=== PATIENT | male | born 1955 | race Two or more races ===

== ENCOUNTER 2020-08-23 17:00 | Inpatient (IN) | payer MEDICAID ==
[~2020-08-23] VITALS: Ht 172.7 cm; Wt 210.9 kg
[~2020-08-23 17:00] MED LIST: ASPI325T4 PO; BISA-13 PO; FURO20TA3 PO; LEV50T PO
[2020-08-23] MEDS ORDERED: ALBUTEROL SULF 2.5 MG/0.5ML(0.5%) NEB SOLN NEB ONE (18:15)
[2020-08-23] MEDS ORDERED: IPRATROPIUM BROM 0.5 MG/2.5ML INH SOL NEB ONE (18:15)
[2020-08-23] MEDS ORDERED: FUROSEMIDE 20 MG/2 ML VIAL IV ONE (18:45)
[2020-08-23 19:06] LABS: Albumin 2.9 g/dL (3.4-5.0); Anion Gap 1 (5-15); Blood Urea Nitrogen 27 mg/dL (7-18); Calcium 7.9 mg/dL (8.5-10.1); Chloride 98 mmol/L (98-107); Glucose 102 mg/dL (74-106); Magnesium 2.1 mg/dL (1.6-2.6); Potassium 4.4 mmol/L (3.5-5.1); Sodium 142 mmol/L (136-145)
[2020-08-23 19:07] LABS: Basophils # (auto) 0 10 ^3/uL (0-0.2); Basophils % (auto) 0.3 % (0.0-2.0); Eosinophils # (auto) 0.2 10 ^3/uL (0-0.8); Eosinophils % (auto) 3.3 % (0.0-7.0); Hematocrit 36.4 % (41.0-53.0); Hemoglobin 11.3 g/dL (13.5-17.5); Lymphocytes # (auto) 0.6 10 ^3/uL (0.4-5.4); Lymphocytes % (auto) 9.7 % (10.0-50.0); Mean Corpuscular Hemoglobin 28.3 pg (28.0-32.0); Mean Corpuscular Hgb Conc. 31.1 g/dL (32.0-36.0); Monocytes # (auto) 0.4 10 ^3/uL (0-1.3); Monocytes % (auto) 6.5 % (0.0-12.0); Neutrophils # (auto) 5.2 10 ^3/uL (1.6-8.6); Neutrophils % (auto) 80.2 % (37.0-80.0); Red Cell Distribution Width 15.4 % (11.8-14.3); White Blood Cell 6.5 10^3/uL (4.4-10.8)
[2020-08-23 19:08] LABS: Alanine Aminotransferase 17 U/L (16-61); Aspartate Aminotransferase 15 U/L (15-37); BUN/Creatinine Ratio 20.1; GFR African American 69 mL/min; GFR Non-African American 57 mL/min
[2020-08-23 19:13] LABS: Alkaline Phosphatase 87 U/L (45-117); Bilirubin, Total 0.5 mg/dL (0.2-1.0)
[2020-08-23 19:25] LABS: Carbon Dioxide 43 mmol/L (21-32)
[2020-08-23 20:20] VITALS: BP 144/85
[2020-08-23] MEDS ORDERED: MORPHINE SULF INJ 2 MG/ML SYRINGE 1ML IV PRN (22:00)
[2020-08-23] MEDS ORDERED: DOCUSATE SOD 100 MG CAP PO PRN (22:00)
[2020-08-23] MEDS ORDERED: NITROGLYCERIN 0.4 MG SL TAB SL PRN (22:00)
[2020-08-23] MEDS: FAMOTIDINE (10MG/ML) 2ML VL IV SCH (22:36)
[2020-08-23] MEDS: methylPREDNISolone SOD SUCC 40 MG/ML VL IV SCH (22:36)
[2020-08-23] MEDS: ASCORBIC ACID 500 MG TAB PO SCH (22:36)
[2020-08-23] MEDS: HEPARIN SODIUM (PORCINE) 5000 UNITS/ML 1ML VIAL SC SCH (22:40)
[2020-08-23 23:20] VITALS: BP 150/85
[2020-08-24] MEDS ORDERED: IPRIH IN (00:51)
[2020-08-24] MEDS ORDERED: POTA10TA32 PO (01:21)
[2020-08-24] MEDS ORDERED: FEXO-38 PO (01:21)
[2020-08-24] MEDS ORDERED: ATO40T PO (01:21)
[2020-08-24] MEDS ORDERED: DOCU1CAP31 PO (01:21)
[2020-08-24] MEDS ORDERED: POTA10TA51 PO (01:21)
[2020-08-24] MEDS ORDERED: IBUP800T27 PO (01:21)
[2020-08-24] MEDS ORDERED: FLU220IH INH (01:21)
[2020-08-24] MEDS ORDERED: HYDR10TA26 PO (01:21)
[2020-08-24] MEDS ORDERED: ALBU2TAB4 PO (01:21)
[2020-08-24] MEDS: IPRATROPIUM BROM 0.5 MG/2.5ML INH SOL NEB SCH ×6 (01:26→21:11)
[2020-08-24] MEDS: ALBUTEROL SULF 2.5 MG/0.5ML(0.5%) NEB SOLN NEB SCH ×6 (01:27→21:10)
[2020-08-24 02:56] VITALS: BP 150/85
[2020-08-24 05:00] VITALS: BP 137/71
[2020-08-24 06:00] LABS: Hematocrit 38.7 % (41.0-53.0); Hemoglobin 12.2 g/dL (13.5-17.5); Mean Corpuscular Hemoglobin 28.5 pg (28.0-32.0); Mean Corpuscular Hgb Conc. 31.5 g/dL (32.0-36.0); Mean Corpuscular Volume 90.5 fL (80.0-100.0); Red Blood Cells 4.27 10^6/uL (4.5-5.90); Red Cell Distribution Width 15.6 % (11.8-14.3); White Blood Cell 7.8 10^3/uL (4.4-10.8)
[2020-08-24 06:07] LABS: Basophils % (manual) 0 (0.0-2.0); Blast Cells 0; Eosinophils % (manual) 0 (0-7); Metamyelocytes % 0; Myelocytes % 0; Promyelocytes % 0; Reactive Lymphocytes 0
[2020-08-24 06:09] LABS: Potassium 4.6 mmol/L (3.5-5.1)
[2020-08-24 06:17] LABS: Albumin 2.8 g/dL (3.4-5.0); BUN/Creatinine Ratio 22.3; Bilirubin, Total 0.4 mg/dL (0.2-1.0); Calcium 8.1 mg/dL (8.5-10.1)
[2020-08-24] MEDS: HEPARIN SODIUM (PORCINE) 5000 UNITS/ML 1ML VIAL SC SCH ×3 (06:25→22:04)
[2020-08-24] MEDS: methylPREDNISolone SOD SUCC 40 MG/ML VL IV SCH ×3 (06:25→21:55)
[2020-08-24 06:53] LABS: Band Neutrophils % (manual) 6; Lymphocytes % (manual) 14 (10.0-50.0); Monocytes % (manual) 3 (0-12)
[2020-08-24] MEDS: LEVOTHYROXINE SODIUM 50 MCG TAB PO SCH (07:12)
[2020-08-24 09:00] VITALS: BP 123/74
[2020-08-24] MEDS: ASCORBIC ACID 500 MG TAB PO SCH ×2 (10:05→21:55)
[2020-08-24] MEDS: FAMOTIDINE (10MG/ML) 2ML VL IV SCH ×2 (10:05→21:54)
[2020-08-24] MEDS: FUROSEMIDE 40 MG/4 ML VIAL IV SCH (10:05)
[2020-08-24] MEDS: ZINC SULFATE 220mg CAP or TAB PO SCH (10:05)
[2020-08-24] MEDS: MULTIPLE VITAMIN TAB PO SCH (10:05)
[2020-08-24] MEDS: AZITHROMYCIN 250 MG TAB PO SCH (12:01)
[2020-08-24 13:00] VITALS: BP 135/71
[2020-08-24 17:00] VITALS: BP 151/71
[2020-08-25 05:00] VITALS: BP 150/76
[2020-08-25] MEDS: methylPREDNISolone SOD SUCC 40 MG/ML VL IV SCH ×3 (06:40→22:10)
[2020-08-25] MEDS: LEVOTHYROXINE SODIUM 50 MCG TAB PO SCH (06:41)
[2020-08-25] MEDS: HEPARIN SODIUM (PORCINE) 5000 UNITS/ML 1ML VIAL SC SCH ×3 (06:41→22:11)
[2020-08-25] MEDS: IPRATROPIUM BROM 0.5 MG/2.5ML INH SOL NEB SCH ×5 (06:42→22:18)
[2020-08-25] MEDS: ALBUTEROL SULF 2.5 MG/0.5ML(0.5%) NEB SOLN NEB SCH ×5 (06:42→22:18)
[2020-08-25 09:00] VITALS: BP 146/80
[2020-08-25] MEDS: FAMOTIDINE (10MG/ML) 2ML VL IV SCH ×2 (10:34→22:09)
[2020-08-25] MEDS: FUROSEMIDE 40 MG/4 ML VIAL IV SCH (10:34)
[2020-08-25] MEDS: MULTIPLE VITAMIN TAB PO SCH (10:35)
[2020-08-25] MEDS: ASCORBIC ACID 500 MG TAB PO SCH ×2 (10:35→22:10)
[2020-08-25] MEDS: ZINC SULFATE 220mg CAP or TAB PO SCH (10:35)
[2020-08-25] MEDS: AZITHROMYCIN 250 MG TAB PO SCH (10:35)
[2020-08-25 13:00] VITALS: BP 138/70
[2020-08-25] MEDS: ONDANSETRON HCL 4 MG/2 ML VIAL IV PRN ×2 (13:35→22:10)
[2020-08-25 16:52] VITALS: BP 129/65
[2020-08-25 22:00] VITALS: BP 132/80
[2020-08-25] MEDS: ACETAMINOPHEN 325 MG TAB PO PRN (22:20)
[2020-08-26 05:00] VITALS: BP 118/69
[2020-08-26] MEDS: IPRATROPIUM BROM 0.5 MG/2.5ML INH SOL NEB SCH ×5 (05:58→21:49)
[2020-08-26] MEDS: ALBUTEROL SULF 2.5 MG/0.5ML(0.5%) NEB SOLN NEB SCH ×5 (05:58→21:49)
[2020-08-26] MEDS: methylPREDNISolone SOD SUCC 40 MG/ML VL IV SCH ×3 (06:29→22:02)
[2020-08-26] MEDS: LEVOTHYROXINE SODIUM 50 MCG TAB PO SCH (06:30)
[2020-08-26] MEDS: HEPARIN SODIUM (PORCINE) 5000 UNITS/ML 1ML VIAL SC SCH ×3 (06:30→22:07)
[2020-08-26 08:56] VITALS: BP 129/68
[2020-08-26] MEDS: ZINC SULFATE 220mg CAP or TAB PO SCH (10:26)
[2020-08-26] MEDS: AZITHROMYCIN 250 MG TAB PO SCH (10:26)
[2020-08-26] MEDS: ASCORBIC ACID 500 MG TAB PO SCH ×2 (10:26→22:02)
[2020-08-26] MEDS: MULTIPLE VITAMIN TAB PO SCH (10:26)
[2020-08-26] MEDS: FAMOTIDINE (10MG/ML) 2ML VL IV SCH ×2 (10:27→22:02)
[2020-08-26] MEDS: FUROSEMIDE 40 MG/4 ML VIAL IV SCH (10:32)
[2020-08-26] MEDS: ACETAMINOPHEN 325 MG TAB PO PRN (10:34)
[2020-08-26] MEDS: HYDROcodone-ACET 5/325MG TAB PO PRN ×2 (11:18→20:25)
[2020-08-26 13:00] VITALS: BP 133/62
[2020-08-26 17:00] VITALS: BP 130/84
[2020-08-26] MEDS: ONDANSETRON HCL 4 MG/2 ML VIAL IV PRN (20:24)
[2020-08-26 21:02] VITALS: BP 130/84
[2020-08-26 22:00] VITALS: BP 149/68
[2020-08-27] MEDS: ONDANSETRON HCL 4 MG/2 ML VIAL IV PRN (00:24)
[2020-08-27 05:30] VITALS: BP 141/75
[2020-08-27] MEDS: LEVOTHYROXINE SODIUM 50 MCG TAB PO SCH (05:50)
[2020-08-27] MEDS: methylPREDNISolone SOD SUCC 40 MG/ML VL IV SCH ×3 (05:50→21:40)
[2020-08-27] MEDS: HEPARIN SODIUM (PORCINE) 5000 UNITS/ML 1ML VIAL SC SCH ×3 (05:51→21:41)
[2020-08-27] MEDS: ALBUTEROL SULF 2.5 MG/0.5ML(0.5%) NEB SOLN NEB SCH ×5 (06:37→22:14)
[2020-08-27] MEDS: IPRATROPIUM BROM 0.5 MG/2.5ML INH SOL NEB SCH ×5 (06:37→22:14)
[2020-08-27 09:00] VITALS: BP 139/67
[2020-08-27] MEDS: AZITHROMYCIN 250 MG TAB PO SCH (09:07)
[2020-08-27] MEDS: ZINC SULFATE 220mg CAP or TAB PO SCH (09:07)
[2020-08-27] MEDS: FUROSEMIDE 40 MG/4 ML VIAL IV SCH (09:07)
[2020-08-27] MEDS: ASCORBIC ACID 500 MG TAB PO SCH ×2 (09:07→21:40)
[2020-08-27] MEDS: FAMOTIDINE (10MG/ML) 2ML VL IV SCH ×2 (09:07→21:40)
[2020-08-27] MEDS: MULTIPLE VITAMIN TAB PO SCH (09:07)
[2020-08-27 09:09] LABS: Basophils # (auto) 0 10 ^3/uL (0-0.2); Basophils % (auto) 0.4 % (0.0-2.0); Eosinophils # (auto) 0 10 ^3/uL (0-0.8); Eosinophils % (auto) 0.1 % (0.0-7.0); Hematocrit 39.7 % (41.0-53.0); Hemoglobin 12.3 g/dL (13.5-17.5); Lymphocytes # (auto) 0.4 10 ^3/uL (0.4-5.4); Lymphocytes % (auto) 5.8 % (10.0-50.0); Mean Corpuscular Hemoglobin 28.3 pg (28.0-32.0); Mean Corpuscular Hgb Conc. 31.1 g/dL (32.0-36.0); Monocytes # (auto) 0.4 10 ^3/uL (0-1.3); Monocytes % (auto) 5.7 % (0.0-12.0); Neutrophils # (auto) 5.9 10 ^3/uL (1.6-8.6); Nucleated Red Blood Cells % 0.1 %; Red Blood Cells 4.36 10^6/uL (4.5-5.90); Red Cell Distribution Width 14.6 % (11.8-14.3); White Blood Cell 6.7 10^3/uL (4.4-10.8)
[2020-08-27 09:28] LABS: Albumin 2.9 g/dL (3.4-5.0); Calcium 8.5 mg/dL (8.5-10.1); Magnesium 2.7 mg/dL (1.6-2.6); Potassium 5.3 mmol/L (3.5-5.1)
[2020-08-27 09:31] LABS: BUN/Creatinine Ratio 28.5; Bilirubin, Total 0.6 mg/dL (0.2-1.0); Phosphorus 3.9 mg/dL (2.5-4.90); Total Protein 8.4 g/dL (6.4-8.2)
[2020-08-27 13:00] VITALS: BP 139/71
[2020-08-27 16:52] VITALS: BP 150/66
[2020-08-27 22:00] VITALS: BP 141/68
[2020-08-28 05:09] VITALS: BP 121/71
[2020-08-28] MEDS: HEPARIN SODIUM (PORCINE) 5000 UNITS/ML 1ML VIAL SC SCH ×3 (06:49→21:38)
[2020-08-28] MEDS: LEVOTHYROXINE SODIUM 50 MCG TAB PO SCH (06:49)
[2020-08-28] MEDS: ALBUTEROL SULF 2.5 MG/0.5ML(0.5%) NEB SOLN NEB SCH ×5 (07:12→22:45)
[2020-08-28] MEDS: IPRATROPIUM BROM 0.5 MG/2.5ML INH SOL NEB SCH ×5 (07:12→22:45)
[2020-08-28] MEDS: ASCORBIC ACID 500 MG TAB PO SCH ×2 (09:06→21:37)
[2020-08-28] MEDS: ZINC SULFATE 220mg CAP or TAB PO SCH (09:06)
[2020-08-28] MEDS: MULTIPLE VITAMIN TAB PO SCH (09:06)
[2020-08-28] MEDS: methylPREDNISolone SOD SUCC 40 MG/ML VL IV SCH ×2 (09:09→21:37)
[2020-08-28] MEDS: FAMOTIDINE (10MG/ML) 2ML VL IV SCH ×2 (09:09→21:37)
[2020-08-28] MEDS: FUROSEMIDE 40 MG/4 ML VIAL IV SCH (09:11)
[2020-08-28 11:49] LABS: Albumin 2.8 g/dL (3.4-5.0); Calcium 8.6 mg/dL (8.5-10.1); Potassium 4.6 mmol/L (3.5-5.1)
[2020-08-28 11:52] LABS: BUN/Creatinine Ratio 34.2; Bilirubin, Total 0.5 mg/dL (0.2-1.0); Total Protein 7.8 g/dL (6.4-8.2)
[2020-08-28 12:44] VITALS: BP 123/68
[2020-08-28 16:40] VITALS: BP 116/66
[2020-08-28 21:30] VITALS: BP 142/70
[2020-08-29 05:30] VITALS: BP 131/95
[2020-08-29] MEDS: ALBUTEROL SULF 2.5 MG/0.5ML(0.5%) NEB SOLN NEB SCH ×3 (06:06→18:41)
[2020-08-29] MEDS: IPRATROPIUM BROM 0.5 MG/2.5ML INH SOL NEB SCH ×3 (06:06→18:41)
[2020-08-29 06:10] LABS: Potassium 4.8 mmol/L (3.5-5.1)
[2020-08-29 06:17] LABS: Albumin 2.7 g/dL (3.4-5.0); BUN/Creatinine Ratio 34.7; Bilirubin, Total 0.6 mg/dL (0.2-1.0); Calcium 8.3 mg/dL (8.5-10.1); Total Protein 7.4 g/dL (6.4-8.2)
[2020-08-29] MEDS: HEPARIN SODIUM (PORCINE) 5000 UNITS/ML 1ML VIAL SC SCH ×2 (06:34→18:10)
[2020-08-29] MEDS: LEVOTHYROXINE SODIUM 50 MCG TAB PO SCH (06:34)
[2020-08-29 08:00] VITALS: BP 137/77
[2020-08-29 09:00] VITALS: BP 137/77
[2020-08-29] MEDS: ZINC SULFATE 220mg CAP or TAB PO SCH (10:02)
[2020-08-29] MEDS: methylPREDNISolone SOD SUCC 40 MG/ML VL IV SCH (10:02)
[2020-08-29] MEDS: FAMOTIDINE (10MG/ML) 2ML VL IV SCH (10:03)
[2020-08-29] MEDS: MULTIPLE VITAMIN TAB PO SCH (10:03)
[2020-08-29] MEDS: ASCORBIC ACID 500 MG TAB PO SCH (10:03)
[2020-08-29] MEDS: FUROSEMIDE 40 MG/4 ML VIAL IV SCH (10:03)
[2020-08-29 13:00] VITALS: BP 148/85
[2020-08-29 17:00] VITALS: BP 125/75
[2020-08-29 18:20] VITALS: BP 157/77
== END 2020-08-29 19:07 | disposition home health service (06) | DRG 133 ==
LOC: ER 17:00 → EDBD 17:00 → TELE-WESTW 22:11
PROVIDERS: ADMIT Nurse Practitioner Family; ATTEND Internal Medicine
PROC: 5A09357 Assistance with Respiratory Ventilation, Less than 24 Consecutive Hours, Continuous Positive Airway Pressure (ICD-10-PCS; principal; 2020-08-23)
PROC: 5A09357 Assistance with Respiratory Ventilation, Less than 24 Consecutive Hours, Continuous Positive Airway Pressure (ICD-10-PCS; 2020-08-24)
PROC: 5A09357 Assistance with Respiratory Ventilation, Less than 24 Consecutive Hours, Continuous Positive Airway Pressure (ICD-10-PCS; 2020-08-25)
PROC: 5A09357 Assistance with Respiratory Ventilation, Less than 24 Consecutive Hours, Continuous Positive Airway Pressure (ICD-10-PCS; 2020-08-26)
PROC: 5A09357 Assistance with Respiratory Ventilation, Less than 24 Consecutive Hours, Continuous Positive Airway Pressure (ICD-10-PCS; 2020-08-27)
PROC: 5A09357 Assistance with Respiratory Ventilation, Less than 24 Consecutive Hours, Continuous Positive Airway Pressure (ICD-10-PCS; 2020-08-28)
PROC: 5A09357 Assistance with Respiratory Ventilation, Less than 24 Consecutive Hours, Continuous Positive Airway Pressure (ICD-10-PCS; 2020-08-29)
DX: J96.21 Acute and chronic respiratory failure with hypoxia (principal); I50.23 Acute on chronic systolic (congestive) heart failure; E66.01 Morbid (severe) obesity due to excess calories; J44.1 Chronic obstructive pulmonary disease with (acute) exacerbation; J96.22 Acute and chronic respiratory failure with hypercapnia; I13.0 Hypertensive heart and chronic kidney disease with heart failure and stage 1 through stage 4 chronic kidney disease, or unspecified chronic kidney disease; N18.9 Chronic kidney disease, unspecified; E03.9 Hypothyroidism, unspecified; Z20.822 Contact with and (suspected) exposure to COVID-19; Z77.22 Contact with and (suspected) exposure to environmental tobacco smoke (acute) (chronic); R42 Dizziness and giddiness; Z95.0 Presence of cardiac pacemaker; Z68.44 Body mass index [BMI] 60.0-69.9, adult
CPT/HCPCS: 36415; 36600; 71045; 80053; 82805; 83735; 83880; 84100; 84443; 84484; 85007; 85025; 85027; 87426; 93005; 94640; 94660; 96374; 96375; 96376; 99291; G0378; J2405; J3490

== ENCOUNTER 2021-03-11 15:18 | Inpatient (IN) | payer MEDICAID ==
[~2021-03-11] VITALS: Ht 177.8 cm; Wt 206.0 kg
[~2021-03-11 15:18] MED LIST changes: +ALBU2TAB4 PO; +ATO40T PO; +DOCU1CAP22 PO; +FEXO-90 PO; +FLU220IH INH; +HYDR10TA26 PO; +IBUP800T27 PO; +IPRIH IN; +POTA10TA32 PO; +POTA10TA51 PO
[2021-03-11] MEDS ORDERED: ETOMIDATE (2MG/ML) 20ML VIAL IV ONE ×2 (15:27→15:30)
[2021-03-11] MEDS ORDERED: SUCCINYLCHOLINE CHLORIDE 20 MG/ML 10ML VIAL IV ONE ×2 (15:27→15:30)
[2021-03-11] MEDS ORDERED: MIDAZOLAM DRIP 50 mg/50mL 50 ML IV ONE (15:27)
[2021-03-11] MEDS: MIDAZOLAM DRIP 50 mg/50mL 50 ML IV SCH (15:52)
[2021-03-11] MEDS ORDERED: MIDAZOLAM HCL 5 MG/ML-1ML VIAL IV ONE (16:00)
[2021-03-11 16:18] LABS: Basophils # (auto) 0 10 ^3/uL (0-0.2); Basophils % (auto) 0.3 % (0.0-2.0); Eosinophils # (auto) 0 10 ^3/uL (0-0.8); Eosinophils % (auto) 0.4 % (0.0-7.0); Hematocrit 37.7 % (41.0-53.0); Hemoglobin 11.8 g/dL (13.5-17.5); Lymphocytes # (auto) 0.3 10 ^3/uL (0.4-5.4); Lymphocytes % (auto) 6.4 % (10.0-50.0); Mean Corpuscular Hemoglobin 28.9 pg (28.0-32.0); Mean Corpuscular Hgb Conc. 31.4 g/dL (32.0-36.0); Mean Corpuscular Volume 92.1 fL (80.0-100.0); Monocytes # (auto) 0.4 10 ^3/uL (0-1.3); Monocytes % (auto) 8.2 % (0.0-12.0); Neutrophils # (auto) 4.4 10 ^3/uL (1.6-8.6); Neutrophils % (auto) 84.7 % (37.0-80.0); Nucleated Red Blood Cells % 0.3 %; Red Blood Cells 4.09 10^6/uL (4.5-5.90); Red Cell Distribution Width 15.6 % (11.8-14.3); White Blood Cell 5.3 10^3/uL (4.4-10.8)
[2021-03-11 16:19] LABS: Calcium 8.2 mg/dL (8.5-10.1); Potassium 5.3 mmol/L (3.5-5.1)
[2021-03-11 16:21] LABS: BUN/Creatinine Ratio 16.2; Bilirubin, Total 1.1 mg/dL (0.2-1.0); Total Protein 8.7 g/dL (6.4-8.2)
[2021-03-11] MEDS ORDERED: ALBUTEROL SULF 2.5 MG/0.5ML(0.5%) NEB SOLN NEB ONE (17:00)
[2021-03-11] MEDS ORDERED: CALCIUM GLUC 1,000mg/50ml-NS 50 ML IV ONE (17:00)
[2021-03-11] MEDS ORDERED: SODIUM ZIRCONIUM CYCL 10 GM PAK PO ONE (17:00)
[2021-03-11] MEDS ORDERED: SODIUM BICARBONATE 8.4% INJ 50ML SYRINGE IV ONE (17:00)
[2021-03-11] MEDS ORDERED: FUROSEMIDE 20 MG/2 ML VIAL IV ONE (17:00)
[2021-03-11] MEDS ORDERED: PROPOFOL 100 ML IV ONE (17:56)
[2021-03-11] MEDS ORDERED: PROPOFOL 100 ML IV SCH (18:00)
[2021-03-11 18:17] VITALS: BP 111/50
[2021-03-11 18:17] LABS: Urine Bacteria NONE SEEN /hpf (None Seen); Urine Blood Negative /uL (Negative); Urine Mucus FEW (None Seen); Urine WBC 4 /hpf (0 - 3)
[2021-03-11] MEDS: PROPOFOL 100 ML IV SCH (20:00)
[2021-03-11] MEDS ORDERED: MORPHINE SULFATE INJECTION 2 MG/ML SYRG IV PRN (20:00)
[2021-03-11] MEDS ORDERED: ACETAMINOPHEN 500 MG TAB PO PRN (20:00)
[2021-03-11] MEDS ORDERED: REMDESIVIR PER PHARMACY 0 ML IV SCH (20:00)
[2021-03-11] MEDS ORDERED: NITROGLYCERIN 0.4 MG SL TAB SL PRN (20:00)
[2021-03-11] MEDS: fentaNYL Drip 2500mCg/250mlNS 250 ML IV SCH (20:00)
[2021-03-11] MEDS: NOREPINEPHRINE 8 MG/250ML KIT 250 ML IV SCH (20:00)
[2021-03-11] MEDS: AZITHROMYCIN 500MG/ 250ML 250 ML IV SCH (20:14)
[2021-03-11] MEDS: PANTOPRAZOLE 40 MG/10 ML VIAL INJ IV SCH (20:15)
[2021-03-11] MEDS: ZINC SULFATE 220mg CAP or TAB PO SCH (20:15)
[2021-03-11] MEDS: DexAMETHasone SOD PHOS 10MG/1ML VIAL INJ IV SCH (20:16)
[2021-03-11] MEDS: CHOLECALCIFEROL (VITD3) 2,000 UNIT CAP/TAB PO SCH (20:16)
[2021-03-11] MEDS: ASCORBIC ACID 1,000 MG TAB PO SCH (20:16)
[2021-03-11] MEDS ORDERED: REMDESIVIR 200 MG in NS 210ml LOADING DOSE ADULT IV ONE (21:30)
[2021-03-11] MEDS: BUDESONIDE (INHALATION) 180 MCG IH IN SCH (22:00)
[2021-03-11] MEDS: ENOXAPARIN SOD 40 MG/0.4 ML SYRINGE SC SCH (22:26)
[2021-03-11 22:50] VITALS: BP 128/57
[2021-03-12 01:25] VITALS: BP 129/66
[2021-03-12] MEDS: PROPOFOL 100 ML IV SCH ×2 (06:27→23:00)
[2021-03-12 06:30] VITALS: BP 148/62
[2021-03-12 06:54] LABS: Basophils # (auto) 0 10 ^3/uL (0-0.2); Basophils % (auto) 0.3 % (0.0-2.0); Eosinophils # (auto) 0 10 ^3/uL (0-0.8); Hematocrit 33.1 % (41.0-53.0); Hemoglobin 10.1 g/dL (13.5-17.5); Lymphocytes # (auto) 0.2 10 ^3/uL (0.4-5.4); Lymphocytes % (auto) 6.7 % (10.0-50.0); Mean Corpuscular Hemoglobin 27.5 pg (28.0-32.0); Mean Corpuscular Hgb Conc. 30.5 g/dL (32.0-36.0); Monocytes # (auto) 0.2 10 ^3/uL (0-1.3); Monocytes % (auto) 7.5 % (0.0-12.0); Neutrophils # (auto) 2.8 10 ^3/uL (1.6-8.6); Neutrophils % (auto) 85.5 % (37.0-80.0); Nucleated Red Blood Cells % 0.1 %; Red Blood Cells 3.67 10^6/uL (4.5-5.90); Red Cell Distribution Width 14.9 % (11.8-14.3); White Blood Cell 3.2 10^3/uL (4.4-10.8)
[2021-03-12 07:10] LABS: Albumin 2.3 g/dL (3.4-5.0); Calcium 8.4 mg/dL (8.5-10.1)
[2021-03-12 07:26] LABS: Bilirubin, Total 1.1 mg/dL (0.2-1.0); Total Protein 6.9 g/dL (6.4-8.2)
[2021-03-12 07:31] LABS: BUN/Creatinine Ratio 19.3
[2021-03-12 09:22] VITALS: BP 127/67
[2021-03-12] MEDS: DexAMETHasone SOD PHOS 10MG/1ML VIAL INJ IV SCH (09:53)
[2021-03-12] MEDS: ZINC SULFATE 220mg CAP or TAB PO SCH (09:54)
[2021-03-12] MEDS: AZITHROMYCIN 500MG/ 250ML 250 ML IV SCH (09:54)
[2021-03-12] MEDS: ASCORBIC ACID 1,000 MG TAB PO SCH (09:54)
[2021-03-12] MEDS: PANTOPRAZOLE 40 MG/10 ML VIAL INJ IV SCH (09:54)
[2021-03-12] MEDS: CHOLECALCIFEROL (VITD3) 2,000 UNIT CAP/TAB PO SCH (09:54)
[2021-03-12] MEDS: ENOXAPARIN SOD 40 MG/0.4 ML SYRINGE SC SCH ×2 (09:55→22:00)
[2021-03-12] MEDS: BUDESONIDE (INHALATION) 180 MCG IH IN SCH (10:00)
[2021-03-12] MEDS: fentaNYL Drip 2500mCg/250mlNS 250 ML IV SCH (12:10)
[2021-03-12 14:45] VITALS: BP 113/53
[2021-03-12] MEDS ORDERED: REMDESIVIR 100mg 100 MG in SODIUM CHL 0.9% 230 ML IV SCH (15:00)
[2021-03-12] MEDS: MIDAZOLAM DRIP 50 mg/50mL 50 ML IV SCH (15:36)
[2021-03-12 18:00] VITALS: BP 138/65
[2021-03-12] MEDS: FUROSEMIDE 100 MG/10ML VIAL IV SCH (18:00)
[2021-03-12 22:06] VITALS: BP 122/64
[2021-03-13] VITALS (31 sets, daily range): BP systolic 97–139; BP diastolic 53–79
[2021-03-13] MEDS: FUROSEMIDE 100 MG/10ML VIAL IV SCH ×2 (05:03→19:06)
[2021-03-13] MEDS: NOREPINEPHRINE 8 MG/250ML KIT 250 ML IV SCH ×2 (07:55→20:00)
[2021-03-13] MEDS: PANTOPRAZOLE 40 MG/10 ML VIAL INJ IV SCH (09:52)
[2021-03-13] MEDS: DexAMETHasone SOD PHOS 10MG/1ML VIAL INJ IV SCH (09:52)
[2021-03-13] MEDS: AZITHROMYCIN 500MG/ 250ML 250 ML IV SCH (09:52)
[2021-03-13] MEDS: PROPOFOL 100 ML IV SCH ×2 (09:55→15:34)
[2021-03-13] MEDS: BUDESONIDE (INHALATION) 0.5 MG/2 ML NEB NEB SCH ×3 (10:00→22:55)
[2021-03-13] MEDS: ENOXAPARIN SOD 40 MG/0.4 ML SYRINGE SC SCH ×2 (10:11→22:18)
[2021-03-13] MEDS: ZINC SULFATE 220mg CAP or TAB PO SCH (10:11)
[2021-03-13] MEDS: ASCORBIC ACID 1,000 MG TAB PO SCH (10:11)
[2021-03-13] MEDS: CHOLECALCIFEROL (VITD3) 2,000 UNIT CAP/TAB PO SCH (10:11)
[2021-03-13] MEDS: MIDAZOLAM DRIP 50 mg/50mL 50 ML IV SCH (11:43)
[2021-03-13] MEDS: fentaNYL Drip 2500mCg/250mlNS 250 ML IV SCH (20:00)
[2021-03-13] MEDS: ALBUTEROL SULF 2.5 MG/0.5ML(0.5%) NEB SOLN NEB PRN (22:55)
[2021-03-14] VITALS (76 sets, daily range): BP systolic 103–132; BP diastolic 58–78
[2021-03-14 04:59] LABS: BUN/Creatinine Ratio 28.8; Calcium 8.3 mg/dL (8.5-10.1)
[2021-03-14] MEDS: BUDESONIDE (INHALATION) 0.5 MG/2 ML NEB NEB SCH ×2 (06:34→19:00)
[2021-03-14] MEDS: DexAMETHasone SOD PHOS 10MG/1ML VIAL INJ IV SCH (10:31)
[2021-03-14] MEDS: AZITHROMYCIN 500MG/ 250ML 250 ML IV SCH (10:31)
[2021-03-14] MEDS: PANTOPRAZOLE 40 MG/10 ML VIAL INJ IV SCH (10:31)
[2021-03-14] MEDS: ASCORBIC ACID 1,000 MG TAB PO SCH (10:32)
[2021-03-14] MEDS: ZINC SULFATE 220mg CAP or TAB PO SCH (10:32)
[2021-03-14] MEDS: CHOLECALCIFEROL (VITD3) 2,000 UNIT CAP/TAB PO SCH (10:32)
[2021-03-14] MEDS: ENOXAPARIN SOD 40 MG/0.4 ML SYRINGE SC SCH ×2 (10:33→21:06)
[2021-03-14] MEDS: MIDAZOLAM DRIP 50 mg/50mL 50 ML IV SCH ×2 (15:52→19:00)
[2021-03-14] MEDS: PROPOFOL 100 ML IV SCH (18:59)
[2021-03-14] MEDS: NOREPINEPHRINE 8 MG/250ML KIT 250 ML IV SCH (20:00)
[2021-03-14] MEDS: fentaNYL Drip 2500mCg/250mlNS 250 ML IV SCH (20:00)
[2021-03-15] VITALS (60 sets, daily range): BP systolic 102–135; BP diastolic 57–77
[2021-03-15] MEDS: PROPOFOL 100 ML IV SCH ×3 (04:15→16:09)
[2021-03-15] MEDS: BUDESONIDE (INHALATION) 0.5 MG/2 ML NEB NEB SCH ×2 (06:52→19:05)
[2021-03-15] MEDS: MIDAZOLAM DRIP 50 mg/50mL 50 ML IV SCH (09:57)
[2021-03-15] MEDS: ENOXAPARIN SOD 40 MG/0.4 ML SYRINGE SC SCH ×2 (10:00→21:37)
[2021-03-15] MEDS: PANTOPRAZOLE 40 MG/10 ML VIAL INJ IV SCH (10:02)
[2021-03-15] MEDS: DexAMETHasone SOD PHOS 10MG/1ML VIAL INJ IV SCH (10:02)
[2021-03-15] MEDS: AZITHROMYCIN 500MG/ 250ML 250 ML IV SCH (10:02)
[2021-03-15] MEDS: CHOLECALCIFEROL (VITD3) 2,000 UNIT CAP/TAB PO SCH (10:03)
[2021-03-15] MEDS: ZINC SULFATE 220mg CAP or TAB PO SCH (10:03)
[2021-03-15] MEDS: ASCORBIC ACID 1,000 MG TAB PO SCH (10:03)
[2021-03-15 12:02] LABS: Basophils # (auto) 0 10 ^3/uL (0-0.2); Basophils % (auto) 0.3 % (0.0-2.0); Eosinophils # (auto) 0 10 ^3/uL (0-0.8); Eosinophils % (auto) 0.2 % (0.0-7.0); Hematocrit 40.2 % (41.0-53.0); Hemoglobin 12.5 g/dL (13.5-17.5); Lymphocytes # (auto) 0.6 10 ^3/uL (0.4-5.4); Lymphocytes % (auto) 12.8 % (10.0-50.0); Mean Corpuscular Hemoglobin 28.5 pg (28.0-32.0); Mean Corpuscular Hgb Conc. 31.1 g/dL (32.0-36.0); Mean Corpuscular Volume 91.6 fL (80.0-100.0); Monocytes # (auto) 0.6 10 ^3/uL (0-1.3); Monocytes % (auto) 12.4 % (0.0-12.0); Neutrophils # (auto) 3.6 10 ^3/uL (1.6-8.6); Neutrophils % (auto) 74.3 % (37.0-80.0); Red Blood Cells 4.39 10^6/uL (4.5-5.90); Red Cell Distribution Width 14.8 % (11.8-14.3); White Blood Cell 4.9 10^3/uL (4.4-10.8)
[2021-03-15 12:10] LABS: Albumin 2.4 g/dL (3.4-5.0); Calcium 8.1 mg/dL (8.5-10.1); Potassium 5.2 mmol/L (3.5-5.1)
[2021-03-15 12:13] LABS: BUN/Creatinine Ratio 30.4; Total Protein 7.5 g/dL (6.4-8.2)
[2021-03-15] MEDS: ALBUTEROL SULF 2.5 MG/0.5ML(0.5%) NEB SOLN NEB PRN (19:05)
[2021-03-15] MEDS: fentaNYL Drip 2500mCg/250mlNS 250 ML IV SCH (20:00)
[2021-03-15] MEDS: NOREPINEPHRINE 8 MG/250ML KIT 250 ML IV SCH (20:00)
[2021-03-15] MEDS: D5W/SOD CHLO 0.9% 1,000 ML IV SCH (20:08)
[2021-03-16] VITALS (53 sets, daily range): BP systolic 91–121; BP diastolic 45–70
[2021-03-16] MEDS: BUDESONIDE (INHALATION) 0.5 MG/2 ML NEB NEB SCH ×2 (10:00→22:17)
[2021-03-16] MEDS: ZINC SULFATE 220mg CAP or TAB PO SCH (11:12)
[2021-03-16] MEDS: ASCORBIC ACID 1,000 MG TAB PO SCH (11:12)
[2021-03-16] MEDS: CHOLECALCIFEROL (VITD3) 2,000 UNIT CAP/TAB PO SCH (11:12)
[2021-03-16] MEDS: ENOXAPARIN SOD 40 MG/0.4 ML SYRINGE SC SCH ×2 (11:13→21:14)
[2021-03-16] MEDS: DexAMETHasone SOD PHOS 10MG/1ML VIAL INJ IV SCH (11:13)
[2021-03-16] MEDS: PANTOPRAZOLE 40 MG/10 ML VIAL INJ IV SCH (11:13)
[2021-03-16] MEDS: MIDAZOLAM DRIP 50 mg/50mL 50 ML IV SCH (15:30)
[2021-03-16] MEDS: NOREPINEPHRINE 8 MG/250ML KIT 250 ML IV SCH (20:00)
[2021-03-16] MEDS: fentaNYL Drip 2500mCg/250mlNS 250 ML IV SCH (20:00)
[2021-03-16] MEDS: D5W/SOD CHLO 0.9% 1,000 ML IV SCH (21:13)
[2021-03-16] MEDS: PROPOFOL 100 ML IV SCH (21:14)
[2021-03-16] MEDS: ALBUTEROL SULF 2.5 MG/0.5ML(0.5%) NEB SOLN NEB PRN (22:17)
[2021-03-17] VITALS (87 sets, daily range): BP systolic 91–141; BP diastolic 55–80
[2021-03-17 04:50] LABS: BUN/Creatinine Ratio 32.4; Calcium 8.2 mg/dL (8.5-10.1); Potassium 4.3 mmol/L (3.5-5.1)
[2021-03-17] MEDS: ALBUTEROL SULF 2.5 MG/0.5ML(0.5%) NEB SOLN NEB PRN ×2 (06:10→22:29)
[2021-03-17] MEDS: BUDESONIDE (INHALATION) 0.5 MG/2 ML NEB NEB SCH ×2 (06:10→22:29)
[2021-03-17 08:53] LABS: Basophils # (auto) 0 10 ^3/uL (0-0.2); Basophils % (auto) 0.9 % (0.0-2.0); Eosinophils # (auto) 0 10 ^3/uL (0-0.8); Eosinophils % (auto) 0.7 % (0.0-7.0); Hematocrit 34.4 % (41.0-53.0); Hemoglobin 10.7 g/dL (13.5-17.5); Lymphocytes # (auto) 0.5 10 ^3/uL (0.4-5.4); Lymphocytes % (auto) 8.7 % (10.0-50.0); Mean Corpuscular Hemoglobin 27.9 pg (28.0-32.0); Mean Corpuscular Hgb Conc. 31.2 g/dL (32.0-36.0); Mean Corpuscular Volume 89.5 fL (80.0-100.0); Monocytes # (auto) 0.5 10 ^3/uL (0-1.3); Monocytes % (auto) 8.7 % (0.0-12.0); Neutrophils # (auto) 4.2 10 ^3/uL (1.6-8.6); Nucleated Red Blood Cells % 0.2 %; Red Blood Cells 3.84 10^6/uL (4.5-5.90); Red Cell Distribution Width 14.9 % (11.8-14.3); White Blood Cell 5.2 10^3/uL (4.4-10.8)
[2021-03-17] MEDS: DexAMETHasone SOD PHOS 10MG/1ML VIAL INJ IV SCH (09:49)
[2021-03-17] MEDS: ENOXAPARIN SOD 40 MG/0.4 ML SYRINGE SC SCH ×2 (09:49→21:24)
[2021-03-17] MEDS: CHOLECALCIFEROL (VITD3) 2,000 UNIT CAP/TAB PO SCH (09:49)
[2021-03-17] MEDS: ASCORBIC ACID 1,000 MG TAB PO SCH (09:49)
[2021-03-17] MEDS: ZINC SULFATE 220mg CAP or TAB PO SCH (09:49)
[2021-03-17] MEDS: PANTOPRAZOLE 40 MG/10 ML VIAL INJ IV SCH (09:49)
[2021-03-17] MEDS: PROPOFOL 100 ML IV SCH ×2 (11:00→23:14)
[2021-03-17] MEDS: D5W/SOD CHLO 0.9% 1,000 ML IV SCH (14:38)
[2021-03-17] MEDS: MIDAZOLAM DRIP 50 mg/50mL 50 ML IV SCH (20:00)
[2021-03-17] MEDS: NOREPINEPHRINE 8 MG/250ML KIT 250 ML IV SCH (20:00)
[2021-03-17] MEDS: fentaNYL Drip 2500mCg/250mlNS 250 ML IV SCH (20:00)
[2021-03-18] VITALS (64 sets, daily range): BP systolic 93–138; BP diastolic 43–73
[2021-03-18 03:53] LABS: Basophils # (auto) 0 10 ^3/uL (0-0.2); Eosinophils # (auto) 0 10 ^3/uL (0-0.8)
[2021-03-18 03:59] LABS: Basophils % (auto) 0.1 % (0.0-2.0); Eosinophils % (auto) 0.9 % (0.0-7.0); Hemoglobin 11.3 g/dL (13.5-17.5); Lymphocytes # (auto) 0.5 10 ^3/uL (0.4-5.4); Lymphocytes % (auto) 9.6 % (10.0-50.0); Mean Corpuscular Hemoglobin 29.3 pg (28.0-32.0); Mean Corpuscular Hgb Conc. 33.1 g/dL (32.0-36.0); Mean Corpuscular Volume 88.5 fL (80.0-100.0); Monocytes # (auto) 0.6 10 ^3/uL (0-1.3); Monocytes % (auto) 11.4 % (0.0-12.0); Nucleated Red Blood Cells % 0.3 %; Red Blood Cells 3.85 10^6/uL (4.5-5.90); Red Cell Distribution Width 14.9 % (11.8-14.3); White Blood Cell 5.1 10^3/uL (4.4-10.8)
[2021-03-18 04:07] LABS: Calcium 8.3 mg/dL (8.5-10.1); Potassium 4.2 mmol/L (3.5-5.1)
[2021-03-18 04:22] LABS: BUN/Creatinine Ratio 32.3; CRP High Sensitivity 2.86 mg/dL (< 0.3)
[2021-03-18] MEDS: D5W/SOD CHLO 0.9% 1,000 ML IV SCH (05:40)
[2021-03-18] MEDS: ALBUTEROL SULF 2.5 MG/0.5ML(0.5%) NEB SOLN NEB PRN ×2 (06:10→22:28)
[2021-03-18] MEDS: BUDESONIDE (INHALATION) 0.5 MG/2 ML NEB NEB SCH ×2 (06:10→22:28)
[2021-03-18] MEDS: DexAMETHasone SOD PHOS 10MG/1ML VIAL INJ IV SCH (10:29)
[2021-03-18] MEDS: PANTOPRAZOLE 40 MG/10 ML VIAL INJ IV SCH (10:29)
[2021-03-18] MEDS: ASCORBIC ACID 1,000 MG TAB PO SCH (10:29)
[2021-03-18] MEDS: ZINC SULFATE 220mg CAP or TAB PO SCH (10:29)
[2021-03-18] MEDS: CHOLECALCIFEROL (VITD3) 2,000 UNIT CAP/TAB PO SCH (10:29)
[2021-03-18] MEDS: ENOXAPARIN SOD 40 MG/0.4 ML SYRINGE SC SCH ×2 (10:29→21:32)
[2021-03-18] MEDS: PROPOFOL 100 ML IV SCH ×2 (14:00→20:00)
[2021-03-18] MEDS: MIDAZOLAM DRIP 50 mg/50mL 50 ML IV SCH (15:30)
[2021-03-18] MEDS: NOREPINEPHRINE 8 MG/250ML KIT 250 ML IV SCH (19:59)
[2021-03-18] MEDS: fentaNYL Drip 2500mCg/250mlNS 250 ML IV SCH (19:59)
[2021-03-19] VITALS (13 sets, daily range): BP systolic 97–135; BP diastolic 44–76
[2021-03-19] MEDS: D5W/SOD CHLO 0.9% 1,000 ML IV SCH ×2 (02:50→23:48)
[2021-03-19 04:35] LABS: Basophils # (auto) 0 10 ^3/uL (0-0.2); Basophils % (auto) 0.1 % (0.0-2.0); Eosinophils # (auto) 0.1 10 ^3/uL (0-0.8); Eosinophils % (auto) 1.4 % (0.0-7.0); Hematocrit 34.5 % (41.0-53.0); Hemoglobin 11.1 g/dL (13.5-17.5); Lymphocytes # (auto) 0.7 10 ^3/uL (0.4-5.4); Lymphocytes % (auto) 11.3 % (10.0-50.0); Mean Corpuscular Hemoglobin 28.8 pg (28.0-32.0); Mean Corpuscular Hgb Conc. 32.3 g/dL (32.0-36.0); Mean Corpuscular Volume 89.3 fL (80.0-100.0); Monocytes # (auto) 0.7 10 ^3/uL (0-1.3); Monocytes % (auto) 11.8 % (0.0-12.0); Neutrophils # (auto) 4.4 10 ^3/uL (1.6-8.6); Neutrophils % (auto) 75.4 % (37.0-80.0); Red Blood Cells 3.87 10^6/uL (4.5-5.90); Red Cell Distribution Width 14.8 % (11.8-14.3); White Blood Cell 5.8 10^3/uL (4.4-10.8)
[2021-03-19 04:50] LABS: Calcium 8.1 mg/dL (8.5-10.1); Potassium 4.5 mmol/L (3.5-5.1)
[2021-03-19] MEDS: BUDESONIDE (INHALATION) 0.5 MG/2 ML NEB NEB SCH ×2 (06:14→21:53)
[2021-03-19] MEDS: ALBUTEROL SULF 2.5 MG/0.5ML(0.5%) NEB SOLN NEB PRN ×2 (06:14→21:53)
[2021-03-19] MEDS: PANTOPRAZOLE 40 MG/10 ML VIAL INJ IV SCH (09:21)
[2021-03-19] MEDS: ASCORBIC ACID 1,000 MG TAB PO SCH (09:21)
[2021-03-19] MEDS: ZINC SULFATE 220mg CAP or TAB PO SCH (09:22)
[2021-03-19] MEDS: CHOLECALCIFEROL (VITD3) 2,000 UNIT CAP/TAB PO SCH (09:22)
[2021-03-19] MEDS: DexAMETHasone SOD PHOS 10MG/1ML VIAL INJ IV SCH (09:22)
[2021-03-19] MEDS: ENOXAPARIN SOD 40 MG/0.4 ML SYRINGE SC SCH ×2 (09:23→22:20)
[2021-03-20 05:00] VITALS: BP 130/59
[2021-03-20] MEDS: BUDESONIDE (INHALATION) 0.5 MG/2 ML NEB NEB SCH ×2 (06:10→19:00)
[2021-03-20] MEDS: ALBUTEROL SULF 2.5 MG/0.5ML(0.5%) NEB SOLN NEB PRN ×3 (07:05→19:01)
[2021-03-20 09:00] VITALS: BP 138/68
[2021-03-20] MEDS: CHOLECALCIFEROL (VITD3) 2,000 UNIT CAP/TAB PO SCH (10:59)
[2021-03-20] MEDS: PANTOPRAZOLE 40 MG/10 ML VIAL INJ IV SCH (10:59)
[2021-03-20] MEDS: ASCORBIC ACID 1,000 MG TAB PO SCH (10:59)
[2021-03-20] MEDS: ENOXAPARIN SOD 40 MG/0.4 ML SYRINGE SC SCH ×2 (10:59→21:25)
[2021-03-20] MEDS: DexAMETHasone SOD PHOS 10MG/1ML VIAL INJ IV SCH (10:59)
[2021-03-20] MEDS: ZINC SULFATE 220mg CAP or TAB PO SCH (10:59)
[2021-03-20 13:00] VITALS: BP 124/66
[2021-03-20 17:00] VITALS: BP 128/67
[2021-03-20] MEDS: D5W/SOD CHLO 0.9% 1,000 ML IV SCH (21:25)
[2021-03-20] MEDS: DOCUSATE SOD 100 MG CAP PO SCH (21:25)
[2021-03-20 22:12] VITALS: BP 141/75
[2021-03-21 05:14] VITALS: BP 147/72
[2021-03-21] MEDS: ALBUTEROL SULF 2.5 MG/0.5ML(0.5%) NEB SOLN NEB PRN ×2 (06:23→13:32)
[2021-03-21] MEDS: BUDESONIDE (INHALATION) 0.5 MG/2 ML NEB NEB SCH ×2 (06:24→22:00)
[2021-03-21 09:00] VITALS: BP 155/87
[2021-03-21] MEDS: PANTOPRAZOLE 40 MG/10 ML VIAL INJ IV SCH (09:35)
[2021-03-21] MEDS: ASCORBIC ACID 1,000 MG TAB PO SCH (09:35)
[2021-03-21] MEDS: ZINC SULFATE 220mg CAP or TAB PO SCH (09:35)
[2021-03-21] MEDS: DexAMETHasone SOD PHOS 10MG/1ML VIAL INJ IV SCH (09:35)
[2021-03-21] MEDS: DOCUSATE SOD 100 MG CAP PO SCH ×2 (09:35→22:44)
[2021-03-21] MEDS: CHOLECALCIFEROL (VITD3) 2,000 UNIT CAP/TAB PO SCH (09:35)
[2021-03-21] MEDS: LACTULOSE 20Gm/30ML SOLN PO SCH (09:35)
[2021-03-21] MEDS: ENOXAPARIN SOD 40 MG/0.4 ML SYRINGE SC SCH ×2 (09:36→22:44)
[2021-03-21 13:00] VITALS: BP 154/86
[2021-03-21] MEDS ORDERED: MAGNESIUM CITRATE SOLUTION 300 ML BTL PO ONE (13:30)
[2021-03-21] MEDS: D5W/SOD CHLO 0.9% 1,000 ML IV SCH (16:08)
[2021-03-21 17:00] VITALS: BP 115/98
[2021-03-21 21:22] VITALS: BP 153/76
[2021-03-22 05:00] VITALS: BP 117/65
[2021-03-22] MEDS: ALBUTEROL SULF 2.5 MG/0.5ML(0.5%) NEB SOLN NEB PRN ×4 (05:44→23:24)
[2021-03-22] MEDS: BUDESONIDE (INHALATION) 0.5 MG/2 ML NEB NEB SCH ×2 (05:44→18:35)
[2021-03-22 09:00] VITALS: BP 140/66
[2021-03-22] MEDS: LACTULOSE 20Gm/30ML SOLN PO SCH (09:09)
[2021-03-22] MEDS: DexAMETHasone SOD PHOS 10MG/1ML VIAL INJ IV SCH (09:09)
[2021-03-22] MEDS: ENOXAPARIN SOD 40 MG/0.4 ML SYRINGE SC SCH ×2 (09:09→21:18)
[2021-03-22] MEDS: ASCORBIC ACID 1,000 MG TAB PO SCH (09:09)
[2021-03-22] MEDS: ZINC SULFATE 220mg CAP or TAB PO SCH (09:09)
[2021-03-22] MEDS: PANTOPRAZOLE 40 MG/10 ML VIAL INJ IV SCH (09:09)
[2021-03-22] MEDS: CHOLECALCIFEROL (VITD3) 2,000 UNIT CAP/TAB PO SCH (09:09)
[2021-03-22] MEDS: DOCUSATE SOD 100 MG CAP PO SCH ×2 (09:09→21:18)
[2021-03-22 13:00] VITALS: BP 125/75
[2021-03-22 16:39] VITALS: BP 118/70
[2021-03-22 22:00] VITALS: BP 149/72
[2021-03-23 05:00] VITALS: BP 121/58
[2021-03-23 05:36] LABS: Basophils # (auto) 0 10 ^3/uL (0-0.2); Basophils % (auto) 0.5 % (0.0-2.0); Eosinophils # (auto) 0.1 10 ^3/uL (0-0.8); Eosinophils % (auto) 1.9 % (0.0-7.0); Hematocrit 31.8 % (41.0-53.0); Hemoglobin 10.2 g/dL (13.5-17.5); Lymphocytes # (auto) 0.6 10 ^3/uL (0.4-5.4); Lymphocytes % (auto) 15.1 % (10.0-50.0); Mean Corpuscular Hemoglobin 28.5 pg (28.0-32.0); Mean Corpuscular Volume 89.1 fL (80.0-100.0); Monocytes # (auto) 0.5 10 ^3/uL (0-1.3); Monocytes % (auto) 11.6 % (0.0-12.0); Neutrophils % (auto) 70.9 % (37.0-80.0); Potassium 4.9 mmol/L (3.5-5.1); Red Blood Cells 3.57 10^6/uL (4.5-5.90); Red Cell Distribution Width 14.1 % (11.8-14.3); White Blood Cell 4.2 10^3/uL (4.4-10.8)
[2021-03-23 05:46] LABS: BUN/Creatinine Ratio 18.4; Bilirubin, Total 0.6 mg/dL (0.2-1.0); Calcium 7.9 mg/dL (8.5-10.1); Total Protein 6.4 g/dL (6.4-8.2)
[2021-03-23] MEDS: ALBUTEROL SULF 2.5 MG/0.5ML(0.5%) NEB SOLN NEB PRN ×4 (05:57→20:20)
[2021-03-23] MEDS: BUDESONIDE (INHALATION) 0.5 MG/2 ML NEB NEB SCH ×2 (05:57→20:20)
[2021-03-23 09:00] VITALS: BP 107/50
[2021-03-23] MEDS: DexAMETHasone SOD PHOS 10MG/1ML VIAL INJ IV SCH (10:35)
[2021-03-23] MEDS: LACTULOSE 20Gm/30ML SOLN PO SCH (10:35)
[2021-03-23] MEDS: ZINC SULFATE 220mg CAP or TAB PO SCH (10:35)
[2021-03-23] MEDS: PANTOPRAZOLE 40 MG/10 ML VIAL INJ IV SCH (10:35)
[2021-03-23] MEDS: DOCUSATE SOD 100 MG CAP PO SCH ×2 (10:36→22:15)
[2021-03-23] MEDS: ASCORBIC ACID 1,000 MG TAB PO SCH (10:37)
[2021-03-23] MEDS: CHOLECALCIFEROL (VITD3) 2,000 UNIT CAP/TAB PO SCH (10:37)
[2021-03-23 13:00] VITALS: BP 132/63
[2021-03-23 17:00] VITALS: BP 137/69
[2021-03-23 22:00] VITALS: BP 141/65
[2021-03-24 05:00] VITALS: BP 134/75
[2021-03-24] MEDS: ALBUTEROL SULF 2.5 MG/0.5ML(0.5%) NEB SOLN NEB PRN ×4 (06:57→19:08)
[2021-03-24] MEDS: BUDESONIDE (INHALATION) 0.5 MG/2 ML NEB NEB SCH ×2 (06:57→09:06)
[2021-03-24 08:00] VITALS: BP 156/75
[2021-03-24] MEDS: methylPREDNISolone SOD SUCC 40 MG/ML VL IV SCH (08:42)
[2021-03-24] MEDS: PANTOPRAZOLE 40 MG/10 ML VIAL INJ IV SCH (08:42)
[2021-03-24] MEDS: DOCUSATE SOD 100 MG CAP PO SCH ×2 (08:43→21:05)
[2021-03-24] MEDS: LACTULOSE 20Gm/30ML SOLN PO SCH (08:43)
[2021-03-24] MEDS: ZINC SULFATE 220mg CAP or TAB PO SCH (08:43)
[2021-03-24] MEDS: ASCORBIC ACID 1,000 MG TAB PO SCH (08:44)
[2021-03-24] MEDS: CHOLECALCIFEROL (VITD3) 2,000 UNIT CAP/TAB PO SCH (08:44)
[2021-03-24 12:00] VITALS: BP 145/72
[2021-03-24 16:00] VITALS: BP 128/72
[2021-03-24 22:00] VITALS: BP 135/60
[2021-03-25] MEDS: ALBUTEROL SULF 2.5 MG/0.5ML(0.5%) NEB SOLN NEB PRN ×4 (00:04→20:38)
[2021-03-25 05:00] VITALS: BP 112/70
[2021-03-25 08:09] VITALS: BP 127/65
[2021-03-25] MEDS: PANTOPRAZOLE 40 MG/10 ML VIAL INJ IV SCH (08:10)
[2021-03-25] MEDS: methylPREDNISolone SOD SUCC 40 MG/ML VL IV SCH (08:10)
[2021-03-25] MEDS: LACTULOSE 20Gm/30ML SOLN PO SCH (08:11)
[2021-03-25] MEDS: DOCUSATE SOD 100 MG CAP PO SCH ×2 (08:11→21:09)
[2021-03-25] MEDS: ZINC SULFATE 220mg CAP or TAB PO SCH (08:11)
[2021-03-25] MEDS: ASCORBIC ACID 1,000 MG TAB PO SCH (08:12)
[2021-03-25] MEDS: CHOLECALCIFEROL (VITD3) 2,000 UNIT CAP/TAB PO SCH (08:12)
[2021-03-25] MEDS: BUDESONIDE (INHALATION) 0.5 MG/2 ML NEB NEB SCH ×2 (09:02→20:38)
[2021-03-25 12:20] VITALS: BP_SYST 102; BP_SYST 125; BP_DIAS 48; BP_DIAS 68
[2021-03-25 12:26] VITALS: BP 125/48
[2021-03-25 17:00] VITALS: BP 120/70
[2021-03-25 22:00] VITALS: BP 109/60
[2021-03-26] MEDS: ALBUTEROL SULF 2.5 MG/0.5ML(0.5%) NEB SOLN NEB PRN ×5 (00:50→19:36)
[2021-03-26 05:00] VITALS: BP 108/56
[2021-03-26] MEDS: BUDESONIDE (INHALATION) 0.5 MG/2 ML NEB NEB SCH ×2 (06:39→19:36)
[2021-03-26] MEDS: PANTOPRAZOLE 40 MG/10 ML VIAL INJ IV SCH (08:51)
[2021-03-26] MEDS: LACTULOSE 20Gm/30ML SOLN PO SCH (08:51)
[2021-03-26] MEDS: methylPREDNISolone SOD SUCC 40 MG/ML VL IV SCH (08:51)
[2021-03-26] MEDS: CHOLECALCIFEROL (VITD3) 2,000 UNIT CAP/TAB PO SCH (08:52)
[2021-03-26] MEDS: DOCUSATE SOD 100 MG CAP PO SCH ×2 (08:52→21:53)
[2021-03-26] MEDS: ASCORBIC ACID 1,000 MG TAB PO SCH (08:52)
[2021-03-26] MEDS: ZINC SULFATE 220mg CAP or TAB PO SCH (08:52)
[2021-03-26 09:00] VITALS: BP 126/66
[2021-03-26 10:21] LABS: Basophils # (auto) 0 10 ^3/uL (0-0.2); Basophils % (auto) 0.5 % (0.0-2.0); Eosinophils # (auto) 0 10 ^3/uL (0-0.8); Eosinophils % (auto) 0.7 % (0.0-7.0); Hematocrit 33.2 % (41.0-53.0); Hemoglobin 10.4 g/dL (13.5-17.5); Lymphocytes # (auto) 0.7 10 ^3/uL (0.4-5.4); Mean Corpuscular Hemoglobin 27.6 pg (28.0-32.0); Mean Corpuscular Hgb Conc. 31.4 g/dL (32.0-36.0); Mean Corpuscular Volume 87.9 fL (80.0-100.0); Monocytes # (auto) 0.5 10 ^3/uL (0-1.3); Monocytes % (auto) 10.1 % (0.0-12.0); Neutrophils # (auto) 3.9 10 ^3/uL (1.6-8.6); Neutrophils % (auto) 75.7 % (37.0-80.0); Red Blood Cells 3.78 10^6/uL (4.5-5.90); Red Cell Distribution Width 14.7 % (11.8-14.3); White Blood Cell 5.1 10^3/uL (4.4-10.8)
[2021-03-26 10:31] LABS: Potassium 4.5 mmol/L (3.5-5.1)
[2021-03-26 10:40] LABS: Albumin 2.2 g/dL (3.4-5.0); BUN/Creatinine Ratio 20.7; Bilirubin, Total 0.5 mg/dL (0.2-1.0); Calcium 8.4 mg/dL (8.5-10.1); Total Protein 6.6 g/dL (6.4-8.2)
[2021-03-26 13:00] VITALS: BP_SYST 149; BP_SYST 152; BP_DIAS 65; BP_DIAS 77
[2021-03-26 17:00] VITALS: BP 129/72
[2021-03-26 22:00] VITALS: BP 132/66
[2021-03-27] VITALS: BP 132/66
[2021-03-27] MEDS: ALBUTEROL SULF 2.5 MG/0.5ML(0.5%) NEB SOLN NEB PRN ×6 (00:33→23:57)
[2021-03-27 05:00] VITALS: BP 107/47
[2021-03-27] MEDS: BUDESONIDE (INHALATION) 0.5 MG/2 ML NEB NEB SCH ×2 (05:59→20:06)
[2021-03-27] MEDS: LACTULOSE 20Gm/30ML SOLN PO SCH (08:56)
[2021-03-27] MEDS: methylPREDNISolone SOD SUCC 40 MG/ML VL IV SCH (08:56)
[2021-03-27] MEDS: PANTOPRAZOLE 40 MG/10 ML VIAL INJ IV SCH (08:56)
[2021-03-27] MEDS: ASCORBIC ACID 1,000 MG TAB PO SCH (08:57)
[2021-03-27] MEDS: DOCUSATE SOD 100 MG CAP PO SCH ×2 (08:57→21:08)
[2021-03-27] MEDS: ZINC SULFATE 220mg CAP or TAB PO SCH (08:57)
[2021-03-27] MEDS: CHOLECALCIFEROL (VITD3) 2,000 UNIT CAP/TAB PO SCH (08:57)
[2021-03-27 09:00] VITALS: BP 122/59
[2021-03-27 12:30] VITALS: BP 114/63
[2021-03-27 17:00] VITALS: BP 117/63
[2021-03-27 22:00] VITALS: BP 112/65
[2021-03-28 05:00] VITALS: BP 103/60
[2021-03-28] MEDS: BUDESONIDE (INHALATION) 0.5 MG/2 ML NEB NEB SCH ×2 (06:08→19:38)
[2021-03-28] MEDS: ALBUTEROL SULF 2.5 MG/0.5ML(0.5%) NEB SOLN NEB PRN ×3 (06:08→19:38)
[2021-03-28 08:00] VITALS: BP 119/48
[2021-03-28] MEDS: methylPREDNISolone SOD SUCC 40 MG/ML VL IV SCH (09:17)
[2021-03-28] MEDS: PANTOPRAZOLE 40 MG/10 ML VIAL INJ IV SCH (09:17)
[2021-03-28] MEDS: LACTULOSE 20Gm/30ML SOLN PO SCH (09:18)
[2021-03-28] MEDS: DOCUSATE SOD 100 MG CAP PO SCH ×2 (09:19→21:30)
[2021-03-28] MEDS: CHOLECALCIFEROL (VITD3) 2,000 UNIT CAP/TAB PO SCH (09:26)
[2021-03-28] MEDS: ASCORBIC ACID 1,000 MG TAB PO SCH (09:26)
[2021-03-28] MEDS: ZINC SULFATE 220mg CAP or TAB PO SCH (09:26)
[2021-03-28 12:00] VITALS: BP 123/55
[2021-03-28 16:00] VITALS: BP 108/64
[2021-03-28 22:00] VITALS: BP 143/75
[2021-03-29] MEDS: ALBUTEROL SULF 2.5 MG/0.5ML(0.5%) NEB SOLN NEB PRN ×4 (00:27→20:32)
[2021-03-29 05:00] VITALS: BP 120/62
[2021-03-29 05:56] LABS: Basophils # (auto) 0.1 10 ^3/uL (0-0.2); Basophils % (auto) 1.1 % (0.0-2.0); Eosinophils # (auto) 0.1 10 ^3/uL (0-0.8); Eosinophils % (auto) 1.8 % (0.0-7.0); Hematocrit 32.1 % (41.0-53.0); Hemoglobin 10.8 g/dL (13.5-17.5); Lymphocytes # (auto) 0.8 10 ^3/uL (0.4-5.4); Lymphocytes % (auto) 17.2 % (10.0-50.0); Mean Corpuscular Hemoglobin 29.5 pg (28.0-32.0); Mean Corpuscular Hgb Conc. 33.8 g/dL (32.0-36.0); Mean Corpuscular Volume 87.3 fL (80.0-100.0); Monocytes # (auto) 0.5 10 ^3/uL (0-1.3); Monocytes % (auto) 9.8 % (0.0-12.0); Neutrophils # (auto) 3.2 10 ^3/uL (1.6-8.6); Neutrophils % (auto) 70.1 % (37.0-80.0); Red Blood Cells 3.67 10^6/uL (4.5-5.90); Red Cell Distribution Width 14.3 % (11.8-14.3); White Blood Cell 4.6 10^3/uL (4.4-10.8)
[2021-03-29 06:13] LABS: Albumin 2.2 g/dL (3.4-5.0); Calcium 8.5 mg/dL (8.5-10.1); Potassium 4.6 mmol/L (3.5-5.1)
[2021-03-29 06:15] LABS: BUN/Creatinine Ratio 24.4
[2021-03-29 06:18] LABS: Bilirubin, Total 0.4 mg/dL (0.2-1.0); Total Protein 6.6 g/dL (6.4-8.2)
[2021-03-29] MEDS: PANTOPRAZOLE 40 MG/10 ML VIAL INJ IV SCH (08:35)
[2021-03-29] MEDS: LACTULOSE 20Gm/30ML SOLN PO SCH (08:35)
[2021-03-29] MEDS: methylPREDNISolone SOD SUCC 40 MG/ML VL IV SCH (08:35)
[2021-03-29] MEDS: DOCUSATE SOD 100 MG CAP PO SCH ×2 (08:36→20:52)
[2021-03-29 09:00] VITALS: BP 126/62
[2021-03-29 09:46] VITALS: BP 126/61
[2021-03-29 13:00] VITALS: BP 124/62
[2021-03-29 16:39] VITALS: BP 106/52
[2021-03-29] MEDS: BUDESONIDE (INHALATION) 0.5 MG/2 ML NEB NEB SCH ×2 (16:49→20:33)
[2021-03-29 22:00] VITALS: BP 126/53
[2021-03-30] MEDS: ALBUTEROL SULF 2.5 MG/0.5ML(0.5%) NEB SOLN NEB PRN ×5 (00:26→20:19)
[2021-03-30 05:00] VITALS: BP 102/59
[2021-03-30] MEDS: BUDESONIDE (INHALATION) 0.5 MG/2 ML NEB NEB SCH ×2 (06:35→20:19)
[2021-03-30] MEDS: PANTOPRAZOLE 40 MG/10 ML VIAL INJ IV SCH (08:11)
[2021-03-30] MEDS: LACTULOSE 20Gm/30ML SOLN PO SCH (08:11)
[2021-03-30] MEDS: DOCUSATE SOD 100 MG CAP PO SCH ×2 (08:11→21:36)
[2021-03-30] MEDS: methylPREDNISolone SOD SUCC 40 MG/ML VL IV SCH (08:11)
[2021-03-30 09:00] VITALS: BP 117/54
[2021-03-30 13:00] VITALS: BP 135/68
[2021-03-30 17:00] VITALS: BP 121/58
[2021-03-30 22:00] VITALS: BP 132/63
[2021-03-31] MEDS: ALBUTEROL SULF 2.5 MG/0.5ML(0.5%) NEB SOLN NEB PRN ×4 (00:18→21:15)
[2021-03-31 05:00] VITALS: BP 116/56
[2021-03-31] MEDS: BUDESONIDE (INHALATION) 0.5 MG/2 ML NEB NEB SCH ×2 (05:41→21:14)
[2021-03-31 09:00] VITALS: BP 116/48
[2021-03-31] MEDS: LACTULOSE 20Gm/30ML SOLN PO SCH (10:58)
[2021-03-31] MEDS: PANTOPRAZOLE 40 MG/10 ML VIAL INJ IV SCH (10:58)
[2021-03-31] MEDS: DOCUSATE SOD 100 MG CAP PO SCH ×2 (10:58→21:52)
[2021-03-31] MEDS: methylPREDNISolone SOD SUCC 40 MG/ML VL IV SCH (10:59)
[2021-03-31 13:00] VITALS: BP 132/67
[2021-03-31 17:00] VITALS: BP 117/59
[2021-03-31 22:00] VITALS: BP 139/61
[2021-04-01] MEDS: ALBUTEROL SULF 2.5 MG/0.5ML(0.5%) NEB SOLN NEB PRN ×5 (00:20→18:33)
[2021-04-01 05:00] VITALS: BP 128/70
[2021-04-01 09:00] VITALS: BP 110/52
[2021-04-01 10:05] VITALS: BP 124/63
[2021-04-01] MEDS: BUDESONIDE (INHALATION) 0.5 MG/2 ML NEB NEB SCH ×2 (10:09→18:33)
[2021-04-01] MEDS: LACTULOSE 20Gm/30ML SOLN PO SCH (11:17)
[2021-04-01] MEDS: methylPREDNISolone SOD SUCC 40 MG/ML VL IV SCH (11:18)
[2021-04-01] MEDS: DOCUSATE SOD 100 MG CAP PO SCH ×2 (11:19→21:08)
[2021-04-01] MEDS: PANTOPRAZOLE 40 MG/10 ML VIAL INJ IV SCH (11:28)
[2021-04-01 13:00] VITALS: BP 125/60
[2021-04-01 17:00] VITALS: BP 143/77
[2021-04-01] MEDS: HYDROcodone-ACET 5/325MG TAB PO PRN (18:05)
[2021-04-01 22:00] VITALS: BP 132/62
[2021-04-02] MEDS: ALBUTEROL SULF 2.5 MG/0.5ML(0.5%) NEB SOLN NEB PRN ×5 (01:11→21:19)
[2021-04-02 05:00] VITALS: BP 118/67
[2021-04-02] MEDS: BUDESONIDE (INHALATION) 0.5 MG/2 ML NEB NEB SCH ×2 (06:07→17:42)
[2021-04-02 09:00] VITALS: BP 125/62
[2021-04-02] MEDS: DOCUSATE SOD 100 MG CAP PO SCH ×2 (10:25→21:01)
[2021-04-02] MEDS: methylPREDNISolone SOD SUCC 40 MG/ML VL IV SCH (10:25)
[2021-04-02] MEDS: PANTOPRAZOLE 40 MG/10 ML VIAL INJ IV SCH (10:25)
[2021-04-02] MEDS: LACTULOSE 20Gm/30ML SOLN PO SCH (10:25)
[2021-04-02 13:00] VITALS: BP 140/65
[2021-04-02 17:00] VITALS: BP 140/68
[2021-04-02 22:00] VITALS: BP 135/54
[2021-04-02 23:00] VITALS: BP 140/68
[2021-04-03] MEDS: ALBUTEROL SULF 2.5 MG/0.5ML(0.5%) NEB SOLN NEB PRN ×4 (01:08→18:10)
[2021-04-03 05:00] VITALS: BP 120/61
[2021-04-03] MEDS: BUDESONIDE (INHALATION) 0.5 MG/2 ML NEB NEB SCH ×2 (06:39→18:10)
[2021-04-03 06:41] LABS: Basophils # (auto) 0 10 ^3/uL (0-0.2); Basophils % (auto) 0.6 % (0.0-2.0); Eosinophils # (auto) 0.1 10 ^3/uL (0-0.8); Eosinophils % (auto) 1.8 % (0.0-7.0); Hematocrit 32.1 % (41.0-53.0); Hemoglobin 10.4 g/dL (13.5-17.5); Lymphocytes # (auto) 0.8 10 ^3/uL (0.4-5.4); Lymphocytes % (auto) 17.5 % (10.0-50.0); Mean Corpuscular Hemoglobin 28.4 pg (28.0-32.0); Mean Corpuscular Hgb Conc. 32.5 g/dL (32.0-36.0); Mean Corpuscular Volume 87.4 fL (80.0-100.0); Monocytes # (auto) 0.3 10 ^3/uL (0-1.3); Neutrophils # (auto) 3.5 10 ^3/uL (1.6-8.6); Neutrophils % (auto) 73.1 % (37.0-80.0); Red Blood Cells 3.67 10^6/uL (4.5-5.90); Red Cell Distribution Width 14.5 % (11.8-14.3); White Blood Cell 4.8 10^3/uL (4.4-10.8)
[2021-04-03 06:56] LABS: Albumin 2.2 g/dL (3.4-5.0); BUN/Creatinine Ratio 24.4; Calcium 8.4 mg/dL (8.5-10.1)
[2021-04-03 07:13] LABS: Bilirubin, Total 0.5 mg/dL (0.2-1.0); Total Protein 6.2 g/dL (6.4-8.2)
[2021-04-03 07:48] LABS: Potassium 4.5 mmol/L (3.5-5.1)
[2021-04-03 09:00] VITALS: BP 122/79
[2021-04-03] MEDS: PANTOPRAZOLE 40 MG/10 ML VIAL INJ IV SCH (09:11)
[2021-04-03] MEDS: methylPREDNISolone SOD SUCC 40 MG/ML VL IV SCH (09:12)
[2021-04-03] MEDS: LACTULOSE 20Gm/30ML SOLN PO SCH (09:13)
[2021-04-03] MEDS: DOCUSATE SOD 100 MG CAP PO SCH ×2 (09:14→21:23)
[2021-04-03 13:00] VITALS: BP 127/74
[2021-04-03 16:36] VITALS: BP 138/69
[2021-04-03 22:00] VITALS: BP 138/59
[2021-04-04] MEDS: ALBUTEROL SULF 2.5 MG/0.5ML(0.5%) NEB SOLN NEB PRN ×5 (00:41→23:49)
[2021-04-04 05:00] VITALS: BP 134/80
[2021-04-04] MEDS: BUDESONIDE (INHALATION) 0.5 MG/2 ML NEB NEB SCH ×2 (05:59→18:21)
[2021-04-04 07:17] LABS: BUN/Creatinine Ratio 21.3; Calcium 8.5 mg/dL (8.5-10.1); Magnesium 2.4 mg/dL (1.6-2.6); Phosphorus 3.2 mg/dL (2.5-4.90); Potassium 4.4 mmol/L (3.5-5.1)
[2021-04-04 09:00] VITALS: BP 128/77
[2021-04-04] MEDS: HYDROcodone-ACET 5/325MG TAB PO PRN (09:43)
[2021-04-04] MEDS: DOCUSATE SOD 100 MG CAP PO SCH ×2 (09:43→21:01)
[2021-04-04] MEDS: PANTOPRAZOLE 40 MG/10 ML VIAL INJ IV SCH (09:43)
[2021-04-04] MEDS: LACTULOSE 20Gm/30ML SOLN PO SCH (09:43)
[2021-04-04] MEDS: methylPREDNISolone SOD SUCC 40 MG/ML VL IV SCH (09:43)
[2021-04-04 10:08] VITALS: BP 134/80
[2021-04-04 13:00] VITALS: BP 120/75
[2021-04-04 16:44] VITALS: BP 134/58
[2021-04-04 22:00] VITALS: BP 137/72
[2021-04-05 04:49] VITALS: BP 132/73
[2021-04-05] MEDS: BUDESONIDE (INHALATION) 0.5 MG/2 ML NEB NEB SCH ×2 (06:11→21:03)
[2021-04-05 09:00] VITALS: BP 124/80
[2021-04-05] MEDS: LACTULOSE 20Gm/30ML SOLN PO SCH (09:20)
[2021-04-05] MEDS: methylPREDNISolone SOD SUCC 40 MG/ML VL IV SCH (09:20)
[2021-04-05] MEDS: DOCUSATE SOD 100 MG CAP PO SCH ×2 (09:20→21:09)
[2021-04-05] MEDS: PANTOPRAZOLE 40 MG/10 ML VIAL INJ IV SCH (09:20)
[2021-04-05] MEDS: HYDROcodone-ACET 5/325MG TAB PO PRN (09:21)
[2021-04-05] MEDS: ALBUTEROL SULF 2.5 MG/0.5ML(0.5%) NEB SOLN NEB PRN ×3 (09:46→21:03)
[2021-04-05 13:00] VITALS: BP 111/67
[2021-04-05 17:00] VITALS: BP 129/66
[2021-04-05 22:00] VITALS: BP 126/65
[2021-04-06] MEDS: ALBUTEROL SULF 2.5 MG/0.5ML(0.5%) NEB SOLN NEB PRN ×4 (00:13→16:38)
[2021-04-06 04:40] VITALS: BP 133/75
[2021-04-06] MEDS: BUDESONIDE (INHALATION) 0.5 MG/2 ML NEB NEB SCH (05:55)
[2021-04-06 09:00] VITALS: BP_SYST 128; BP_SYST 145; BP_DIAS 58; BP_DIAS 88
[2021-04-06] MEDS: methylPREDNISolone SOD SUCC 40 MG/ML VL IV SCH (09:29)
[2021-04-06] MEDS: DOCUSATE SOD 100 MG CAP PO SCH ×2 (09:29→21:07)
[2021-04-06] MEDS: LACTULOSE 20Gm/30ML SOLN PO SCH (09:29)
[2021-04-06] MEDS: PANTOPRAZOLE 40 MG/10 ML VIAL INJ IV SCH (09:29)
[2021-04-06 13:00] VITALS: BP 122/61
[2021-04-06 17:00] VITALS: BP 121/61
[2021-04-06 22:00] VITALS: BP 123/71
[2021-04-07] MEDS: ALBUTEROL SULF 2.5 MG/0.5ML(0.5%) NEB SOLN NEB PRN ×5 (00:12→18:29)
[2021-04-07] MEDS: BUDESONIDE (INHALATION) 0.5 MG/2 ML NEB NEB SCH ×3 (00:12→18:29)
[2021-04-07] MEDS: HYDROcodone-ACET 5/325MG TAB PO PRN (04:50)
[2021-04-07 05:00] VITALS: BP 125/70
[2021-04-07 09:00] VITALS: BP 123/64
[2021-04-07] MEDS: methylPREDNISolone SOD SUCC 40 MG/ML VL IV SCH (09:21)
[2021-04-07] MEDS: PANTOPRAZOLE 40 MG/10 ML VIAL INJ IV SCH (09:21)
[2021-04-07] MEDS: LACTULOSE 20Gm/30ML SOLN PO SCH (09:22)
[2021-04-07] MEDS: DOCUSATE SOD 100 MG CAP PO SCH ×2 (09:22→21:42)
[2021-04-07 11:30] VITALS: BP 130/75
[2021-04-07 22:00] VITALS: BP 130/69
[2021-04-08 00:20] VITALS: BP 130/69
[2021-04-08] MEDS: ALBUTEROL SULF 2.5 MG/0.5ML(0.5%) NEB SOLN NEB PRN ×4 (00:36→18:06)
[2021-04-08 05:00] VITALS: BP 133/74
[2021-04-08 06:07] LABS: Basophils # (auto) 0 10 ^3/uL (0-0.2); Basophils % (auto) 0.2 % (0.0-2.0); Eosinophils # (auto) 0.1 10 ^3/uL (0-0.8); Eosinophils % (auto) 1.8 % (0.0-7.0); Hematocrit 36.7 % (41.0-53.0); Hemoglobin 11.6 g/dL (13.5-17.5); Lymphocytes # (auto) 0.8 10 ^3/uL (0.4-5.4); Lymphocytes % (auto) 17.1 % (10.0-50.0); Mean Corpuscular Hemoglobin 28.2 pg (28.0-32.0); Mean Corpuscular Hgb Conc. 31.6 g/dL (32.0-36.0); Mean Corpuscular Volume 89.2 fL (80.0-100.0); Monocytes # (auto) 0.3 10 ^3/uL (0-1.3); Monocytes % (auto) 6.6 % (0.0-12.0); Neutrophils # (auto) 3.3 10 ^3/uL (1.6-8.6); Neutrophils % (auto) 74.3 % (37.0-80.0); Nucleated Red Blood Cells % 0.1 %; Red Blood Cells 4.12 10^6/uL (4.5-5.90); Red Cell Distribution Width 14.4 % (11.8-14.3); White Blood Cell 4.5 10^3/uL (4.4-10.8)
[2021-04-08] MEDS: BUDESONIDE (INHALATION) 0.5 MG/2 ML NEB NEB SCH ×2 (06:09→18:06)
[2021-04-08 06:37] LABS: Potassium 4.6 mmol/L (3.5-5.1)
[2021-04-08 06:45] LABS: Albumin 2.3 g/dL (3.4-5.0); BUN/Creatinine Ratio 19.4; Calcium 8.5 mg/dL (8.5-10.1)
[2021-04-08 07:01] LABS: Bilirubin, Total 0.4 mg/dL (0.2-1.0); Total Protein 6.3 g/dL (6.4-8.2)
[2021-04-08 09:00] VITALS: BP 157/67
[2021-04-08] MEDS: PANTOPRAZOLE 40 MG/10 ML VIAL INJ IV SCH (12:56)
[2021-04-08] MEDS: methylPREDNISolone SOD SUCC 40 MG/ML VL IV SCH (12:57)
[2021-04-08] MEDS: LACTULOSE 20Gm/30ML SOLN PO SCH (12:57)
[2021-04-08] MEDS: DOCUSATE SOD 100 MG CAP PO SCH ×2 (12:57→22:19)
[2021-04-08 13:00] VITALS: BP 140/66
[2021-04-08 17:51] VITALS: BP 153/64
[2021-04-09] MEDS: ALBUTEROL SULF 2.5 MG/0.5ML(0.5%) NEB SOLN NEB PRN ×2 (00:28→13:09)
[2021-04-09] MEDS ORDERED: FUROSEMIDE 40 MG/4 ML VIAL IV SCH ×2 (04:00→12:30)
[2021-04-09 05:05] VITALS: BP 131/71
[2021-04-09] MEDS: HYDROcodone-ACET 5/325MG TAB PO PRN (05:56)
[2021-04-09] MEDS: BUDESONIDE (INHALATION) 0.5 MG/2 ML NEB NEB SCH ×2 (07:05→18:29)
[2021-04-09 09:00] VITALS: BP 144/62
[2021-04-09] MEDS: PANTOPRAZOLE 40 MG/10 ML VIAL INJ IV SCH (09:58)
[2021-04-09] MEDS: predniSONE 20 MG TAB PO SCH (09:58)
[2021-04-09] MEDS: DOCUSATE SOD 100 MG CAP PO SCH ×2 (09:58→21:41)
[2021-04-09] MEDS: LACTULOSE 20Gm/30ML SOLN PO SCH (09:58)
[2021-04-09 13:00] VITALS: BP 134/73
[2021-04-09 17:00] VITALS: BP 134/68
[2021-04-09 22:00] VITALS: BP 133/67
[2021-04-10] MEDS: ALBUTEROL SULF 2.5 MG/0.5ML(0.5%) NEB SOLN NEB PRN ×5 (00:07→22:29)
[2021-04-10 05:00] VITALS: BP 129/59
[2021-04-10] MEDS: FUROSEMIDE 40 MG/4 ML VIAL IV SCH ×2 (05:07→17:00)
[2021-04-10] MEDS: BUDESONIDE (INHALATION) 0.5 MG/2 ML NEB NEB SCH ×2 (07:39→19:22)
[2021-04-10 09:00] VITALS: BP 143/73
[2021-04-10] MEDS: PANTOPRAZOLE 40 MG/10 ML VIAL INJ IV SCH (10:37)
[2021-04-10] MEDS: LACTULOSE 20Gm/30ML SOLN PO SCH (10:37)
[2021-04-10] MEDS: DOCUSATE SOD 100 MG CAP PO SCH ×2 (10:37→20:56)
[2021-04-10] MEDS: predniSONE 20 MG TAB PO SCH (10:38)
[2021-04-10 12:53] VITALS: BP 143/73
[2021-04-10 13:00] VITALS: BP 124/58
[2021-04-10 15:58] LABS: BUN/Creatinine Ratio 16.5; Calcium 8.6 mg/dL (8.5-10.1); Magnesium 2.1 mg/dL (1.6-2.6); Potassium 4.3 mmol/L (3.5-5.1)
[2021-04-10 17:00] VITALS: BP 126/68
[2021-04-10 22:00] VITALS: BP 118/65
[2021-04-11] MEDS: FUROSEMIDE 40 MG/4 ML VIAL IV SCH ×2 (04:35→16:42)
[2021-04-11 05:00] VITALS: BP 110/70
[2021-04-11 05:38] LABS: Basophils # (auto) 0 10 ^3/uL (0-0.2); Basophils % (auto) 0.6 % (0.0-2.0); Eosinophils # (auto) 0.1 10 ^3/uL (0-0.8); Eosinophils % (auto) 1.7 % (0.0-7.0); Hematocrit 38.5 % (41.0-53.0); Hemoglobin 12.5 g/dL (13.5-17.5); Lymphocytes % (auto) 15.3 % (10.0-50.0); Mean Corpuscular Hemoglobin 28.2 pg (28.0-32.0); Mean Corpuscular Hgb Conc. 32.5 g/dL (32.0-36.0); Mean Corpuscular Volume 86.9 fL (80.0-100.0); Monocytes # (auto) 0.5 10 ^3/uL (0-1.3); Monocytes % (auto) 7.3 % (0.0-12.0); Neutrophils # (auto) 4.7 10 ^3/uL (1.6-8.6); Neutrophils % (auto) 75.1 % (37.0-80.0); Nucleated Red Blood Cells % 0.3 %; Red Blood Cells 4.44 10^6/uL (4.5-5.90); Red Cell Distribution Width 14.7 % (11.8-14.3); White Blood Cell 6.3 10^3/uL (4.4-10.8)
[2021-04-11 05:48] LABS: Calcium 8.8 mg/dL (8.5-10.1); Magnesium 2.3 mg/dL (1.6-2.6)
[2021-04-11 08:58] VITALS: BP 129/68
[2021-04-11] MEDS: BUDESONIDE (INHALATION) 0.5 MG/2 ML NEB NEB SCH ×2 (09:15→18:31)
[2021-04-11] MEDS: LACTULOSE 20Gm/30ML SOLN PO SCH (09:51)
[2021-04-11] MEDS: predniSONE 20 MG TAB PO SCH (09:51)
[2021-04-11] MEDS: DOCUSATE SOD 100 MG CAP PO SCH ×2 (09:51→21:44)
[2021-04-11 13:00] VITALS: BP 122/73
[2021-04-11 17:00] VITALS: BP 133/76
[2021-04-11 22:00] VITALS: BP 134/82
[2021-04-12] MEDS: HYDROcodone-ACET 5/325MG TAB PO PRN ×2 (00:17→12:10)
[2021-04-12 05:00] VITALS: BP 133/80
[2021-04-12] MEDS: FUROSEMIDE 40 MG/4 ML VIAL IV SCH ×3 (05:14→17:59)
[2021-04-12] MEDS: BUDESONIDE (INHALATION) 0.5 MG/2 ML NEB NEB SCH ×2 (06:31→21:30)
[2021-04-12 08:15] VITALS: BP 104/74
[2021-04-12] MEDS: DOCUSATE SOD 100 MG CAP PO SCH ×2 (09:53→21:43)
[2021-04-12] MEDS: LACTULOSE 20Gm/30ML SOLN PO SCH (09:53)
[2021-04-12] MEDS: predniSONE 20 MG TAB PO SCH (09:53)
[2021-04-12 12:30] VITALS: BP 140/77
[2021-04-12 14:25] VITALS: BP 140/84
[2021-04-12 22:00] VITALS: BP 120/72
[2021-04-13] MEDS: FUROSEMIDE 40 MG/4 ML VIAL IV SCH ×2 (04:09→15:56)
[2021-04-13 04:46] VITALS: BP 124/76
[2021-04-13] MEDS: BUDESONIDE (INHALATION) 0.5 MG/2 ML NEB NEB SCH ×2 (05:59→21:29)
[2021-04-13 07:23] VITALS: BP 124/76
[2021-04-13 08:30] VITALS: BP 104/75
[2021-04-13] MEDS: DOCUSATE SOD 100 MG CAP PO SCH ×2 (09:11→20:56)
[2021-04-13] MEDS: predniSONE 20 MG TAB PO SCH (09:11)
[2021-04-13] MEDS: LACTULOSE 20Gm/30ML SOLN PO SCH (09:11)
[2021-04-13 13:00] VITALS: BP 119/88
[2021-04-13 16:39] VITALS: BP 124/87
[2021-04-13 22:00] VITALS: BP 125/69
[2021-04-14] MEDS: FUROSEMIDE 40 MG/4 ML VIAL IV SCH ×2 (04:28→17:00)
[2021-04-14 05:00] VITALS: BP 129/81
[2021-04-14] MEDS: BUDESONIDE (INHALATION) 0.5 MG/2 ML NEB NEB SCH ×2 (06:12→19:35)
[2021-04-14 08:56] VITALS: BP 133/77
[2021-04-14] MEDS: LACTULOSE 20Gm/30ML SOLN PO SCH (09:26)
[2021-04-14] MEDS: predniSONE 20 MG TAB PO SCH (09:26)
[2021-04-14] MEDS: DOCUSATE SOD 100 MG CAP PO SCH ×2 (09:26→20:20)
[2021-04-14 10:40] LABS: Potassium 3.7 mmol/L (3.5-5.1)
[2021-04-14 10:44] LABS: BUN/Creatinine Ratio 17.8
[2021-04-14 13:51] VITALS: BP 137/75
[2021-04-14 16:36] VITALS: BP 126/71
[2021-04-14 22:00] VITALS: BP 129/83
[2021-04-15 05:00] VITALS: BP 116/70
[2021-04-15] MEDS: FUROSEMIDE 40 MG/4 ML VIAL IV SCH ×2 (05:07→17:48)
[2021-04-15] MEDS: BUDESONIDE (INHALATION) 0.5 MG/2 ML NEB NEB SCH ×2 (06:11→21:11)
[2021-04-15 06:37] LABS: BUN/Creatinine Ratio 21.4; Calcium 8.4 mg/dL (8.5-10.1); Potassium 3.9 mmol/L (3.5-5.1)
[2021-04-15 09:00] VITALS: BP_SYST 126; BP_DIAS 70; BP_DIAS 75
[2021-04-15] MEDS: DOCUSATE SOD 100 MG CAP PO SCH ×2 (09:30→22:05)
[2021-04-15] MEDS: predniSONE 5 MG TAB PO SCH (09:30)
[2021-04-15] MEDS: LACTULOSE 20Gm/30ML SOLN PO SCH (09:30)
[2021-04-15 15:09] VITALS: BP 125/78
[2021-04-15 17:24] VITALS: BP 125/84
[2021-04-15 22:00] VITALS: BP 121/67
[2021-04-15] MEDS: HYDROcodone-ACET 10/325MG TAB PO PRN (22:05)
[2021-04-16] VITALS (7 sets, daily range): BP systolic 116–139; BP diastolic 51–87
[2021-04-16] MEDS: FUROSEMIDE 40 MG/4 ML VIAL IV SCH ×2 (05:22→16:34)
[2021-04-16] MEDS: BUDESONIDE (INHALATION) 0.5 MG/2 ML NEB NEB SCH ×2 (08:55→21:29)
[2021-04-16] MEDS: LACTULOSE 20Gm/30ML SOLN PO SCH (10:31)
[2021-04-16] MEDS: predniSONE 5 MG TAB PO SCH (10:32)
[2021-04-16] MEDS: DOCUSATE SOD 100 MG CAP PO SCH ×2 (10:32→23:00)
[2021-04-16] MEDS: HYDROcodone-ACET 10/325MG TAB PO PRN ×3 (12:30→13:49)
[2021-04-17] MEDS: FUROSEMIDE 40 MG/4 ML VIAL IV SCH ×2 (04:00→16:24)
[2021-04-17 05:00] VITALS: BP 95/64
[2021-04-17] MEDS: BUDESONIDE (INHALATION) 0.5 MG/2 ML NEB NEB SCH ×2 (07:56→18:21)
[2021-04-17 08:00] VITALS: BP 116/65
[2021-04-17] MEDS: DOCUSATE SOD 100 MG CAP PO SCH ×2 (09:45→21:48)
[2021-04-17] MEDS: LACTULOSE 20Gm/30ML SOLN PO SCH (09:45)
[2021-04-17 16:00] VITALS: BP 123/70
[2021-04-17] MEDS: HYDROcodone-ACET 10/325MG TAB PO PRN (16:25)
[2021-04-17 22:00] VITALS: BP 115/72
[2021-04-18] MEDS: FUROSEMIDE 40 MG/4 ML VIAL IV SCH ×2 (04:00→16:00)
[2021-04-18 05:00] VITALS: BP 112/61
[2021-04-18 06:18] LABS: Basophils # (auto) 0 10 ^3/uL (0-0.2); Basophils % (auto) 0.6 % (0.0-2.0); Eosinophils # (auto) 0.1 10 ^3/uL (0-0.8); Eosinophils % (auto) 2.6 % (0.0-7.0); Hematocrit 34.3 % (41.0-53.0); Hemoglobin 11.4 g/dL (13.5-17.5); Lymphocytes # (auto) 0.9 10 ^3/uL (0.4-5.4); Lymphocytes % (auto) 15.2 % (10.0-50.0); Mean Corpuscular Hemoglobin 28.7 pg (28.0-32.0); Mean Corpuscular Hgb Conc. 33.2 g/dL (32.0-36.0); Mean Corpuscular Volume 86.3 fL (80.0-100.0); Monocytes # (auto) 0.4 10 ^3/uL (0-1.3); Monocytes % (auto) 7.6 % (0.0-12.0); Neutrophils # (auto) 4.3 10 ^3/uL (1.6-8.6); Nucleated Red Blood Cells % 0.1 %; Red Blood Cells 3.98 10^6/uL (4.5-5.90); Red Cell Distribution Width 13.8 % (11.8-14.3); White Blood Cell 5.8 10^3/uL (4.4-10.8)
[2021-04-18 06:40] LABS: Albumin 2.3 g/dL (3.4-5.0); BUN/Creatinine Ratio 16.8; Calcium 8.3 mg/dL (8.5-10.1); Potassium 3.9 mmol/L (3.5-5.1)
[2021-04-18 06:42] LABS: Bilirubin, Total 0.6 mg/dL (0.2-1.0); Total Protein 6.3 g/dL (6.4-8.2)
[2021-04-18] MEDS: BUDESONIDE (INHALATION) 0.5 MG/2 ML NEB NEB SCH ×2 (07:20→18:07)
[2021-04-18 07:32] VITALS: BP 112/61
[2021-04-18 08:00] VITALS: BP 130/61
[2021-04-18] MEDS: LACTULOSE 20Gm/30ML SOLN PO SCH (09:44)
[2021-04-18] MEDS: DOCUSATE SOD 100 MG CAP PO SCH ×2 (09:45→21:59)
[2021-04-18] MEDS: HYDROcodone-ACET 10/325MG TAB PO PRN (11:46)
[2021-04-18 22:00] VITALS: BP 141/76
[2021-04-19 05:09] VITALS: BP 107/61
[2021-04-19] MEDS: FUROSEMIDE 40 MG/4 ML VIAL IV SCH ×2 (06:01→15:25)
[2021-04-19] MEDS: BUDESONIDE (INHALATION) 0.5 MG/2 ML NEB NEB SCH ×2 (06:34→22:00)
[2021-04-19 08:00] VITALS: BP 109/60
[2021-04-19] MEDS: LACTULOSE 20Gm/30ML SOLN PO SCH (09:04)
[2021-04-19] MEDS: DOCUSATE SOD 100 MG CAP PO SCH ×2 (09:04→21:48)
[2021-04-19 09:22] LABS: Basophils # (auto) 0.1 10 ^3/uL (0-0.2); Basophils % (auto) 1.2 % (0.0-2.0); Eosinophils # (auto) 0.1 10 ^3/uL (0-0.8); Eosinophils % (auto) 2.4 % (0.0-7.0); Hematocrit 37.4 % (41.0-53.0); Hemoglobin 12.2 g/dL (13.5-17.5); Lymphocytes # (auto) 0.8 10 ^3/uL (0.4-5.4); Lymphocytes % (auto) 13.9 % (10.0-50.0); Mean Corpuscular Hemoglobin 28.5 pg (28.0-32.0); Mean Corpuscular Hgb Conc. 32.8 g/dL (32.0-36.0); Mean Corpuscular Volume 86.9 fL (80.0-100.0); Monocytes # (auto) 0.3 10 ^3/uL (0-1.3); Monocytes % (auto) 5.1 % (0.0-12.0); Neutrophils # (auto) 4.6 10 ^3/uL (1.6-8.6); Neutrophils % (auto) 77.4 % (37.0-80.0); Nucleated Red Blood Cells % 0.1 %
[2021-04-19 09:35] LABS: Albumin 2.4 g/dL (3.4-5.0); Calcium 8.5 mg/dL (8.5-10.1); Potassium 4.4 mmol/L (3.5-5.1)
[2021-04-19 09:40] LABS: BUN/Creatinine Ratio 16.3; Bilirubin, Total 0.7 mg/dL (0.2-1.0)
[2021-04-19 10:04] VITALS: BP 112/59
[2021-04-19 12:02] VITALS: BP 148/83
[2021-04-19] MEDS: HYDROcodone-ACET 10/325MG TAB PO PRN (15:25)
[2021-04-19 16:00] VITALS: BP 114/72
[2021-04-19 21:34] VITALS: BP 123/66
[2021-04-20 04:33] VITALS: BP 118/60
[2021-04-20] MEDS: FUROSEMIDE 40 MG/4 ML VIAL IV SCH ×2 (05:00→15:52)
[2021-04-20] MEDS: BUDESONIDE (INHALATION) 0.5 MG/2 ML NEB NEB SCH ×2 (06:06→18:13)
[2021-04-20 06:11] LABS: Chloride 86 mmol/L (98-107); Potassium 5.1 mmol/L (3.5-5.1); Sodium 124 mmol/L (136-145)
[2021-04-20 06:31] LABS: Alanine Aminotransferase 15 U/L (16-61); Anion Gap 4 (5-15); Aspartate Aminotransferase 22 U/L (15-37); BUN/Creatinine Ratio 17.4; Blood Urea Nitrogen 16 mg/dL (7-18); Calcium 8.2 mg/dL (8.5-10.1); Carbon Dioxide 34 mmol/L (21-32); GFR African American 107 mL/min; GFR Non-African American 88 mL/min; Glucose 97 mg/dL (74-106)
[2021-04-20 06:34] LABS: Alkaline Phosphatase 90 U/L (45-117); Bilirubin, Total 0.6 mg/dL (0.2-1.0); Total Protein 6.3 g/dL (6.4-8.2)
[2021-04-20 07:54] LABS: Basophils # (auto) 0 10 ^3/uL (0-0.2); Basophils % (auto) 0.8 % (0.0-2.0); Eosinophils # (auto) 0.1 10 ^3/uL (0-0.8); Hematocrit 34.6 % (41.0-53.0); Hemoglobin 11.5 g/dL (13.5-17.5); Lymphocytes # (auto) 0.8 10 ^3/uL (0.4-5.4); Lymphocytes % (auto) 14.7 % (10.0-50.0); Mean Corpuscular Hemoglobin 28.9 pg (28.0-32.0); Mean Corpuscular Hgb Conc. 33.2 g/dL (32.0-36.0); Monocytes # (auto) 0.4 10 ^3/uL (0-1.3); Monocytes % (auto) 7.1 % (0.0-12.0); Neutrophils # (auto) 4.3 10 ^3/uL (1.6-8.6); Neutrophils % (auto) 75.4 % (37.0-80.0); Red Blood Cells 3.98 10^6/uL (4.5-5.90); White Blood Cell 5.7 10^3/uL (4.4-10.8)
[2021-04-20 08:00] VITALS: BP 116/77
[2021-04-20] MEDS: LACTULOSE 20Gm/30ML SOLN PO SCH (10:09)
[2021-04-20 12:48] VITALS: BP 118/68
[2021-04-20 12:53] VITALS: BP 118/68
[2021-04-20] MEDS: HYDROcodone-ACET 10/325MG TAB PO PRN (13:17)
[2021-04-20 17:00] VITALS: BP 127/78
[2021-04-20 22:00] VITALS: BP 134/76
[2021-04-21] MEDS: FUROSEMIDE 40 MG/4 ML VIAL IV SCH ×2 (04:54→16:01)
[2021-04-21 05:00] VITALS: BP 101/52
[2021-04-21 05:42] LABS: Basophils # (auto) 0 10 ^3/uL (0-0.2); Basophils % (auto) 0.8 % (0.0-2.0); Eosinophils # (auto) 0.2 10 ^3/uL (0-0.8); Eosinophils % (auto) 2.9 % (0.0-7.0); Hematocrit 35.7 % (41.0-53.0); Hemoglobin 11.5 g/dL (13.5-17.5); Lymphocytes % (auto) 17.4 % (10.0-50.0); Mean Corpuscular Hemoglobin 28.1 pg (28.0-32.0); Mean Corpuscular Hgb Conc. 32.3 g/dL (32.0-36.0); Monocytes # (auto) 0.6 10 ^3/uL (0-1.3); Monocytes % (auto) 9.9 % (0.0-12.0); Nucleated Red Blood Cells % 0.1 %; Red Blood Cells 4.11 10^6/uL (4.5-5.90); Red Cell Distribution Width 13.7 % (11.8-14.3); White Blood Cell 5.8 10^3/uL (4.4-10.8)
[2021-04-21] MEDS: BUDESONIDE (INHALATION) 0.5 MG/2 ML NEB NEB SCH ×2 (06:09→22:24)
[2021-04-21 06:17] LABS: Chloride 84 mmol/L (98-107); Potassium 4.1 mmol/L (3.5-5.1); Sodium 131 mmol/L (136-145)
[2021-04-21 06:29] LABS: Alanine Aminotransferase 14 U/L (16-61); Albumin 2.4 g/dL (3.4-5.0); Alkaline Phosphatase 94 U/L (45-117); Aspartate Aminotransferase 12 U/L (15-37); BUN/Creatinine Ratio 16.9; Bilirubin, Total 0.5 mg/dL (0.2-1.0); Blood Urea Nitrogen 15 mg/dL (7-18); Calcium 8.5 mg/dL (8.5-10.1); GFR African American 111 mL/min; GFR Non-African American 91 mL/min; Glucose 104 mg/dL (74-106); Total Protein 6.5 g/dL (6.4-8.2)
[2021-04-21 06:35] LABS: Anion Gap 1.99999 (5-15)
[2021-04-21 06:37] LABS: Carbon Dioxide > 45 mmol/L (21-32)
[2021-04-21 08:00] VITALS: BP 135/78
[2021-04-21 08:10] VITALS: BP 135/78
[2021-04-21] MEDS: HYDROcodone-ACET 10/325MG TAB PO PRN (11:22)
[2021-04-21 16:00] VITALS: BP 120/75
[2021-04-21] MEDS: ACETAMINOPHEN 325 MG TAB PO PRN (20:45)
[2021-04-21 22:00] VITALS: BP 116/75
[2021-04-22] MEDS: FUROSEMIDE 40 MG/4 ML VIAL IV SCH (04:00)
[2021-04-22 05:00] VITALS: BP 105/57
[2021-04-22 06:24] LABS: Basophils # (auto) 0.1 10 ^3/uL (0-0.2); Basophils % (auto) 1.2 % (0.0-2.0); Eosinophils # (auto) 0.1 10 ^3/uL (0-0.8); Eosinophils % (auto) 2.3 % (0.0-7.0); Hematocrit 34.7 % (41.0-53.0); Hemoglobin 11.3 g/dL (13.5-17.5); Lymphocytes # (auto) 0.9 10 ^3/uL (0.4-5.4); Lymphocytes % (auto) 16.9 % (10.0-50.0); Mean Corpuscular Hemoglobin 28.2 pg (28.0-32.0); Mean Corpuscular Hgb Conc. 32.4 g/dL (32.0-36.0); Mean Corpuscular Volume 87.1 fL (80.0-100.0); Monocytes # (auto) 0.5 10 ^3/uL (0-1.3); Monocytes % (auto) 8.7 % (0.0-12.0); Neutrophils # (auto) 3.7 10 ^3/uL (1.6-8.6); Neutrophils % (auto) 70.9 % (37.0-80.0); Nucleated Red Blood Cells % 0.2 %; Red Blood Cells 3.99 10^6/uL (4.5-5.90); Red Cell Distribution Width 13.7 % (11.8-14.3); White Blood Cell 5.3 10^3/uL (4.4-10.8)
[2021-04-22 06:48] LABS: Chloride 86 mmol/L (98-107); Potassium 4.4 mmol/L (3.5-5.1); Sodium 133 mmol/L (136-145)
[2021-04-22 06:52] LABS: Alanine Aminotransferase 14 U/L (16-61); Albumin 2.2 g/dL (3.4-5.0); Anion Gap 5 (5-15); BUN/Creatinine Ratio 14.9; Bilirubin, Total 0.4 mg/dL (0.2-1.0); Blood Urea Nitrogen 15 mg/dL (7-18); Calcium 8.5 mg/dL (8.5-10.1); GFR African American 96 mL/min; GFR Non-African American 79 mL/min; Glucose 115 mg/dL (74-106); Total Protein 6.3 g/dL (6.4-8.2)
[2021-04-22 07:03] LABS: Alkaline Phosphatase 91 U/L (45-117); Aspartate Aminotransferase 16 U/L (15-37)
[2021-04-22 07:15] LABS: Carbon Dioxide 42 mmol/L (21-32)
[2021-04-22] MEDS: BUDESONIDE (INHALATION) 0.5 MG/2 ML NEB NEB SCH ×2 (07:15→21:19)
[2021-04-22 09:51] VITALS: BP 131/71
[2021-04-22 12:00] VITALS: BP 129/69
[2021-04-22 12:59] VITALS: BP 133/73
[2021-04-22 16:32] VITALS: BP 125/69
[2021-04-22] MEDS: BUMETANIDE 2.5mg/10ml (0.25 mg/ml) INJ IV SCH (17:18)
[2021-04-22 22:00] VITALS: BP 120/58
[2021-04-23 05:00] VITALS: BP 104/57
[2021-04-23] MEDS: BUMETANIDE 2.5mg/10ml (0.25 mg/ml) INJ IV SCH ×2 (06:32→17:10)
[2021-04-23 06:36] LABS: Basophils # (auto) 0.1 10 ^3/uL (0-0.2); Basophils % (auto) 1.1 % (0.0-2.0); Eosinophils # (auto) 0.1 10 ^3/uL (0-0.8); Eosinophils % (auto) 2.5 % (0.0-7.0); Hemoglobin 11.7 g/dL (13.5-17.5); Lymphocytes % (auto) 18.2 % (10.0-50.0); Mean Corpuscular Hemoglobin 28.4 pg (28.0-32.0); Mean Corpuscular Hgb Conc. 32.5 g/dL (32.0-36.0); Mean Corpuscular Volume 87.3 fL (80.0-100.0); Monocytes # (auto) 0.5 10 ^3/uL (0-1.3); Monocytes % (auto) 8.8 % (0.0-12.0); Neutrophils # (auto) 3.7 10 ^3/uL (1.6-8.6); Neutrophils % (auto) 69.4 % (37.0-80.0); Nucleated Red Blood Cells % 0.1 %; Red Blood Cells 4.12 10^6/uL (4.5-5.90); Red Cell Distribution Width 14.1 % (11.8-14.3); White Blood Cell 5.3 10^3/uL (4.4-10.8)
[2021-04-23 06:56] LABS: Alanine Aminotransferase 14 U/L (16-61); Chloride 84 mmol/L (98-107); Potassium 4.6 mmol/L (3.5-5.1); Sodium 131 mmol/L (136-145)
[2021-04-23] MEDS: BUDESONIDE (INHALATION) 0.5 MG/2 ML NEB NEB SCH ×2 (07:00→20:09)
[2021-04-23 07:05] LABS: Albumin 2.5 g/dL (3.4-5.0); Alkaline Phosphatase 89 U/L (45-117); Aspartate Aminotransferase 14 U/L (15-37); BUN/Creatinine Ratio 15.8; Bilirubin, Total 0.4 mg/dL (0.2-1.0); Blood Urea Nitrogen 16 mg/dL (7-18); Calcium 8.9 mg/dL (8.5-10.1); GFR African American 96 mL/min; GFR Non-African American 79 mL/min; Glucose 104 mg/dL (74-106); Total Protein 6.8 g/dL (6.4-8.2)
[2021-04-23 07:13] LABS: Anion Gap 1.99999 (5-15)
[2021-04-23 07:16] LABS: Carbon Dioxide > 45 mmol/L (21-32)
[2021-04-23 08:50] VITALS: BP 116/67
[2021-04-23 13:00] VITALS: BP 110/86
[2021-04-23] MEDS: HYDROcodone-ACET 10/325MG TAB PO PRN (15:37)
[2021-04-23 16:02] VITALS: BP 137/65
[2021-04-23 20:00] VITALS: BP 122/64
[2021-04-23 22:00] VITALS: BP 122/64
[2021-04-24] VITALS (7 sets, daily range): BP systolic 111–126; BP diastolic 59–79
[2021-04-24] MEDS: BUDESONIDE (INHALATION) 0.5 MG/2 ML NEB NEB SCH ×2 (05:52→18:56)
[2021-04-24] MEDS: BUMETANIDE 2.5mg/10ml (0.25 mg/ml) INJ IV SCH ×2 (06:14→17:36)
[2021-04-24 07:04] LABS: Basophils # (auto) 0 10 ^3/uL (0-0.2); Eosinophils # (auto) 0.1 10 ^3/uL (0-0.8); Eosinophils % (auto) 2.5 % (0.0-7.0); Hemoglobin 11.7 g/dL (13.5-17.5); Lymphocytes # (auto) 0.8 10 ^3/uL (0.4-5.4); Lymphocytes % (auto) 17.8 % (10.0-50.0); Mean Corpuscular Hemoglobin 28.4 pg (28.0-32.0); Mean Corpuscular Hgb Conc. 32.5 g/dL (32.0-36.0); Mean Corpuscular Volume 87.4 fL (80.0-100.0); Monocytes # (auto) 0.4 10 ^3/uL (0-1.3); Monocytes % (auto) 9.8 % (0.0-12.0); Neutrophils # (auto) 2.9 10 ^3/uL (1.6-8.6); Neutrophils % (auto) 68.9 % (37.0-80.0); Nucleated Red Blood Cells % 0.1 %; Red Blood Cells 4.12 10^6/uL (4.5-5.90); Red Cell Distribution Width 14.1 % (11.8-14.3); White Blood Cell 4.3 10^3/uL (4.4-10.8)
[2021-04-24 07:37] LABS: Albumin 2.5 g/dL (3.4-5.0); BUN/Creatinine Ratio 16.2; Calcium 8.9 mg/dL (8.5-10.1); Potassium 4.5 mmol/L (3.5-5.1)
[2021-04-24 07:39] LABS: Bilirubin, Total 0.4 mg/dL (0.2-1.0); Total Protein 6.9 g/dL (6.4-8.2)
[2021-04-24] MEDS: HYDROcodone-ACET 10/325MG TAB PO PRN (09:47)
[2021-04-25] VITALS (7 sets, daily range): BP systolic 91–131; BP diastolic 68–80
[2021-04-25] MEDS: BUMETANIDE 2.5mg/10ml (0.25 mg/ml) INJ IV SCH ×2 (05:44→19:22)
[2021-04-25 05:46] LABS: Basophils # (auto) 0 10 ^3/uL (0-0.2); Basophils % (auto) 0.6 % (0.0-2.0); Eosinophils # (auto) 0.1 10 ^3/uL (0-0.8); Eosinophils % (auto) 2.2 % (0.0-7.0); Hematocrit 35.6 % (41.0-53.0); Hemoglobin 11.6 g/dL (13.5-17.5); Lymphocytes # (auto) 0.7 10 ^3/uL (0.4-5.4); Lymphocytes % (auto) 13.9 % (10.0-50.0); Mean Corpuscular Hemoglobin 28.4 pg (28.0-32.0); Mean Corpuscular Hgb Conc. 32.6 g/dL (32.0-36.0); Mean Corpuscular Volume 87.1 fL (80.0-100.0); Monocytes # (auto) 0.4 10 ^3/uL (0-1.3); Monocytes % (auto) 8.4 % (0.0-12.0); Neutrophils # (auto) 3.7 10 ^3/uL (1.6-8.6); Neutrophils % (auto) 74.9 % (37.0-80.0); Red Blood Cells 4.09 10^6/uL (4.5-5.90); Red Cell Distribution Width 13.8 % (11.8-14.3)
[2021-04-25 06:08] LABS: Potassium 4.3 mmol/L (3.5-5.1)
[2021-04-25 06:11] LABS: Albumin 2.5 g/dL (3.4-5.0); BUN/Creatinine Ratio 17.4; Calcium 8.9 mg/dL (8.5-10.1)
[2021-04-25 06:14] LABS: Bilirubin, Total 0.5 mg/dL (0.2-1.0); Total Protein 6.8 g/dL (6.4-8.2)
[2021-04-25] MEDS: BUDESONIDE (INHALATION) 0.5 MG/2 ML NEB NEB SCH ×2 (06:37→18:45)
[2021-04-25] MEDS: HYDROcodone-ACET 10/325MG TAB PO PRN (11:54)
[2021-04-26 05:30] VITALS: BP 121/65
[2021-04-26] MEDS: BUMETANIDE 2.5mg/10ml (0.25 mg/ml) INJ IV SCH ×2 (05:48→17:49)
[2021-04-26 06:38] LABS: Basophils # (auto) 0 10 ^3/uL (0-0.2); Basophils % (auto) 0.7 % (0.0-2.0); Eosinophils # (auto) 0.1 10 ^3/uL (0-0.8); Eosinophils % (auto) 2.5 % (0.0-7.0); Hematocrit 34.6 % (41.0-53.0); Hemoglobin 11.3 g/dL (13.5-17.5); Lymphocytes # (auto) 0.9 10 ^3/uL (0.4-5.4); Lymphocytes % (auto) 16.2 % (10.0-50.0); Mean Corpuscular Hemoglobin 28.5 pg (28.0-32.0); Mean Corpuscular Hgb Conc. 32.7 g/dL (32.0-36.0); Mean Corpuscular Volume 87.3 fL (80.0-100.0); Monocytes # (auto) 0.5 10 ^3/uL (0-1.3); Monocytes % (auto) 9.7 % (0.0-12.0); Neutrophils # (auto) 3.9 10 ^3/uL (1.6-8.6); Neutrophils % (auto) 70.9 % (37.0-80.0); Nucleated Red Blood Cells % 0.1 %; Red Blood Cells 3.96 10^6/uL (4.5-5.90); Red Cell Distribution Width 13.8 % (11.8-14.3); White Blood Cell 5.5 10^3/uL (4.4-10.8)
[2021-04-26 06:57] LABS: Potassium 4.4 mmol/L (3.5-5.1)
[2021-04-26 07:05] LABS: Albumin 2.4 g/dL (3.4-5.0); BUN/Creatinine Ratio 17.3; Calcium 8.7 mg/dL (8.5-10.1)
[2021-04-26 07:07] LABS: Bilirubin, Total 0.6 mg/dL (0.2-1.0); Total Protein 6.7 g/dL (6.4-8.2)
[2021-04-26] MEDS: BUDESONIDE (INHALATION) 0.5 MG/2 ML NEB NEB SCH ×2 (08:15→21:35)
[2021-04-26 09:00] VITALS: BP 132/61
[2021-04-26] MEDS: HYDROcodone-ACET 10/325MG TAB PO PRN (10:25)
[2021-04-26 13:00] VITALS: BP 133/59
[2021-04-26 16:51] VITALS: BP 106/61
[2021-04-26 20:00] VITALS: BP 125/62
[2021-04-26 22:00] VITALS: BP 125/62
[2021-04-27 04:41] VITALS: BP 115/64
[2021-04-27 05:21] LABS: Basophils # (auto) 0 10 ^3/uL (0-0.2); Basophils % (auto) 0.6 % (0.0-2.0); Eosinophils # (auto) 0.1 10 ^3/uL (0-0.8); Eosinophils % (auto) 2.5 % (0.0-7.0); Hematocrit 32.5 % (41.0-53.0); Hemoglobin 10.8 g/dL (13.5-17.5); Lymphocytes # (auto) 0.8 10 ^3/uL (0.4-5.4); Lymphocytes % (auto) 16.3 % (10.0-50.0); Mean Corpuscular Hgb Conc. 33.1 g/dL (32.0-36.0); Mean Corpuscular Volume 87.5 fL (80.0-100.0); Monocytes # (auto) 0.5 10 ^3/uL (0-1.3); Monocytes % (auto) 10.2 % (0.0-12.0); Neutrophils # (auto) 3.3 10 ^3/uL (1.6-8.6); Neutrophils % (auto) 70.4 % (37.0-80.0); Red Blood Cells 3.72 10^6/uL (4.5-5.90); Red Cell Distribution Width 14.1 % (11.8-14.3); White Blood Cell 4.7 10^3/uL (4.4-10.8)
[2021-04-27 05:39] LABS: Alanine Aminotransferase 14 U/L (16-61); Albumin 2.2 g/dL (3.4-5.0); Aspartate Aminotransferase 17 U/L (15-37); Blood Urea Nitrogen 15 mg/dL (7-18); Calcium 8.1 mg/dL (8.5-10.1); Chloride 83 mmol/L (98-107); GFR African American 104 mL/min; GFR Non-African American 86 mL/min; Glucose 104 mg/dL (74-106); Potassium 4.2 mmol/L (3.5-5.1); Sodium 128 mmol/L (136-145)
[2021-04-27 05:41] LABS: Alkaline Phosphatase 83 U/L (45-117); Bilirubin, Total 0.6 mg/dL (0.2-1.0); Total Protein 6.3 g/dL (6.4-8.2)
[2021-04-27] MEDS: BUMETANIDE 2.5mg/10ml (0.25 mg/ml) INJ IV SCH ×2 (05:41→18:07)
[2021-04-27 06:02] LABS: Anion Gap 1 (5-15); Carbon Dioxide 44 mmol/L (21-32)
[2021-04-27] MEDS: BUDESONIDE (INHALATION) 0.5 MG/2 ML NEB NEB SCH ×2 (06:06→17:59)
[2021-04-27 09:00] VITALS: BP 115/62
[2021-04-27 12:54] VITALS: BP 122/76
[2021-04-27] MEDS: ACETAMINOPHEN 325 MG TAB PO PRN (16:27)
[2021-04-27 17:00] VITALS: BP 115/66
[2021-04-27 20:00] VITALS: BP 121/68
[2021-04-27 22:00] VITALS: BP 121/68
[2021-04-28] VITALS (7 sets, daily range): BP systolic 115–145; BP diastolic 56–110
[2021-04-28] MEDS: BUDESONIDE (INHALATION) 0.5 MG/2 ML NEB NEB SCH ×2 (06:07→22:33)
[2021-04-28] MEDS ORDERED: BUME1TAB3 PO (15:23)
[2021-04-28] MEDS: BUMETANIDE 2.5mg/10ml (0.25 mg/ml) INJ IV SCH ×2 (17:26→18:00)
[2021-04-29] VITALS: BP 135/110
[2021-04-29 05:00] VITALS: BP 108/62
[2021-04-29] MEDS: BUDESONIDE (INHALATION) 0.5 MG/2 ML NEB NEB SCH (06:22)
[2021-04-29] MEDS: BUMETANIDE 2.5mg/10ml (0.25 mg/ml) INJ IV SCH (06:29)
[2021-04-29 09:22] VITALS: BP 114/70
[2021-04-29 13:21] VITALS: BP 121/62
[2021-04-29 17:00] VITALS: BP 126/70
== END 2021-04-29 18:39 | disposition hospice, home (50) | DRG 720 ==
LOC: EDBD 15:18 → ER 15:18 → TELE 19:52 → ICU WEST 03-13 17:00 → TELE-EAST 03-19 15:45 → TELE-CENTR 03-28 21:32 → CENTRAL 04-23 16:34
PROVIDERS: ADMIT Nurse Practitioner; ATTEND Internal Medicine
PROC: 5A1955Z Respiratory Ventilation, Greater than 96 Consecutive Hours (ICD-10-PCS; principal; 2021-03-11)
PROC: 0BH17EZ Insertion of Endotracheal Airway into Trachea, Via Natural or Artificial Opening (ICD-10-PCS; 2021-03-11)
PROC: 06HM33Z Insertion of Infusion Device into Right Femoral Vein, Percutaneous Approach (ICD-10-PCS; 2021-03-11)
PROC: XW033E5 Introduction of Remdesivir Anti-infective into Peripheral Vein, Percutaneous Approach, New Technology Group 5 (ICD-10-PCS; 2021-03-11)
PROC: 4B02XSZ Measurement of Cardiac Pacemaker, External Approach (ICD-10-PCS; 2021-03-15)
PROC: 5A09357 Assistance with Respiratory Ventilation, Less than 24 Consecutive Hours, Continuous Positive Airway Pressure (ICD-10-PCS; 2021-03-18)
PROC: 5A09357 Assistance with Respiratory Ventilation, Less than 24 Consecutive Hours, Continuous Positive Airway Pressure (ICD-10-PCS; 2021-03-20)
PROC: 5A09357 Assistance with Respiratory Ventilation, Less than 24 Consecutive Hours, Continuous Positive Airway Pressure (ICD-10-PCS; 2021-03-21)
PROC: 5A09357 Assistance with Respiratory Ventilation, Less than 24 Consecutive Hours, Continuous Positive Airway Pressure (ICD-10-PCS; 2021-03-22)
PROC: 5A09357 Assistance with Respiratory Ventilation, Less than 24 Consecutive Hours, Continuous Positive Airway Pressure (ICD-10-PCS; 2021-03-23)
PROC: 5A09357 Assistance with Respiratory Ventilation, Less than 24 Consecutive Hours, Continuous Positive Airway Pressure (ICD-10-PCS; 2021-03-24)
PROC: 5A09357 Assistance with Respiratory Ventilation, Less than 24 Consecutive Hours, Continuous Positive Airway Pressure (ICD-10-PCS; 2021-03-25)
PROC: 5A09357 Assistance with Respiratory Ventilation, Less than 24 Consecutive Hours, Continuous Positive Airway Pressure (ICD-10-PCS; 2021-03-26)
PROC: 5A09357 Assistance with Respiratory Ventilation, Less than 24 Consecutive Hours, Continuous Positive Airway Pressure (ICD-10-PCS; 2021-03-27)
PROC: 5A09357 Assistance with Respiratory Ventilation, Less than 24 Consecutive Hours, Continuous Positive Airway Pressure (ICD-10-PCS; 2021-03-28)
PROC: 5A09357 Assistance with Respiratory Ventilation, Less than 24 Consecutive Hours, Continuous Positive Airway Pressure (ICD-10-PCS; 2021-03-29)
PROC: 5A09357 Assistance with Respiratory Ventilation, Less than 24 Consecutive Hours, Continuous Positive Airway Pressure (ICD-10-PCS; 2021-03-30)
PROC: 5A09357 Assistance with Respiratory Ventilation, Less than 24 Consecutive Hours, Continuous Positive Airway Pressure (ICD-10-PCS; 2021-03-31)
PROC: 5A09357 Assistance with Respiratory Ventilation, Less than 24 Consecutive Hours, Continuous Positive Airway Pressure (ICD-10-PCS; 2021-04-01)
PROC: 5A09357 Assistance with Respiratory Ventilation, Less than 24 Consecutive Hours, Continuous Positive Airway Pressure (ICD-10-PCS; 2021-04-02)
PROC: 5A09357 Assistance with Respiratory Ventilation, Less than 24 Consecutive Hours, Continuous Positive Airway Pressure (ICD-10-PCS; 2021-04-03)
PROC: 5A09357 Assistance with Respiratory Ventilation, Less than 24 Consecutive Hours, Continuous Positive Airway Pressure (ICD-10-PCS; 2021-04-04)
PROC: 5A09357 Assistance with Respiratory Ventilation, Less than 24 Consecutive Hours, Continuous Positive Airway Pressure (ICD-10-PCS; 2021-04-05)
PROC: 5A09357 Assistance with Respiratory Ventilation, Less than 24 Consecutive Hours, Continuous Positive Airway Pressure (ICD-10-PCS; 2021-04-06)
PROC: 5A09357 Assistance with Respiratory Ventilation, Less than 24 Consecutive Hours, Continuous Positive Airway Pressure (ICD-10-PCS; 2021-04-07)
PROC: 5A09357 Assistance with Respiratory Ventilation, Less than 24 Consecutive Hours, Continuous Positive Airway Pressure (ICD-10-PCS; 2021-04-08)
PROC: 5A09357 Assistance with Respiratory Ventilation, Less than 24 Consecutive Hours, Continuous Positive Airway Pressure (ICD-10-PCS; 2021-04-09)
PROC: 5A09357 Assistance with Respiratory Ventilation, Less than 24 Consecutive Hours, Continuous Positive Airway Pressure (ICD-10-PCS; 2021-04-10)
PROC: 5A09357 Assistance with Respiratory Ventilation, Less than 24 Consecutive Hours, Continuous Positive Airway Pressure (ICD-10-PCS; 2021-04-11)
PROC: 5A09357 Assistance with Respiratory Ventilation, Less than 24 Consecutive Hours, Continuous Positive Airway Pressure (ICD-10-PCS; 2021-04-12)
PROC: 5A09357 Assistance with Respiratory Ventilation, Less than 24 Consecutive Hours, Continuous Positive Airway Pressure (ICD-10-PCS; 2021-04-13)
PROC: 5A09357 Assistance with Respiratory Ventilation, Less than 24 Consecutive Hours, Continuous Positive Airway Pressure (ICD-10-PCS; 2021-04-14)
PROC: 5A09357 Assistance with Respiratory Ventilation, Less than 24 Consecutive Hours, Continuous Positive Airway Pressure (ICD-10-PCS; 2021-04-15)
PROC: 5A09357 Assistance with Respiratory Ventilation, Less than 24 Consecutive Hours, Continuous Positive Airway Pressure (ICD-10-PCS; 2021-04-16)
PROC: 5A09357 Assistance with Respiratory Ventilation, Less than 24 Consecutive Hours, Continuous Positive Airway Pressure (ICD-10-PCS; 2021-04-17)
PROC: 5A09357 Assistance with Respiratory Ventilation, Less than 24 Consecutive Hours, Continuous Positive Airway Pressure (ICD-10-PCS; 2021-04-18)
PROC: 5A09357 Assistance with Respiratory Ventilation, Less than 24 Consecutive Hours, Continuous Positive Airway Pressure (ICD-10-PCS; 2021-04-19)
PROC: 5A09357 Assistance with Respiratory Ventilation, Less than 24 Consecutive Hours, Continuous Positive Airway Pressure (ICD-10-PCS; 2021-04-20)
PROC: 5A09357 Assistance with Respiratory Ventilation, Less than 24 Consecutive Hours, Continuous Positive Airway Pressure (ICD-10-PCS; 2021-04-21)
PROC: 5A09357 Assistance with Respiratory Ventilation, Less than 24 Consecutive Hours, Continuous Positive Airway Pressure (ICD-10-PCS; 2021-04-22)
PROC: 5A09357 Assistance with Respiratory Ventilation, Less than 24 Consecutive Hours, Continuous Positive Airway Pressure (ICD-10-PCS; 2021-04-23)
PROC: 5A09357 Assistance with Respiratory Ventilation, Less than 24 Consecutive Hours, Continuous Positive Airway Pressure (ICD-10-PCS; 2021-04-24)
PROC: 5A09357 Assistance with Respiratory Ventilation, Less than 24 Consecutive Hours, Continuous Positive Airway Pressure (ICD-10-PCS; 2021-04-25)
PROC: 5A09357 Assistance with Respiratory Ventilation, Less than 24 Consecutive Hours, Continuous Positive Airway Pressure (ICD-10-PCS; 2021-04-26)
PROC: 5A09357 Assistance with Respiratory Ventilation, Less than 24 Consecutive Hours, Continuous Positive Airway Pressure (ICD-10-PCS; 2021-04-27)
PROC: 5A09357 Assistance with Respiratory Ventilation, Less than 24 Consecutive Hours, Continuous Positive Airway Pressure (ICD-10-PCS; 2021-04-28)
PROC: 5A09357 Assistance with Respiratory Ventilation, Less than 24 Consecutive Hours, Continuous Positive Airway Pressure (ICD-10-PCS; 2021-04-29)
DX: A41.9 Sepsis, unspecified organism (principal); J96.01 Acute respiratory failure with hypoxia; J12.82 Pneumonia due to coronavirus disease 2019; J44.0 Chronic obstructive pulmonary disease with (acute) lower respiratory infection; R65.21 Severe sepsis with septic shock; J96.12 Chronic respiratory failure with hypercapnia; G93.41 Metabolic encephalopathy; I50.43 Acute on chronic combined systolic (congestive) and diastolic (congestive) heart failure; U07.1 COVID-19; E66.01 Morbid (severe) obesity due to excess calories; E87.3 Alkalosis; E87.5 Hyperkalemia; E88.09 Other disorders of plasma-protein metabolism, not elsewhere classified; J98.11 Atelectasis; N17.9 Acute kidney failure, unspecified; Z99.11 Dependence on respirator [ventilator] status; E87.1 Hypo-osmolality and hyponatremia; F41.9 Anxiety disorder, unspecified; G47.33 Obstructive sleep apnea (adult) (pediatric); E03.9 Hypothyroidism, unspecified; I13.2 Hypertensive heart and chronic kidney disease with heart failure and with stage 5 chronic kidney disease, or end stage renal disease; N18.6 End stage renal disease; Z99.2 Dependence on renal dialysis; Z75.1 Person awaiting admission to adequate facility elsewhere; Z68.44 Body mass index [BMI] 60.0-69.9, adult; Z91.018 Allergy to other foods; Z95.0 Presence of cardiac pacemaker
CPT/HCPCS: 31500; 36415; 36556; 36600; 71045; 80048; 80053; 80061; 81001; 82306; 82728; 82805; 83036; 83605; 83615; 83735; 83880; 84100; 84132; 84443; 84484; 85025; 85379; 86141; 87040; 87070; 87077; 87081; 87186; 87205; 92610; 93005; 93306; 93970; 94002; 94003; 94640; 94660; 96365; 96375; 97110; 97116; 97163; 97530; 99291; C9113; G0378; J0330; J1100; J2250; J2704; J7042; J7060

== ENCOUNTER 2021-06-23 02:45 | Inpatient (IN) | payer MEDICAID ==
[~2021-06-23] VITALS: Ht 177.8 cm; Wt 209.0 kg
[2021-06-23] VITALS (48 sets, daily range): BP systolic 85–139; BP diastolic 41–75
[~2021-06-23 02:45] MED LIST changes: +BUME1TAB3 PO; -HYDR10TA26 PO; -IBUP800T27 PO; -POTA10TA32 PO; -POTA10TA51 PO
[2021-06-23 04:08] LABS: Basophils # (auto) 0 10 ^3/uL (0-0.2); Basophils % (auto) 0.4 % (0.0-2.0); Eosinophils # (auto) 0.1 10 ^3/uL (0-0.8); Eosinophils % (auto) 0.9 % (0.0-7.0); Lymphocytes # (auto) 0.4 10 ^3/uL (0.4-5.4); Lymphocytes % (auto) 5.6 % (10.0-50.0); Mean Corpuscular Hemoglobin 29.1 pg (28.0-32.0); Mean Corpuscular Hgb Conc. 31.4 g/dL (32.0-36.0); Mean Corpuscular Volume 92.8 fL (80.0-100.0); Monocytes # (auto) 0.5 10 ^3/uL (0-1.3); Monocytes % (auto) 7.9 % (0.0-12.0); Neutrophils # (auto) 5.7 10 ^3/uL (1.6-8.6); Neutrophils % (auto) 85.2 % (37.0-80.0); Nucleated Red Blood Cells % 0.3 %; Red Blood Cells 3.78 10^6/uL (4.5-5.90); Red Cell Distribution Width 15.4 % (11.8-14.3); White Blood Cell 6.7 10^3/uL (4.4-10.8)
[2021-06-23 04:19] LABS: Albumin 2.7 g/dL (3.4-5.0); Potassium 4.9 mmol/L (3.5-5.1)
[2021-06-23 04:25] LABS: BUN/Creatinine Ratio 15.1; Bilirubin, Total 0.7 mg/dL (0.2-1.0); Calcium 8.3 mg/dL (8.5-10.1); Magnesium 2.4 mg/dL (1.6-2.6); Total Protein 7.7 g/dL (6.4-8.2)
[2021-06-23] MEDS ORDERED: ALBUTEROL SULF 2.5 MG/0.5ML(0.5%) NEB SOLN NEB ONE (04:30)
[2021-06-23] MEDS ORDERED: IPRATROPIUM BROM 0.5 MG/2.5ML INH SOL NEB ONE (04:30)
[2021-06-23] MEDS ORDERED: methylPREDNISolone SOD SUCC 125 MG/2 ML VL IV ONE (04:30)
[2021-06-23] MEDS: MAGNESIUM SULFATE 1GM/100ML 100 ML IV SCH ×2 (05:02→06:45)
[2021-06-23] MEDS ORDERED: ACETAMINOPHEN 325 MG TAB PO PRN (05:30)
[2021-06-23] MEDS ORDERED: MORPHINE SULFATE INJ 2 MG/ml SYRG IV PRN ×2 (05:30)
[2021-06-23] MEDS ORDERED: ONDANSETRON HCL 4 MG/2 ML VIAL IV PRN (05:30)
[2021-06-23] MEDS ORDERED: NITROGLYCERIN 0.4 MG SL TAB SL PRN (05:30)
[2021-06-23] MEDS ORDERED: DOCUSATE SOD 100 MG CAP PO PRN (05:30)
[2021-06-23] MEDS: AZITHROMYCIN 500MG/ 250ML 250 ML IV SCH (07:38)
[2021-06-23] MEDS ORDERED: ENOXAPARIN SOD 40 MG/0.4 ML SYRINGE SC SCH (10:00)
[2021-06-23] MEDS: ASCORBIC ACID 500 MG TAB PO SCH ×2 (10:00→22:16)
[2021-06-23] MEDS: MULTIPLE VITAMIN TAB PO SCH (10:00)
[2021-06-23] MEDS: ZINC SULFATE 220mg CAP or TAB PO SCH (10:45)
[2021-06-23] MEDS ORDERED: ETOMIDATE (2MG/ML) 20ML VIAL IV ONE (11:00)
[2021-06-23] MEDS ORDERED: ROCURONIUM 10MG/ML 10ML VIAL IV ONE ×3 (11:00→13:15)
[2021-06-23] MEDS ORDERED: MIDAZOLAM DRIP 50 mg/50mL 50 ML IV ONE (11:07)
[2021-06-23] MEDS: MIDAZOLAM DRIP 50 mg/50mL 50 ML IV SCH ×4 (11:08→22:17)
[2021-06-23] MEDS: ENOXAPARIN SOD 150 MG/1 ML SYRINGE SC SCH ×2 (11:36→22:00)
[2021-06-23] MEDS ORDERED: PROPOFOL 100 ML IV ONE (12:14)
[2021-06-23] MEDS: PROPOFOL 100 ML IV SCH ×4 (12:15→23:57)
[2021-06-23] MEDS ORDERED: fentaNYL Drip 2500mCg/250mlNS 250 ML IV SCH (12:34)
[2021-06-23] MEDS: fentaNYL Drip 2500mCg/250mlNS 250 ML IV SCH (12:34)
[2021-06-23] MEDS ORDERED: fentaNYL Drip 2500mCg/250mlNS 250 ML IV ONE (12:34)
[2021-06-23] MEDS: FUROSEMIDE 100 MG/10ML VIAL IV SCH (17:27)
[2021-06-23 19:25] LABS: INR 1.12 (0.9-1.15)
[2021-06-24] VITALS (92 sets, daily range): BP systolic 80–142; BP diastolic 21–69
[2021-06-24] MEDS: PROPOFOL 100 ML IV SCH ×5 (00:53→11:11)
[2021-06-24] MEDS: MIDAZOLAM DRIP 50 mg/50mL 50 ML IV SCH ×8 (02:40→23:40)
[2021-06-24 04:08] LABS: Basophils # (auto) 0 10 ^3/uL (0-0.2); Basophils % (auto) 0.4 % (0.0-2.0); Eosinophils # (auto) 0 10 ^3/uL (0-0.8); Hematocrit 27.8 % (41.0-53.0); Hemoglobin 8.9 g/dL (13.5-17.5); Lymphocytes # (auto) 0.5 10 ^3/uL (0.4-5.4); Mean Corpuscular Hgb Conc. 31.9 g/dL (32.0-36.0); Monocytes # (auto) 0.3 10 ^3/uL (0-1.3); Monocytes % (auto) 6.6 % (0.0-12.0); Nucleated Red Blood Cells % 0.2 %; Red Blood Cells 3.06 10^6/uL (4.5-5.90); Red Cell Distribution Width 14.7 % (11.8-14.3)
[2021-06-24 04:25] LABS: Albumin 2.1 g/dL (3.4-5.0); Potassium 3.7 mmol/L (3.5-5.1)
[2021-06-24 04:29] LABS: BUN/Creatinine Ratio 20.1; Bilirubin, Total 0.7 mg/dL (0.2-1.0); Phosphorus 1.4 mg/dL (2.5-4.90); Total Protein 6.3 g/dL (6.4-8.2)
[2021-06-24] MEDS: NOREPINEPHRINE 8 MG/250ML KIT 250 ML IV SCH (05:46)
[2021-06-24] MEDS: AZITHROMYCIN 500MG/ 250ML 250 ML IV SCH (06:15)
[2021-06-24] MEDS: FUROSEMIDE 100 MG/10ML VIAL IV SCH ×2 (06:16→17:34)
[2021-06-24] MEDS: MULTIPLE VITAMIN TAB PO SCH (09:51)
[2021-06-24] MEDS: ASCORBIC ACID 500 MG TAB PO SCH ×2 (09:51→22:20)
[2021-06-24] MEDS: ENOXAPARIN SOD 150 MG/1 ML SYRINGE SC SCH ×2 (09:51→22:21)
[2021-06-24] MEDS: ZINC SULFATE 220mg CAP or TAB PO SCH (09:51)
[2021-06-24] MEDS: fentaNYL Drip 2500mCg/250mlNS 250 ML IV SCH ×2 (14:45)
[2021-06-24] MEDS: acetaZOLAMIDE SODIUM 500 MG VL IV SCH (22:25)
[2021-06-25] VITALS (106 sets, daily range): BP systolic 59–129; BP diastolic 26–99
[2021-06-25] MEDS: MIDAZOLAM DRIP 50 mg/50mL 50 ML IV SCH ×4 (03:00→23:00)
[2021-06-25] MEDS: fentaNYL Drip 2500mCg/250mlNS 250 ML IV SCH ×2 (03:15→15:45)
[2021-06-25 04:36] LABS: Basophils # (auto) 0 10 ^3/uL (0-0.2); Basophils % (auto) 0.6 % (0.0-2.0); Eosinophils # (auto) 0.3 10 ^3/uL (0-0.8); Eosinophils % (auto) 3.6 % (0.0-7.0); Hematocrit 31.3 % (41.0-53.0); Hemoglobin 10.3 g/dL (13.5-17.5); Lymphocytes # (auto) 0.7 10 ^3/uL (0.4-5.4); Lymphocytes % (auto) 8.2 % (10.0-50.0); Mean Corpuscular Hemoglobin 29.1 pg (28.0-32.0); Mean Corpuscular Hgb Conc. 32.8 g/dL (32.0-36.0); Mean Corpuscular Volume 88.6 fL (80.0-100.0); Monocytes # (auto) 0.5 10 ^3/uL (0-1.3); Neutrophils # (auto) 6.8 10 ^3/uL (1.6-8.6); Neutrophils % (auto) 81.6 % (37.0-80.0); Red Blood Cells 3.53 10^6/uL (4.5-5.90); Red Cell Distribution Width 15.2 % (11.8-14.3); White Blood Cell 8.4 10^3/uL (4.4-10.8)
[2021-06-25 04:49] LABS: Albumin 2.2 g/dL (3.4-5.0); Calcium 8.3 mg/dL (8.5-10.1); Magnesium 2.4 mg/dL (1.6-2.6); Potassium 3.7 mmol/L (3.5-5.1)
[2021-06-25 04:53] LABS: BUN/Creatinine Ratio 21.4; Bilirubin, Total 1.2 mg/dL (0.2-1.0)
[2021-06-25] MEDS: AZITHROMYCIN 500MG/ 250ML 250 ML IV SCH (05:55)
[2021-06-25] MEDS: FUROSEMIDE 100 MG/10ML VIAL IV SCH ×2 (05:57→17:45)
[2021-06-25] MEDS: ASCORBIC ACID 500 MG TAB PO SCH ×2 (09:59→21:46)
[2021-06-25] MEDS: ZINC SULFATE 220mg CAP or TAB PO SCH (09:59)
[2021-06-25] MEDS: MULTIPLE VITAMIN TAB PO SCH (09:59)
[2021-06-25] MEDS: ENOXAPARIN SOD 100 MG/1 ML SYRINGE SC SCH ×2 (09:59→21:46)
[2021-06-25] MEDS: NOREPINEPHRINE 8 MG/250ML KIT 250 ML IV SCH (10:01)
[2021-06-25] MEDS: acetaZOLAMIDE SODIUM 500 MG VL IV SCH ×2 (10:13→21:43)
[2021-06-25] MEDS: PROPOFOL 100 ML IV SCH (13:15)
[2021-06-25] MEDS ORDERED: cefTRIAXone 1GM/50ML D5W 50 ML IV ONE (17:30)
[2021-06-26] VITALS (99 sets, daily range): BP systolic 85–141; BP diastolic 30–78
[2021-06-26] MEDS: NOREPINEPHRINE 8 MG/250ML KIT 250 ML IV SCH ×2 (00:45→22:23)
[2021-06-26] MEDS: MIDAZOLAM DRIP 50 mg/50mL 50 ML IV SCH ×7 (02:20→22:20)
[2021-06-26] MEDS: fentaNYL Drip 2500mCg/250mlNS 250 ML IV SCH ×2 (04:15→16:45)
[2021-06-26 04:54] LABS: Basophils # (auto) 0 10 ^3/uL (0-0.2); Basophils % (auto) 0.5 % (0.0-2.0); Eosinophils # (auto) 0.3 10 ^3/uL (0-0.8); Eosinophils % (auto) 4.2 % (0.0-7.0); Hematocrit 30.7 % (41.0-53.0); Hemoglobin 10.3 g/dL (13.5-17.5); Lymphocytes # (auto) 1.2 10 ^3/uL (0.4-5.4); Lymphocytes % (auto) 14.5 % (10.0-50.0); Mean Corpuscular Hemoglobin 29.7 pg (28.0-32.0); Mean Corpuscular Hgb Conc. 33.6 g/dL (32.0-36.0); Mean Corpuscular Volume 88.5 fL (80.0-100.0); Monocytes # (auto) 0.6 10 ^3/uL (0-1.3); Monocytes % (auto) 6.9 % (0.0-12.0); Neutrophils # (auto) 5.9 10 ^3/uL (1.6-8.6); Neutrophils % (auto) 73.9 % (37.0-80.0); Nucleated Red Blood Cells % 0.1 %; Red Blood Cells 3.47 10^6/uL (4.5-5.90); Red Cell Distribution Width 15.3 % (11.8-14.3)
[2021-06-26 05:15] LABS: Albumin 2.3 g/dL (3.4-5.0); Calcium 8.5 mg/dL (8.5-10.1); Magnesium 2.3 mg/dL (1.6-2.6); Potassium 3.4 mmol/L (3.5-5.1)
[2021-06-26 05:17] LABS: Bilirubin, Total 1.1 mg/dL (0.2-1.0); Total Protein 7.2 g/dL (6.4-8.2)
[2021-06-26] MEDS: PROPOFOL 100 ML IV SCH ×2 (05:35→21:55)
[2021-06-26] MEDS: FUROSEMIDE 100 MG/10ML VIAL IV SCH ×2 (06:39→17:47)
[2021-06-26] MEDS: AZITHROMYCIN 500MG/ 250ML 250 ML IV SCH (06:42)
[2021-06-26] MEDS: POTASSIUM CHL 20MEQ/100ML 100 ML IV SCH ×2 (08:34→10:51)
[2021-06-26] MEDS: MULTIPLE VITAMIN TAB PO SCH (09:38)
[2021-06-26] MEDS: ZINC SULFATE 220mg CAP or TAB PO SCH (09:38)
[2021-06-26] MEDS: ASCORBIC ACID 500 MG TAB PO SCH ×2 (09:38→22:00)
[2021-06-26] MEDS: cefTRIAXone 1GM/50ML D5W 50 ML IV SCH (09:49)
[2021-06-26] MEDS: acetaZOLAMIDE SODIUM 500 MG VL IV SCH ×2 (09:49→22:20)
[2021-06-26] MEDS: ENOXAPARIN SOD 100 MG/1 ML SYRINGE SC SCH ×2 (09:49→22:21)
[2021-06-27] VITALS (45 sets, daily range): BP systolic 90–138; BP diastolic 36–69
[2021-06-27] MEDS: MIDAZOLAM DRIP 50 mg/50mL 50 ML IV SCH ×6 (01:40→18:20)
[2021-06-27 03:57] LABS: Basophils # (auto) 0 10 ^3/uL (0-0.2); Basophils % (auto) 0.6 % (0.0-2.0); Eosinophils # (auto) 0.4 10 ^3/uL (0-0.8); Eosinophils % (auto) 6.9 % (0.0-7.0); Hematocrit 29.2 % (41.0-53.0); Hemoglobin 9.5 g/dL (13.5-17.5); Lymphocytes # (auto) 0.5 10 ^3/uL (0.4-5.4); Lymphocytes % (auto) 9.4 % (10.0-50.0); Mean Corpuscular Hemoglobin 29.3 pg (28.0-32.0); Mean Corpuscular Hgb Conc. 32.6 g/dL (32.0-36.0); Monocytes # (auto) 0.5 10 ^3/uL (0-1.3); Monocytes % (auto) 8.8 % (0.0-12.0); Neutrophils # (auto) 4.2 10 ^3/uL (1.6-8.6); Neutrophils % (auto) 74.3 % (37.0-80.0); Nucleated Red Blood Cells % 0.1 %; Red Blood Cells 3.25 10^6/uL (4.5-5.90); Red Cell Distribution Width 14.7 % (11.8-14.3); White Blood Cell 5.6 10^3/uL (4.4-10.8)
[2021-06-27 04:15] LABS: Albumin 2.3 g/dL (3.4-5.0); Calcium 8.2 mg/dL (8.5-10.1); Magnesium 2.4 mg/dL (1.6-2.6); Potassium 3.9 mmol/L (3.5-5.1)
[2021-06-27 04:18] LABS: BUN/Creatinine Ratio 17.6; Bilirubin, Total 0.7 mg/dL (0.2-1.0); Total Protein 7.1 g/dL (6.4-8.2)
[2021-06-27] MEDS: fentaNYL Drip 2500mCg/250mlNS 250 ML IV SCH ×2 (05:15→17:40)
[2021-06-27] MEDS: FUROSEMIDE 100 MG/10ML VIAL IV SCH ×2 (05:42→17:44)
[2021-06-27] MEDS: AZITHROMYCIN 500MG/ 250ML 250 ML IV SCH (05:43)
[2021-06-27] MEDS: cefTRIAXone 1GM/50ML D5W 50 ML IV SCH (09:07)
[2021-06-27] MEDS: MULTIPLE VITAMIN TAB PO SCH (10:32)
[2021-06-27] MEDS: ASCORBIC ACID 500 MG TAB PO SCH (10:33)
[2021-06-27] MEDS: ENOXAPARIN SOD 100 MG/1 ML SYRINGE SC SCH (10:33)
[2021-06-27] MEDS: ZINC SULFATE 220mg CAP or TAB PO SCH (10:33)
[2021-06-27] MEDS: acetaZOLAMIDE SODIUM 500 MG VL IV SCH ×2 (10:35→22:00)
[2021-06-27] MEDS: PROPOFOL 100 ML IV SCH (14:15)
[2021-06-27] MEDS: ALBUTEROL SULF 2.5 MG/0.5ML(0.5%) NEB SOLN NEB SCH ×3 (15:42→22:17)
[2021-06-27] MEDS: IPRATROPIUM BROM 0.5 MG/2.5ML INH SOL NEB SCH ×3 (15:42→22:17)
[2021-06-28] MEDS: IPRATROPIUM BROM 0.5 MG/2.5ML INH SOL NEB SCH ×5 (02:25→22:12)
[2021-06-28] MEDS: ALBUTEROL SULF 2.5 MG/0.5ML(0.5%) NEB SOLN NEB SCH ×5 (02:25→22:12)
[2021-06-28 06:53] LABS: Potassium 3.9 mmol/L (3.5-5.1)
[2021-06-28 07:01] LABS: Albumin 2.3 g/dL (3.4-5.0); BUN/Creatinine Ratio 16.7; Bilirubin, Total 0.5 mg/dL (0.2-1.0); Calcium 7.9 mg/dL (8.5-10.1); Magnesium 2.5 mg/dL (1.6-2.6); Total Protein 7.2 g/dL (6.4-8.2)
[2021-06-28] MEDS: ASCORBIC ACID 500 MG TAB PO SCH ×3 (07:04→22:22)
[2021-06-28] MEDS: ENOXAPARIN SOD 100 MG/1 ML SYRINGE SC SCH ×3 (07:04→22:23)
[2021-06-28] MEDS: FUROSEMIDE 100 MG/10ML VIAL IV SCH ×2 (07:04→17:48)
[2021-06-28] MEDS: AZITHROMYCIN 500MG/ 250ML 250 ML IV SCH (07:05)
[2021-06-28 07:38] LABS: Basophils # (auto) 0 10 ^3/uL (0-0.2); Basophils % (auto) 0.7 % (0.0-2.0); Eosinophils # (auto) 0.3 10 ^3/uL (0-0.8); Eosinophils % (auto) 5.4 % (0.0-7.0); Hematocrit 27.9 % (41.0-53.0); Hemoglobin 8.9 g/dL (13.5-17.5); Lymphocytes # (auto) 0.7 10 ^3/uL (0.4-5.4); Lymphocytes % (auto) 12.9 % (10.0-50.0); Mean Corpuscular Hemoglobin 28.4 pg (28.0-32.0); Mean Corpuscular Hgb Conc. 31.8 g/dL (32.0-36.0); Mean Corpuscular Volume 89.3 fL (80.0-100.0); Monocytes # (auto) 0.5 10 ^3/uL (0-1.3); Monocytes % (auto) 10.3 % (0.0-12.0); Neutrophils # (auto) 3.6 10 ^3/uL (1.6-8.6); Neutrophils % (auto) 70.7 % (37.0-80.0); Nucleated Red Blood Cells % 0.1 %; Red Blood Cells 3.12 10^6/uL (4.5-5.90); Red Cell Distribution Width 14.6 % (11.8-14.3); White Blood Cell 5.1 10^3/uL (4.4-10.8)
[2021-06-28] MEDS: cefTRIAXone 1GM/50ML D5W 50 ML IV SCH (08:59)
[2021-06-28 09:00] VITALS: BP 104/65
[2021-06-28] MEDS: MULTIPLE VITAMIN TAB PO SCH (09:06)
[2021-06-28] MEDS: ZINC SULFATE 220mg CAP or TAB PO SCH (09:06)
[2021-06-28] MEDS: acetaZOLAMIDE SODIUM 500 MG VL IV SCH ×2 (10:13→22:23)
[2021-06-28 13:00] VITALS: BP 116/59
[2021-06-28 17:00] VITALS: BP 105/63
[2021-06-28 22:00] VITALS: BP 115/52
[2021-06-29] MEDS: IPRATROPIUM BROM 0.5 MG/2.5ML INH SOL NEB SCH ×6 (02:12→22:19)
[2021-06-29] MEDS: ALBUTEROL SULF 2.5 MG/0.5ML(0.5%) NEB SOLN NEB SCH ×6 (02:12→22:19)
[2021-06-29 05:00] VITALS: BP 122/53
[2021-06-29] MEDS: FUROSEMIDE 100 MG/10ML VIAL IV SCH ×2 (06:10→17:37)
[2021-06-29] MEDS: AZITHROMYCIN 500MG/ 250ML 250 ML IV SCH (06:10)
[2021-06-29] MEDS: HYDROcodone-ACET 5/325MG TAB PO PRN (06:16)
[2021-06-29 08:24] VITALS: BP 100/55
[2021-06-29] MEDS: cefTRIAXone 1GM/50ML D5W 50 ML IV SCH (08:38)
[2021-06-29] MEDS: MULTIPLE VITAMIN TAB PO SCH (08:39)
[2021-06-29] MEDS: ENOXAPARIN SOD 100 MG/1 ML SYRINGE SC SCH (08:39)
[2021-06-29] MEDS: ZINC SULFATE 220mg CAP or TAB PO SCH (08:39)
[2021-06-29] MEDS: ASCORBIC ACID 500 MG TAB PO SCH ×2 (08:39→22:03)
[2021-06-29] MEDS: acetaZOLAMIDE SODIUM 500 MG VL IV SCH ×2 (08:40→22:04)
[2021-06-29 08:55] LABS: Basophils # (auto) 0 10 ^3/uL (0-0.2); Basophils % (auto) 0.8 % (0.0-2.0); Eosinophils # (auto) 0.2 10 ^3/uL (0-0.8); Eosinophils % (auto) 3.8 % (0.0-7.0); Hematocrit 27.2 % (41.0-53.0); Hemoglobin 8.7 g/dL (13.5-17.5); Lymphocytes # (auto) 0.7 10 ^3/uL (0.4-5.4); Mean Corpuscular Hemoglobin 28.7 pg (28.0-32.0); Mean Corpuscular Hgb Conc. 32.1 g/dL (32.0-36.0); Mean Corpuscular Volume 89.5 fL (80.0-100.0); Monocytes # (auto) 0.5 10 ^3/uL (0-1.3); Neutrophils # (auto) 3.4 10 ^3/uL (1.6-8.6); Neutrophils % (auto) 70.4 % (37.0-80.0); Nucleated Red Blood Cells % 0.1 %; Red Blood Cells 3.03 10^6/uL (4.5-5.90); Red Cell Distribution Width 14.8 % (11.8-14.3); White Blood Cell 4.9 10^3/uL (4.4-10.8)
[2021-06-29 09:12] LABS: Albumin 2.3 g/dL (3.4-5.0); Calcium 7.8 mg/dL (8.5-10.1); Magnesium 2.5 mg/dL (1.6-2.6); Potassium 3.4 mmol/L (3.5-5.1)
[2021-06-29 09:15] LABS: BUN/Creatinine Ratio 16.3; Bilirubin, Total 0.4 mg/dL (0.2-1.0); Total Protein 7.3 g/dL (6.4-8.2)
[2021-06-29 12:30] VITALS: BP 106/54
[2021-06-29] MEDS: PANTOPRAZOLE 40 MG TAB PO SCH (14:29)
[2021-06-29 16:36] VITALS: BP 109/63
[2021-06-29 21:21] VITALS: BP 109/59
[2021-06-29] MEDS: DOCUSATE SOD 100 MG CAP PO SCH (22:03)
[2021-06-29] MEDS: APIXABAN 5 MG TAB PO SCH (22:03)
[2021-06-30] MEDS: IPRATROPIUM BROM 0.5 MG/2.5ML INH SOL NEB SCH ×6 (02:01→22:46)
[2021-06-30] MEDS: ALBUTEROL SULF 2.5 MG/0.5ML(0.5%) NEB SOLN NEB SCH ×6 (02:01→22:46)
[2021-06-30 05:00] VITALS: BP 114/59
[2021-06-30] MEDS: AZITHROMYCIN 500MG/ 250ML 250 ML IV SCH (06:43)
[2021-06-30] MEDS: FUROSEMIDE 100 MG/10ML VIAL IV SCH ×2 (06:43→17:41)
[2021-06-30 08:09] LABS: Basophils # (auto) 0.1 10 ^3/uL (0-0.2); Basophils % (auto) 1.1 % (0.0-2.0); Eosinophils # (auto) 0.2 10 ^3/uL (0-0.8); Eosinophils % (auto) 3.9 % (0.0-7.0); Hematocrit 30.2 % (41.0-53.0); Hemoglobin 9.6 g/dL (13.5-17.5); Lymphocytes # (auto) 0.8 10 ^3/uL (0.4-5.4); Lymphocytes % (auto) 13.6 % (10.0-50.0); Mean Corpuscular Hemoglobin 28.8 pg (28.0-32.0); Mean Corpuscular Volume 90.2 fL (80.0-100.0); Monocytes # (auto) 0.6 10 ^3/uL (0-1.3); Neutrophils # (auto) 3.9 10 ^3/uL (1.6-8.6); Neutrophils % (auto) 70.4 % (37.0-80.0); Red Blood Cells 3.35 10^6/uL (4.5-5.90); White Blood Cell 5.5 10^3/uL (4.4-10.8)
[2021-06-30 08:21] LABS: Albumin 2.5 g/dL (3.4-5.0); Calcium 8.5 mg/dL (8.5-10.1); Magnesium 2.5 mg/dL (1.6-2.6); Potassium 3.9 mmol/L (3.5-5.1)
[2021-06-30 08:23] LABS: BUN/Creatinine Ratio 17.3
[2021-06-30 08:26] LABS: Bilirubin, Total 0.4 mg/dL (0.2-1.0); Total Protein 7.6 g/dL (6.4-8.2)
[2021-06-30 08:30] VITALS: BP 120/57
[2021-06-30] MEDS: cefTRIAXone 1GM/50ML D5W 50 ML IV SCH (08:43)
[2021-06-30] MEDS: APIXABAN 5 MG TAB PO SCH ×2 (08:44→22:43)
[2021-06-30] MEDS: ZINC SULFATE 220mg CAP or TAB PO SCH (08:44)
[2021-06-30] MEDS: acetaZOLAMIDE SODIUM 500 MG VL IV SCH ×2 (08:44→22:00)
[2021-06-30] MEDS: DOCUSATE SOD 100 MG CAP PO SCH ×2 (08:44→22:43)
[2021-06-30] MEDS: PANTOPRAZOLE 40 MG TAB PO SCH (08:45)
[2021-06-30] MEDS: MULTIPLE VITAMIN TAB PO SCH (08:45)
[2021-06-30] MEDS: LEVOTHYROXINE SODIUM 50 MCG TAB PO SCH (08:45)
[2021-06-30] MEDS: ASCORBIC ACID 500 MG TAB PO SCH ×2 (08:45→22:44)
[2021-06-30] MEDS ORDERED: PATIENTS OWN MEDICATION (Atorvastatin Calcium (Lipitor) 1 TAB) PO SCH (10:00)
[2021-06-30 12:30] VITALS: BP 153/66
[2021-06-30 16:30] VITALS: BP 122/69
[2021-06-30 22:00] VITALS: BP 118/66
[2021-06-30] MEDS ORDERED: IPRATROPIUM BROM 0.5 MG/2.5ML INH SOL ONE (22:44)
[2021-06-30] MEDS ORDERED: ALBUTEROL SULF 2.5 MG/0.5ML(0.5%) NEB SOLN ONE (22:44)
[2021-07-01] MEDS: ALBUTEROL SULF 2.5 MG/0.5ML(0.5%) NEB SOLN NEB SCH ×6 (03:14→22:46)
[2021-07-01] MEDS: IPRATROPIUM BROM 0.5 MG/2.5ML INH SOL NEB SCH ×6 (03:14→22:46)
[2021-07-01 05:00] VITALS: BP 118/70
[2021-07-01] MEDS: FUROSEMIDE 100 MG/10ML VIAL IV SCH ×2 (06:08→17:55)
[2021-07-01 06:32] LABS: Basophils # (auto) 0.1 10 ^3/uL (0-0.2); Basophils % (auto) 0.8 % (0.0-2.0); Eosinophils # (auto) 0.2 10 ^3/uL (0-0.8); Eosinophils % (auto) 3.5 % (0.0-7.0); Hematocrit 29.4 % (41.0-53.0); Hemoglobin 9.7 g/dL (13.5-17.5); Lymphocytes # (auto) 0.8 10 ^3/uL (0.4-5.4); Lymphocytes % (auto) 11.1 % (10.0-50.0); Mean Corpuscular Hemoglobin 29.1 pg (28.0-32.0); Mean Corpuscular Hgb Conc. 32.8 g/dL (32.0-36.0); Mean Corpuscular Volume 88.6 fL (80.0-100.0); Monocytes # (auto) 0.8 10 ^3/uL (0-1.3); Monocytes % (auto) 12.3 % (0.0-12.0); Neutrophils # (auto) 4.9 10 ^3/uL (1.6-8.6); Neutrophils % (auto) 72.3 % (37.0-80.0); Nucleated Red Blood Cells % 0.2 %; Red Blood Cells 3.32 10^6/uL (4.5-5.90); Red Cell Distribution Width 14.8 % (11.8-14.3); White Blood Cell 6.8 10^3/uL (4.4-10.8)
[2021-07-01 06:53] LABS: Albumin 2.5 g/dL (3.4-5.0); Calcium 8.3 mg/dL (8.5-10.1); Magnesium 2.6 mg/dL (1.6-2.6); Potassium 4.2 mmol/L (3.5-5.1)
[2021-07-01 06:55] LABS: BUN/Creatinine Ratio 18.2
[2021-07-01 06:58] LABS: Bilirubin, Total 0.4 mg/dL (0.2-1.0); Total Protein 7.5 g/dL (6.4-8.2)
[2021-07-01 09:17] VITALS: BP 122/55
[2021-07-01] MEDS: ZINC SULFATE 220mg CAP or TAB PO SCH (09:46)
[2021-07-01] MEDS: acetaZOLAMIDE SODIUM 500 MG VL IV SCH ×2 (09:46→22:00)
[2021-07-01] MEDS: DOCUSATE SOD 100 MG CAP PO SCH ×2 (09:46→22:32)
[2021-07-01] MEDS: PANTOPRAZOLE 40 MG TAB PO SCH (09:47)
[2021-07-01] MEDS: APIXABAN 5 MG TAB PO SCH ×2 (09:47→22:32)
[2021-07-01] MEDS: MULTIPLE VITAMIN TAB PO SCH (09:47)
[2021-07-01] MEDS: LEVOTHYROXINE SODIUM 50 MCG TAB PO SCH (09:48)
[2021-07-01] MEDS: ASCORBIC ACID 500 MG TAB PO SCH ×2 (09:48→22:33)
[2021-07-01] MEDS: HYDROcodone-ACET 5/325MG TAB PO PRN ×2 (11:14→18:45)
[2021-07-01 12:43] VITALS: BP 114/60
[2021-07-01 16:33] VITALS: BP 100/56
[2021-07-01 22:00] VITALS: BP 111/60
[2021-07-02] MEDS: IPRATROPIUM BROM 0.5 MG/2.5ML INH SOL NEB SCH ×6 (02:00→21:59)
[2021-07-02] MEDS: ALBUTEROL SULF 2.5 MG/0.5ML(0.5%) NEB SOLN NEB SCH ×6 (02:00→21:59)
[2021-07-02 04:40] VITALS: BP 111/60
[2021-07-02 05:00] VITALS: BP 107/57
[2021-07-02] MEDS: FUROSEMIDE 100 MG/10ML VIAL IV SCH ×2 (05:30→17:53)
[2021-07-02 09:00] VITALS: BP 98/50
[2021-07-02] MEDS: acetaZOLAMIDE SODIUM 500 MG VL IV SCH ×2 (09:45→21:40)
[2021-07-02] MEDS: APIXABAN 5 MG TAB PO SCH ×2 (09:46→21:39)
[2021-07-02] MEDS: MULTIPLE VITAMIN TAB PO SCH (09:46)
[2021-07-02] MEDS: ZINC SULFATE 220mg CAP or TAB PO SCH (09:46)
[2021-07-02] MEDS: DOCUSATE SOD 100 MG CAP PO SCH ×2 (09:46→21:39)
[2021-07-02] MEDS: LEVOTHYROXINE SODIUM 50 MCG TAB PO SCH (09:47)
[2021-07-02] MEDS: ASCORBIC ACID 500 MG TAB PO SCH ×2 (09:47→21:40)
[2021-07-02] MEDS: PANTOPRAZOLE 40 MG TAB PO SCH (09:47)
[2021-07-02] MEDS: HYDROcodone-ACET 5/325MG TAB PO PRN (10:05)
[2021-07-02 10:23] LABS: Basophils # (auto) 0 10 ^3/uL (0-0.2); Basophils % (auto) 0.6 % (0.0-2.0); Eosinophils # (auto) 0.2 10 ^3/uL (0-0.8); Eosinophils % (auto) 2.5 % (0.0-7.0); Hematocrit 28.2 % (41.0-53.0); Lymphocytes # (auto) 0.7 10 ^3/uL (0.4-5.4); Mean Corpuscular Hemoglobin 28.2 pg (28.0-32.0); Mean Corpuscular Hgb Conc. 31.7 g/dL (32.0-36.0); Mean Corpuscular Volume 88.9 fL (80.0-100.0); Monocytes # (auto) 0.7 10 ^3/uL (0-1.3); Monocytes % (auto) 10.1 % (0.0-12.0); Neutrophils # (auto) 5.7 10 ^3/uL (1.6-8.6); Neutrophils % (auto) 77.8 % (37.0-80.0); Nucleated Red Blood Cells % 0.1 %; Red Blood Cells 3.17 10^6/uL (4.5-5.90); Red Cell Distribution Width 14.9 % (11.8-14.3); White Blood Cell 7.4 10^3/uL (4.4-10.8)
[2021-07-02 10:26] LABS: Hemoglobin 8.9 g/dL (13.5-17.5)
[2021-07-02 11:01] LABS: Albumin 2.2 g/dL (3.4-5.0); Calcium 8.3 mg/dL (8.5-10.1); Magnesium 2.9 mg/dL (1.6-2.6)
[2021-07-02 11:06] LABS: BUN/Creatinine Ratio 22.2; Bilirubin, Total 0.4 mg/dL (0.2-1.0); Total Protein 7.5 g/dL (6.4-8.2)
[2021-07-02 13:00] VITALS: BP 99/54
[2021-07-02 16:57] VITALS: BP 123/65
[2021-07-02] MEDS: LACTULOSE 20Gm/30ML SOLN PO SCH (21:38)
[2021-07-02 22:00] VITALS: BP 129/67
[2021-07-03] MEDS: ALBUTEROL SULF 2.5 MG/0.5ML(0.5%) NEB SOLN NEB SCH ×4 (02:50→22:27)
[2021-07-03] MEDS: IPRATROPIUM BROM 0.5 MG/2.5ML INH SOL NEB SCH ×4 (02:50→22:27)
[2021-07-03 05:00] VITALS: BP 106/65
[2021-07-03] MEDS: FUROSEMIDE 100 MG/10ML VIAL IV SCH ×2 (05:50→19:26)
[2021-07-03 06:06] LABS: Basophils # (auto) 0.1 10 ^3/uL (0-0.2); Basophils % (auto) 0.8 % (0.0-2.0); Eosinophils # (auto) 0.2 10 ^3/uL (0-0.8); Eosinophils % (auto) 2.3 % (0.0-7.0); Hematocrit 28.8 % (41.0-53.0); Hemoglobin 9.5 g/dL (13.5-17.5); Lymphocytes # (auto) 0.7 10 ^3/uL (0.4-5.4); Lymphocytes % (auto) 9.8 % (10.0-50.0); Mean Corpuscular Hemoglobin 29.3 pg (28.0-32.0); Mean Corpuscular Volume 88.9 fL (80.0-100.0); Monocytes # (auto) 0.7 10 ^3/uL (0-1.3); Monocytes % (auto) 9.9 % (0.0-12.0); Neutrophils # (auto) 5.7 10 ^3/uL (1.6-8.6); Neutrophils % (auto) 77.2 % (37.0-80.0); Red Blood Cells 3.24 10^6/uL (4.5-5.90); Red Cell Distribution Width 14.7 % (11.8-14.3); White Blood Cell 7.4 10^3/uL (4.4-10.8)
[2021-07-03 06:45] LABS: Potassium 3.8 mmol/L (3.5-5.1)
[2021-07-03 06:50] LABS: Albumin 2.3 g/dL (3.4-5.0); Calcium 8.7 mg/dL (8.5-10.1); Magnesium 2.7 mg/dL (1.6-2.6)
[2021-07-03 06:57] LABS: Bilirubin, Total 0.4 mg/dL (0.2-1.0); Total Protein 7.6 g/dL (6.4-8.2)
[2021-07-03 09:00] VITALS: BP 113/66
[2021-07-03] MEDS: APIXABAN 5 MG TAB PO SCH ×2 (10:05→23:07)
[2021-07-03] MEDS: acetaZOLAMIDE SODIUM 500 MG VL IV SCH ×2 (10:05→23:08)
[2021-07-03] MEDS: LEVOTHYROXINE SODIUM 50 MCG TAB PO SCH (10:06)
[2021-07-03] MEDS: MULTIPLE VITAMIN TAB PO SCH (10:06)
[2021-07-03] MEDS: PANTOPRAZOLE 40 MG TAB PO SCH (10:07)
[2021-07-03] MEDS: ASCORBIC ACID 500 MG TAB PO SCH ×2 (10:07→23:02)
[2021-07-03] MEDS: ZINC SULFATE 220mg CAP or TAB PO SCH (10:08)
[2021-07-03] MEDS: LACTULOSE 20Gm/30ML SOLN PO SCH ×2 (10:08→23:08)
[2021-07-03] MEDS: HYDROcodone-ACET 5/325MG TAB PO PRN (10:08)
[2021-07-03] MEDS: DOCUSATE SOD 100 MG CAP PO SCH ×2 (10:08→23:03)
[2021-07-03 13:00] VITALS: BP 83/47
[2021-07-03 16:30] VITALS: BP 96/66
[2021-07-03 22:08] VITALS: BP 104/61
[2021-07-04] MEDS: ALBUTEROL SULF 2.5 MG/0.5ML(0.5%) NEB SOLN NEB SCH ×6 (02:23→21:47)
[2021-07-04] MEDS: IPRATROPIUM BROM 0.5 MG/2.5ML INH SOL NEB SCH ×6 (02:23→21:47)
[2021-07-04 04:27] VITALS: BP 132/63
[2021-07-04] MEDS: FUROSEMIDE 100 MG/10ML VIAL IV SCH ×2 (05:45→17:25)
[2021-07-04 05:57] LABS: Basophils # (auto) 0.1 10 ^3/uL (0-0.2); Basophils % (auto) 0.8 % (0.0-2.0); Eosinophils # (auto) 0.2 10 ^3/uL (0-0.8); Eosinophils % (auto) 2.4 % (0.0-7.0); Hemoglobin 9.2 g/dL (13.5-17.5); Lymphocytes # (auto) 0.7 10 ^3/uL (0.4-5.4); Lymphocytes % (auto) 10.7 % (10.0-50.0); Mean Corpuscular Hemoglobin 29.7 pg (28.0-32.0); Mean Corpuscular Volume 90.1 fL (80.0-100.0); Monocytes # (auto) 0.6 10 ^3/uL (0-1.3); Monocytes % (auto) 9.2 % (0.0-12.0); Neutrophils # (auto) 5.2 10 ^3/uL (1.6-8.6); Neutrophils % (auto) 76.9 % (37.0-80.0); Red Cell Distribution Width 14.8 % (11.8-14.3); White Blood Cell 6.8 10^3/uL (4.4-10.8)
[2021-07-04 06:17] LABS: Albumin 2.2 g/dL (3.4-5.0); BUN/Creatinine Ratio 24.8; Bilirubin, Total 0.5 mg/dL (0.2-1.0); Calcium 8.3 mg/dL (8.5-10.1); Magnesium 2.5 mg/dL (1.6-2.6); Total Protein 7.6 g/dL (6.4-8.2)
[2021-07-04 09:00] VITALS: BP 113/59
[2021-07-04] MEDS: LACTULOSE 20Gm/30ML SOLN PO SCH ×2 (10:03→22:35)
[2021-07-04] MEDS: DOCUSATE SOD 100 MG CAP PO SCH ×2 (10:04→22:35)
[2021-07-04] MEDS: PANTOPRAZOLE 40 MG TAB PO SCH (10:04)
[2021-07-04] MEDS: ASCORBIC ACID 500 MG TAB PO SCH ×2 (10:04→22:35)
[2021-07-04] MEDS: APIXABAN 5 MG TAB PO SCH ×2 (10:04→22:35)
[2021-07-04] MEDS: MULTIPLE VITAMIN TAB PO SCH (10:04)
[2021-07-04] MEDS: LEVOTHYROXINE SODIUM 50 MCG TAB PO SCH (10:05)
[2021-07-04] MEDS: acetaZOLAMIDE SODIUM 500 MG VL IV SCH ×2 (10:06→22:35)
[2021-07-04] MEDS: ZINC SULFATE 220mg CAP or TAB PO SCH (10:06)
[2021-07-04 13:00] VITALS: BP 119/62
[2021-07-04] MEDS ORDERED: DOXY-346 PO (15:13)
[2021-07-04] MEDS ORDERED: FURO40TA4 PO (15:13)
[2021-07-04 17:00] VITALS: BP 114/58
[2021-07-04 20:43] VITALS: BP 114/58
[2021-07-04 22:00] VITALS: BP 123/60
[2021-07-05] MEDS: ALBUTEROL SULF 2.5 MG/0.5ML(0.5%) NEB SOLN NEB SCH ×6 (02:01→22:30)
[2021-07-05] MEDS: IPRATROPIUM BROM 0.5 MG/2.5ML INH SOL NEB SCH ×6 (02:01→22:30)
[2021-07-05 05:00] VITALS: BP 107/62
[2021-07-05] MEDS: FUROSEMIDE 100 MG/10ML VIAL IV SCH ×2 (07:16→17:42)
[2021-07-05 08:06] LABS: Basophils # (auto) 0 10 ^3/uL (0-0.2); Basophils % (auto) 0.6 % (0.0-2.0); Eosinophils # (auto) 0.2 10 ^3/uL (0-0.8); Eosinophils % (auto) 2.4 % (0.0-7.0); Hematocrit 27.9 % (41.0-53.0); Hemoglobin 9.1 g/dL (13.5-17.5); Lymphocytes % (auto) 12.2 % (10.0-50.0); Mean Corpuscular Hemoglobin 28.9 pg (28.0-32.0); Mean Corpuscular Hgb Conc. 32.5 g/dL (32.0-36.0); Mean Corpuscular Volume 88.8 fL (80.0-100.0); Monocytes # (auto) 0.7 10 ^3/uL (0-1.3); Monocytes % (auto) 8.5 % (0.0-12.0); Neutrophils # (auto) 6.3 10 ^3/uL (1.6-8.6); Neutrophils % (auto) 76.3 % (37.0-80.0); Red Blood Cells 3.14 10^6/uL (4.5-5.90); Red Cell Distribution Width 14.6 % (11.8-14.3); White Blood Cell 8.3 10^3/uL (4.4-10.8)
[2021-07-05 08:19] LABS: BUN/Creatinine Ratio 22.7; Magnesium 2.7 mg/dL (1.6-2.6); Potassium 3.7 mmol/L (3.5-5.1)
[2021-07-05 09:00] VITALS: BP 113/59
[2021-07-05] MEDS: PANTOPRAZOLE 40 MG TAB PO SCH (09:57)
[2021-07-05] MEDS: ASCORBIC ACID 500 MG TAB PO SCH ×2 (09:57→22:20)
[2021-07-05] MEDS: DOCUSATE SOD 100 MG CAP PO SCH ×2 (09:57→22:19)
[2021-07-05] MEDS: ZINC SULFATE 220mg CAP or TAB PO SCH (09:57)
[2021-07-05] MEDS: APIXABAN 5 MG TAB PO SCH ×2 (09:58→22:20)
[2021-07-05] MEDS: MULTIPLE VITAMIN TAB PO SCH (09:58)
[2021-07-05] MEDS: LACTULOSE 20Gm/30ML SOLN PO SCH ×2 (09:59→22:19)
[2021-07-05] MEDS: LEVOTHYROXINE SODIUM 50 MCG TAB PO SCH (09:59)
[2021-07-05] MEDS: acetaZOLAMIDE SODIUM 500 MG VL IV SCH ×2 (10:22→22:19)
[2021-07-05 13:24] VITALS: BP 110/56
[2021-07-05 17:00] VITALS: BP 102/54
[2021-07-05 22:00] VITALS: BP 108/53
[2021-07-06] MEDS: ALBUTEROL SULF 2.5 MG/0.5ML(0.5%) NEB SOLN NEB SCH ×6 (02:42→23:02)
[2021-07-06] MEDS: IPRATROPIUM BROM 0.5 MG/2.5ML INH SOL NEB SCH ×6 (02:42→23:02)
[2021-07-06 05:00] VITALS: BP 105/69
[2021-07-06] MEDS: FUROSEMIDE 100 MG/10ML VIAL IV SCH ×2 (06:02→17:50)
[2021-07-06 08:54] VITALS: BP 90/50
[2021-07-06] MEDS: APIXABAN 5 MG TAB PO SCH ×2 (10:17→21:58)
[2021-07-06] MEDS: LACTULOSE 20Gm/30ML SOLN PO SCH ×2 (10:17→21:57)
[2021-07-06] MEDS: MULTIPLE VITAMIN TAB PO SCH (10:17)
[2021-07-06] MEDS: acetaZOLAMIDE SODIUM 500 MG VL IV SCH ×2 (10:17→21:57)
[2021-07-06] MEDS: DOCUSATE SOD 100 MG CAP PO SCH ×2 (10:17→21:58)
[2021-07-06] MEDS: ZINC SULFATE 220mg CAP or TAB PO SCH (10:17)
[2021-07-06] MEDS: ASCORBIC ACID 500 MG TAB PO SCH ×2 (10:18→21:58)
[2021-07-06] MEDS: PANTOPRAZOLE 40 MG TAB PO SCH (10:18)
[2021-07-06] MEDS: LEVOTHYROXINE SODIUM 50 MCG TAB PO SCH (10:18)
[2021-07-06 13:09] VITALS: BP 115/46
[2021-07-06] MEDS: HYDROcodone-ACET 5/325MG TAB PO PRN ×2 (15:30→21:59)
[2021-07-06 16:39] VITALS: BP 112/55
[2021-07-06 22:00] VITALS: BP 100/51
[2021-07-07] MEDS: ALBUTEROL SULF 2.5 MG/0.5ML(0.5%) NEB SOLN NEB SCH ×6 (02:59→22:11)
[2021-07-07] MEDS: IPRATROPIUM BROM 0.5 MG/2.5ML INH SOL NEB SCH ×6 (02:59→22:12)
[2021-07-07 03:45] VITALS: BP 100/51
[2021-07-07 05:00] VITALS: BP 107/66
[2021-07-07] MEDS: FUROSEMIDE 100 MG/10ML VIAL IV SCH ×2 (06:17→17:26)
[2021-07-07] MEDS: acetaZOLAMIDE SODIUM 500 MG VL IV SCH ×2 (08:24→22:23)
[2021-07-07] MEDS: APIXABAN 5 MG TAB PO SCH ×2 (08:24→22:23)
[2021-07-07] MEDS: LACTULOSE 20Gm/30ML SOLN PO SCH ×2 (08:24→22:23)
[2021-07-07] MEDS: DOCUSATE SOD 100 MG CAP PO SCH ×2 (08:24→22:23)
[2021-07-07] MEDS: ZINC SULFATE 220mg CAP or TAB PO SCH (08:24)
[2021-07-07] MEDS: HYDROcodone-ACET 5/325MG TAB PO PRN ×3 (08:25→22:39)
[2021-07-07] MEDS: PANTOPRAZOLE 40 MG TAB PO SCH (08:25)
[2021-07-07] MEDS: LEVOTHYROXINE SODIUM 50 MCG TAB PO SCH (08:25)
[2021-07-07] MEDS: ASCORBIC ACID 500 MG TAB PO SCH ×2 (08:25→22:23)
[2021-07-07 09:00] VITALS: BP 132/70
[2021-07-07] MEDS: MULTIPLE VITAMIN TAB PO SCH (10:00)
[2021-07-07 13:00] VITALS: BP 114/61
[2021-07-07 17:00] VITALS: BP 94/67
[2021-07-08] MEDS: IPRATROPIUM BROM 0.5 MG/2.5ML INH SOL NEB SCH ×6 (02:12→22:49)
[2021-07-08] MEDS: ALBUTEROL SULF 2.5 MG/0.5ML(0.5%) NEB SOLN NEB SCH ×6 (02:12→22:48)
[2021-07-08] MEDS: FUROSEMIDE 100 MG/10ML VIAL IV SCH (05:30)
[2021-07-08] MEDS: acetaZOLAMIDE SODIUM 500 MG VL IV SCH ×2 (09:05→22:44)
[2021-07-08] MEDS: LACTULOSE 20Gm/30ML SOLN PO SCH ×2 (09:05→22:43)
[2021-07-08] MEDS: PANTOPRAZOLE 40 MG TAB PO SCH (09:06)
[2021-07-08] MEDS: DOCUSATE SOD 100 MG CAP PO SCH ×2 (09:06→22:43)
[2021-07-08] MEDS: MULTIPLE VITAMIN TAB PO SCH (09:06)
[2021-07-08] MEDS: ZINC SULFATE 220mg CAP or TAB PO SCH (09:06)
[2021-07-08] MEDS: APIXABAN 5 MG TAB PO SCH ×2 (09:06→22:42)
[2021-07-08] MEDS: ASCORBIC ACID 500 MG TAB PO SCH ×2 (09:07→22:42)
[2021-07-08] MEDS: LEVOTHYROXINE SODIUM 50 MCG TAB PO SCH (09:07)
[2021-07-08 09:30] VITALS: BP 137/68
[2021-07-08 12:50] VITALS: BP 110/63
[2021-07-08 17:27] VITALS: BP 111/71
[2021-07-08] MEDS: HYDROcodone-ACET 5/325MG TAB PO PRN (17:29)
[2021-07-08 17:52] VITALS: BP 111/71
[2021-07-08 21:41] VITALS: BP 135/59
[2021-07-09] MEDS: ALBUTEROL SULF 2.5 MG/0.5ML(0.5%) NEB SOLN NEB SCH ×6 (02:24→22:57)
[2021-07-09] MEDS: IPRATROPIUM BROM 0.5 MG/2.5ML INH SOL NEB SCH ×6 (02:24→22:57)
[2021-07-09] MEDS: FUROSEMIDE 40 MG TAB PO SCH ×2 (06:39→18:00)
[2021-07-09 09:00] VITALS: BP 116/59
[2021-07-09] MEDS: ASCORBIC ACID 500 MG TAB PO SCH ×2 (09:53→21:39)
[2021-07-09] MEDS: APIXABAN 5 MG TAB PO SCH ×2 (09:54→21:40)
[2021-07-09] MEDS: PANTOPRAZOLE 40 MG TAB PO SCH (09:54)
[2021-07-09] MEDS: ZINC SULFATE 220mg CAP or TAB PO SCH (09:54)
[2021-07-09] MEDS: LACTULOSE 20Gm/30ML SOLN PO SCH ×2 (09:54→21:39)
[2021-07-09] MEDS: DOCUSATE SOD 100 MG CAP PO SCH ×2 (09:54→21:39)
[2021-07-09] MEDS: LEVOTHYROXINE SODIUM 50 MCG TAB PO SCH (09:54)
[2021-07-09] MEDS: MULTIPLE VITAMIN TAB PO SCH (09:55)
[2021-07-09] MEDS: acetaZOLAMIDE SODIUM 500 MG VL IV SCH ×2 (10:00→21:45)
[2021-07-09 13:00] VITALS: BP 128/53
[2021-07-09 17:00] VITALS: BP 124/55
[2021-07-09 21:36] VITALS: BP 124/55
[2021-07-09] MEDS: HYDROcodone-ACET 5/325MG TAB PO PRN (21:44)
[2021-07-09 22:00] VITALS: BP 128/61
[2021-07-10] MEDS: ALBUTEROL SULF 2.5 MG/0.5ML(0.5%) NEB SOLN NEB SCH ×3 (02:48→11:04)
[2021-07-10] MEDS: IPRATROPIUM BROM 0.5 MG/2.5ML INH SOL NEB SCH ×3 (02:48→11:04)
[2021-07-10 05:00] VITALS: BP 113/68
[2021-07-10] MEDS: FUROSEMIDE 40 MG TAB PO SCH (05:12)
[2021-07-10 09:00] VITALS: BP 120/59
[2021-07-10] MEDS: ASCORBIC ACID 500 MG TAB PO SCH (09:05)
[2021-07-10] MEDS: DOCUSATE SOD 100 MG CAP PO SCH (09:05)
[2021-07-10] MEDS: LACTULOSE 20Gm/30ML SOLN PO SCH (09:05)
[2021-07-10] MEDS: ZINC SULFATE 220mg CAP or TAB PO SCH (09:05)
[2021-07-10] MEDS: MULTIPLE VITAMIN TAB PO SCH (09:05)
[2021-07-10] MEDS: APIXABAN 5 MG TAB PO SCH (09:06)
[2021-07-10] MEDS: PANTOPRAZOLE 40 MG TAB PO SCH (09:06)
[2021-07-10] MEDS: acetaZOLAMIDE SODIUM 500 MG VL IV SCH (09:06)
[2021-07-10] MEDS: LEVOTHYROXINE SODIUM 50 MCG TAB PO SCH (09:09)
== END 2021-07-10 13:58 | disposition hospice, home (50) | DRG 133 ==
LOC: EDBD 02:45 → ER 02:45 → OVERFLOW 05:16 → ICU WEST 13:23 → TELE-WESTW 06-27 21:18
PROVIDERS: ADMIT Internal Medicine; ATTEND Internal Medicine
PROC: 5A1945Z Respiratory Ventilation, 24-96 Consecutive Hours (ICD-10-PCS; principal; 2021-06-23)
PROC: 0BH17EZ Insertion of Endotracheal Airway into Trachea, Via Natural or Artificial Opening (ICD-10-PCS; 2021-06-23)
PROC: 06HY33Z Insertion of Infusion Device into Lower Vein, Percutaneous Approach (ICD-10-PCS; 2021-06-23)
PROC: 5A09357 Assistance with Respiratory Ventilation, Less than 24 Consecutive Hours, Continuous Positive Airway Pressure (ICD-10-PCS; 2021-06-23)
PROC: 5A09357 Assistance with Respiratory Ventilation, Less than 24 Consecutive Hours, Continuous Positive Airway Pressure (ICD-10-PCS; 2021-06-28)
PROC: 5A09357 Assistance with Respiratory Ventilation, Less than 24 Consecutive Hours, Continuous Positive Airway Pressure (ICD-10-PCS; 2021-06-29)
PROC: 5A09357 Assistance with Respiratory Ventilation, Less than 24 Consecutive Hours, Continuous Positive Airway Pressure (ICD-10-PCS; 2021-06-30)
PROC: 5A09357 Assistance with Respiratory Ventilation, Less than 24 Consecutive Hours, Continuous Positive Airway Pressure (ICD-10-PCS; 2021-07-01)
PROC: 5A09357 Assistance with Respiratory Ventilation, Less than 24 Consecutive Hours, Continuous Positive Airway Pressure (ICD-10-PCS; 2021-07-02)
PROC: 5A09357 Assistance with Respiratory Ventilation, Less than 24 Consecutive Hours, Continuous Positive Airway Pressure (ICD-10-PCS; 2021-07-03)
PROC: 5A09357 Assistance with Respiratory Ventilation, Less than 24 Consecutive Hours, Continuous Positive Airway Pressure (ICD-10-PCS; 2021-07-04)
PROC: 5A09357 Assistance with Respiratory Ventilation, Less than 24 Consecutive Hours, Continuous Positive Airway Pressure (ICD-10-PCS; 2021-07-05)
PROC: 5A09357 Assistance with Respiratory Ventilation, Less than 24 Consecutive Hours, Continuous Positive Airway Pressure (ICD-10-PCS; 2021-07-06)
PROC: 5A09357 Assistance with Respiratory Ventilation, Less than 24 Consecutive Hours, Continuous Positive Airway Pressure (ICD-10-PCS; 2021-07-07)
PROC: 5A09357 Assistance with Respiratory Ventilation, Less than 24 Consecutive Hours, Continuous Positive Airway Pressure (ICD-10-PCS; 2021-07-08)
PROC: 5A09357 Assistance with Respiratory Ventilation, Less than 24 Consecutive Hours, Continuous Positive Airway Pressure (ICD-10-PCS; 2021-07-09)
PROC: 5A09357 Assistance with Respiratory Ventilation, Less than 24 Consecutive Hours, Continuous Positive Airway Pressure (ICD-10-PCS; 2021-07-10)
DX: J96.21 Acute and chronic respiratory failure with hypoxia (principal); G93.41 Metabolic encephalopathy; I50.43 Acute on chronic combined systolic (congestive) and diastolic (congestive) heart failure; J44.1 Chronic obstructive pulmonary disease with (acute) exacerbation; I27.20 Pulmonary hypertension, unspecified; E66.2 Morbid (severe) obesity with alveolar hypoventilation; Z68.44 Body mass index [BMI] 60.0-69.9, adult; E87.2 Acidosis; N17.9 Acute kidney failure, unspecified; I13.0 Hypertensive heart and chronic kidney disease with heart failure and stage 1 through stage 4 chronic kidney disease, or unspecified chronic kidney disease; Z20.822 Contact with and (suspected) exposure to COVID-19; I48.92 Unspecified atrial flutter; F17.200 Nicotine dependence, unspecified, uncomplicated; J98.11 Atelectasis; I48.91 Unspecified atrial fibrillation; J96.22 Acute and chronic respiratory failure with hypercapnia; N18.9 Chronic kidney disease, unspecified; E03.9 Hypothyroidism, unspecified; Z83.3 Family history of diabetes mellitus
CPT/HCPCS: 36415; 36600; 71045; 73620; 80048; 80053; 82805; 83735; 83880; 84100; 84484; 85025; 85379; 85610; 87070; 87077; 87081; 87086; 87088; 87186; 87205; 93005; 93306; 93970; 94002; 94003; 94640; 94660; 96365; 96366; 96368; 96375; 97110; 97116; 97163; 97530; 99291; G0378; J0696; J2250; J2704; J3480; J7060

== ENCOUNTER 2022-02-11 12:41 | Inpatient (IN) | payer MEDICARE, MEDICAID ==
[~2022-02-11] VITALS: Ht 173.7 cm; Wt 203.0 kg
[~2022-02-11 12:41] MED LIST changes: +DOXY-346 PO; -FURO20TA3 PO; +FURO40TA4 PO
[2022-02-11] MEDS ORDERED: methylPREDNISolone SOD SUCC 125 MG/2 ML VL IV ONE (13:30)
[2022-02-11] MEDS ORDERED: IPRATROPIUM BROM 0.5 MG/2.5ML INH SOL NEB ONE (13:30)
[2022-02-11] MEDS ORDERED: ALBUTEROL SULF 2.5 MG/0.5ML(0.5%) NEB SOLN NEB ONE ×2 (13:30→22:30)
[2022-02-11] MEDS ORDERED: HYDROcodone-ACET 5/325MG TAB PO ONE (13:30)
[2022-02-11] MEDS ORDERED: ALBUTEROL MEDNEB 2.5 mg/3ml NEB ONE (13:31)
[2022-02-11 14:25] LABS: Alanine Aminotransferase 24 U/L (16-61); Anion Gap 5 (5-15); Aspartate Aminotransferase 31 U/L (15-37); BUN/Creatinine Ratio 23.1; Blood Urea Nitrogen 52 mg/dL (7-18); Calcium 8.1 mg/dL (8.5-10.1); Chloride 89 mmol/L (98-107); GFR African American 38 mL/min; GFR Non-African American 31 mL/min; Glucose 106 mg/dL (74-106); Potassium 5.4 mmol/L (3.5-5.1); Sodium 137 mmol/L (136-145)
[2022-02-11 14:28] LABS: Alkaline Phosphatase 89 U/L (45-117); Bilirubin, Total 1.1 mg/dL (0.2-1.0)
[2022-02-11 15:32] LABS: Carbon Dioxide 43 mmol/L (21-32)
[2022-02-11 15:40] LABS: Basophils # (auto) 0.1 10 ^3/uL (0-0.2); Eosinophils # (auto) 0 10 ^3/uL (0-0.8); Eosinophils % (auto) 0.2 % (0.0-7.0); Hemoglobin 11.2 g/dL (13.5-17.5); Lymphocytes # (auto) 0.6 10 ^3/uL (0.4-5.4); Lymphocytes % (auto) 8.3 % (10.0-50.0); Mean Corpuscular Hemoglobin 28.7 pg (28.0-32.0); Mean Corpuscular Hgb Conc. 31.1 g/dL (32.0-36.0); Monocytes # (auto) 0.7 10 ^3/uL (0-1.3); Monocytes % (auto) 9.7 % (0.0-12.0); Neutrophils # (auto) 6.1 10 ^3/uL (1.6-8.6); Neutrophils % (auto) 80.8 % (37.0-80.0); Nucleated Red Blood Cells % 0.2 %; Red Blood Cells 3.91 10^6/uL (4.5-5.90); Red Cell Distribution Width 15.7 % (11.8-14.3); White Blood Cell 7.6 10^3/uL (4.4-10.8)
[2022-02-11] MEDS ORDERED: FUROSEMIDE 40 MG/4 ML VIAL IV ONE (15:45)
[2022-02-11 17:23] VITALS: BP 130/67
[2022-02-11] MEDS ORDERED: HYDR10TA26 PO (18:14)
[2022-02-11] MEDS ORDERED: LEV25T PO (18:14)
[2022-02-11] MEDS ORDERED: ATOR40TA52 (18:14)
[2022-02-11] MEDS ORDERED: ASPI-665 (18:14)
[2022-02-11] MEDS ORDERED: DOCU100C10 (18:14)
[2022-02-11] MEDS ORDERED: ONDANSETRON HCL 4 MG/2 ML VIAL IV PRN (18:15)
[2022-02-11] MEDS ORDERED: DOCUSATE SOD 100 MG CAP PO PRN (18:15)
[2022-02-11] MEDS ORDERED: TEMAZEPAM 15 MG CAP PO PRN (18:15)
[2022-02-11] MEDS ORDERED: MORPHINE SULFATE INJ 2 MG/ml SYRG IV PRN ×2 (18:15)
[2022-02-11] MEDS ORDERED: ACETAMINOPHEN 325 MG TAB PO PRN (18:15)
[2022-02-11] MEDS ORDERED: NITROGLYCERIN 0.4 MG SL TAB SL PRN (18:15)
[2022-02-11] MEDS ORDERED: ALBUTEROL SULF 2.5 MG/0.5ML(0.5%) NEB SOLN NEB PRN (18:15)
[2022-02-11 19:12] VITALS: BP 123/67
[2022-02-11 20:53] VITALS: BP 97/63
[2022-02-11] MEDS: DOCUSATE SOD 100 MG CAP PO SCH (22:00)
[2022-02-11] MEDS: ATORVASTATIN 20 MG TAB PO SCH (22:00)
[2022-02-11 22:08] VITALS: BP 119/58
[2022-02-11] MEDS ORDERED: HEPARIN SODIUM (PORCINE) 5000 UNITS/ML 1ML VIAL ONE (22:09)
[2022-02-11] MEDS: BUDESONIDE (INHALATION) 0.5 MG/2 ML NEB NEB SCH (22:32)
[2022-02-11] MEDS: ALBUTEROL MEDNEB 2.5 mg/3ml NEB ONE (22:32)
[2022-02-11 22:33] LABS: Urine Bacteria NONE SEEN /hpf (None Seen); Urine Blood 3+ /uL (Negative); Urine Hyaline Cast MANY /lpf (0 - 2); Urine Mucus FEW (None Seen); Urine Specific Gravity 1.016 (1.001-1.035); Urine WBC 6 /hpf (0 - 3)
[2022-02-11] MEDS: HEPARIN SODIUM (PORCINE) 5000 UNITS/ML 1ML VIAL SC SCH (22:50)
[2022-02-12 00:04] VITALS: BP 137/74
[2022-02-12] MEDS: AZITHROMYCIN 500MG/ 250ML 250 ML IV SCH ×2 (01:20→22:56)
[2022-02-12] MEDS: ALBUTEROL SULF 2.5 MG/0.5ML(0.5%) NEB SOLN NEB SCH ×6 (02:08→22:21)
[2022-02-12 02:20] VITALS: BP 129/65
[2022-02-12] MEDS: ALBUTEROL MEDNEB 2.5 mg/3ml NEB ONE (02:29)
[2022-02-12 03:50] VITALS: BP 127/63
[2022-02-12] MEDS ORDERED: ALBUTEROL MEDNEB 2.5 mg/3ml NEB ONE ×4 (05:31→18:20)
[2022-02-12] MEDS: BUDESONIDE (INHALATION) 0.5 MG/2 ML NEB NEB SCH ×2 (07:15→19:04)
[2022-02-12 08:06] LABS: Basophils # (auto) 0 10 ^3/uL (0-0.2); Basophils % (auto) 0.1 % (0.0-2.0); Eosinophils # (auto) 0 10 ^3/uL (0-0.8); Hematocrit 29.2 % (41.0-53.0); Hemoglobin 9.2 g/dL (13.5-17.5); Lymphocytes # (auto) 0.3 10 ^3/uL (0.4-5.4); Mean Corpuscular Hemoglobin 28.3 pg (28.0-32.0); Mean Corpuscular Hgb Conc. 31.6 g/dL (32.0-36.0); Mean Corpuscular Volume 89.6 fL (80.0-100.0); Monocytes # (auto) 0.3 10 ^3/uL (0-1.3); Monocytes % (auto) 7.3 % (0.0-12.0); Neutrophils % (auto) 85.6 % (37.0-80.0); Nucleated Red Blood Cells % 0.1 %; Red Blood Cells 3.26 10^6/uL (4.5-5.90); Red Cell Distribution Width 14.9 % (11.8-14.3); White Blood Cell 4.7 10^3/uL (4.4-10.8)
[2022-02-12 08:21] LABS: Potassium 4.1 mmol/L (3.5-5.1)
[2022-02-12 08:30] LABS: Albumin 2.4 g/dL (3.4-5.0); BUN/Creatinine Ratio 29.7; Bilirubin, Total 0.8 mg/dL (0.2-1.0); Calcium 7.5 mg/dL (8.5-10.1); Total Protein 6.4 g/dL (6.4-8.2)
[2022-02-12] MEDS: DOCUSATE SOD 100 MG CAP PO SCH ×2 (10:00→22:56)
[2022-02-12] MEDS ORDERED: FUROSEMIDE 20 MG TAB PO SCH (10:00)
[2022-02-12] MEDS: FEXOFENADINE HCL 60 MG TAB PO SCH (10:00)
[2022-02-12] MEDS: HEPARIN SODIUM (PORCINE) 5000 UNITS/ML 1ML VIAL SC SCH ×2 (11:03→22:55)
[2022-02-12] MEDS: PANTOPRAZOLE 40 MG TAB PO SCH (11:04)
[2022-02-12] MEDS: LEVOTHYROXINE SODIUM 25 MCG TAB PO SCH (11:04)
[2022-02-12] MEDS: FUROSEMIDE 100 MG/10ML VIAL IV SCH (21:04)
[2022-02-12] MEDS: cefTRIAXone 1GM/50ML D5W 50 ML IV SCH ×2 (21:15)
[2022-02-12 22:21] VITALS: BP 93/44
[2022-02-12] MEDS: ATORVASTATIN 20 MG TAB PO SCH (22:56)
[2022-02-13] VITALS (7 sets, daily range): BP systolic 89–114; BP diastolic 41–68
[2022-02-13] MEDS: ALBUTEROL SULF 2.5 MG/0.5ML(0.5%) NEB SOLN NEB SCH ×6 (02:20→22:50)
[2022-02-13] MEDS: HYDROcodone-ACET 5/325MG TAB PO PRN (04:23)
[2022-02-13] MEDS: FUROSEMIDE 100 MG/10ML VIAL IV SCH ×2 (06:28→17:23)
[2022-02-13 08:42] LABS: Basophils # (auto) 0 10 ^3/uL (0-0.2); Basophils % (auto) 0.8 % (0.0-2.0); Eosinophils # (auto) 0.1 10 ^3/uL (0-0.8); Eosinophils % (auto) 1.1 % (0.0-7.0); Monocytes # (auto) 0.5 10 ^3/uL (0-1.3); Nucleated Red Blood Cells % 0.1 %; White Blood Cell 4.8 10^3/uL (4.4-10.8)
[2022-02-13 08:44] LABS: Hematocrit 31.1 % (41.0-53.0); Hemoglobin 9.4 g/dL (13.5-17.5); Lymphocytes # (auto) 0.6 10 ^3/uL (0.4-5.4); Lymphocytes % (auto) 11.7 % (10.0-50.0); Mean Corpuscular Hemoglobin 27.2 pg (28.0-32.0); Mean Corpuscular Hgb Conc. 30.2 g/dL (32.0-36.0); Mean Corpuscular Volume 89.9 fL (80.0-100.0); Monocytes % (auto) 10.2 % (0.0-12.0); Neutrophils # (auto) 3.6 10 ^3/uL (1.6-8.6); Neutrophils % (auto) 76.2 % (37.0-80.0); Red Blood Cells 3.46 10^6/uL (4.5-5.90); Red Cell Distribution Width 15.7 % (11.8-14.3)
[2022-02-13 08:53] LABS: Albumin 2.7 g/dL (3.4-5.0); Blood Urea Nitrogen 51 mg/dL (7-18); Calcium 8.1 mg/dL (8.5-10.1); Chloride 90 mmol/L (98-107); Glucose 88 mg/dL (74-106); Potassium 3.9 mmol/L (3.5-5.1); Sodium 138 mmol/L (136-145)
[2022-02-13 08:57] LABS: Alanine Aminotransferase 17 U/L (16-61); Alkaline Phosphatase 68 U/L (45-117); Aspartate Aminotransferase 19 U/L (15-37); BUN/Creatinine Ratio 32.5; Bilirubin, Total 0.8 mg/dL (0.2-1.0); GFR African American 57 mL/min; GFR Non-African American 47 mL/min; Total Protein 6.6 g/dL (6.4-8.2)
[2022-02-13 09:57] LABS: Anion Gap 2.99999 (5-15)
[2022-02-13 10:00] LABS: Carbon Dioxide > 45 mmol/L (21-32)
[2022-02-13] MEDS: HEPARIN SODIUM (PORCINE) 5000 UNITS/ML 1ML VIAL SC SCH ×2 (10:22→22:25)
[2022-02-13] MEDS: LEVOTHYROXINE SODIUM 25 MCG TAB PO SCH (10:23)
[2022-02-13] MEDS: DOCUSATE SOD 100 MG CAP PO SCH ×2 (10:23→22:11)
[2022-02-13] MEDS: PANTOPRAZOLE 40 MG TAB PO SCH (10:23)
[2022-02-13] MEDS: FEXOFENADINE HCL 60 MG TAB PO SCH (10:30)
[2022-02-13] MEDS: BUDESONIDE (INHALATION) 0.5 MG/2 ML NEB NEB SCH ×2 (11:21→22:50)
[2022-02-13] MEDS ORDERED: ALBUTEROL MEDNEB 2.5 mg/3ml NEB ONE ×2 (18:08→21:50)
[2022-02-13] MEDS: ATORVASTATIN 20 MG TAB PO SCH (22:11)
[2022-02-13] MEDS: AZITHROMYCIN 500MG/ 250ML 250 ML IV SCH (22:12)
[2022-02-13] MEDS: cefTRIAXone 1GM/50ML D5W 50 ML IV SCH (22:12)
[2022-02-14] VITALS (7 sets, daily range): BP systolic 94–120; BP diastolic 51–59
[2022-02-14] MEDS ORDERED: ALBUTEROL MEDNEB 2.5 mg/3ml NEB ONE ×6 (01:54→21:37)
[2022-02-14] MEDS: ALBUTEROL SULF 2.5 MG/0.5ML(0.5%) NEB SOLN NEB SCH ×6 (02:27→22:13)
[2022-02-14] MEDS: FUROSEMIDE 100 MG/10ML VIAL IV SCH ×2 (05:44→16:53)
[2022-02-14] MEDS: LEVOTHYROXINE SODIUM 25 MCG TAB PO SCH (09:37)
[2022-02-14] MEDS: PANTOPRAZOLE 40 MG TAB PO SCH (09:37)
[2022-02-14] MEDS: DOCUSATE SOD 100 MG CAP PO SCH ×2 (09:37→22:00)
[2022-02-14] MEDS: FEXOFENADINE HCL 60 MG TAB PO SCH (09:37)
[2022-02-14] MEDS: HEPARIN SODIUM (PORCINE) 5000 UNITS/ML 1ML VIAL SC SCH ×2 (09:42→22:17)
[2022-02-14] MEDS: HYDROcodone-ACET 5/325MG TAB PO PRN ×2 (09:46→22:00)
[2022-02-14] MEDS: BUDESONIDE (INHALATION) 0.5 MG/2 ML NEB NEB SCH ×2 (12:55→22:13)
[2022-02-14] MEDS: cefTRIAXone 1GM/50ML D5W 50 ML IV SCH (22:01)
[2022-02-14] MEDS: ATORVASTATIN 20 MG TAB PO SCH (22:01)
[2022-02-14] MEDS: AZITHROMYCIN 500MG/ 250ML 250 ML IV SCH (22:02)
[2022-02-15] VITALS (8 sets, daily range): BP systolic 94–127; BP diastolic 46–61
[2022-02-15] MEDS ORDERED: ALBUTEROL MEDNEB 2.5 mg/3ml NEB ONE ×6 (01:59→21:49)
[2022-02-15] MEDS: ALBUTEROL SULF 2.5 MG/0.5ML(0.5%) NEB SOLN NEB SCH ×6 (02:17→22:57)
[2022-02-15] MEDS: FUROSEMIDE 100 MG/10ML VIAL IV SCH ×2 (05:59→17:35)
[2022-02-15] MEDS: BUDESONIDE (INHALATION) 0.5 MG/2 ML NEB NEB SCH ×2 (06:50→22:57)
[2022-02-15] MEDS: HEPARIN SODIUM (PORCINE) 5000 UNITS/ML 1ML VIAL SC SCH ×2 (09:07→21:48)
[2022-02-15] MEDS: PANTOPRAZOLE 40 MG TAB PO SCH (09:08)
[2022-02-15] MEDS: LEVOTHYROXINE SODIUM 25 MCG TAB PO SCH (09:08)
[2022-02-15] MEDS: DOCUSATE SOD 100 MG CAP PO SCH ×2 (09:08→21:45)
[2022-02-15] MEDS: FEXOFENADINE HCL 60 MG TAB PO SCH (09:08)
[2022-02-15] MEDS: HYDROcodone-ACET 5/325MG TAB PO PRN ×2 (09:13→21:45)
[2022-02-15] MEDS: AZITHROMYCIN 500MG/ 250ML 250 ML IV SCH (21:44)
[2022-02-15] MEDS: cefTRIAXone 1GM/50ML D5W 50 ML IV SCH (21:44)
[2022-02-15] MEDS: ATORVASTATIN 20 MG TAB PO SCH (21:46)
[2022-02-16] VITALS (7 sets, daily range): BP systolic 103–132; BP diastolic 54–79
[2022-02-16] MEDS ORDERED: ALBUTEROL MEDNEB 2.5 mg/3ml NEB ONE (01:53)
[2022-02-16] MEDS: ALBUTEROL SULF 2.5 MG/0.5ML(0.5%) NEB SOLN NEB SCH ×6 (01:56→22:30)
[2022-02-16] MEDS: FUROSEMIDE 100 MG/10ML VIAL IV SCH ×2 (05:33→16:45)
[2022-02-16] MEDS: BUDESONIDE (INHALATION) 0.5 MG/2 ML NEB NEB SCH ×2 (06:23→18:48)
[2022-02-16] MEDS: HEPARIN SODIUM (PORCINE) 5000 UNITS/ML 1ML VIAL SC SCH ×2 (08:48→21:32)
[2022-02-16] MEDS: DOCUSATE SOD 100 MG CAP PO SCH ×2 (08:49→21:14)
[2022-02-16] MEDS: HYDROcodone-ACET 5/325MG TAB PO PRN ×2 (08:49→21:21)
[2022-02-16] MEDS: LEVOTHYROXINE SODIUM 25 MCG TAB PO SCH (08:49)
[2022-02-16] MEDS: PANTOPRAZOLE 40 MG TAB PO SCH (08:49)
[2022-02-16] MEDS: FEXOFENADINE HCL 60 MG TAB PO SCH (08:50)
[2022-02-16] MEDS: cefTRIAXone 1GM/50ML D5W 50 ML IV SCH (21:13)
[2022-02-16] MEDS: AZITHROMYCIN 500MG/ 250ML 250 ML IV SCH (21:14)
[2022-02-16] MEDS: ATORVASTATIN 20 MG TAB PO SCH (21:15)
[2022-02-17] MEDS: ALBUTEROL SULF 2.5 MG/0.5ML(0.5%) NEB SOLN NEB SCH ×6 (02:39→23:18)
[2022-02-17 05:00] VITALS: BP 145/86
[2022-02-17] MEDS ORDERED: ALBUTEROL MEDNEB 2.5 mg/3ml NEB ONE ×5 (05:37→21:58)
[2022-02-17] MEDS ORDERED: BUDESONIDE (INHALATION) 0.5 MG/2 ML NEB ONE (05:37)
[2022-02-17] MEDS: FUROSEMIDE 100 MG/10ML VIAL IV SCH ×2 (05:39→16:58)
[2022-02-17] MEDS: BUDESONIDE (INHALATION) 0.5 MG/2 ML NEB NEB SCH ×2 (06:21→23:18)
[2022-02-17 06:30] LABS: Basophils # (auto) 0 10 ^3/uL (0-0.2); Eosinophils # (auto) 0.1 10 ^3/uL (0-0.8); Hematocrit 31.6 % (41.0-53.0); Hemoglobin 10.1 g/dL (13.5-17.5); Lymphocytes # (auto) 0.7 10 ^3/uL (0.4-5.4); Lymphocytes % (auto) 14.1 % (10.0-50.0); Mean Corpuscular Hemoglobin 28.7 pg (28.0-32.0); Mean Corpuscular Hgb Conc. 32.1 g/dL (32.0-36.0); Mean Corpuscular Volume 89.3 fL (80.0-100.0); Monocytes # (auto) 0.5 10 ^3/uL (0-1.3); Monocytes % (auto) 9.5 % (0.0-12.0); Neutrophils # (auto) 3.5 10 ^3/uL (1.6-8.6); Neutrophils % (auto) 72.4 % (37.0-80.0); Red Blood Cells 3.53 10^6/uL (4.5-5.90); Red Cell Distribution Width 14.9 % (11.8-14.3); White Blood Cell 4.8 10^3/uL (4.4-10.8)
[2022-02-17 06:44] LABS: BUN/Creatinine Ratio 20.3; Calcium 8.1 mg/dL (8.5-10.1); Potassium 4.3 mmol/L (3.5-5.1)
[2022-02-17 09:00] VITALS: BP 122/72
[2022-02-17] MEDS: PANTOPRAZOLE 40 MG TAB PO SCH (09:03)
[2022-02-17] MEDS: DOCUSATE SOD 100 MG CAP PO SCH ×2 (09:03→21:49)
[2022-02-17] MEDS: LEVOTHYROXINE SODIUM 25 MCG TAB PO SCH (09:03)
[2022-02-17] MEDS: HEPARIN SODIUM (PORCINE) 5000 UNITS/ML 1ML VIAL SC SCH ×2 (09:09→21:51)
[2022-02-17] MEDS: FEXOFENADINE HCL 60 MG TAB PO SCH (10:26)
[2022-02-17 13:00] VITALS: BP 103/64
[2022-02-17 17:00] VITALS: BP 108/56
[2022-02-17 19:15] VITALS: BP 108/56
[2022-02-17] MEDS: cefTRIAXone 1GM/50ML D5W 50 ML IV SCH (21:04)
[2022-02-17] MEDS: ATORVASTATIN 20 MG TAB PO SCH (21:49)
[2022-02-17] MEDS: HYDROcodone-ACET 5/325MG TAB PO PRN (21:50)
[2022-02-17 22:00] VITALS: BP 104/58
[2022-02-17] MEDS: AZITHROMYCIN 500MG/ 250ML 250 ML IV SCH (22:15)
[2022-02-18] MEDS ORDERED: ALBUTEROL MEDNEB 2.5 mg/3ml NEB ONE ×6 (02:08→21:53)
[2022-02-18] MEDS: ALBUTEROL SULF 2.5 MG/0.5ML(0.5%) NEB SOLN NEB SCH ×6 (02:29→22:24)
[2022-02-18 04:55] VITALS: BP 100/63
[2022-02-18] MEDS: FUROSEMIDE 100 MG/10ML VIAL IV SCH ×2 (05:49→17:54)
[2022-02-18] MEDS: BUDESONIDE (INHALATION) 0.5 MG/2 ML NEB NEB SCH ×2 (05:56→22:24)
[2022-02-18 08:18] VITALS: BP 118/67
[2022-02-18] MEDS: PANTOPRAZOLE 40 MG TAB PO SCH (08:49)
[2022-02-18] MEDS: DOCUSATE SOD 100 MG CAP PO SCH ×2 (08:49→21:16)
[2022-02-18] MEDS: LEVOTHYROXINE SODIUM 25 MCG TAB PO SCH (08:49)
[2022-02-18] MEDS: HEPARIN SODIUM (PORCINE) 5000 UNITS/ML 1ML VIAL SC SCH ×2 (08:53→21:22)
[2022-02-18] MEDS: FEXOFENADINE HCL 60 MG TAB PO SCH (09:11)
[2022-02-18 12:31] VITALS: BP 123/59
[2022-02-18 16:21] VITALS: BP 116/55
[2022-02-18] MEDS: cefTRIAXone 1GM/50ML D5W 50 ML IV SCH (20:47)
[2022-02-18] MEDS: ATORVASTATIN 20 MG TAB PO SCH (21:16)
[2022-02-18 22:00] VITALS: BP 97/47
[2022-02-18] MEDS: AZITHROMYCIN 500MG/ 250ML 250 ML IV SCH (22:15)
[2022-02-19] MEDS ORDERED: ALBUTEROL MEDNEB 2.5 mg/3ml NEB ONE ×6 (00:21→21:26)
[2022-02-19] MEDS: ALBUTEROL SULF 2.5 MG/0.5ML(0.5%) NEB SOLN NEB SCH ×5 (02:23→21:26)
[2022-02-19 05:00] VITALS: BP 97/61
[2022-02-19] MEDS: FUROSEMIDE 100 MG/10ML VIAL IV SCH ×2 (05:38→17:00)
[2022-02-19] MEDS: BUDESONIDE (INHALATION) 0.5 MG/2 ML NEB NEB SCH ×2 (06:56→18:56)
[2022-02-19 08:46] VITALS: BP 110/57
[2022-02-19] MEDS: DOCUSATE SOD 100 MG CAP PO SCH (09:08)
[2022-02-19] MEDS: LEVOTHYROXINE SODIUM 25 MCG TAB PO SCH (09:08)
[2022-02-19] MEDS: FEXOFENADINE HCL 60 MG TAB PO SCH (09:08)
[2022-02-19] MEDS: PANTOPRAZOLE 40 MG TAB PO SCH (09:08)
[2022-02-19] MEDS: HEPARIN SODIUM (PORCINE) 5000 UNITS/ML 1ML VIAL SC SCH ×2 (09:16→23:52)
[2022-02-19 12:37] VITALS: BP 117/59
[2022-02-19 17:00] VITALS: BP 114/51
[2022-02-19] MEDS ORDERED: AZITHROMYCIN 250 MG TAB PO SCH (21:00)
[2022-02-19 22:00] VITALS: BP 103/59
[2022-02-20] MEDS: cefTRIAXone 1GM/50ML D5W 50 ML IV SCH (00:01)
[2022-02-20] MEDS: ATORVASTATIN 20 MG TAB PO SCH (00:01)
[2022-02-20] MEDS: DOCUSATE SOD 100 MG CAP PO SCH ×2 (00:02→10:19)
[2022-02-20] MEDS ORDERED: ALBUTEROL MEDNEB 2.5 mg/3ml NEB ONE ×3 (01:21→09:49)
[2022-02-20 01:30] VITALS: BP 103/59
[2022-02-20] MEDS: ALBUTEROL SULF 2.5 MG/0.5ML(0.5%) NEB SOLN NEB SCH ×3 (01:46→09:54)
[2022-02-20 05:00] VITALS: BP 121/63
[2022-02-20] MEDS: FUROSEMIDE 100 MG/10ML VIAL IV SCH (06:50)
[2022-02-20] MEDS ORDERED: FURO40TA4 PO (08:13)
[2022-02-20 08:39] VITALS: BP 121/63
[2022-02-20 09:14] VITALS: BP 130/46
[2022-02-20] MEDS: BUDESONIDE (INHALATION) 0.5 MG/2 ML NEB NEB SCH (09:54)
[2022-02-20] MEDS ORDERED: AZITHROMYCIN 500MG/ 250ML 250 ML IV SCH (10:00)
[2022-02-20] MEDS: FEXOFENADINE HCL 60 MG TAB PO SCH (10:00)
[2022-02-20] MEDS: LEVOTHYROXINE SODIUM 25 MCG TAB PO SCH (10:19)
[2022-02-20] MEDS: PANTOPRAZOLE 40 MG TAB PO SCH (10:19)
[2022-02-20] MEDS: HEPARIN SODIUM (PORCINE) 5000 UNITS/ML 1ML VIAL SC SCH (10:21)
== END 2022-02-20 13:39 | disposition hospice, home (50) | DRG 133 ==
LOC: ER 12:41 → EDBD 12:41 → TELE 18:10 → TELE-WESTW 02-13 13:00
PROVIDERS: ADMIT Nurse Practitioner; ATTEND Nurse Practitioner
PROC: 05HF33Z Insertion of Infusion Device into Left Cephalic Vein, Percutaneous Approach (ICD-10-PCS; principal; 2022-02-11)
PROC: B54NZZA Ultrasonography of Left Upper Extremity Veins, Guidance (ICD-10-PCS; 2022-02-11)
PROC: 5A09357 Assistance with Respiratory Ventilation, Less than 24 Consecutive Hours, Continuous Positive Airway Pressure (ICD-10-PCS; 2022-02-11)
PROC: 5A09357 Assistance with Respiratory Ventilation, Less than 24 Consecutive Hours, Continuous Positive Airway Pressure (ICD-10-PCS; 2022-02-12)
PROC: 5A09357 Assistance with Respiratory Ventilation, Less than 24 Consecutive Hours, Continuous Positive Airway Pressure (ICD-10-PCS; 2022-02-14)
PROC: 5A09357 Assistance with Respiratory Ventilation, Less than 24 Consecutive Hours, Continuous Positive Airway Pressure (ICD-10-PCS; 2022-02-15)
PROC: 5A09357 Assistance with Respiratory Ventilation, Less than 24 Consecutive Hours, Continuous Positive Airway Pressure (ICD-10-PCS; 2022-02-16)
PROC: 5A09357 Assistance with Respiratory Ventilation, Less than 24 Consecutive Hours, Continuous Positive Airway Pressure (ICD-10-PCS; 2022-02-17)
PROC: 5A09357 Assistance with Respiratory Ventilation, Less than 24 Consecutive Hours, Continuous Positive Airway Pressure (ICD-10-PCS; 2022-02-18)
PROC: 5A09357 Assistance with Respiratory Ventilation, Less than 24 Consecutive Hours, Continuous Positive Airway Pressure (ICD-10-PCS; 2022-02-19)
PROC: 5A09357 Assistance with Respiratory Ventilation, Less than 24 Consecutive Hours, Continuous Positive Airway Pressure (ICD-10-PCS; 2022-02-20)
DX: J96.21 Acute and chronic respiratory failure with hypoxia (principal); N17.0 Acute kidney failure with tubular necrosis; I50.43 Acute on chronic combined systolic (congestive) and diastolic (congestive) heart failure; I27.20 Pulmonary hypertension, unspecified; D63.8 Anemia in other chronic diseases classified elsewhere; J44.1 Chronic obstructive pulmonary disease with (acute) exacerbation; Z68.44 Body mass index [BMI] 60.0-69.9, adult; I13.0 Hypertensive heart and chronic kidney disease with heart failure and stage 1 through stage 4 chronic kidney disease, or unspecified chronic kidney disease; Z20.822 Contact with and (suspected) exposure to COVID-19; N18.9 Chronic kidney disease, unspecified; E87.6 Hypokalemia; J96.22 Acute and chronic respiratory failure with hypercapnia; I48.0 Paroxysmal atrial fibrillation; E03.9 Hypothyroidism, unspecified; E66.01 Morbid (severe) obesity due to excess calories; F17.200 Nicotine dependence, unspecified, uncomplicated; I25.2 Old myocardial infarction; Z51.5 Encounter for palliative care; Z99.81 Dependence on supplemental oxygen; Z85.038 Personal history of other malignant neoplasm of large intestine; Z86.16 Personal history of COVID-19; Z95.0 Presence of cardiac pacemaker; Z80.0 Family history of malignant neoplasm of digestive organs; Z79.899 Other long term (current) drug therapy; Z79.82 Long term (current) use of aspirin; Z88.8 Allergy status to other drugs, medicaments and biological substances
CPT/HCPCS: 36415; 36600; 71045; 73562; 80048; 80053; 81001; 82805; 82962; 83880; 84132; 84484; 85025; 85379; 87426; 87804; 93005; 93306; 94640; 94660; 96374; 97110; 97116; 97163; G0378; J0696

== ENCOUNTER 2023-04-12 21:31 | Inpatient (IN) | payer MEDICARE, MEDICAID ==
[~2023-04-12] VITALS: Ht 190.5 cm; Wt 188.0 kg
[~2023-04-12 21:31] MED LIST changes: +ALBU2TAB11 PO; -ALBU2TAB4 PO; +ALPR0.5T8 PO; -ASPI325T4 PO; -ATO40T PO; +ATOR40TA52 PO; +BUME0.5T4 PO; -BUME1TAB3 PO; +DOCU-265 PO; -DOCU1CAP22 PO; -DOXY-346 PO; +DOXY-447 PO; +FEXO-131 PO; -FEXO-90 PO; -IPRIH IN; +IPRIH INH; +LEV25T PO; -LEV50T PO; +METH4PAK PO; +PANT40TA2 PO; +RIVA10TA2 PO; +SUCR1TAB31 OR; +[UNRECOGNIZED DRUG - CODE] PO
[2023-04-12] MEDS: ALBUTEROL SULF 2.5 MG/0.5ML(0.5%) NEB SOLN NEB ONE (22:35)
[2023-04-12] MEDS: IPRATROPIUM BROM 0.5 MG/2.5ML INH SOL NEB ONE (22:36)
[2023-04-12] MEDS ORDERED: VANCOMYCIN PER PHARMACY 0 MG IV SCH (22:45)
[2023-04-12 22:46] LABS: Basophils # (auto) 0.1 10 ^3/uL (0-0.2); Basophils % (auto) 0.6 % (0.0-2.0); Eosinophils # (auto) 0.1 10 ^3/uL (0-0.8); Hemoglobin 11.9 g/dL (13.5-17.5); Lymphocytes # (auto) 0.6 10 ^3/uL (0.4-5.4); Monocytes # (auto) 0.7 10 ^3/uL (0-1.3)
[2023-04-12 22:48] LABS: Eosinophils % (auto) 1.6 % (0.0-7.0); Hematocrit 39.5 % (41.0-53.0); Lymphocytes % (auto) 6.9 % (10.0-50.0); Mean Corpuscular Hemoglobin 27.2 pg (28.0-32.0); Mean Corpuscular Hgb Conc. 30.2 g/dL (32.0-36.0); Mean Corpuscular Volume 90.3 fL (80.0-100.0); Monocytes % (auto) 7.8 % (0.0-12.0); Neutrophils # (auto) 7.2 10 ^3/uL (1.6-8.6); Neutrophils % (auto) 83.1 % (37.0-80.0); Nucleated Red Blood Cells % 0.1 %; Red Blood Cells 4.38 10^6/uL (4.5-5.90); Red Cell Distribution Width 15.7 % (11.8-14.3); White Blood Cell 8.7 10^3/uL (4.4-10.8)
[2023-04-12 22:55] LABS: Chloride 89 mmol/L (98-107); Sodium 138 mmol/L (136-145)
[2023-04-12 22:57] LABS: Calcium 9.1 mg/dL (8.7-10.4)
[2023-04-12] MEDS ORDERED: VANCOMYCIN 1GM/200ML 200 ML IV SCH (23:00)
[2023-04-12 23:01] LABS: BUN/Creatinine Ratio 18.9 (10.0-20.0); Blood Urea Nitrogen 35 mg/dL (9-23); Glucose 104 mg/dL (74-106)
[2023-04-12 23:04] LABS: Anion Gap 8.99999 (5-15); Carbon Dioxide > 40 mmol/L (20-30)
[2023-04-12 23:20] VITALS: PULSE 107; RESP 22; O2SAT 97
[2023-04-12] MEDS: CEFEPIME 1GM/ 50ML 50 ML IV ONE (23:46)
[2023-04-12] MEDS: ETOMIDATE (2MG/ML) 20ML VIAL IV ONE (23:58)
[2023-04-12] MEDS: ROCURONIUM 10MG/ML 10ML VIAL IV ONE (23:59)
[2023-04-13] VITALS (98 sets, daily range): BP systolic 68–156; BP diastolic 30–82; PULSE 61–99; RESP 10–20; TEMP 97.1–98.6; O2SAT 71–100
[2023-04-13] MEDS: NOREPINEPHRINE 8 MG/250ML KIT 250 ML IV SCH
[2023-04-13 00:04] LABS: Base Excess 19.3 mmol/L (-2.0-2.0)
[2023-04-13] MEDS: ETOMIDATE (2MG/ML) 20ML VIAL IV ONE (00:12)
[2023-04-13] MEDS: ROCURONIUM 10MG/ML 10ML VIAL IV ONE (00:13)
[2023-04-13] MEDS: PROPOFOL 100 ML IV SCH (00:30)
[2023-04-13] MEDS: fentaNYL Drip 2500mCg/250mlNS 250 ML IV SCH (00:35)
[2023-04-13] MEDS: PROPOFOL 100 ML IV ONE ×4 (00:44→11:08)
[2023-04-13] MEDS: fentaNYL Drip 2500mCg/250mlNS 250 ML IV ONE (00:47)
[2023-04-13 01:27] LABS: Base Excess 21.7 mmol/L (-2.0-2.0)
[2023-04-13] MEDS ORDERED: VANCOMYCIN 1GM/200ML 200 ML IV SCH ×2 (01:30)
[2023-04-13 01:47] LABS: COVID19 ANTIGEN SOFIA FIA NEGATIVE (NEGATIVE); Rapid Influenza A Negative (Negative); Rapid Influenza B Negative (Negative)
[2023-04-13] MEDS ORDERED: NITROGLYCERIN 0.4 MG SL TAB SL PRN ×2 (02:15→02:30)
[2023-04-13] MEDS ORDERED: ACETAMINOPHEN 325 MG TAB PO PRN (02:15)
[2023-04-13] MEDS ORDERED: VANCOMYCIN PER PHARMACY 0 MG IV SCH ×3 (02:15→02:30)
[2023-04-13] MEDS ORDERED: HYDROcodone-ACET 5/325MG TAB PO PRN (02:15)
[2023-04-13] MEDS ORDERED: ONDANSETRON HCL 4 MG/2 ML VIAL IV PRN ×2 (02:15→02:30)
[2023-04-13] MEDS ORDERED: MORPHINE SULFATE INJ 2 MG/ml SYRG IV PRN ×3 (02:15→02:30)
[2023-04-13 03:47] LABS: Base Excess 22.1 mmol/L (-2.0-2.0)
[2023-04-13 07:21] LABS: Urine Bacteria FEW /hpf (None Seen); Urine Blood 1+ /uL (Negative); Urine Clarity Clear (Clear); Urine Color Colorless (Yellow); Urine Protein, UAD Negative (Negative); Urine Specific Gravity 1.008 (1.001-1.035); Urine Urobilinogen Normal (Negative); Urine WBC 1 /hpf (0 - 3); Urine pH 6.5 (5.0-8.0)
[2023-04-13] MEDS ORDERED: PANTOPRAZOLE 40 MG/10 ML VIAL INJ IV SCH (10:00)
[2023-04-13] MEDS: ENOXAPARIN SOD 40 MG/0.4 ML SYRINGE SC SCH (10:00)
[2023-04-13] MEDS ORDERED: ENOXAPARIN SOD 40 MG/0.4 ML SYRINGE SC SCH (10:00)
[2023-04-13 10:04] LABS: Basophils # (auto) 0.1 10 ^3/uL (0-0.2); Basophils % (auto) 0.7 % (0.0-2.0); Eosinophils # (auto) 0.2 10 ^3/uL (0-0.8); Eosinophils % (auto) 2.1 % (0.0-7.0); Hematocrit 34.1 % (41.0-53.0); Hemoglobin 10.6 g/dL (13.5-17.5); Lymphocytes # (auto) 0.6 10 ^3/uL (0.4-5.4); Lymphocytes % (auto) 6.6 % (10.0-50.0); Mean Corpuscular Hemoglobin 27.4 pg (28.0-32.0); Mean Corpuscular Hgb Conc. 31.2 g/dL (32.0-36.0); Mean Corpuscular Volume 87.9 fL (80.0-100.0); Monocytes # (auto) 0.5 10 ^3/uL (0-1.3); Monocytes % (auto) 5.9 % (0.0-12.0); Neutrophils # (auto) 7.8 10 ^3/uL (1.6-8.6); Neutrophils % (auto) 84.7 % (37.0-80.0); Nucleated Red Blood Cells % 0.1 %; Red Blood Cells 3.88 10^6/uL (4.5-5.90); Red Cell Distribution Width 15.3 % (11.8-14.3); White Blood Cell 9.2 10^3/uL (4.4-10.8)
[2023-04-13 10:19] LABS: Albumin 2.8 g/dL (3.2-4.8); Alkaline Phosphatase 73 U/L (46-116); Aspartate Aminotransferase 20 U/L (13-40); BUN/Creatinine Ratio 28.8 (10.0-20.0); Calcium 8.6 mg/dL (8.7-10.4); Chloride 88 mmol/L (98-107); Glucose 78 mg/dL (74-106); Magnesium 1.4 mg/dL (1.6-2.6); Potassium 2.8 mmol/L (3.5-5.1); Sodium 141 mmol/L (136-145)
[2023-04-13 10:20] LABS: Bilirubin, Total 1.8 mg/dL (0.2-1.0); Phosphorus 1.1 mg/dL (2.4-5.1); Total Protein 6.1 g/dL (5.7-8.2)
[2023-04-13 10:27] LABS: Alanine Aminotransferase < 9 U/L (7-40); Anion Gap 12.99999 (5-15); Blood Urea Nitrogen 47 mg/dL (9-23)
[2023-04-13 10:29] LABS: Carbon Dioxide > 40 mmol/L (20-30)
[2023-04-13] MEDS: PANTOPRAZOLE 40 MG/10 ML VIAL INJ IV SCH (11:58)
[2023-04-13] MEDS: ENOXAPARIN SOD 100 MG/1 ML SYRINGE SC SCH (12:46)
[2023-04-13] MEDS: MAGNESIUM SULFATE 1GM/100ML 100 ML IV SCH ×2 (12:55→22:13)
[2023-04-13] MEDS: POTASSIUM EFFERVESENT TAB 25 MEQ GT ONE (12:55)
[2023-04-13] MEDS: POTASSIUM CHL 20MEQ/100ML 100 ML IV SCH ×2 (12:55→21:58)
[2023-04-13] MEDS: SODIUM PHOSPHATES 40 MEQ in D5W 5% 250 ML IV ONE (13:17)
[2023-04-13] MEDS: NOREPINEPHRINE 8 MG/250ML KIT 250 ML IV ONE (15:14)
[2023-04-13] MEDS: VANCOMYCIN 1GM/200ML 200 ML IV ONE (17:12)
[2023-04-13] MEDS: FUROSEMIDE 100 MG/10ML VIAL IV SCH (19:13)
[2023-04-13 20:52] LABS: Alkaline Phosphatase 77 U/L (46-116); Aspartate Aminotransferase 22 U/L (13-40); BUN/Creatinine Ratio 21.8 (10.0-20.0); Calcium 8.8 mg/dL (8.7-10.4); Chloride 88 mmol/L (98-107); Glucose 103 mg/dL (74-106); Magnesium 1.8 mg/dL (1.6-2.6); Sodium 139 mmol/L (136-145); Total Protein 6.7 g/dL (5.7-8.2)
[2023-04-13 21:08] LABS: Alanine Aminotransferase < 9 U/L (7-40); Anion Gap 10.99999 (5-15); Blood Urea Nitrogen 32 mg/dL (9-23)
[2023-04-13 21:16] LABS: Carbon Dioxide > 40 mmol/L (20-30)
[2023-04-13] MEDS: POTASSIUM CHLORIDE 40 MEQ, LIDOCAINE 1% (LOCAL ANESTH.) 4 ML in SODIUM CHL 0.9% 250 ML IV ONE (21:43)
[2023-04-13] MEDS: ENOXAPARIN SOD 150 MG/1 ML SYRINGE SC SCH (21:55)
[2023-04-13] MEDS: VANCOMYCIN 1GM/200ML 200 ML IV SCH (21:56)
[2023-04-13] MEDS: acetaZOLAMIDE SODIUM 500 MG VL IV SCH (23:30)
[2023-04-14] VITALS (113 sets, daily range): BP systolic 79–148; BP diastolic 26–81; PULSE 61–87; RESP 12–41; TEMP 97.9–98.5; O2SAT 95–100
[2023-04-14 04:22] LABS: Basophils # (auto) 0.1 10 ^3/uL (0-0.2); Basophils % (auto) 0.7 % (0.0-2.0); Eosinophils # (auto) 0.7 10 ^3/uL (0-0.8); Hemoglobin 11.2 g/dL (13.5-17.5); Monocytes # (auto) 0.9 10 ^3/uL (0-1.3); Neutrophils # (auto) 8.4 10 ^3/uL (1.6-8.6)
[2023-04-14 04:24] LABS: Eosinophils % (auto) 6.1 % (0.0-7.0); Hematocrit 36.7 % (41.0-53.0); Lymphocytes % (auto) 9.3 % (10.0-50.0); Mean Corpuscular Hemoglobin 26.8 pg (28.0-32.0); Mean Corpuscular Hgb Conc. 30.5 g/dL (32.0-36.0); Mean Corpuscular Volume 87.8 fL (80.0-100.0); Monocytes % (auto) 8.5 % (0.0-12.0); Neutrophils % (auto) 75.4 % (37.0-80.0); Nucleated Red Blood Cells % 0.1 %; Red Blood Cells 4.18 10^6/uL (4.5-5.90); Red Cell Distribution Width 15.6 % (11.8-14.3); White Blood Cell 11.2 10^3/uL (4.4-10.8)
[2023-04-14 04:42] LABS: Alkaline Phosphatase 82 U/L (46-116); Calcium 8.8 mg/dL (8.5-10.1)
[2023-04-14 04:43] LABS: Albumin 3.2 g/dL (3.2-4.8); Aspartate Aminotransferase 23 U/L (13-40); BUN/Creatinine Ratio 22.9 (10.0-20.0); Bilirubin, Total 1.9 mg/dL (0.2-1.0); Blood Urea Nitrogen 33 mg/dL (9-23); Chloride 88 mmol/L (98-107); Glucose 94 mg/dL (74-106); Potassium 3.3 mmol/L (3.5-5.1); Sodium 140 mmol/L (136-145); Total Protein 6.6 g/dL (5.7-8.2)
[2023-04-14 05:05] LABS: Alanine Aminotransferase < 9 U/L (7-40); Anion Gap 11.99999 (5-15); Carbon Dioxide > 40 mmol/L (20-30)
[2023-04-14 08:00] LABS: Magnesium 2.2 mg/dL (1.6-2.6)
[2023-04-14 08:01] LABS: Phosphorus 1.5 mg/dL (2.4-5.1)
[2023-04-14] MEDS: POTASSIUM CHL 20MEQ/100ML 100 ML IV SCH (08:05)
[2023-04-14 09:16] LABS: Base Excess 19.3 mmol/L (-2.0-2.0)
[2023-04-14] MEDS: FUROSEMIDE 100 MG/10ML VIAL IV ONE (11:17)
[2023-04-14] MEDS: CEFEPIME 2GM/50ML NS 50 ML IV SCH (11:23)
[2023-04-14] MEDS: NOREPINEPHRINE BITARTRATE 32 MG in SODIUM CHL 0.9% 218 ML IV SCH (12:09)
[2023-04-14] MEDS: POTASSIUM CHL 20MEQ/100ML 100 ML IV ONE (12:25)
[2023-04-14] MEDS: SODIUM PHOSPHATES 40 MEQ in D5W 5% 250 ML IV ONE (14:22)
[2023-04-14 19:26] LABS: Potassium 3.5 mmol/L (3.5-5.1)
[2023-04-14] MEDS: Jevity 1.2 Cal/Fiber 1 Liter GT SCH (20:10)
[2023-04-15] VITALS (109 sets, daily range): BP systolic 82–130; BP diastolic 43–72; PULSE 62–86; RESP 16–19; TEMP 98–98.9; O2SAT 91–98
[2023-04-15 04:11] LABS: Albumin 3.1 g/dL (3.2-4.8); Alkaline Phosphatase 82 U/L (46-116); Aspartate Aminotransferase 20 U/L (13-40); BUN/Creatinine Ratio 18.5 (10.0-20.0); Blood Urea Nitrogen 28 mg/dL (9-23); Calcium 8.8 mg/dL (8.7-10.4); Chloride 93 mmol/L (98-107); Glucose 116 mg/dL (74-106); Potassium 3.1 mmol/L (3.5-5.1); Sodium 140 mmol/L (136-145)
[2023-04-15 04:12] LABS: Bilirubin, Total 1.6 mg/dL (0.2-1.0); Total Protein 6.9 g/dL (5.7-8.2)
[2023-04-15 04:25] LABS: Alanine Aminotransferase < 9 U/L (7-40); Anion Gap 6.99999 (5-15); Carbon Dioxide > 40 mmol/L (20-30)
[2023-04-15] MEDS: POTASSIUM CHL 20MEQ/100ML 100 ML IV SCH (05:55)
[2023-04-15] MEDS ORDERED: FLUT110A8 INH (09:21)
[2023-04-15] MEDS ORDERED: ALBU108A5 INH (09:21)
[2023-04-15] MEDS ORDERED: SUCR1TAB PO (09:21)
[2023-04-15] MEDS ORDERED: FEXO-42 PO (09:21)
[2023-04-15] MEDS: FUROSEMIDE 100 MG/10ML VIAL IV SCH (09:51)
[2023-04-15] MEDS ORDERED: FUROSEMIDE 100 MG/10ML VIAL IV ONE (10:00)
[2023-04-15] MEDS: CEFEPIME 2GM/50ML NS 50 ML IV SCH (12:30)
[2023-04-16] VITALS (107 sets, daily range): BP systolic 82–150; BP diastolic 15–105; PULSE 63–85; RESP 10–26; TEMP 97.7–98.4; O2SAT 86–100
[2023-04-16] MEDS: MIDAZOLAM DRIP 50 mg/50mL 50 ML IV SCH (04:00)
[2023-04-16 04:27] LABS: Basophils # (auto) 0.1 10 ^3/uL (0-0.2); Monocytes # (auto) 0.9 10 ^3/uL (0-1.3); Nucleated Red Blood Cells % 0.1 %
[2023-04-16 04:31] LABS: Basophils % (auto) 1.3 % (0.0-2.0); Eosinophils # (auto) 0.7 10 ^3/uL (0-0.8); Hematocrit 37.7 % (41.0-53.0); Hemoglobin 11.5 g/dL (13.5-17.5); Lymphocytes # (auto) 1.1 10 ^3/uL (0.4-5.4); Lymphocytes % (auto) 12.7 % (10.0-50.0); Mean Corpuscular Hemoglobin 27.4 pg (28.0-32.0); Mean Corpuscular Hgb Conc. 30.5 g/dL (32.0-36.0); Mean Corpuscular Volume 89.8 fL (80.0-100.0); Monocytes % (auto) 10.5 % (0.0-12.0); Neutrophils # (auto) 5.6 10 ^3/uL (1.6-8.6); Neutrophils % (auto) 67.5 % (37.0-80.0); Red Cell Distribution Width 16.1 % (11.8-14.3); White Blood Cell 8.3 10^3/uL (4.4-10.8)
[2023-04-16 04:41] LABS: Albumin 2.9 g/dL (3.2-4.8); Alkaline Phosphatase 78 U/L (46-116); Anion Gap 6 (5-15); Aspartate Aminotransferase 28 U/L (13-40); BUN/Creatinine Ratio 15.5 (10.0-20.0); Bilirubin, Total 1.3 mg/dL (0.2-1.0); Blood Urea Nitrogen 22 mg/dL (9-23); Calcium 8.8 mg/dL (8.7-10.4); Carbon Dioxide 36 mmol/L (20-30); Chloride 97 mmol/L (98-107); Glucose 110 mg/dL (74-106); Potassium 3.2 mmol/L (3.5-5.1); Sodium 139 mmol/L (136-145)
[2023-04-16 04:42] LABS: Alanine Aminotransferase < 9 U/L (7-40); Total Protein 6.8 g/dL (5.7-8.2)
[2023-04-16 07:14] LABS: Base Excess 12.5 mmol/L (-2.0-2.0)
[2023-04-16] MEDS: POTASSIUM CHL 20MEQ/100ML 100 ML IV SCH (08:49)
[2023-04-16 13:36] LABS: Base Excess 10.3 mmol/L (-2.0-2.0)
[2023-04-16] MEDS: ALBUTEROL SULF 2.5 MG/0.5ML(0.5%) NEB SOLN NEB ONE (15:59)
[2023-04-16] MEDS: IPRATROPIUM BROM 0.5 MG/2.5ML INH SOL NEB ONE (15:59)
[2023-04-16] MEDS: MORPHINE SULFATE INJ 2 MG/ml SYRG IV PRN (17:45)
[2023-04-16] MEDS: ALBUTEROL SULF 2.5 MG/0.5ML(0.5%) NEB SOLN NEB SCH (18:13)
[2023-04-16] MEDS: IPRATROPIUM BROM 0.5 MG/2.5ML INH SOL NEB SCH (18:13)
[2023-04-17] VITALS (113 sets, daily range): BP systolic 67–145; BP diastolic 22–89; PULSE 62–95; RESP 10–35; TEMP 96.4–98.3; O2SAT 77–100
[2023-04-17 07:47] LABS: Basophils # (auto) 0 10 ^3/uL (0-0.2); Basophils % (auto) 0.6 % (0.0-2.0); Eosinophils # (auto) 0.6 10 ^3/uL (0-0.8); Eosinophils % (auto) 7.6 % (0.0-7.0); Hematocrit 39.7 % (41.0-53.0); Hemoglobin 11.5 g/dL (13.5-17.5); Lymphocytes # (auto) 0.6 10 ^3/uL (0.4-5.4); Lymphocytes % (auto) 8.3 % (10.0-50.0); Mean Corpuscular Hemoglobin 26.6 pg (28.0-32.0); Mean Corpuscular Volume 91.8 fL (80.0-100.0); Monocytes # (auto) 0.9 10 ^3/uL (0-1.3); Monocytes % (auto) 12.2 % (0.0-12.0); Neutrophils # (auto) 5.3 10 ^3/uL (1.6-8.6); Neutrophils % (auto) 71.3 % (37.0-80.0); Nucleated Red Blood Cells % 0.1 %; Red Blood Cells 4.33 10^6/uL (4.5-5.90); Red Cell Distribution Width 16.5 % (11.8-14.3); White Blood Cell 7.5 10^3/uL (4.4-10.8)
[2023-04-17] MEDS: cefTRIAXone 2GM/50ML D5W 50 ML IV SCH (08:06)
[2023-04-17 08:09] LABS: Albumin 3.2 g/dL (3.2-4.8); Alkaline Phosphatase 81 U/L (46-116); Anion Gap 6 (5-15); Aspartate Aminotransferase 33 U/L (13-40); BUN/Creatinine Ratio 14.9 (10.0-20.0); Blood Urea Nitrogen 22 mg/dL (9-23); Calcium 8.6 mg/dL (8.5-10.1); Carbon Dioxide 37 mmol/L (20-30); Chloride 97 mmol/L (98-107); Glucose 95 mg/dL (74-106); Potassium 3.9 mmol/L (3.5-5.1); Sodium 140 mmol/L (136-145)
[2023-04-17 08:10] LABS: Alanine Aminotransferase < 9 U/L (7-40); Bilirubin, Total 1.1 mg/dL (0.2-1.0); Total Protein 7.1 g/dL (5.7-8.2)
[2023-04-18] VITALS (108 sets, daily range): BP systolic 55–139; BP diastolic 32–94; PULSE 60–79; RESP 11–36; TEMP 97.3–98.5; O2SAT 88–100
[2023-04-18 03:29] LABS: Eosinophils # (auto) 0.4 10 ^3/uL (0-0.8); Hemoglobin 9.9 g/dL (13.5-17.5); Lymphocytes # (auto) 0.5 10 ^3/uL (0.4-5.4); Monocytes # (auto) 0.8 10 ^3/uL (0-1.3); Neutrophils # (auto) 5.3 10 ^3/uL (1.6-8.6)
[2023-04-18 03:31] LABS: Basophils # (auto) 0.1 10 ^3/uL (0-0.2); Basophils % (auto) 1.2 % (0.0-2.0); Eosinophils % (auto) 5.2 % (0.0-7.0); Hematocrit 32.3 % (41.0-53.0); Lymphocytes % (auto) 7.7 % (10.0-50.0); Mean Corpuscular Hemoglobin 27.3 pg (28.0-32.0); Mean Corpuscular Hgb Conc. 30.7 g/dL (32.0-36.0); Mean Corpuscular Volume 88.9 fL (80.0-100.0); Monocytes % (auto) 10.9 % (0.0-12.0); Red Blood Cells 3.63 10^6/uL (4.5-5.90)
[2023-04-18 03:43] LABS: Alkaline Phosphatase 72 U/L (46-116); Aspartate Aminotransferase 26 U/L (13-40); BUN/Creatinine Ratio 18.6 (10.0-20.0); Blood Urea Nitrogen 26 mg/dL (9-23); Calcium 8.4 mg/dL (8.7-10.4); Chloride 96 mmol/L (98-107); Glucose 104 mg/dL (74-106); Magnesium 2.2 mg/dL (1.6-2.6); Potassium 3.7 mmol/L (3.5-5.1); Sodium 139 mmol/L (136-145)
[2023-04-18 03:44] LABS: Bilirubin, Total 0.6 mg/dL (0.2-1.0); Total Protein 6.9 g/dL (5.7-8.2)
[2023-04-18 04:04] LABS: Alanine Aminotransferase < 9 U/L (7-40); Anion Gap 2.99999 (5-15)
[2023-04-18 04:06] LABS: Carbon Dioxide > 40 mmol/L (20-30)
[2023-04-18] MEDS: METOPROLOL TARTRATE 25 MG TAB PO SCH (10:50)
[2023-04-18] MEDS: POTASSIUM CHL 20MEQ/100ML 100 ML IV ONE (10:50)
[2023-04-18] MEDS ORDERED: AZITHROMYCIN 500MG/ 250ML 250 ML IV SCH (12:15)
[2023-04-18] MEDS: DOXYCYCLINE 100MG/250ML 250 ML IV SCH (13:48)
[2023-04-18] MEDS: LACTULOSE 20Gm/30ML SOLN PO ONE (17:34)
[2023-04-18] MEDS: LACTULOSE 20Gm/30ML SOLN PO SCH (22:42)
[2023-04-19] VITALS (101 sets, daily range): BP systolic 75–138; BP diastolic 31–91; PULSE 60–100; RESP 11–33; TEMP 98.1–100.1; O2SAT 65–100
[2023-04-19 11:41] LABS: Basophils # (auto) 0.1 10 ^3/uL (0-0.2); Eosinophils # (auto) 0.4 10 ^3/uL (0-0.8); Hemoglobin 9.5 g/dL (13.5-17.5); Monocytes # (auto) 0.9 10 ^3/uL (0-1.3); Neutrophils # (auto) 5.2 10 ^3/uL (1.6-8.6); White Blood Cell 7.2 10^3/uL (4.4-10.8)
[2023-04-19 11:43] LABS: Basophils % (auto) 0.7 % (0.0-2.0); Eosinophils % (auto) 5.4 % (0.0-7.0); Hematocrit 31.3 % (41.0-53.0); Lymphocytes # (auto) 0.7 10 ^3/uL (0.4-5.4); Lymphocytes % (auto) 9.5 % (10.0-50.0); Mean Corpuscular Hemoglobin 26.5 pg (28.0-32.0); Mean Corpuscular Hgb Conc. 30.2 g/dL (32.0-36.0); Mean Corpuscular Volume 87.9 fL (80.0-100.0); Monocytes % (auto) 12.2 % (0.0-12.0); Neutrophils % (auto) 72.2 % (37.0-80.0); Red Blood Cells 3.56 10^6/uL (4.5-5.90)
[2023-04-19 11:58] LABS: Alanine Aminotransferase 10 U/L (7-40); Alkaline Phosphatase 73 U/L (46-116); Aspartate Aminotransferase 23 U/L (13-40); BUN/Creatinine Ratio 12.6 (10.0-20.0); Blood Urea Nitrogen 14 mg/dL (9-23); Calcium 8.3 mg/dL (8.5-10.1); Chloride 95 mmol/L (98-107); Glucose 122 mg/dL (74-106); Potassium 3.6 mmol/L (3.5-5.1); Sodium 136 mmol/L (136-145)
[2023-04-19 11:59] LABS: Bilirubin, Total 0.4 mg/dL (0.2-1.0); Total Protein 6.6 g/dL (5.7-8.2)
[2023-04-19 12:13] LABS: Anion Gap 0.99999 (5-15)
[2023-04-19 12:16] LABS: Carbon Dioxide > 40 mmol/L (20-30)
[2023-04-19 12:26] LABS: Magnesium 1.9 mg/dL (1.6-2.6)
[2023-04-19] MEDS: ENOXAPARIN SOD 150 MG/1 ML SYRINGE SC SCH (14:04)
[2023-04-19] MEDS: CARVEDILOL 3.125 MG TAB PO SCH (21:12)
[2023-04-19] MEDS: HYDROcodone-ACET 5/325MG TAB PO PRN (21:13)
[2023-04-20] VITALS (108 sets, daily range): BP systolic 45–129; BP diastolic 20–80; PULSE 60–80; RESP 12–31; TEMP 98–98.9; O2SAT 84–100
[2023-04-20 05:29] LABS: Basophils # (auto) 0.1 10 ^3/uL (0-0.2); Basophils % (auto) 1.1 % (0.0-2.0); Eosinophils # (auto) 0.2 10 ^3/uL (0-0.8); Eosinophils % (auto) 3.6 % (0.0-7.0); Hematocrit 33.1 % (41.0-53.0); Hemoglobin 10.2 g/dL (13.5-17.5); Lymphocytes # (auto) 0.7 10 ^3/uL (0.4-5.4); Lymphocytes % (auto) 13.3 % (10.0-50.0); Mean Corpuscular Hemoglobin 27.2 pg (28.0-32.0); Mean Corpuscular Hgb Conc. 30.9 g/dL (32.0-36.0); Monocytes # (auto) 0.8 10 ^3/uL (0-1.3); Monocytes % (auto) 14.2 % (0.0-12.0); Neutrophils # (auto) 3.6 10 ^3/uL (1.6-8.6); Neutrophils % (auto) 67.8 % (37.0-80.0); Nucleated Red Blood Cells % 0.1 %; Red Blood Cells 3.77 10^6/uL (4.5-5.90); Red Cell Distribution Width 14.8 % (11.8-14.3); White Blood Cell 5.3 10^3/uL (4.4-10.8)
[2023-04-20 05:31] LABS: Alkaline Phosphatase 71 U/L (46-116); Anion Gap 2 (5-15); Aspartate Aminotransferase 19 U/L (13-40); Blood Urea Nitrogen 13 mg/dL (9-23); Calcium 8.9 mg/dL (8.7-10.4); Carbon Dioxide 37 mmol/L (20-30); Chloride 95 mmol/L (98-107); Glucose 98 mg/dL (74-106); Magnesium 1.9 mg/dL (1.6-2.6); Sodium 134 mmol/L (136-145)
[2023-04-20 05:32] LABS: Bilirubin, Total 0.5 mg/dL (0.2-1.0); Total Protein 6.7 g/dL (5.7-8.2)
[2023-04-20 06:09] LABS: Alanine Aminotransferase < 9 U/L (7-40)
[2023-04-21] VITALS (114 sets, daily range): BP systolic 72–145; BP diastolic 22–80; PULSE 60–91; RESP 12–39; TEMP 98.2–99; O2SAT 87–100
[2023-04-21 03:55] LABS: Hemoglobin 10.2 g/dL (13.5-17.5); Lymphocytes # (auto) 0.9 10 ^3/uL (0.4-5.4)
[2023-04-21 03:57] LABS: Basophils # (auto) 0 10 ^3/uL (0-0.2); Basophils % (auto) 0.6 % (0.0-2.0); Eosinophils # (auto) 0.3 10 ^3/uL (0-0.8); Eosinophils % (auto) 4.2 % (0.0-7.0); Lymphocytes % (auto) 10.8 % (10.0-50.0); Mean Corpuscular Hemoglobin 27.8 pg (28.0-32.0); Mean Corpuscular Hgb Conc. 31.8 g/dL (32.0-36.0); Mean Corpuscular Volume 87.3 fL (80.0-100.0); Monocytes % (auto) 12.3 % (0.0-12.0); Neutrophils % (auto) 72.1 % (37.0-80.0); Red Blood Cells 3.66 10^6/uL (4.5-5.90); Red Cell Distribution Width 14.9 % (11.8-14.3); White Blood Cell 8.3 10^3/uL (4.4-10.8)
[2023-04-21 04:12] LABS: Alanine Aminotransferase < 9 U/L (7-40); Albumin 3.1 g/dL (3.2-4.8); Alkaline Phosphatase 76 U/L (46-116); Anion Gap 2 (5-15); Aspartate Aminotransferase 18 U/L (13-40); BUN/Creatinine Ratio 12.4 (10.0-20.0); Blood Urea Nitrogen 11 mg/dL (9-23); Calcium 8.9 mg/dL (8.7-10.4); Carbon Dioxide 36 mmol/L (20-30); Chloride 94 mmol/L (98-107); Glucose 108 mg/dL (74-106); Magnesium 2.1 mg/dL (1.6-2.6); Potassium 4.2 mmol/L (3.5-5.1); Sodium 132 mmol/L (136-145)
[2023-04-21 04:13] LABS: Bilirubin, Total 0.5 mg/dL (0.2-1.0); Total Protein 7.1 g/dL (5.7-8.2)
[2023-04-21] MEDS: MIDODRINE HCL 10 MG TAB PO SCH ×2 (09:45→14:00)
[2023-04-21] MEDS: HYDROCORTISONE SOD SUCC 100 MG/2ML INJ VIAL IV SCH (14:03)
[2023-04-21] MEDS: levoFLOXacin 750MG 150 ML IV SCH (16:38)
[2023-04-22] VITALS (108 sets, daily range): BP systolic 81–148; BP diastolic 30–109; PULSE 60–78; RESP 12–32; TEMP 98–98.6; O2SAT 90–100
[2023-04-22] MEDS ORDERED: MORPHINE SULFATE INJ 2 MG/ml SYRG IV PRN (21:15)
[2023-04-23] VITALS (92 sets, daily range): BP systolic 85–151; BP diastolic 32–94; PULSE 59–85; RESP 15–41; TEMP 97.3–98.9; O2SAT 89–100
[2023-04-23] MEDS: MORPHINE SULFATE INJ 2 MG/ml SYRG IV PRN (10:33)
[2023-04-23] MEDS ORDERED: METOPROLOL TARTRATE 25 MG TAB PO SCH (22:00)
[2023-04-24] VITALS (52 sets, daily range): BP systolic 95–133; BP diastolic 39–59; PULSE 60–73; RESP 8–31; TEMP 98–98.6; O2SAT 92–100
[2023-04-24 04:54] LABS: Basophils # (auto) 0 10 ^3/uL (0-0.2); Basophils % (auto) 0.2 % (0.0-2.0); Eosinophils # (auto) 0 10 ^3/uL (0-0.8); Hematocrit 29.4 % (41.0-53.0); Hemoglobin 9.4 g/dL (13.5-17.5); Lymphocytes # (auto) 0.5 10 ^3/uL (0.4-5.4); Lymphocytes % (auto) 11.1 % (10.0-50.0); Mean Corpuscular Hemoglobin 27.5 pg (28.0-32.0); Mean Corpuscular Volume 85.9 fL (80.0-100.0); Monocytes # (auto) 0.3 10 ^3/uL (0-1.3); Monocytes % (auto) 7.7 % (0.0-12.0); Neutrophils # (auto) 3.6 10 ^3/uL (1.6-8.6); Red Blood Cells 3.42 10^6/uL (4.5-5.90); White Blood Cell 4.4 10^3/uL (4.4-10.8)
[2023-04-24 05:17] LABS: Alanine Aminotransferase 13 U/L (7-40); Alkaline Phosphatase 60 U/L (46-116); Anion Gap 1 (5-15); BUN/Creatinine Ratio 17.4 (10.0-20.0); Blood Urea Nitrogen 16 mg/dL (9-23); Calcium 8.8 mg/dL (8.7-10.4); Carbon Dioxide 37 mmol/L (20-30); Chloride 94 mmol/L (98-107); Glucose 121 mg/dL (74-106); Potassium 4.8 mmol/L (3.5-5.1); Sodium 132 mmol/L (136-145)
[2023-04-24 05:18] LABS: Aspartate Aminotransferase 24 U/L (13-40)
[2023-04-24 05:19] LABS: Bilirubin, Total 0.3 mg/dL (0.2-1.0); Total Protein 6.9 g/dL (5.7-8.2)
[2023-04-25] VITALS (36 sets, daily range): BP systolic 105–143; BP diastolic 39–77; PULSE 59–106; RESP 17–29; TEMP 97.7–98.3; O2SAT 91–100
[2023-04-25 06:22] LABS: Basophils # (auto) 0 10 ^3/uL (0-0.2); Basophils % (auto) 0.2 % (0.0-2.0); Eosinophils # (auto) 0 10 ^3/uL (0-0.8); Eosinophils % (auto) 0.1 % (0.0-7.0); Hemoglobin 9.6 g/dL (13.5-17.5); Lymphocytes # (auto) 0.4 10 ^3/uL (0.4-5.4); Neutrophils # (auto) 2.7 10 ^3/uL (1.6-8.6)
[2023-04-25 06:23] LABS: Hematocrit 30.3 % (41.0-53.0); Lymphocytes % (auto) 13.1 % (10.0-50.0); Mean Corpuscular Hemoglobin 27.4 pg (28.0-32.0); Mean Corpuscular Hgb Conc. 31.7 g/dL (32.0-36.0); Mean Corpuscular Volume 86.5 fL (80.0-100.0); Monocytes # (auto) 0.2 10 ^3/uL (0-1.3); Neutrophils % (auto) 79.6 % (37.0-80.0); Nucleated Red Blood Cells % 0.2 %; Red Cell Distribution Width 14.7 % (11.8-14.3); White Blood Cell 3.4 10^3/uL (4.4-10.8)
[2023-04-25 07:15] LABS: Alanine Aminotransferase 23 U/L (7-40); Albumin 3.2 g/dL (3.2-4.8); Alkaline Phosphatase 59 U/L (46-116); Anion Gap 1 (5-15); Aspartate Aminotransferase 42 U/L (13-40); BUN/Creatinine Ratio 18.3 (10.0-20.0); Bilirubin, Total 0.3 mg/dL (0.2-1.0); Blood Urea Nitrogen 17 mg/dL (9-23); Calcium 8.8 mg/dL (8.5-10.1); Carbon Dioxide 37 mmol/L (20-30); Chloride 96 mmol/L (98-107); Glucose 107 mg/dL (74-106); Potassium 4.7 mmol/L (3.5-5.1); Sodium 134 mmol/L (136-145); Total Protein 6.6 g/dL (5.7-8.2)
[2023-04-26] VITALS (22 sets, daily range): BP systolic 102–146; BP diastolic 56–74; PULSE 60–76; RESP 16–23; TEMP 98.1–99; O2SAT 90–100
[2023-04-27] VITALS (24 sets, daily range): BP systolic 114–141; BP diastolic 47–93; PULSE 60–84; RESP 14–24; TEMP 97.9–99; O2SAT 88–99
[2023-04-28] VITALS (22 sets, daily range): BP systolic 118–157; BP diastolic 63–91; PULSE 60–79; RESP 18–24; TEMP 96.9–98.5; O2SAT 93–100
[2023-04-28] MEDS: LACTULOSE 20Gm/30ML SOLN PO PRN (06:09)
[2023-04-28] MEDS: FUROSEMIDE 40 MG TAB PO SCH (19:45)
[2023-04-29] VITALS (16 sets, daily range): BP systolic 114–153; BP diastolic 58–91; PULSE 56–87; RESP 18–22; TEMP 97.6–98.4; O2SAT 90–98
[2023-04-29] MEDS: METOPROLOL TARTRATE 25 MG TAB PO SCH (01:14)
[2023-04-29] MEDS: APIXABAN 5 MG TAB PO SCH (17:51)
[2023-04-30] VITALS (22 sets, daily range): BP systolic 101–120; BP diastolic 60–66; PULSE 56–75; RESP 18–24; TEMP 97.7–98.4; O2SAT 20–100
[2023-04-30] MEDS: HYDROcodone-ACET 5/325MG TAB PO PRN (01:37)
[2023-04-30 06:47] LABS: Basophils # (auto) 0 10 ^3/uL (0-0.2); Basophils % (auto) 0.3 % (0.0-2.0); Eosinophils # (auto) 0 10 ^3/uL (0-0.8); Eosinophils % (auto) 0.2 % (0.0-7.0); Hematocrit 30.8 % (41.0-53.0); Hemoglobin 9.7 g/dL (13.5-17.5); Lymphocytes # (auto) 0.9 10 ^3/uL (0.4-5.4); Lymphocytes % (auto) 15.5 % (10.0-50.0); Mean Corpuscular Hemoglobin 27.1 pg (28.0-32.0); Mean Corpuscular Hgb Conc. 31.6 g/dL (32.0-36.0); Mean Corpuscular Volume 85.5 fL (80.0-100.0); Monocytes # (auto) 0.6 10 ^3/uL (0-1.3); Neutrophils # (auto) 4.1 10 ^3/uL (1.6-8.6); Nucleated Red Blood Cells % 0.1 %; Red Cell Distribution Width 15.3 % (11.8-14.3); White Blood Cell 5.7 10^3/uL (4.4-10.8)
[2023-04-30 06:52] LABS: Chloride 97 mmol/L (98-107); Potassium 4.6 mmol/L (3.5-5.1); Sodium 137 mmol/L (136-145)
[2023-04-30 06:53] LABS: Calcium 8.3 mg/dL (8.7-10.4)
[2023-04-30 06:57] LABS: Glucose 93 mg/dL (74-106)
[2023-04-30 06:58] LABS: BUN/Creatinine Ratio 24.2 (10.0-20.0); Blood Urea Nitrogen 24 mg/dL (9-23); Magnesium 2.1 mg/dL (1.6-2.6)
[2023-04-30 07:00] LABS: Phosphorus 3.3 mg/dL (2.4-5.1)
[2023-04-30 07:07] LABS: Carbon Dioxide > 40 mmol/L (20-30)
[2023-04-30] MEDS: HYDROCORTISONE SOD SUCC 100 MG/2ML INJ VIAL IV SCH (09:07)
[2023-05-01] VITALS (18 sets, daily range): BP systolic 112–139; BP diastolic 50–72; PULSE 57–77; RESP 18–20; TEMP 98.1–98.9; O2SAT 92–100
[2023-05-02] VITALS (20 sets, daily range): BP systolic 100–143; BP diastolic 51–79; PULSE 60–80; RESP 16–20; TEMP 97.5–98.3; O2SAT 94–100
[2023-05-02] MEDS: ACETAMINOPHEN 325 MG TAB PO PRN (04:58)
[2023-05-02] MEDS: HYDROCORTISONE SOD SUCC 100 MG/2ML INJ VIAL IV SCH (10:20)
[2023-05-02] MEDS ORDERED: LACTULOSE 20Gm/30ML SOLN PO PRN (15:15)
[2023-05-03] VITALS (24 sets, daily range): BP systolic 108–131; BP diastolic 47–71; PULSE 54–74; RESP 16–22; TEMP 97.6–98.3; O2SAT 93–100
[2023-05-03 06:56] LABS: Chloride 97 mmol/L (98-107); Potassium 4.5 mmol/L (3.5-5.1); Sodium 137 mmol/L (136-145)
[2023-05-03 06:57] LABS: Calcium 7.9 mg/dL (8.7-10.4)
[2023-05-03 06:58] LABS: Eosinophils # (auto) 0.3 10 ^3/uL (0-0.8); Monocytes # (auto) 0.6 10 ^3/uL (0-1.3); Red Blood Cells 3.69 10^6/uL (4.5-5.90); Red Cell Distribution Width 15.4 % (11.8-14.3); White Blood Cell 6.9 10^3/uL (4.4-10.8)
[2023-05-03 06:59] LABS: Basophils # (auto) 0.1 10 ^3/uL (0-0.2); Basophils % (auto) 0.7 % (0.0-2.0); Eosinophils % (auto) 3.8 % (0.0-7.0); Hematocrit 31.8 % (41.0-53.0); Hemoglobin 9.9 g/dL (13.5-17.5); Lymphocytes # (auto) 1.2 10 ^3/uL (0.4-5.4); Lymphocytes % (auto) 16.8 % (10.0-50.0); Mean Corpuscular Hemoglobin 26.8 pg (28.0-32.0); Mean Corpuscular Hgb Conc. 31.2 g/dL (32.0-36.0); Monocytes % (auto) 8.4 % (0.0-12.0); Neutrophils # (auto) 4.8 10 ^3/uL (1.6-8.6); Neutrophils % (auto) 70.3 % (37.0-80.0); Nucleated Red Blood Cells % 0.2 %
[2023-05-03 07:02] LABS: BUN/Creatinine Ratio 21.6 (10.0-20.0); Blood Urea Nitrogen 21 mg/dL (9-23); Glucose 98 mg/dL (74-106)
[2023-05-03 07:09] LABS: Anion Gap -0.00001 (5-15)
[2023-05-03 07:12] LABS: Carbon Dioxide > 40 mmol/L (20-30)
[2023-05-04] VITALS (13 sets, daily range): BP systolic 103–128; BP diastolic 43–65; PULSE 58–77; RESP 17–20; TEMP 97.9–98.2; O2SAT 91–100
== END 2023-05-04 20:15 | disposition short-term general hospital (02) | DRG 720 ==
LOC: EDBD 21:31 → ER 21:31 → TELE 04-13 02:10 → ICU WEST 04-13 02:10 → ER 04-13 02:10 → ICU WEST 04-13 04:12 → ICU CENTRL 04-23 15:29 → TELE-WESTW 04-25 15:02
PROVIDERS: ADMIT Nurse Practitioner; ATTEND Nurse Practitioner
PROC: 5A1945Z Respiratory Ventilation, 24-96 Consecutive Hours (ICD-10-PCS; principal; 2023-04-13)
PROC: 0BH17EZ Insertion of Endotracheal Airway into Trachea, Via Natural or Artificial Opening (ICD-10-PCS; 2023-04-13)
PROC: 5A09357 Assistance with Respiratory Ventilation, Less than 24 Consecutive Hours, Continuous Positive Airway Pressure (ICD-10-PCS; 2023-04-17)
PROC: 5A09357 Assistance with Respiratory Ventilation, Less than 24 Consecutive Hours, Continuous Positive Airway Pressure (ICD-10-PCS; 2023-04-18)
PROC: 5A09357 Assistance with Respiratory Ventilation, Less than 24 Consecutive Hours, Continuous Positive Airway Pressure (ICD-10-PCS; 2023-04-19)
PROC: 5A09357 Assistance with Respiratory Ventilation, Less than 24 Consecutive Hours, Continuous Positive Airway Pressure (ICD-10-PCS; 2023-04-20)
PROC: 5A09357 Assistance with Respiratory Ventilation, Less than 24 Consecutive Hours, Continuous Positive Airway Pressure (ICD-10-PCS; 2023-04-21)
PROC: 5A09357 Assistance with Respiratory Ventilation, Less than 24 Consecutive Hours, Continuous Positive Airway Pressure (ICD-10-PCS; 2023-04-22)
PROC: 5A09357 Assistance with Respiratory Ventilation, Less than 24 Consecutive Hours, Continuous Positive Airway Pressure (ICD-10-PCS; 2023-04-23)
PROC: 5A09357 Assistance with Respiratory Ventilation, Less than 24 Consecutive Hours, Continuous Positive Airway Pressure (ICD-10-PCS; 2023-04-24)
PROC: 5A09357 Assistance with Respiratory Ventilation, Less than 24 Consecutive Hours, Continuous Positive Airway Pressure (ICD-10-PCS; 2023-04-25)
PROC: 5A09357 Assistance with Respiratory Ventilation, Less than 24 Consecutive Hours, Continuous Positive Airway Pressure (ICD-10-PCS; 2023-04-26)
PROC: 5A09357 Assistance with Respiratory Ventilation, Less than 24 Consecutive Hours, Continuous Positive Airway Pressure (ICD-10-PCS; 2023-04-27)
PROC: 5A09357 Assistance with Respiratory Ventilation, Less than 24 Consecutive Hours, Continuous Positive Airway Pressure (ICD-10-PCS; 2023-04-27)
PROC: 5A09357 Assistance with Respiratory Ventilation, Less than 24 Consecutive Hours, Continuous Positive Airway Pressure (ICD-10-PCS; 2023-04-27)
PROC: 5A09357 Assistance with Respiratory Ventilation, Less than 24 Consecutive Hours, Continuous Positive Airway Pressure (ICD-10-PCS; 2023-04-28)
PROC: 5A09357 Assistance with Respiratory Ventilation, Less than 24 Consecutive Hours, Continuous Positive Airway Pressure (ICD-10-PCS; 2023-04-29)
PROC: 5A09357 Assistance with Respiratory Ventilation, Less than 24 Consecutive Hours, Continuous Positive Airway Pressure (ICD-10-PCS; 2023-04-30)
PROC: 5A09357 Assistance with Respiratory Ventilation, Less than 24 Consecutive Hours, Continuous Positive Airway Pressure (ICD-10-PCS; 2023-05-01)
PROC: 5A09357 Assistance with Respiratory Ventilation, Less than 24 Consecutive Hours, Continuous Positive Airway Pressure (ICD-10-PCS; 2023-05-02)
PROC: 5A09357 Assistance with Respiratory Ventilation, Less than 24 Consecutive Hours, Continuous Positive Airway Pressure (ICD-10-PCS; 2023-05-03)
DX: A41.59 Other Gram-negative sepsis (principal); J96.21 Acute and chronic respiratory failure with hypoxia; R65.21 Severe sepsis with septic shock; I50.33 Acute on chronic diastolic (congestive) heart failure; J15.69 Pneumonia due to other Gram-negative bacteria; E87.3 Alkalosis; I82.C11 Acute embolism and thrombosis of right internal jugular vein; J15.9 Unspecified bacterial pneumonia; I13.0 Hypertensive heart and chronic kidney disease with heart failure and stage 1 through stage 4 chronic kidney disease, or unspecified chronic kidney disease; I27.20 Pulmonary hypertension, unspecified; E66.2 Morbid (severe) obesity with alveolar hypoventilation; J96.22 Acute and chronic respiratory failure with hypercapnia; I47.20 Ventricular tachycardia, unspecified; Z20.822 Contact with and (suspected) exposure to COVID-19; J44.1 Chronic obstructive pulmonary disease with (acute) exacerbation; J98.11 Atelectasis; J44.0 Chronic obstructive pulmonary disease with (acute) lower respiratory infection; N18.31 Chronic kidney disease, stage 3a; I08.1 Rheumatic disorders of both mitral and tricuspid valves; I48.0 Paroxysmal atrial fibrillation; F41.9 Anxiety disorder, unspecified; E03.9 Hypothyroidism, unspecified; I25.2 Old myocardial infarction; Z95.0 Presence of cardiac pacemaker; Z91.013 Allergy to seafood; Z68.42 Body mass index [BMI] 45.0-49.9, adult; Z80.0 Family history of malignant neoplasm of digestive organs; Z79.899 Other long term (current) drug therapy
CPT/HCPCS: 36415; 36600; 70450; 71045; 76604; 80048; 80053; 80202; 81001; 82805; 83605; 83735; 83880; 84100; 84132; 84443; 84484; 85025; 85379; 87040; 87070; 87081; 87086; 87205; 87426; 87804; 92610; 93005; 93306; 93970; 93971; 94002; 94003; 94640; 94660; 96365; 97110; 97116; 97163; 97530; 99291; C9113; G0378; J0692; J1956; J2001; J2250; J2704; J3480; J3490; J7060

== ENCOUNTER 2024-04-18 11:10 | Inpatient (IN) | payer MEDICARE, MEDICAID ==
[~2024-04-18] VITALS: Ht 172.7 cm; Wt 211.0 kg
[2024-04-18] VITALS (7 sets, daily range): PULSE 80–99; RESP 16–28; O2SAT 88–98
[~2024-04-18 11:10] MED LIST changes: +ALBU0.084 NEB; +ALBU108A5 INH; -ALBU2TAB11 PO; -ALPR0.5T8 PO; -BISA-13 PO; -DOCU-265 PO; +DOCU-94 PO; -DOXY-447 PO; -FEXO-131 PO; +FEXO-42 PO; -FLU220IH INH; +FLUT110A8 INH; +HYDR-4798 PO; -METH4PAK PO; +SUCR1TAB PO; -SUCR1TAB31 OR; -[UNRECOGNIZED DRUG - CODE] PO
--- NOTE | 2024-04-18 11:18 | ECG ---
[facility] Test Date: 2024-04-18 Test Time: 11:14:14 Pat Name: EMRE LARIOS Department: ER Room: 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
[2024-04-18 11:40] LABS: Basophils # (auto) 0 10 ^3/uL (0-0.2); Eosinophils # (auto) 0.3 10 ^3/uL (0-0.8); Hemoglobin 11.1 g/dL (13.5-17.5); Monocytes # (auto) 0.4 10 ^3/uL (0-1.3); Monocytes % (auto) 5.2 % (0.0-12.0)
[2024-04-18 11:42] LABS: Basophils % (auto) 0.6 % (0.0-2.0); Eosinophils % (auto) 4.2 % (0.0-7.0); Hematocrit 36.1 % (41.0-53.0); Lymphocytes # (auto) 0.6 10 ^3/uL (0.4-5.4); Lymphocytes % (auto) 8.1 % (10.0-50.0); Mean Corpuscular Hemoglobin 28.3 pg (28.0-32.0); Mean Corpuscular Hgb Conc. 30.8 g/dL (32.0-36.0); Mean Corpuscular Volume 91.9 fL (80.0-100.0); Neutrophils % (auto) 81.9 % (37.0-80.0); Platelet Count (auto) 138 10^3/uL (140-450); Red Blood Cells 3.93 10^6/uL (4.5-5.90); Red Cell Distribution Width 15.7 % (11.8-14.3); White Blood Cell 7.3 10^3/uL (4.4-10.8)
[2024-04-18 11:51] LABS: Sodium 141 mmol/L (136-145)
[2024-04-18 11:53] LABS: Calcium 9.1 mg/dL (8.7-10.4)
[2024-04-18 11:57] LABS: BUN/Creatinine Ratio 19.1 (10.0-20.0); Blood Urea Nitrogen 21 mg/dL (9-23)
[2024-04-18 12:05] LABS: Chloride 97 mmol/L (98-107)
[2024-04-18 12:06] LABS: Anion Gap 3.99999 (5-15); Glucose 107 mg/dL (74-106)
[2024-04-18 12:09] LABS: Carbon Dioxide > 40 mmol/L (20-31)
--- NOTE | 2024-04-18 13:11 | DVH ---
CHEST RADIOGRAPH Indication: sob Technique: Single frontal view of the chest was obtained COMPARISON: XY CHEST XRAY 1 VIEW on DOS: 05/03/23, XY CHEST XRAY 1 VIEW on DOS: 04/29/23, XY CHEST PORT ABLE on DOS: 04/18/23, XY CHEST PORTABLE on DOS: 04/15/23, XY CHEST XRAY 1 VIEW on DOS: 04/13/23 FINDINGS: Lines and Tubes: Left chest wall pacemaker Lungs: Multifocal airspace disease. Pleura: Small right pleural effusion. No pneumothorax. Cardiomediastinal contours: Unremarkable Bones: Unremarkable IMPRESSION: Findings are suggestive of pulmonary edema.
--- NOTE | 2024-04-18 14:31 | ED.PDOC ---
History of Present Illness HPI Comments This is a 68-year-old male who comes in with chief complaint of shortness for breath for two days. The patient was discharged on Wednesday with pneumonia from another facility. The patient states that he was at home and developed increased shortness for breath so he called 911. He denies any chest pain, naus ea or vomiting. The patient also denies any diarrhea. The patient thinks he was admitted for approximately eight days. At some point the patient uses a CPAP machine at home. When the paramedics arrived on scene, the patient had an oxygen saturation of 94% on 3 L nasal cannula. He states that he was not on oxygen prior to his admission at the other facility. EN route, the patient received a breathing treatment x1 and the patient was saturation went up to 96%. He denies any other complaints at this time. Chief Complaint: Shortness of Breath Time Seen by MD: 11:11 Primary Care Provider: pt does not know Reviewed Notes: Nurses Notes, Oil Expert Notes, Medications, Allergies (Allergies listed above) Allergies: Coded Allergies: Shrimp Flavor (Verified Allergy, Severe, 02/11/22) Shellfish Allergy (Verified Allergy, Unknown, 04/13/23) Home Meds Active Scripts Pantoprazole Sodium Sesquihydr (Protonix) 40 Mg Tab, 40 MG PO BID for 30 Days, #60 TAB Prov:ROBERTH DAY NP 02/03/23 Rivaroxaban (Xarelto Tablet) 10 Mg Tb, 10 MG PO DAILY for 30 Days, #30 TAB Prov:ROBERTH DAY END USER CONSULTANT 02/03/23 Reported Medications Fexofenadine Hydrochloride (PATTI ALLERGY) 180 Mg Tab, 1 TAB PO DAILY 04/15/23 Sucralfate (Sucralfate) 1 Gm Tab, 1 TAB PO QID 04/15/23 Albuterol Sulfate (Albuterol Sulfate Hfa) 108 Mcg/Act Aer, INH 04/15/23 Fluticasone Propionate (Fluticasone Propionate Hf) 110 Mcg/Act Aer, INH 04/15/23 Furosemide (Furosemide) 40 Mg Tab, 40 MG PO DAILY for 15 Days 02/01/23 Bumetanide (Bumetanide) 0.5 Mg Tab, 2 TAB PO DAILY 01/30/23 Levothyroxine Sodium (Levothyroxine Sodium) 25 Mcg Tab, 25 MCG PO DAILY@BREAKFAST 02/11/22 Atorvastatin Calcium (ATORVASTATIN CALCIUM) 40 Mg Tab, 1 TAB PO HS 02/11/22 Ipratropium [place] Hfa (Atrovent Hfa) 17 Mcg Aer, 1 PUFF INH BID 08/24/20 Information Source: Patient, Emergency Med Personnel Mode of Arrival: EMS Severity: Moderate Timing: Days (Symptoms started approximately two days ago) Duration: Since onset Prehospital treatment: Balance Wheel Screw Hole Tapper, IVF, Oxygen Associated signs and symptoms No associated nausea or vomiting. The patient denies any cough or fever Past Medical History PAST MEDICAL HISTORY: AFIB, CHF, CKF, COPD, High Lipids, HTN, Thyroid Surgical History: Pacemaker Surgical History (Other): Knee surgery Family History Family History: Reviewed,noncontributory to illness Social History Smoker: Secondhand Alcohol: Occasionally Drugs: Denies Drug Use Lives In: Home Constitutional: denies: chills, diaphoresis, fatigue, fever, malaise, sweats, weakness, others EENTM: denies: blurred vision, double vision, ear bleeding, ear discharge, ear drainage, ear pain, ear ringing, eye pain, eye redness, hearing loss, mouth p ain, mouth swelling, nasal discharge, nose bleeding, nose congestion, nose pain, photophobia, tearing, throat pain, throat swelling, voice changes, others Respiratory: reports: shortness of breath; denies: cough, hemoptysis, orthopnea, SOB at rest, SOB with excertion, stridor, wheezing, others Cardiovascular: denies: chest pain, dizzy spells, diaphoresis, Dyspnea on exertion, edema, irregular heart beat, left arm pain, lightheadedness, palpita tions, PND, syncope, others Gastrointestinal: denies: abdomen distended, abdominal pain, blood streaked octaviano wels, constipated, diarrhea, dysphagia, difficulty swallowing, hematemesis, melena, nausea, poor appetite, poor fluid intake, rectal bleeding, rectal pain, vomiting, others Genitourinary: denies: burning, dysuria, flank pain, frequency, hematuria, incontinence, penile discharge, penile sore, pain, testicle pain, testicle swelling, urgency, others Neurological: denies: dizziness, fainting, headache, left sided numbness, left sided weakness, numbness, paresthesia, pre-existing deficit, right sided numbness, right sided weakness, seizure, speech problems, tingling, tremors, weakness, others Musculoskeletal: denies: back pain, gout, joint pain, joint swelling, muscle pain, muscle stiffness, neck pain, others Integumetry: denies: bruises, change in color, change in hair/nails, dryness, laceration, lesions, lumps, rash, wounds, others Allergic/Immunocompromised: denies: Difficulty Healing, Frequent Infections, Hives, Itching, others Hematologic/Lymphatic: denies: anemia, blood clots, easy bleeding, easy bruisin g, swollen glands, others Endocrine: denies: excessive hunger, excessive sweating, excessive thirst, excessive urination, flushing, intolerance to cold, intolerance to heat, unexplained weight gain, unexplained weight loss, others Psychiatric: denies: anxiety, bipolar disorder, depression, hopeless, panic disorder, schizophrenia, sleepless, suicidal, others Physical Exam General Appearance: Moderate Distress, Obese HEENT: Normal ENT Inspection, Pharynx Normal, TMs Normal Neck: Full Range of Motion, Non-Tender, Normal, Normal Inspection Respiratory: Chest Non-Tender, Decreased Breath Sounds, Lungs Clear, No Accessory Muscle Use, Respiratory Distress Cardiovascular: No Edema, No JVD, No Murmur, No Gallop, Normal Peripheral Pulses, Regular Rate/Rhythm Breast Exam: Deferred Gastrointestinal: No Organomegaly, Non Tender, No Pulsatile Mass, Normal Bowel Sounds, Soft Genitalia: Deferred Pelvic: Deferred Rectal: Deferred Extremities: No calf tenderness, Normal capillary refill, Pedal edema Musculoskeletal : Apperance: Normal Neurologic: Alert, waste examiner II-XII nml as Tested, Motor Weakness, Normal Affect, Normal Mood, No Sensory Deficits Cerebellar Function: Normal Reflexes: Normal Skin: Dry, Pallor, Warm Lymphatic: No Adenopathy Was a procedure done? Was a procedure done?: No EKG EKG : Pulse Rate (adult): 86 [place]: Normal Block: None Hypertrophy: LAE ST: Nonsp Differential Dx Considerations may include: CHF, PE, generalized weakness X-Ray, Labs, Meds, VS Vital Signs Date Time Temp Pulse Resp B/P (MAP) Pulse Ox O2 Delivery O2 Flow Rate FiO2 04/18/24 11:24 22 96 Nasal Cannula* 3 32 04/18/24 11:19 98.3 89 22 102/34 (56) 96 04/18/24 11:14 86 Lab Test 04/18/24 14:02 04/18/24 11:25 Range/Units Troponin I High Sensitivity Pending 11 </=54 ng/L White Blood Count 7.3 4.4-10.8 10^3/uL Red Blood Count 3.93 L 4.5-5.90 10^6/uL Hemoglobin 11.1 L 13.5-17.5 g/dL Hematocrit 36.1 L 41.0-53.0 % Mean Corpuscular Volume 91.9 80.0-100.0 fL Mean Corpuscular Hemoglobin 28.3 28.0-32.0 pg Mean Corpuscular Hemoglobin Concent 30.8 L 32.0-36.0 g/dL Red Cell Distribution Width 15.7 H 11.8-14.3 % Platelet Count 138 L 140-450 10^3/uL Mean Platelet Volume 8.3 6.9-10.8 fL Neutrophils (%) (Auto) 81.9 H 37.0-80.0 % Lymphocytes (%) (Auto) 8.1 L 10.0-50.0 % Monocytes (%) (Auto) 5.2 0.0-12.0 % Eosinophils (%) (Auto) 4.2 0.0-7.0 % Basophils (%) (Auto) 0.6 0.0-2.0 % Neutrophils # (Auto) 6.0 1.6-8.6 10 ^3/uL Lymphocytes # (Auto) 0.6 0.4-5.4 10 ^3/uL Monocytes # (Auto) 0.4 0-1.3 10 ^3/uL Eosinophils # (Auto) 0.3 0-0.8 10 ^3/uL Basophils # (Auto) 0 0-0.2 10 ^3/uL Nucleated Red Blood Cells 0.0 % Sodium Level 141 136-145 mmol/L Potassium Level 4.0 3.5-5.1 mmol/L Chloride Level 97 L 98-107 mmol/L Carbon Dioxide Level > 40 *H 20-31 mmol/L Anion Gap 3.80700 L 5-15 Blood Urea Nitrogen 21 9-23 mg/dL Creatinine 1.10 0.700-1.30 mg/dL Glomerular Filtration Rate Calc 74 >90 mL/min BUN/Creatinine Ratio 19.1 10.0-20.0 Serum Glucose 107 H 74-106 mg/dL Calcium Level 9.1 8.7-10.4 mg/dL B-Type Natriuretic Peptide 97.47 0-100 pg/mL IV Hep-Lock was established The CBC shows anemia with a hemoglobin of 11.1 and hematocrit is 36.1 The CO2 level is greater than 40 The anion gap is 3.9 At this time, the patient was being admitted to the hospitalist The BNP is within normal limits The chest x-ray shows: IMPRESSION: Findings are suggestive of pulmonary edema. The patient was given Lasix 40 mg IV push The patient was being admitted at this time Images Reviewed?: Images reviewed and evaluated by me Time of 1ST Reevaluation: 14:29 Reevaluation 1ST: Unchanged Patient Education/Counseling: Diagnosis, Treatment, Prognosis Family Education/Counseling: No Family Present Departure 1 Departure Time of Disposition: 14:30 Impression: Primary Impression: Acute on chronic diastolic heart failure Disposition: ADMITTED INPATIENT Admit to: Tele Condition: Fair Critical Care Note Critical Care Time?: Yes (45 min-critical care time only) Stability Stability form required: Yes Unstable for transfer: Telemetry monitoring (Telemetry monitoring required), ED Physician Assesment (Clinical assesment) Heart Score Heart Score: Heart Score Response (Comments) Value History Moderate Suspicious 1 EKG Repolarization Disturb 1 Age >65 2 Risk Factors >3 or Hx ASHD 2 Troponin Normal limit 0 Total 6 LURDES GUNN MD Apr 18, 2024 14:31
[2024-04-18] MEDS: methylPREDNISolone SOD SUCC 125 MG/2 ML VL IV ONE (15:32)
[2024-04-18] MEDS: FUROSEMIDE 40 MG/4 ML VIAL IV ONE (15:32)
[2024-04-18 16:00] LABS: Urine Bacteria None Seen /hpf (None Seen)
[2024-04-18 16:13] LABS: Urine Blood Negative /uL (Negative); Urine Clarity Clear (Clear); Urine Color Light-Yellow (Yellow); Urine Hyaline Cast FEW /lpf (0 - 2); Urine Mucus FEW (None Seen); Urine Protein, UAD Negative (Negative); Urine Squamous Epithelial Cell FEW /hpf (<5); Urine Urobilinogen Normal (Negative); Urine WBC 1 /HPF (0-3)
[2024-04-18] MEDS ORDERED: MORPHINE SULFATE INJ 2 MG/ml SYRG IV PRN ×2 (16:15)
[2024-04-18] MEDS ORDERED: ACETAMINOPHEN 500 MG TAB or CAP PO PRN (16:15)
[2024-04-18] MEDS ORDERED: DOCUSATE SOD 100 MG CAP PO PRN (16:15)
[2024-04-18] MEDS ORDERED: NITROGLYCERIN 0.4 MG SL TAB SL PRN (16:15)
[2024-04-18] MEDS ORDERED: ONDANSETRON HCL 4 MG/2 ML VIAL IV PRN (16:15)
--- NOTE | 2024-04-18 16:21 | DVHHP2 ---
History of Present Illness Reason for Visit: Shortness of breath History of Present Illness The patient was a 68-year-old male transported to the emergency room by EMS with reports of worsening shortness of breath. Patient was states that he was discharged from [facility] approximately 2-3 weeks ago with diagnosis of pneumonia. Patient was states that over the past one week he has had worsening dyspnea with exertion, but denies having any fevers, chills, cough, chest pain, or wheezing. Chest x-ray reveals pulmonary vascular congestion. Patient states that he does have a history of congestive heart failure, as well as atrial fibrillation. Surgical history includes pacemaker. Cardiovascular: AFIB, HTN Past Surgical History: None, Other (Pacemaker implant) Family History: None Smoke: # pack years ALCOHOL: none Drugs: None Lives: with Family Review of Systems Constitutional: No: Fever, Chills, Sweats, Weakness, Malaise, Other Eyes: No: Pain, Vision change, Conjunctivae inflammation, Eyelid inflammation, Other, Redness ENT: No: Ear pain, Ear discharge, Nose pain, Nose discharge, Nose congestion, Mouth pain, Mouth swelling, Throat pain, Throat swelling, Other Respiratory: Shortness of breath; No: Cough, Dry, SOB with excertion, Wheezing, Hemoptysis, Pleuritic Pain, Sputum, Wheezing, Other Cardiovascular: No: Chest Pain, Palpitations, Orthopnea, Paroxysmal Noc. Dyspnea, Edema, Lt Headedness, Other Gastrointestinal: No: Nausea, Vomiting, Abdominal Pain, Diarrhea, Constipation, Melena, Hematochezia, Other Genitourinary: No Dysuria, No Frequency, No Incontinence, No Hematuria, No Retention, No Other Musculoskeletal: No: other, neck pain, shoulder pain, arm pain, back pain, hand pain, leg pain, foot pain Skin: No: Rash, Lesions, Jaundice, Bruising, Other Neurological: No: Weakness, Numbness, Incoordination, Change in speech, Confusion, Seizures, Other Allergies: Coded Allergies: Shrimp Flavor (Verified Allergy, Severe, 02/11/22) Shellfish Allergy (Verified Allergy, Unknown, 04/13/23) Medications Current Medications Medications Dose Ordered Sig/Jeanine Route Start Time Stop Time Status Last Admin Dose Admin Levothyroxine Sodium 25 mcg DAILY@BREAKFAST PO 04/19/24 08:00 UNV Pantoprazole Sodium 40 mg BID PO 04/18/24 22:00 UNV Rivaroxaban 10 mg DAILY PO 04/19/24 10:00 UNV Patient Own Medication 1 tab HS PO 04/18/24 22:00 UNV Exam Vital Signs Vital Signs Date Time Temp Pulse Resp B/P (MAP) Pulse Ox O2 Delivery O2 Flow Rate FiO2 04/18/24 15:33 98.9 88 22 120/52 (74) 92 98.9 04/18/24 11:24 Nasal Cannula* 3 32 General Appearance: Alert, Oriented X3, Cooperative, mild distress HEENT: Atraumatic, PERRLA Respiratory: Clear to auscultation, Other (Diminished in bases) Cardiovascular: Normal S1, Normal S2 Abdominal: Normal bowel sounds, Soft Extremities: No clubbing, No cyanosis Neuro: Normal gait, Normal speech Psych/Mental Status: Mental status NL, Mood NL Labs/Xrays Labs Test 04/18/24 15:26 04/18/24 14:02 04/18/24 11:25 Range/Units Urine Color Light-yellow Yellow Urine Clarity Clear Clear Urine pH 5.0 5.0-9.0 Urine Specific [place] 1.010 1.001-1.035 Urine Protein Negative Negative Urine Ketones Negative Negative Urine Blood Negative Negative /uL Urine Nitrite Negative Negative Urine Bilirubin Negative Negative Urine Urobilinogen Normal Negative mg/dL Urine Leukocyte Esterase Negative Negative /uL Urine RBC <1 0 - 3 /hpf Urine Microscopic WBC 1 0-3 /HPF Urine Squamous Epithelial Cells Few <5 /hpf Urine Bacteria None seen None Seen /hpf Urine Hyaline Casts Few 0 - 2 /lpf Urine Mucus Few None Seen Urine Glucose Normal Normal mg/dL Troponin I High Sensitivity 10 </=54 ng/L White Blood Count 7.3 4.4-10.8 10^3/uL Red Blood Count 3.93 L 4.5-5.90 10^6/uL Hemoglobin 11.1 L 13.5-17.5 g/dL Hematocrit 36.1 L 41.0-53.0 % Mean Corpuscular Volume 91.9 80.0-100.0 fL Mean Corpuscular Hemoglobin 28.3 28.0-32.0 pg Mean Corpuscular Hemoglobin Concent 30.8 L 32.0-36.0 g/dL Red Cell Distribution Width 15.7 H 11.8-14.3 % Platelet Count 138 L 140-450 10^3/uL Mean Platelet Volume 8.3 6.9-10.8 fL Neutrophils (%) (Auto) 81.9 H 37.0-80.0 % Lymphocytes (%) (Auto) 8.1 L 10.0-50.0 % Monocytes (%) (Auto) 5.2 0.0-12.0 % Eosinophils (%) (Auto) 4.2 0.0-7.0 % Basophils (%) (Auto) 0.6 0.0-2.0 % Neutrophils # (Auto) 6.0 1.6-8.6 10 ^3/uL Lymphocytes # (Auto) 0.6 0.4-5.4 10 ^3/uL Monocytes # (Auto) 0.4 0-1.3 10 ^3/uL Eosinophils # (Auto) 0.3 0-0.8 10 ^3/uL Basophils # (Auto) 0 0-0.2 10 ^3/uL Nucleated Red Blood Cells 0.0 % Sodium Level 141 136-145 mmol/L Potassium Level 4.0 3.5-5.1 mmol/L Chloride Level 97 L 98-107 mmol/L Carbon Dioxide Level > 40 *H 20-31 mmol/L Anion Gap 3.54704 L 5-15 Blood Urea Nitrogen 21 9-23 mg/dL Creatinine 1.10 0.700-1.30 mg/dL Glomerular Filtration Rate Calc 74 >90 mL/min BUN/Creatinine Ratio 19.1 10.0-20.0 Serum Glucose 107 H 74-106 mg/dL Calcium Level 9.1 8.7-10.4 mg/dL B-Type Natriuretic Peptide 97.47 0-100 pg/mL Assessment/Plan Assessment/Plan Impression: -acute hypoxic respiratory failure -pulmonary vascular congestion, probable acute decompensated systolic heart failure -obesity -history of permanent pacemaker implant -hypertension -hypothyroidism -chronic kidney disease , 3A Plan: -admit to telemetry unit -IV diuresis -echocardiogram -start guideline directed medical therapy -continue anticoagulation -check TSH -repeat labs and chest x-ray in a.m. Total time spent with patient discussing and formulating plan of care: 35 minutes. This medical document was created using an electronic medical record system with [employer] system. Although this document has been carefully reviewed, there may still be some phonetic and typographical errors. These areas are purely typographical due to imperfections of the software programs, and do not reflect any compromise in the patient's medical care. Plan discussed with: Patient, Other (RN) My Orders Orders - NORMAN HUTCHISON NP Procedure Category Date Status Time Levothyroxine Tablet [facility] 04/19/24 Logged (Synthroid Tablet) 08:00 Pantoprazole Tablet PH[facility] 04/18/24 Logged (Protonix Tablet) 22:00 Rivaroxaban Tablet PHA 04/19/24 Logged (Xarelto Tablet) 10:00 (Nf) Atorvastatin [facility] 04/18/24 Logged Calcium 22:00 Admit ADMIT 04/18/24 Verified 16:08 Nitroglycerin [facility] 04/18/24 Verified Sublingual (Ntrostat 16:15 Morphine Sulfate [facility] 04/18/24 Verified Injection 16:15 Stat Ekg For Chest [facility] 04/18/24 Verified Pain 16:08 Notify Md Of Changes [facility] 04/18/24 Verified From Base 16:08 Athletic Agent For [facility] 04/18/24 Verified 24 Hours 16:08 Emergency Dysrhythmia [facility] 04/18/24 Verified Protocol 16:08 Rhythm Strips Once [facility] 04/18/24 Verified Every Shift 16:08 Oxygen By Nasal RT 04/18/24 Verified Cannula 16:08 Furosemide Injection [facility] 04/18/24 Verified (Lasix Injection) 18:00 Basic Metabolic Panel LAB 04/19/24 Verified 04:00 Chest Portable XY 04/19/24 Verified 04:00 Complete Blood Count LAB 04/19/24 Verified 04:00 Cardiac DIET 04/18/24 Verified Diet-2gna,Lofat,Lochol Dinner Morphine Sulfate PHA 04/18/24 Verified Injection 16:15 Date of Service: Apr 18, 2024 Billing Provider: NORMAN HUTCHISON NP Common Visit Codes: [id number] INP/OBS CARE (HIGH) NORMAN HUTCHISON NP Apr 18, 2024 16:21
[2024-04-18] MEDS: ALBUTEROL SULF 2.5 MG/0.5ML(0.5%) NEB SOLN ONE (17:52)
[2024-04-18] MEDS: IPRATROPIUM BROM 0.5 MG/2.5ML INH SOL ONE (17:52)
[2024-04-18] MEDS: ATORVASTATIN 20 MG TAB PO SCH (22:15)
[2024-04-18] MEDS: HYDROcodone-ACET 5/325MG TAB PO PRN (22:15)
[2024-04-18] MEDS: PANTOPRAZOLE 40 MG TAB PO SCH (22:15)
[2024-04-18] MEDS: FUROSEMIDE 40 MG/4 ML VIAL IV SCH (22:16)
[2024-04-18] MEDS: ALBUTEROL SULF 2.5 MG/0.5ML(0.5%) NEB SOLN NEB PRN (22:39)
[2024-04-18] MEDS: IPRATROPIUM BROM 0.5 MG/2.5ML INH SOL NEB PRN (22:39)
[2024-04-19] VITALS (19 sets, daily range): BP systolic 111–131; BP diastolic 51–62; PULSE 76–115; RESP 18–23; TEMP 96.8–97.8; O2SAT 92–100
--- NOTE | 2024-04-19 05:04 | DVH ---
CHEST RADIOGRAPH Indication: pna Technique: Single frontal view of the chest was obtained COMPARISON: XY CHEST PORTABLE on DOS: 04/18/24, XY CHEST XRAY 1 VIEW on DOS: 05/03/23, XY CHEST XRAY 1 VIEW on DOS: 04/29/23, XY CHEST PORTABLE on DOS: 04/18/23, XY CHEST PORTABLE on DOS: 04/15/23 FINDINGS: Lines and Tubes: Left chest wall pacemaker. Lungs: Multifocal airspace disease Pleura: No effusion. No pneumothorax. Cardiomediastinal contours: Cardiomegaly Bones: Unremarkable IMPRESSION: No significant interval change
[2024-04-19 06:14] LABS: Basophils # (auto) 0 10 ^3/uL (0-0.2); Basophils % (auto) 0.2 % (0.0-2.0); Eosinophils # (auto) 0 10 ^3/uL (0-0.8); Hematocrit 36.6 % (41.0-53.0); Hemoglobin 11.5 g/dL (13.5-17.5); Lymphocytes # (auto) 0.5 10 ^3/uL (0.4-5.4); Lymphocytes % (auto) 7.1 % (10.0-50.0); Mean Corpuscular Hemoglobin 28.1 pg (28.0-32.0); Mean Corpuscular Hgb Conc. 31.3 g/dL (32.0-36.0); Mean Corpuscular Volume 89.8 fL (80.0-100.0); Monocytes # (auto) 0.2 10 ^3/uL (0-1.3); Monocytes % (auto) 2.5 % (0.0-12.0); Neutrophils # (auto) 6.2 10 ^3/uL (1.6-8.6); Neutrophils % (auto) 90.2 % (37.0-80.0); Nucleated Red Blood Cells % 0.1 %; Platelet Count (auto) 118 10^3/uL (140-450); Red Blood Cells 4.07 10^6/uL (4.5-5.90); Red Cell Distribution Width 15.2 % (11.8-14.3); White Blood Cell 6.9 10^3/uL (4.4-10.8)
[2024-04-19 06:35] LABS: Potassium 4.8 mmol/L (3.5-5.1); Sodium 140 mmol/L (136-145)
[2024-04-19 06:36] LABS: Anion Gap 5.99999 (5-15); Calcium 9.4 mg/dL (8.7-10.4); Chloride 94 mmol/L (98-107)
[2024-04-19 06:39] LABS: Carbon Dioxide > 40 mmol/L (20-31)
[2024-04-19 06:41] LABS: BUN/Creatinine Ratio 17.6 (10.0-20.0); Blood Urea Nitrogen 22 mg/dL (9-23)
[2024-04-19 06:42] LABS: Glucose 125 mg/dL (74-106)
[2024-04-19] MEDS: LEVOTHYROXINE SODIUM 25 MCG TAB PO SCH (09:17)
[2024-04-19] MEDS: RIVAROXABAN 10 MG TAB PO SCH (09:17)
--- NOTE | 2024-04-19 13:56 | DVHPN2 ---
Subjective Patient was continues to report having shortness of breath. Reviewed: Care Plan, H&P, Labs, Medications, Previous Orders Changes from previous H/P or p: No Changes General: Per HPI Eyes: No Pain, No Vision change, No Conjunctivae inflammation, No Eyelid inflammation, No Other, No Redness ENT: No Ear pain, No Ear discharge, No Nose pain, No Nose discharge, No Nose congestion, No Mouth pain, No Mouth swelling, No Throat pain, No Throat swelling, No Other Cardiovascular: No Chest Pain, No Palpitations, No Orthopnea, No Paroxysmal Noc. Dyspnea, No Edema, No Lt Headedness, No Other Respiratory: No Cough, No Dry; Shortness of breath; No SOB with excertion, No Wheezing, No Hemoptysis, No Pleuritic Pain, No Sputum, No Other Gastrointestinal: No Nausea, No Vomiting, No Abdominal Pain, No Diarrhea, No Constipation, No Melena, No Hematochezia, No Other Genitourinary: No Dysuria, No Frequency, No Incontinence, No Hematuria, No Retention, No Other Musculoskeletal: No other, No neck pain, No shoulder pain, No arm pain, No back pain, No hand pain, No leg pain, No foot pain Skin: No Rash, No Lesions, No Jaundice, No Bruising, No Other Objective Vitals Vital Signs Date Time Temp Pulse Resp B/P (MAP) Pulse Ox O2 Delivery O2 Flow Rate FiO2 04/19/24 13:46 83 18 95 04/19/24 13:40 Oxymizer 6 N/A 04/19/24 09:00 97.8 131/62 (85) 97.8 Intake/Output Intake and Output 04/19/24 07:00 Intake Total 250 ml Output Total 1000 ml Balance -750 ml Intake Oral 250 ml Output Urine Total 1000 ml General Appearance: Alert, Oriented X3, mild distress HEENT: Atraumatic, PERRLA Lungs: Clear to auscultation, Other (Decreased breath sounds in bases) Cardiovascular: Normal S1, Normal S2 Abdomen: Normal bowel sounds, Soft, No tenderness Genitourinary: No Apparent Abnormalities Musculoskeletal: Normal sensory function, Normal motor function Neuro: Normal gait, Normal speech Skin: Dry, Intact Psych/Mental Status: Mental status NL, Mood NL Medications Current Medications Medications Dose Ordered Sig/Jeanine Route Start Time Stop Time Status Last Admin Dose Admin Levothyroxine Sodium 25 mcg DAILY@BREAKFAST PO 3/12/25 08:00 04/19/24 09:17 25 MCG Pantoprazole Sodium 40 mg BID PO 04/18/24 22:00 04/19/24 09:17 40 MG Rivaroxaban 10 mg DAILY PO 04/19/24 10:00 04/19/24 09:17 10 MG Atorvastatin Calcium 40 mg HS PO 04/18/24 22:00 04/18/24 22:15 40 MG Nitroglycerin 0.4 mg Q5MINP PRN SL 04/18/24 16:15 Morphine Sulfate 2 mg Q30M PRN IV 04/18/24 16:15 Furosemide 40 mg BIDD IV 04/18/24 18:00 04/19/24 06:04 40 MG Morphine Sulfate 1 mg Q4HPRN PRN IV 04/18/24 16:15 Acetaminophen/ Hydrocodone Bitart 1 tab Q6HPRN PRN PO 04/18/24 16:15 04/18/24 22:15 1 TAB Acetaminophen 500 mg Q8HP PRN PO 04/18/24 16:15 Ondansetron HCl 4 mg Q6HP PRN IV 04/18/24 16:15 Docusate Sodium 100 mg BID PRN PO 04/18/24 16:15 Albuterol 2.5 mg Q4HPRN PRN NEB 04/18/24 16:15 04/19/24 13:40 2.5 MG Ipratropium [place] 0.5 mg Q4HPRN PRN NEB 04/18/24 16:15 04/19/24 13:40 0.5 MG Spironolactone 25 mg BIDD PO 04/19/24 18:00 Laboratory Results Laboratory Tests 04/19/24 05:13 Chemistry Test 04/19/24 05:13 Calcium Level 9.4 mg/dL (8.7-10.4) Urinalysis Test 04/18/24 15:26 Urine Color Light-yellow (Yellow) Urine Clarity Clear (Clear) Urine pH 5.0 (5.0-9.0) Urine Specific [place] 1.010 (1.001-1.035) Urine Protein Negative (Negative) Urine Ketones Negative (Negative) Urine Blood Negative /uL (Negative) Urine Nitrite Negative (Negative) Urine Bilirubin Negative (Negative) Urine Urobilinogen Normal mg/dL (Negative) Urine Leukocyte Esterase Negative /uL (Negative) Urine RBC <1 /hpf (0 - 3) Urine Microscopic WBC 1 /HPF (0-3) Urine Squamous Epithelial Cells Few /hpf (<5) Urine Bacteria None seen /hpf (None Seen) Urine Hyaline Casts Few /lpf (0 - 2) Urine Mucus Few (None Seen) Urine Glucose Normal mg/dL (Normal) Labs and/or images reviewed: Labs reviewed by me, Image(s) reviewed by me Assessment/Plan Assessment/Plan Impression: -acute hypoxic respiratory failure -pulmonary vascular congestion, probable acute decompensated systolic heart failure -obesity -history of permanent pacemaker implant -hypertension -hypothyroidism -chronic kidney disease , 3A -obstructive sleep apnea Plan: -events: Patient continues to have to dyspnea with exertion and conversation. Chest x-ray with no improvement despite diuresis. Patient placed on BiPAP overnight for obstructive sleep apnea -continue BiPAP p.r.n. -IV diuresis, continue Lasix b.i.d., pulse dose of Bumex -CT angiogram of the chest -echocardiogram: Currently being evaluated -add spironolactone -continue anticoagulation -repeat labs in a.m. Total time spent with patient discussing and formulating plan of care: 35 minutes. This medical document was created using an electronic medical record system with [employer] dictation system. Although this document has been carefully reviewed, there may still be some phonetic and typographical errors. These areas are purely typographical due to imperfections of the software programs, and do not reflect any compromise in the patient's medical care. Plan discussed with: Patient, Other (RN) My Orders Orders - NORMAN HUTCHISON RESEARCH WORKER [employer] Procedure Category Date Status Time Levothyroxine Tablet PHA 04/19/24 In Process (Synthroid Tablet) 08:00 Pantoprazole Tablet PHA 04/18/24 In Process (Protonix Tablet) 22:00 Rivaroxaban Tablet PHA 04/19/24 In Process (Xarelto Tablet) 10:00 Atorvastatin (Lipitor) PHA 04/18/24 In Process 22:00 Admit ADMIT 04/18/24 Transmitted 16:08 Nitroglycerin PHA 04/18/24 In Process Sublingual (Ntrostat 16:15 Morphine Sulfate PHA 04/18/24 In Process Injection 16:15 Stat Ekg For Chest SUMIT 04/18/24 In Process Pain 16:08 Notify Md Of Changes SUMIT 3/11/25 In Process From Base 16:08 Industrial Technology Teacher For SUMIT 04/18/24 In Process 24 Hours 16:08 Emergency Dysrhythmia SUMIT 04/18/24 In Process Protocol 16:08 Rhythm Strips Once SUMIT 04/18/24 In Process Every Shift 16:08 Oxygen By Nasal RT 04/18/24 Transmitted Cannula 16:08 Furosemide Injection PHA 04/18/24 In Process (Lasix Injection) 18:00 Chest Portable XY 04/19/24 Resulted 04:00 Cardiac DIET 04/18/24 Transmitted Diet-2gna,Lofat,Lochol Dinner Morphine Sulfate PHA 04/18/24 In Process Injection 16:15 Hydrocodone-Acet PHA 04/18/24 In Process 5/325mg Tab ([place] 16:15 Acetaminophen Tab Or PHA 04/18/24 In Process Cap (Tylenol Tablet 16:15 Ondansetron Hcl PHA 04/18/24 In Process (Zofran) 16:15 Docusate Sodium PHA 04/18/24 In Process Capsule (Colace 16:15 Albuterol Medneb PHA 04/18/24 In Process (Ventolin Medneb) 16:15 Ipratropium Medneb PHA 04/18/24 In Process (Atrovent Medneb) 16:15 Pt Request For Service PT 04/19/24 Logged 04:00 Mrsa Screen TOBY 04/19/24 In Process 02:00 Hepatitis B Surface LAB 04/19/24 In Process Antigen 02:05 Hepatitis C Antibody LAB 04/19/24 In Process 02:05 * Wound Consult CONS 04/19/24 Transmitted Echo 2d Mode Cardiac US 04/19/24 Logged DOP 16:22 Spironolactone PHA 04/19/24 In Process (Aldactone) 18:00 Date of Service: Apr 19, 2024 Billing Provider: NORMAN HUTCHISON NP Common Visit Codes: [id number] INP/OBS CARE(HIGH) NORMAN HUTCHISON NP Apr 19, 2024 13:56
--- NOTE | 2024-04-19 15:12 | DVH ---
EXAM: CT CHEST WITHOUT CONTRAST History: Severe hypoxia, CHF vs pna Comparison Study: US CHEST ULTRASOUND on DOS: 04/20/23 TECHNIQUE: Multidetector CT of the chest was performed. Imaging was performed without IV contrast. Ax ial, coronal, and sagittal multiplanar reformats were obtained from the axial data set by the technol ogroman. Radiation Dose : CTDI vol 31.21 mGy, DLP 1056.8 mGy*cm. Findings: Lungs: Mild bilateral upper lobe ground-glass opacities with interlobular septal thickening. Right lo wer lobe atelectasis. Pleura: Unremarkable Heart/Great vessels: Mild cardiomegaly. Enlarged pulmonary trunk and bilateral main pulmonary arteri es. No pericardial effusion. Mediastinum: Multiple slightly enlarged mediastinal nodes. Soft tissues/Bones: Mild multilevel degenerative changes of the thoracic spine. The partially visualized upper abdomen is within normal limits. Impression: 1. Mild bilateral upper lobe ground-glass opacities with interlobular septal thickening may reflect a n infectious/inflammatory etiology versus pulmonary edema. 2. Slightly enlarged mediastinal nodes favored reactive. 3. Mild cardiomegaly with enlarged pulmonary trunk and bilateral main pulmonary arteries. Correlate f or pulmonary artery hypertension. 4. Right lower lobe atelectasis.
[2024-04-19] MEDS: BUMETANIDE 1mg/4ml VIAL (0.25mg/ml) IV ONE (15:29)
[2024-04-19] MEDS: SPIRONOLACTONE 25 MG TAB PO SCH (18:14)
[2024-04-20] VITALS (14 sets, daily range): BP systolic 104–136; BP diastolic 50–77; PULSE 50–104; RESP 17–22; TEMP 97.5–98.4; O2SAT 90–100
--- NOTE | 2024-04-20 10:24 | ECG ---
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
--- NOTE | 2024-04-20 10:25 | ECG ---
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
[2024-04-20 10:59] LABS: Hepatitis B Surface Antigen Negative (Negative); Hepatitis C Antibody Negative (Negative)
--- NOTE | 2024-04-20 13:28 | DVHPN2 ---
Subjective Patient was continues to report having shortness of breath. Reviewed: Care Plan, H&P, Labs, Medications, Previous Orders Changes from previous H/P or p: No Changes General: Per HPI Eyes: No Pain, No Vision change, No Conjunctivae inflammation, No Eyelid inflammation, No Other, No Redness ENT: No Ear pain, No Ear discharge, No Nose pain, No Nose discharge, No Nose congestion, No Mouth pain, No Mouth swelling, No Throat pain, No Throat swelling, No Other Cardiovascular: No Chest Pain, No Palpitations, No Orthopnea, No Paroxysmal Noc. Dyspnea, No Edema, No Lt Headedness, No Other Respiratory: No Cough, No Dry; Shortness of breath; No SOB with excertion, No Wheezing, No Hemoptysis, No Pleuritic Pain, No Sputum, No Other Gastrointestinal: No Nausea, No Vomiting, No Abdominal Pain, No Diarrhea, No Constipation, No Melena, No Hematochezia, No Other Genitourinary: No Dysuria, No Frequency, No Incontinence, No Hematuria, No Retention, No Other Musculoskeletal: No other, No neck pain, No shoulder pain, No arm pain, No back pain, No hand pain, No leg pain, No foot pain Skin: No Rash, No Lesions, No Jaundice, No Bruising, No Other Objective Vitals Vital Signs Date Time Temp Pulse Resp B/P (MAP) Pulse Ox O2 Delivery O2 Flow Rate FiO2 04/20/24 12:05 97.6 87 20 121/63 (82) 92 97.6 04/20/24 06:44 Nasal Cannula 5.0 04/20/24 06:44 40 Intake/Output Intake and Output 04/20/24 07:00 Intake Total 1040 ml Output Total 1650 ml Balance -610 ml Intake Oral 1040 ml Output Urine Total 1650 ml # Voids 1 General Appearance: Alert, Oriented X3, mild distress HEENT: Atraumatic, PERRLA Lungs: Clear to auscultation, Other (Decreased breath sounds in bases) Cardiovascular: Normal S1, Normal S2 Abdomen: Normal bowel sounds, Soft, No tenderness Genitourinary: No Apparent Abnormalities Musculoskeletal: Normal sensory function, Normal motor function Neuro: Normal gait, Normal speech Skin: Dry, Intact Psych/Mental Status: Mental status NL, Mood NL Medications Current Medications Medications Dose Ordered Sig/Jeanine Route Start Time Stop Time Status Last Admin Dose Admin Levothyroxine Sodium 25 mcg DAILY@BREAKFAST PO 04/19/24 08:00 04/20/24 09:20 25 MCG Pantoprazole Sodium 40 mg BID PO 04/18/24 22:00 04/20/24 09:20 40 MG Rivaroxaban 10 mg DAILY PO 04/19/24 10:00 04/20/24 09:19 10 MG Atorvastatin Calcium 40 mg HS PO 04/18/24 22:00 04/19/24 21:28 40 MG Nitroglycerin 0.4 mg Q5MINP PRN SL 04/18/24 16:15 Morphine Sulfate 2 mg Q30M PRN IV 04/18/24 16:15 Morphine Sulfate 1 mg Q4HPRN PRN IV 04/18/24 16:15 Acetaminophen/ Hydrocodone Bitart 1 tab Q6HPRN PRN PO 04/18/24 16:15 04/20/24 12:36 1 TAB Acetaminophen 500 mg Q8HP PRN PO 04/18/24 16:15 Ondansetron HCl 4 mg Q6HP PRN IV 04/18/24 16:15 Docusate Sodium 100 mg BID PRN PO 04/18/24 16:15 Albuterol 2.5 mg Q4HPRN PRN NEB 04/18/24 16:15 04/20/24 06:43 2.5 MG Ipratropium [place] 0.5 mg Q4HPRN PRN NEB 04/18/24 16:15 04/20/24 06:43 0.5 MG Spironolactone 25 mg BIDD PO 04/19/24 18:00 04/20/24 06:41 25 MG Furosemide 40 mg DAILY IV 04/21/24 10:00 UNV Piperacillin Sod/ Tazobactam Sod 100 ml @ 25 mls/hr Q8HR IV 04/20/24 14:00 UNV Azithromycin 500 mg DAILY PO 04/20/24 13:15 UNV Laboratory Results Laboratory Tests 04/19/24 05:13 Urinalysis Test 04/18/24 15:26 Urine Color Light-yellow (Yellow) Urine Clarity Clear (Clear) Urine pH 5.0 (5.0-9.0) Urine Specific [place] 1.010 (1.001-1.035) Urine Protein Negative (Negative) Urine Ketones Negative (Negative) Urine Blood Negative /uL (Negative) Urine Nitrite Negative (Negative) Urine Bilirubin Negative (Negative) Urine Urobilinogen Normal mg/dL (Negative) Urine Leukocyte Esterase Negative /uL (Negative) Urine RBC <1 /hpf (0 - 3) Urine Microscopic WBC 1 /HPF (0-3) Urine Squamous Epithelial Cells Few /hpf (<5) Urine Bacteria None seen /hpf (None Seen) Urine Hyaline Casts Few /lpf (0 - 2) Urine Mucus Few (None Seen) Urine Glucose Normal mg/dL (Normal) Microbiology Microbiology Date/Time Source Procedure Growth Status 04/19/24 02:28 Nose MRSA Screen - Final Complete Labs and/or images reviewed: Labs reviewed by me, Image(s) reviewed by me Assessment/Plan Assessment/Plan Impression: -acute hypoxic respiratory failure -pulmonary vascular congestion, probable acute decompensated systolic heart failure -obesity -history of permanent pacemaker implant -hypertension -hypothyroidism -chronic kidney disease , 3A -obstructive sleep apnea Plan: -events: CT results reviewed with pt. Start abx. Continue current treatment. Pulm consult for PAH. -continue BiPAP p.r.n. -IV diuresis, continue Lasix b.i.d., pulse dose of Bumex -CT angiogram of the chest -echocardiogram: Noted RVSP. Pulmonary consult -add spironolactone -continue anticoagulation -repeat labs in a.m. Total time spent with patient discussing and formulating plan of care: 35 minutes. This medical document was created using an electronic medical record system with [employer] dictation system. Although this document has been carefully reviewed, there may still be some phonetic and typographical errors. These areas are purely typographical due to imperfections of the software programs, and do not reflect any compromise in the patient's medical care. Plan discussed with: Patient, Other (RN) My Orders Orders - NORMAN HUTCHISON RF MICROWAVE ENGINEER Procedure Category Date Status Time Chest Without Contrast CT 04/19/24 Resulted 13:48 * Dietary Consult CONS 04/19/24 Transmitted 11:25 Specialty Bed Mattress ORDERS 04/19/24 Transmitted 11:25 Cleanse Wound With SUMIT 04/19/24 In Process Wound Clean 11:25 Furosemide Injection PHA 04/21/24 Logged (Lasix Injection) 10:00 Piperacillin-Tazob PHA 04/20/24 Logged 3.375gm (Zosyn 3.375g 14:00 Azithromycin Tablet PHA 04/20/24 Logged (Zithromax Tablet) 13:15 Date of Service: Apr 20, 2024 Billing Provider: NORMAN HUTCHISON NP Common Visit Codes: [id number] INP/OBS CARE(HIGH) NORMAN HUTCHISON NP Apr 20, 2024 13:28
[2024-04-20] MEDS: AZITHROMYCIN 250 MG TAB PO SCH (15:03)
[2024-04-20] MEDS: PIPERACILLIN-TAZOB 3.375GM 100 ML IV SCH (15:24)
--- NOTE | 2024-04-20 21:43 | DVHINCON2 ---
Date of service: Apr 20, 2024 Referring Physician Jomar Hutchison NP Reason for Consultation Acute on chronic hypoxic respiratory failure History of Present Illness A 68-year-old man with PMHx of COPD, atrial fibrillation, CHF, chronic kidney disease, hyperlipidemia, hypertension and thyroid disease who presented to ED via EMS on 04/18/24 with c/o worsening shortness of breath. Patient was discharged from [facility] approximately 2-3 weeks ago with diagnosis of pneumonia. Patient reported over the past 1 week, he has had worsening dyspnea with exertion. He denied fevers, chills, cough, chest pain, or wheezing. Chest x-ray revealed pulmonary vascular congestion. Patient was admitted for further care and pulmonary consultation is requested for evaluation and management of acute on chronic hypoxic respiratory failure. Review of Systems: 14-point review of systems negative unless otherwise noted above. Past Medical History: COPD, atrial fibrillation, CHF, chronic kidney disease, hyperlipidemia, hypertension and thyroid disease. Past Surgical History: Pacemaker, knee surgery Medications: Reviewed. Allergies: Shrimp Flavor Shellfish Allergy Family History: Colon cancer, DM, hypertension. Social History: Nonsmoker. Admits to secondhand smoke exposure. Occasional alcohol use. No illicit drug use. Family History: Colon cancer G8 FATHER Diabetes mellitus G8 MOTHER G8 SISTER Hypertension G8 FATHER G8 BROTHER G8 SISTER Allergies: Coded Allergies: Shrimp Flavor (Verified Allergy, Severe, 02/11/22) Shellfish Allergy (Verified Allergy, Unknown, 04/13/23) Home Meds Active Scripts Sildenafil Citrate (Revatio) 20 Mg Tab, 20 MG PO TID for 60 Days, #180 TAB Prov:JOMAR HUTCHISON PEDIATRICIAN 04/27/24 Pantoprazole Sodium Sesquihydr (Protonix) 40 Mg Tab, 40 MG PO BID for 30 Days, #60 TAB Prov:ROBERTH DAY NP 02/03/23 Rivaroxaban (Xarelto Tablet) 10 Mg Tb, 10 MG PO DAILY for 30 Days, #30 TAB Prov:ROBERTH DAY PEDIATRICIAN 02/03/23 Reported Medications Hydrocodone-Acetaminophen (Hydrocodone Bitartrate/AC 10-325 mg) 1 Tab Tab, 1 TAB PO DAILY PRN for 30 Days, #30 04/19/24 Docusate Sodium (Colace) 100 Mg Cap, 1 CAP PO BID for 30 Days, #60 04/19/24 Albuterol Sulfate (Albuterol Sulfate) 0.083 % Neb, 1 VIAL NEB Q6HR PRN for SHORTNESS OF BREATH for 23 Days, #270 04/19/24 Fluticasone Propionate (Fluticasone Propionate Hf) 110 Mcg/Act Aer, 2 PUFF INH BID for 30 Days, #12 04/15/23 Furosemide (Furosemide) 40 Mg Tab, 1 TAB PO DAILY for 90 Days, #90 02/01/23 Levothyroxine Sodium (Levothyroxine Sodium) 25 Mcg Tab, 1 TAB PO DAILY@BREAKFAST for 90 Days, #90 02/11/22 Atorvastatin Calcium (ATORVASTATIN CALCIUM) 40 Mg Tab, 1 TAB PO HS for 30 Days, #30 02/11/22 Ipratropium [place] Hfa (Atrovent Hfa) 17 Mcg Aer, 2 PUFF INH QID for 30 Days, #12.9 08/24/20 Current Medications Current Medications Medications (Trade) Dose Ordered Sig/Jeanine Route PRN Reason Start Time Stop Time Status Last Admin Furosemide (Lasix Injection) 40 mg DAILY IV 04/21/24 10:00 Piperacillin Sod/ Tazobactam Sod 100 ml @ 25 mls/hr Q8HR IV 04/20/24 14:00 04/20/24 15:24 Azithromycin (Zithromax Tablet) 500 mg DAILY PO 04/20/24 13:15 04/20/24 15:03 Vital Signs Vital Signs Date Time Temp Pulse Resp B/P (MAP) Pulse Ox O2 Delivery O2 Flow Rate FiO2 04/20/24 21:00 98.3 95 20 115/77 (90) 98 98.3 04/20/24 10:00 Oxymizer 5 N/A Physical Exam Gen.: Patient lying in bed in no apparent distress. On supplemental oxygen. Head: Normocephalic, atraumatic. Eyes: EOMI/PERRLA. Ears: Normal hearing. Normal anatomy. Neck/trachea: Trachea midline, supple. Nose: Normal external anatomy. Mouth: Moist mucous membranes. Chest: Decreased air entry bilaterally. No wheezing or rhonchi. Cardiovascular: Positive S1, positive S2. Regular rate and rhythm. Abdomen: Positive bowel sounds in all 4 quadrants. Soft, non-tender, non- distended. : Deferred. Rectal: Deferred. Skin: Warm, dry. Intact. Extremities: 2+ radial pulses bilaterally. No lower extremity edema. Neuro: Awake, alert, oriented x3. No gross motor or sensory deficits. Cranial nerves II through XII intact. Gait not assessed. Labs/Diagnostic Data Labs Test 04/19/24 17:06 04/19/24 05:13 04/18/24 15:26 04/18/24 11:25 Range/Units Troponin I High Sensitivity 9 </=54 ng/L White Blood Count 6.9 4.4-10.8 10^3/uL Red Blood Count 4.07 L 4.5-5.90 10^6/uL Hemoglobin 11.5 L 13.5-17.5 g/dL Hematocrit 36.6 L 41.0-53.0 % Mean Corpuscular Volume 89.8 80.0-100.0 fL Mean Corpuscular Hemoglobin 28.1 28.0-32.0 pg Mean Corpuscular Hemoglobin Concent 31.3 L 32.0-36.0 g/dL Red Cell Distribution Width 15.2 H 11.8-14.3 % Platelet Count 118 L 140-450 10^3/uL Mean Platelet Volume 8.1 6.9-10.8 fL Neutrophils (%) (Auto) 90.2 H 37.0-80.0 % Lymphocytes (%) (Auto) 7.1 L 10.0-50.0 % Monocytes (%) (Auto) 2.5 0.0-12.0 % Eosinophils (%) (Auto) 0.0 0.0-7.0 % Basophils (%) (Auto) 0.2 0.0-2.0 % Neutrophils # (Auto) 6.2 1.6-8.6 10 ^3/uL Lymphocytes # (Auto) 0.5 0.4-5.4 10 ^3/uL Monocytes # (Auto) 0.2 0-1.3 10 ^3/uL Eosinophils # (Auto) 0 0-0.8 10 ^3/uL Basophils # (Auto) 0 0-0.2 10 ^3/uL Nucleated Red Blood Cells 0.1 % Sodium Level 140 136-145 mmol/L Potassium Level 4.8 3.5-5.1 mmol/L Chloride Level 94 L 98-107 mmol/L Carbon Dioxide Level > 40 *H 20-31 mmol/L Anion Gap 5.83172 5-15 Blood Urea Nitrogen 22 9-23 mg/dL Creatinine 1.25 0.700-1.30 mg/dL Glomerular Filtration Rate Calc 63 >90 mL/min BUN/Creatinine Ratio 17.6 10.0-20.0 Serum Glucose 125 H 74-106 mg/dL Calcium Level 9.4 8.7-10.4 mg/dL Hepatitis B Surface Antigen Negative Negative Hepatitis C Antibody Negative Negative Urine Color Light-yellow Yellow Urine Clarity Clear Clear Urine pH 5.0 5.0-9.0 Urine Specific [place] 1.010 1.001-1.035 Urine Protein Negative Negative Urine Ketones Negative Negative Urine Blood Negative Negative /uL Urine Nitrite Negative Negative Urine Bilirubin Negative Negative Urine Urobilinogen Normal Negative mg/dL Urine Leukocyte Esterase Negative Negative /uL Urine RBC <1 0 - 3 /hpf Urine Microscopic WBC 1 0-3 /HPF Urine Squamous Epithelial Cells Few <5 /hpf Urine Bacteria None seen None Seen /hpf Urine Hyaline Casts Few 0 - 2 /lpf Urine Mucus Few None Seen Urine Glucose Normal Normal mg/dL B-Type Natriuretic Peptide 97.47 0-100 pg/mL Microbiology Date/Time Source Procedure Growth Status 04/19/24 02:28 Nose MRSA Screen - Final Complete Assessment Impression: Acute on chronic hypoxic respiratory failure Dependence on supplemental oxygen Acute systolic CHF. End-stage renal disease, on hemodialysis Obstructive sleep apnea Morbid obesity Plan: Supplemental oxygen Titrate to keep O2 sats above 92%. Chest x-ray demonstrates multifocal airspace disease. Pacemaker in place. Continue bronchodilators. Continue antibiotics Incentive spirometry Hemodialysis per Nephrology Monitor renal function. Monitor electrolytes. Supplement as necessary. Monitor ins and outs. Diet and lifestyle modifications for weight reduction Morbid obesity - complicates all care DVT prophylaxis. Prognosis: Poor given patient's multiple co-morbidities. Rest of plan per hospitalist and other consultants. Thank you, AMELIA Hutchison, for allowing me to participate in this patient's care. Further recommendations will depend on the patient's clinical course. Please do not hesitate to contact me if you have any questions or concerns. This medical document was created using an electronic medical record system with [employer]ation system. Although these documentations are being carefully reviewed, there may still be some phonetic and typographical changes. The errors are purely typographical, due to imperfection on the software program, and do not reflect any compromise in the patient's medical care. Plan discussed with: Patient, Other (RN/AMELIA Hutchison/) ANCELMO MONTOYA MD Apr 20, 2024 21:43
[2024-04-21] VITALS (16 sets, daily range): BP systolic 116–137; BP diastolic 50–79; PULSE 59–94; RESP 18–24; TEMP 97.5–98.4; O2SAT 95–100
[2024-04-21] MEDS: FUROSEMIDE 40 MG/4 ML VIAL IV SCH (08:47)
--- NOTE | 2024-04-21 13:20 | DVHPN2 ---
Subjective Patient continues to report having shortness of breath. Reviewed: Care Plan, H&P, Labs, Medications, Previous Orders Changes from previous H/P or p: No Changes General: Per HPI Eyes: No Pain, No Vision change, No Conjunctivae inflammation, No Eyelid inflammation, No Other, No Redness ENT: No Ear pain, No Ear discharge, No Nose pain, No Nose discharge, No Nose congestion, No Mouth pain, No Mouth swelling, No Throat pain, No Throat swelling, No Other Cardiovascular: No Chest Pain, No Palpitations, No Orthopnea, No Paroxysmal Noc. Dyspnea, No Edema, No Lt Headedness, No Other Respiratory: No Cough, No Dry; Shortness of breath; No SOB with excertion, No Wheezing, No Hemoptysis, No Pleuritic Pain, No Sputum, No Other Gastrointestinal: No Nausea, No Vomiting, No Abdominal Pain, No Diarrhea, No Constipation, No Melena, No Hematochezia, No Other Genitourinary: No Dysuria, No Frequency, No Incontinence, No Hematuria, No Retention, No Other Musculoskeletal: No other, No neck pain, No shoulder pain, No arm pain, No back pain, No hand pain, No leg pain, No foot pain Skin: No Rash, No Lesions, No Jaundice, No Bruising, No Other Objective Vitals Vital Signs Date Time Temp Pulse Resp B/P (MAP) Pulse Ox O2 Delivery O2 Flow Rate FiO2 04/21/24 08:59 97.5 74 22 125/64 (84) 99 97.5 04/21/24 07:31 Facial BiPAP Mask 55 04/20/24 20:00 8 Intake/Output Intake and Output 04/21/24 07:00 Intake Total 1605 ml Output Total 1400 ml Balance 205 ml Intake Oral 1405 ml IV Total 200 ml Output Urine Total 1400 ml General Appearance: Alert, Oriented X3, mild distress HEENT: Atraumatic, PERRLA Lungs: Clear to auscultation, Other (Decreased breath sounds in bases) Cardiovascular: Normal S1, Normal S2 Abdomen: Normal bowel sounds, Soft, No tenderness Genitourinary: No Apparent Abnormalities Musculoskeletal: Normal sensory function, Normal motor function Neuro: Normal gait, Normal speech Skin: Dry, Intact Psych/Mental Status: Mental status NL, Mood NL Medications Current Medications Medications Dose Ordered Sig/Jeanine Route Start Time Stop Time Status Last Admin Dose Admin Levothyroxine Sodium 25 mcg DAILY@BREAKFAST PO 04/19/24 08:00 04/21/24 08:37 25 MCG Pantoprazole Sodium 40 mg BID PO 04/18/24 22:00 04/21/24 08:46 40 MG Rivaroxaban 10 mg DAILY PO 04/19/24 10:00 04/21/24 08:46 10 MG Atorvastatin Calcium 40 mg HS PO 04/18/24 22:00 04/20/24 22:16 40 MG Nitroglycerin 0.4 mg Q5MINP PRN SL 04/18/24 16:15 Morphine Sulfate 2 mg Q30M PRN IV 04/18/24 16:15 Morphine Sulfate 1 mg Q4HPRN PRN IV 04/18/24 16:15 Acetaminophen/ Hydrocodone Bitart 1 tab Q6HPRN PRN PO 04/18/24 16:15 04/20/24 12:36 1 TAB Acetaminophen 500 mg Q8HP PRN PO 04/18/24 16:15 Ondansetron HCl 4 mg Q6HP PRN IV 04/18/24 16:15 Docusate Sodium 100 mg BID PRN PO 04/18/24 16:15 Albuterol 2.5 mg Q4HPRN PRN NEB 04/18/24 16:15 04/20/24 06:43 2.5 MG Ipratropium [place] 0.5 mg Q4HPRN PRN NEB 04/18/24 16:15 04/20/24 06:43 0.5 MG Spironolactone 25 mg BIDD PO 04/19/24 18:00 04/20/24 17:56 25 MG Furosemide 40 mg DAILY IV 04/21/24 10:00 04/21/24 08:47 40 MG Piperacillin Sod/ Tazobactam Sod 100 ml @ 25 mls/hr Q8HR IV 04/20/24 14:00 04/21/24 05:29 25 MLS/HR Azithromycin 500 mg DAILY PO 04/20/24 13:15 04/21/24 08:46 500 MG Sildenafil Citrate 20 mg TID@08,14,20 PO 04/21/24 14:00 Laboratory Results Laboratory Tests 04/19/24 05:13 Urinalysis Test 04/18/24 15:26 Urine Color Light-yellow (Yellow) Urine Clarity Clear (Clear) Urine pH 5.0 (5.0-9.0) Urine Specific [place] 1.010 (1.001-1.035) Urine Protein Negative (Negative) Urine Ketones Negative (Negative) Urine Blood Negative /uL (Negative) Urine Nitrite Negative (Negative) Urine Bilirubin Negative (Negative) Urine Urobilinogen Normal mg/dL (Negative) Urine Leukocyte Esterase Negative /uL (Negative) Urine RBC <1 /hpf (0 - 3) Urine Microscopic WBC 1 /HPF (0-3) Urine Squamous Epithelial Cells Few /hpf (<5) Urine Bacteria None seen /hpf (None Seen) Urine Hyaline Casts Few /lpf (0 - 2) Urine Mucus Few (None Seen) Urine Glucose Normal mg/dL (Normal) Microbiology Microbiology Date/Time Source Procedure Growth Status 04/19/24 02:28 Nose MRSA Screen - Final Complete Labs and/or images reviewed: Labs reviewed by me, Image(s) reviewed by me Assessment/Plan Assessment/Plan Impression: -acute hypoxic respiratory failure -pulmonary vascular congestion, probable acute decompensated systolic heart failure -obesity -history of permanent pacemaker implant -hypertension -hypothyroidism -chronic kidney disease , 3A -obstructive sleep apnea Plan: -events: Continues to have dyspnea. Oxymizer at 4lpm -Revatio started for PAH -continue BiPAP p.r.n. -IV diuresis, continue Lasix b.i.d. -IV abx -CT angiogram of the chest -echocardiogram: Noted RVSP. Pulmonary consult -add spironolactone -continue anticoagulation -repeat labs reviewed Total time spent with patient discussing and formulating plan of care: 35 minutes. This medical document was created using an electronic medical record system with [employer] dictation system. Although this document has been carefully reviewed, there may still be some phonetic and typographical errors. These areas are purely typographical due to imperfections of the software programs, and do not reflect any compromise in the patient's medical care. Plan discussed with: Patient, Other (RN) My Orders Orders - NORMAN HUTCHISON SUPER[employer]OR [employer] Procedure Category Date Status Time *Consult CONS 04/20/24 Transmitted / 13:23 Complete Blood Count LAB 04/21/24 Logged 12:53 Basic Metabolic Panel LAB 04/21/24 Logged 12:53 Date of Service: Apr 21, 2024 Billing Provider: NORMAN HUTCHISON NP Common Visit Codes: [id number] INP/OBS CARE(HIGH), [id number] CARE- EACH +30MIN NORMAN HUTCHISON NP Apr 21, 2024 13:20
[2024-04-21 14:09] LABS: Basophils # (auto) 0 10 ^3/uL (0-0.2); Basophils % (auto) 0.3 % (0.0-2.0); Eosinophils # (auto) 0.3 10 ^3/uL (0-0.8); Eosinophils % (auto) 3.7 % (0.0-7.0); Hematocrit 36.3 % (41.0-53.0); Hemoglobin 11.6 g/dL (13.5-17.5); Lymphocytes # (auto) 0.6 10 ^3/uL (0.4-5.4); Lymphocytes % (auto) 9.1 % (10.0-50.0); Mean Corpuscular Hemoglobin 28.6 pg (28.0-32.0); Mean Corpuscular Hgb Conc. 31.9 g/dL (32.0-36.0); Mean Corpuscular Volume 89.6 fL (80.0-100.0); Monocytes # (auto) 0.5 10 ^3/uL (0-1.3); Monocytes % (auto) 6.8 % (0.0-12.0); Neutrophils # (auto) 5.4 10 ^3/uL (1.6-8.6); Neutrophils % (auto) 80.1 % (37.0-80.0); Nucleated Red Blood Cells % 0.2 %; Platelet Count (auto) 112 10^3/uL (140-450); Red Blood Cells 4.05 10^6/uL (4.5-5.90); White Blood Cell 6.7 10^3/uL (4.4-10.8)
[2024-04-21 14:14] LABS: Potassium 4.5 mmol/L (3.5-5.1); Sodium 141 mmol/L (136-145)
[2024-04-21 14:15] LABS: Chloride 91 mmol/L (98-107)
[2024-04-21 14:16] LABS: Calcium 9.5 mg/dL (8.7-10.4)
[2024-04-21 14:21] LABS: BUN/Creatinine Ratio 19.1 (10.0-20.0); Blood Urea Nitrogen 22 mg/dL (9-23)
[2024-04-21 14:23] LABS: Anion Gap 9.99999 (5-15); Carbon Dioxide > 40 mmol/L (20-31); Glucose 134 mg/dL (74-106)
[2024-04-21] MEDS: SILDENAFIL CITRATE 20 MG TAB PO SCH (14:43)
--- NOTE | 2024-04-21 17:34 | DVHSR ---
APPROVED REPORT EXAM: LIMITED Two-dimensional and M-mode echocardiogram with Doppler and color Doppler. Blood Pressure: 121/60 mmHg INDICATION decompensated heart failure RISK FACTORS Obesity: Height: 5'8, Weight: 367 DIMENSIONS LVDd4.2 (3.8-5.7cm)LA (2D) (1.9-4.0cm)Aortic Root4.1 (2.0-3.7cm) LVDs3.5 (2.5-4.0cm)LA (MM) (1.9-4.0cm)Aortic Cusp Exc2.5 (1.5-2.0cm) EF (%) 55.0 (55-70%)Rt. Atrium5.0 (1.9-4.0cm)Asc. Aorta cm IVSd1.6 (0.7-1.1cm)RV (D)4.6 (1.8-2.4cm) PWd1.3 (0.7-1.1cm) Mitral Valve MitralMitral Stenosis A wavem/sMV Peak GR.83mmHg E/A ratio0.02D MVAcm2 Aortic Valve Aortic ValveAortic Stenosis V10.95m/Prabhu Mean GR.4mmHg V21.43m/Prabhu Peak GR.8mmHg LVOT Diameter2.5 (1.8-2.4cm)Doppler AVA3.26cm2 Pulmonic Valve V20.89m/s Tricuspid Valve TR Velocity3.72m/s [id number] Conclusion Technically good study. Sinus rhythm premature atrial contractions. First-degree AV block. Abnorma l septal motion secondary to bundle branch block and pulmonary hypertension. RV hypertrophy and enla rgement is noted. . Concentric LVH of dakgmirj-ef-hxcwaf degree. Right atrial enlargement. Right ventricular and right atrial enlargement. Dilated RV outflow tract. Dilated aortic root and sinus of Valsalva. Mild mitral annular calcification. Mild aortic sclerosis. The tricuspid valve annulus is thickened and moderately echogenic. Left ventricular function is preserved at 55% with normal right ventricular function. Doming of the interventricular septum in systole suggestive of pressure overload. Hypokinesis of the lateral wall of the right ventricle. Diminished RV function Severe tricuspid regurgitation with pulmonary hypertension. Right ventricular systolic pressure abou t 80 mmHg. Mild mitral insufficiency. Pacing lead noted in RV. No pericardial effusion masses or vegetations.
--- NOTE | 2024-04-21 23:39 | DVHPN2 ---
Progress Note - Dictate Date Seen: Apr 21, 2024 Medical Necessity Reason Pt with a Central, PICC or Fol: No Subjective Patient seen and examined at bedside. Remains on supplemental oxygen Overnight events reviewed. vital signs Vital Sign Date Time Temp Pulse Resp B/P (MAP) Pulse Ox O2 Delivery O2 Flow Rate FiO2 04/21/24 23:11 81 97 Facial BiPAP Mask 55 04/21/24 23:09 22 04/21/24 23:01 8.0 04/21/24 21:00 97.9 137/79 (98) 97.9 Total Intake and Output 04/20/24 04/20/24 04/21/24 15:00 23:00 07:00 Intake Total 1000 ml 605 ml Output Total 1000 ml 400 ml Balance 0 ml 205 ml medications Current Medications Medications Dose Ordered Sig/Jeanine Route Start Time Stop Time Status Last Admin Dose Admin Levothyroxine Sodium 25 mcg DAILY@BREAKFAST PO 04/19/24 08:00 04/21/24 08:37 25 MCG Pantoprazole Sodium 40 mg BID PO 04/18/24 22:00 04/21/24 22:11 40 MG Rivaroxaban 10 mg DAILY PO 04/19/24 10:00 04/21/24 08:46 10 MG Atorvastatin Calcium 40 mg HS PO 04/18/24 22:00 04/21/24 22:12 40 MG Nitroglycerin 0.4 mg Q5MINP PRN SL 04/18/24 16:15 Morphine Sulfate 2 mg Q30M PRN IV 04/18/24 16:15 Morphine Sulfate 1 mg Q4HPRN PRN IV 04/18/24 16:15 Acetaminophen/ Hydrocodone Bitart 1 tab Q6HPRN PRN PO 04/18/24 16:15 04/20/24 12:36 1 TAB Acetaminophen 500 mg Q8HP PRN PO 04/18/24 16:15 Ondansetron HCl 4 mg Q6HP PRN IV 04/18/24 16:15 Docusate Sodium 100 mg BID PRN PO 04/18/24 16:15 Albuterol 2.5 mg Q4HPRN PRN NEB 04/18/24 16:15 04/21/24 23:01 2.5 MG Ipratropium [place] 0.5 mg Q4HPRN PRN NEB 04/18/24 16:15 04/21/24 23:01 0.5 MG Spironolactone 25 mg BIDD PO 04/19/24 18:00 04/21/24 18:11 25 MG Furosemide 40 mg DAILY IV 04/21/24 10:00 04/21/24 08:47 40 MG Piperacillin Sod/ Tazobactam Sod 100 ml @ 25 mls/hr Q8HR IV 04/20/24 14:00 04/21/24 22:12 25 MLS/HR Azithromycin 500 mg DAILY PO 04/20/24 13:15 04/21/24 08:46 500 MG Sildenafil Citrate 20 mg TID@08,14,20 PO 04/21/24 14:00 04/21/24 22:11 20 MG objective Gen.: Patient lying in bed in no apparent distress. On supplemental oxygen. Head: Normocephalic, atraumatic. Eyes: EOMI/PERRLA. Ears: Normal hearing. Normal anatomy. Neck/trachea: Trachea midline, supple. Nose: Normal external anatomy. Mouth: Moist mucous membranes. Chest: Decreased air entry bilaterally. No wheezing or rhonchi. Cardiovascular: Positive S1, positive S2. Regular rate and rhythm. Abdomen: Positive bowel sounds in all 4 quadrants. Soft, non-tender, non- distended. : Deferred. Rectal: Deferred. Skin: Warm, dry. Intact. Extremities: 2+ radial pulses bilaterally. No lower extremity edema. Neuro: Awake, alert, oriented x3. No gross motor or sensory deficits. Cranial nerves II through XII intact. Gait not assessed. laboratory and microbiology Laboratory Tests 04/21/24 13:45 Test 04/21/24 13:45 Range/Units Serum Glucose 134 H 74-106 mg/dL Assessment/Plan Impression: Acute on chronic hypoxic respiratory failure Dependence on supplemental oxygen Acute systolic CHF. End-stage renal disease, on hemodialysis Obstructive sleep apnea Morbid obesity Events: Remains on supplemental oxygen, 8 LPM Oxymizer Taper O2 as tolerated BiPAP for [place]. Start Revatio TID. Continue antibiotics Incentive spirometry Diuresing w/ Lasix Monitor renal function Monitor ins and outs Labs and imaging reviewed. Rest of plan as noted below. Plan: Supplemental oxygen Titrate to keep O2 sats between 88-94%. Chest x-ray demonstrates multifocal airspace disease. Pacemaker in place. Continue bronchodilators. Continue antibiotics Incentive spirometry Hemodialysis per Nephrology Monitor renal function. Monitor electrolytes. Supplement as necessary. Monitor ins and outs. Diet and lifestyle modifications for weight reduction Morbid obesity - complicates all care DVT prophylaxis. Prognosis: Poor given patient's multiple co-morbidities. Rest of plan per hospitalist and other consultants. Thank you, AMELIA Middleton, for allowing me to participate in this patient's care. Further recommendations will depend on the patient's clinical course. Please do not hesitate to contact me if you have any questions or concerns. This medical document was created using an electronic medical record system with [employer] dictation system. Although these documentations are being carefully reviewed, there may still be some phonetic and typographical changes. The errors are purely typographical, due to imperfection on the software program, and do not reflect any compromise in the patient's medical care. Dietary Evaluation Review Comments: 1) VitC 500mg BID, Zinc sulfate 220mg daily x 10days, MVI 1 tab daily 2) Ensure High Protein 8fl oz BID 3) Continue current plan of care Expected Outcomes/Goals: Pt will meet >75% estimated needs Fu 3-5 days Plan discussed with: Patient, Other (DELFINA Bautista) ANCELMO MONTOYA MD Apr 21, 2024 23:39
[2024-04-22] VITALS (18 sets, daily range): BP systolic 96–126; BP diastolic 33–57; PULSE 60–91; RESP 18–25; TEMP 97.9–98.7; O2SAT 90–100
--- NOTE | 2024-04-22 14:51 | DVHPN2 ---
Subjective Patient reports that his breathing has improved. Reviewed: Care Plan, H&P, Labs, Medications, Previous Orders Changes from previous H/P or p: Changes General: Per HPI Eyes: No Pain, No Vision change, No Conjunctivae inflammation, No Eyelid inflammation, No Other, No Redness ENT: No Ear pain, No Ear discharge, No Nose pain, No Nose discharge, No Nose congestion, No Mouth pain, No Mouth swelling, No Throat pain, No Throat swelling, No Other Cardiovascular: No Chest Pain, No Palpitations, No Orthopnea, No Paroxysmal Noc. Dyspnea, No Edema, No Lt Headedness, No Other Respiratory: No Cough, No Dry; Shortness of breath; No SOB with excertion, No Wheezing, No Hemoptysis, No Pleuritic Pain, No Sputum, No Other Gastrointestinal: No Nausea, No Vomiting, No Abdominal Pain, No Diarrhea, No Constipation, No Melena, No Hematochezia, No Other Genitourinary: No Dysuria, No Frequency, No Incontinence, No Hematuria, No Retention, No Other Musculoskeletal: No other, No neck pain, No shoulder pain, No arm pain, No back pain, No hand pain, No leg pain, No foot pain Skin: No Rash, No Lesions, No Jaundice, No Bruising, No Other Objective Vitals Vital Signs Date Time Temp Pulse Resp B/P (MAP) Pulse Ox O2 Delivery O2 Flow Rate FiO2 04/22/24 13:00 98.0 83 19 109/54 (72) 99 98.0 04/22/24 07:46 Oxymizer 8 N/A Intake/Output Intake and Output 04/22/24 07:00 Intake Total 1520 ml Output Total 2300 ml Balance -780 ml Intake Oral 1320 ml IV Total 200 ml Output Urine Total 2300 ml General Appearance: Alert, Oriented X3, Cooperative, mild distress HEENT: Atraumatic, PERRLA Lungs: Clear to auscultation, Other (Decreased breath sounds in bases) Cardiovascular: Normal S1, Normal S2 Abdomen: Normal bowel sounds, Soft, No tenderness Genitourinary: No Apparent Abnormalities Musculoskeletal: Normal sensory function, Normal motor function Neuro: Normal gait, Normal speech Skin: Dry, Intact Psych/Mental Status: Mental status NL, Mood NL Medications Current Medications Medications Dose Ordered Sig/Jeanine Route Start Time Stop Time Status Last Admin Dose Admin Levothyroxine Sodium 25 mcg DAILY@BREAKFAST PO 04/19/24 08:00 04/22/24 07:51 25 MCG Pantoprazole Sodium 40 mg BID PO 04/18/24 22:00 04/22/24 09:54 40 MG Rivaroxaban 10 mg DAILY PO 04/19/24 10:00 04/22/24 09:54 10 MG Atorvastatin Calcium 40 mg HS PO 04/18/24 22:00 04/21/24 22:12 40 MG Nitroglycerin 0.4 mg Q5MINP PRN SL 04/18/24 16:15 Morphine Sulfate 2 mg Q30M PRN IV 04/18/24 16:15 Morphine Sulfate 1 mg Q4HPRN PRN IV 04/18/24 16:15 Acetaminophen/ Hydrocodone Bitart 1 tab Q6HPRN PRN PO 04/18/24 16:15 04/20/24 12:36 1 TAB Acetaminophen 500 mg Q8HP PRN PO 04/18/24 16:15 Ondansetron HCl 4 mg Q6HP PRN IV 04/18/24 16:15 Docusate Sodium 100 mg BID PRN PO 04/18/24 16:15 Albuterol 2.5 mg Q4HPRN PRN NEB 04/18/24 16:15 04/21/24 23:01 2.5 MG Ipratropium [place] 0.5 mg Q4HPRN PRN NEB 04/18/24 16:15 04/21/24 23:01 0.5 MG Spironolactone 25 mg BIDD PO 04/19/24 18:00 04/21/24 18:11 25 MG Furosemide 40 mg DAILY IV 04/21/24 10:00 04/21/24 08:47 40 MG Piperacillin Sod/ Tazobactam Sod 100 ml @ 25 mls/hr Q8HR IV 04/20/24 14:00 04/22/24 14:15 25 MLS/HR Azithromycin 500 mg DAILY PO 04/20/24 13:15 04/22/24 09:54 500 MG Sildenafil Citrate 20 mg TID@08,14,20 PO 04/21/24 14:00 04/22/24 14:15 20 MG Laboratory Results Laboratory Tests 04/21/24 13:45 Urinalysis Test 04/18/24 15:26 Urine Color Light-yellow (Yellow) Urine Clarity Clear (Clear) Urine pH 5.0 (5.0-9.0) Urine Specific [place] 1.010 (1.001-1.035) Urine Protein Negative (Negative) Urine Ketones Negative (Negative) Urine Blood Negative /uL (Negative) Urine Nitrite Negative (Negative) Urine Bilirubin Negative (Negative) Urine Urobilinogen Normal mg/dL (Negative) Urine Leukocyte Esterase Negative /uL (Negative) Urine RBC <1 /hpf (0 - 3) Urine Microscopic WBC 1 /HPF (0-3) Urine Squamous Epithelial Cells Few /hpf (<5) Urine Bacteria None seen /hpf (None Seen) Urine Hyaline Casts Few /lpf (0 - 2) Urine Mucus Few (None Seen) Urine Glucose Normal mg/dL (Normal) Microbiology Microbiology Date/Time Source Procedure Growth Status 04/19/24 02:28 Nose MRSA Screen - Final Complete Labs and/or images reviewed: Labs reviewed by me, Image(s) reviewed by me Assessment/Plan Assessment/Plan Impression: -acute hypoxic respiratory failure -pulmonary vascular congestion, probable acute decompensated systolic heart failure -obesity -history of permanent pacemaker implant -hypertension -hypothyroidism -chronic kidney disease , 3A -obstructive sleep apnea Plan: -events: Continues to have dyspnea. Oxymizer at 8 liters/minute. -physical therapy: Please get patient out of bed. Please attempted to ambulate patient. -continuing Revatio -continue BiPAP p.r.n. -continue diuresis -IV abx -CT angiogram of the chest -echocardiogram: Noted RVSP. Pulmonary consult -continue anticoagulation -repeat labs reviewed Total time spent with patient discussing and formulating plan of care: 35 minutes. This medical document was created using an electronic medical record system with [employer] dictation system. Although this document has been carefully reviewed, there may still be some phonetic and typographical errors. These areas are purely typographical due to imperfections of the software programs, and do not reflect any compromise in the patient's medical care. Plan discussed with: Patient, Other (RN) Date of Service: Apr 22, 2024 Billing Provider: NORMAN HUTCHISON NP Common Visit Codes: [id number] INP/OBS CARE(HIGH) NORMAN HUTCHISON NP Apr 22, 2024 14:51
--- NOTE | 2024-04-22 16:12 | DVHINCON2 ---
History of Present Illness Home Meds Active Scripts Pantoprazole Sodium Sesquihydr (Protonix) 40 Mg Tab, 40 MG PO BID for 30 Days, #60 TAB Prov:[employer] 02/03/23 Rivaroxaban (Xarelto Tablet) 10 Mg Tb, 10 MG PO DAILY for 30 Days, #30 TAB Prov:[employer] 02/03/23 Reported Medications Hydrocodone-Acetaminophen (Hydrocodone Bitartrate/AC 10-325 mg) 1 Tab Tab, 1 TAB PO DAILY PRN for 30 Days, #30 04/19/24 Docusate Sodium (Colace) 100 Mg Cap, 1 CAP PO BID for 30 Days, #60 04/19/24 Albuterol Sulfate (Albuterol Sulfate) 0.083 % Neb, 1 VIAL NEB Q6HR PRN for SHORTNESS OF BREATH for 23 Days, #270 04/19/24 Fluticasone Propionate (Fluticasone Propionate Hf) 110 Mcg/Act Aer, 2 PUFF INH BID for 30 Days, #12 04/15/23 Furosemide (Furosemide) 40 Mg Tab, 1 TAB PO DAILY for 90 Days, #90 02/01/23 Levothyroxine Sodium (Levothyroxine Sodium) 25 Mcg Tab, 1 TAB PO DAILY@BREAKFAST for 90 Days, #90 02/11/22 Atorvastatin Calcium (ATORVASTATIN CALCIUM) 40 Mg Tab, 1 TAB PO HS for 30 Days, #30 02/11/22 Ipratropium [place] Hfa (Atrovent Hfa) 17 Mcg Aer, 2 PUFF INH QID for 30 Days, #12.9 08/24/20 Discontinued Reported Medications Albuterol Sulfate (Albuterol Sulfate Hfa) 108 Mcg/Act Aer, INH 04/15/23 Past Medical History Patient Family History: Colon cancer G8 FATHER Diabetes mellitus G8 MOTHER G8 SISTER Hypertension G8 FATHER G8 BROTHER G8 SISTER H&P Exam Vital Signs Vital Signs Date Time Temp Pulse Resp B/P (MAP) Pulse Ox O2 Delivery O2 Flow Rate FiO2 04/22/24 16:06 68 18 100 04/22/24 16:00 Oxymizer 6 N/A 04/22/24 13:00 98.0 109/54 (72) 98.0 Labs/Xrays Labs Test 04/21/24 13:45 04/19/24 17:06 04/19/24 05:13 04/18/24 15:26 Range/Units White Blood Count 6.7 4.4-10.8 10^3/uL Red Blood Count 4.05 L 4.5-5.90 10^6/uL Hemoglobin 11.6 L 13.5-17.5 g/dL Hematocrit 36.3 L 41.0-53.0 % Mean Corpuscular Volume 89.6 80.0-100.0 fL Mean Corpuscular Hemoglobin 28.6 28.0-32.0 pg Mean Corpuscular Hemoglobin Concent 31.9 L 32.0-36.0 g/dL Red Cell Distribution Width 15.0 H 11.8-14.3 % Platelet Count 112 L 140-450 10^3/uL Mean Platelet Volume 9.4 6.9-10.8 fL Neutrophils (%) (Auto) 80.1 H 37.0-80.0 % Lymphocytes (%) (Auto) 9.1 L 10.0-50.0 % Monocytes (%) (Auto) 6.8 0.0-12.0 % Eosinophils (%) (Auto) 3.7 0.0-7.0 % Basophils (%) (Auto) 0.3 0.0-2.0 % Neutrophils # (Auto) 5.4 1.6-8.6 10 ^3/uL Lymphocytes # (Auto) 0.6 0.4-5.4 10 ^3/uL Monocytes # (Auto) 0.5 0-1.3 10 ^3/uL Eosinophils # (Auto) 0.3 0-0.8 10 ^3/uL Basophils # (Auto) 0 0-0.2 10 ^3/uL Nucleated Red Blood Cells 0.2 % Sodium Level 141 136-145 mmol/L Potassium Level 4.5 3.5-5.1 mmol/L Chloride Level 91 L 98-107 mmol/L Carbon Dioxide Level > 40 *H 20-31 mmol/L Anion Gap 9.09525 5-15 Blood Urea Nitrogen 22 9-23 mg/dL Creatinine 1.15 0.700-1.30 mg/dL Glomerular Filtration Rate Calc 70 >90 mL/min BUN/Creatinine Ratio 19.1 10.0-20.0 Serum Glucose 134 H 74-106 mg/dL Calcium Level 9.5 8.7-10.4 mg/dL Troponin I High Sensitivity 9 </=54 ng/L Hepatitis B Surface Antigen Negative Negative Hepatitis C Antibody Negative Negative Urine Color Light-yellow Yellow Urine Clarity Clear Clear Urine pH 5.0 5.0-9.0 Urine Specific [place] 1.010 1.001-1.035 Urine Protein Negative Negative Urine Ketones Negative Negative Urine Blood Negative Negative /uL Urine Nitrite Negative Negative Urine Bilirubin Negative Negative Urine Urobilinogen Normal Negative mg/dL Urine Leukocyte Esterase Negative Negative /uL Urine RBC <1 0 - 3 /hpf Urine Microscopic WBC 1 0-3 /HPF Urine Squamous Epithelial Cells Few <5 /hpf Urine Bacteria None seen None Seen /hpf Urine Hyaline Casts Few 0 - 2 /lpf Urine Mucus Few None Seen Urine Glucose Normal Normal mg/dL Test 04/18/24 11:25 Range/Units B-Type Natriuretic Peptide 97.47 0-100 pg/mL Microbiology Date/Time Source Procedure Growth Status 04/19/24 02:28 Nose MRSA Screen - Final Complete RONNA PAGE MD Apr 22, 2024 16:12
--- NOTE | 2024-04-22 16:13 | DVHPN2 ---
Progress Note - Dictate Date Seen: Apr 22, 2024 Medical Necessity Reason Pt with a Central, PICC or Fol: No Subjective Patient seen and examined overnight events reviewed vital signs Vital Sign Date Time Temp Pulse Resp B/P (MAP) Pulse Ox O2 Delivery O2 Flow Rate FiO2 04/22/24 16:06 68 18 100 04/22/24 16:00 Oxymizer 6 N/A 04/22/24 13:00 98.0 109/54 (72) 98.0 Total Intake and Output 04/21/24 04/21/24 04/22/24 15:00 23:00 07:00 Intake Total 100 ml 1080 ml 340 ml Output Total 1750 ml 550 ml Balance 100 ml -670 ml -210 ml medications Current Medications Medications Dose Ordered Sig/Jeanine Route Start Time Stop Time Status Last Admin Dose Admin Levothyroxine Sodium 25 mcg DAILY@BREAKFAST PO 04/19/24 08:00 04/22/24 07:51 25 MCG Pantoprazole Sodium 40 mg BID PO 04/18/24 22:00 04/22/24 09:54 40 MG Rivaroxaban 10 mg DAILY PO 04/19/24 10:00 04/22/24 09:54 10 MG Atorvastatin Calcium 40 mg HS PO 04/18/24 22:00 04/21/24 22:12 40 MG Nitroglycerin 0.4 mg Q5MINP PRN SL 04/18/24 16:15 Morphine Sulfate 2 mg Q30M PRN IV 04/18/24 16:15 Morphine Sulfate 1 mg Q4HPRN PRN IV 04/18/24 16:15 Acetaminophen/ Hydrocodone Bitart 1 tab Q6HPRN PRN PO 04/18/24 16:15 04/20/24 12:36 1 TAB Acetaminophen 500 mg Q8HP PRN PO 04/18/24 16:15 Ondansetron HCl 4 mg Q6HP PRN IV 04/18/24 16:15 Docusate Sodium 100 mg BID PRN PO 04/18/24 16:15 Albuterol 2.5 mg Q4HPRN PRN NEB 04/18/24 16:15 04/22/24 16:00 2.5 MG Ipratropium [place] 0.5 mg Q4HPRN PRN NEB 04/18/24 16:15 04/22/24 16:00 0.5 MG Spironolactone 25 mg BIDD PO 04/19/24 18:00 04/21/24 18:11 25 MG Furosemide 40 mg DAILY IV 04/21/24 10:00 04/21/24 08:47 40 MG Piperacillin Sod/ Tazobactam Sod 100 ml @ 25 mls/hr Q8HR IV 04/20/24 14:00 04/22/24 14:15 25 MLS/HR Azithromycin 500 mg DAILY PO 04/20/24 13:15 04/22/24 09:54 500 MG Sildenafil Citrate 20 mg TID@08,14,20 PO 04/21/24 14:00 04/22/24 14:15 20 MG laboratory and microbiology Laboratory Tests 04/21/24 13:45 Test 04/21/24 13:45 Range/Units Serum Glucose 134 H 74-106 mg/dL Assessment/Plan Impression Acute on chronic respiratory failure Obstructive sleep apnea ESRD on HD Morbid obesity CHF Patient seen and examined Events Low oxygen requirements On 4 liters nasal cannula No acute events Labs and imaging reviewed Management Supplemental oxygen Titrate to maintain sats 90% or above Incentive spirometry Continue antibiotics F/u cultures Bronchodilators Monitor renal function HD as per nephrology Management deferred Monitor electrolytes Supplement as needed DVT prophylaxis Dietary Evaluation Review Comments: 1) VitC 500mg BID, Zinc sulfate 220mg daily x 10days, MVI 1 tab daily 2) Ensure High Protein 8fl oz BID 3) Continue current plan of care Expected Outcomes/Goals: Pt will meet >75% estimated needs Fu 3-5 days Plan discussed with: Patient RONNA PAGE MD Apr 22, 2024 16:12
[2024-04-23] VITALS (15 sets, daily range): BP systolic 112–123; BP diastolic 53–63; PULSE 65–88; RESP 18–22; TEMP 97.9–98.7; O2SAT 85–100
--- NOTE | 2024-04-23 12:52 | DVHPN2 ---
Subjective Patient reports that his breathing has improved. Reviewed: Care Plan, H&P, Labs, Medications, Previous Orders Changes from previous H/P or p: No Changes General: Per HPI Eyes: No Pain, No Vision change, No Conjunctivae inflammation, No Eyelid inflammation, No Other, No Redness ENT: No Ear pain, No Ear discharge, No Nose pain, No Nose discharge, No Nose congestion, No Mouth pain, No Mouth swelling, No Throat pain, No Throat swelling, No Other Cardiovascular: No Chest Pain, No Palpitations, No Orthopnea, No Paroxysmal Noc. Dyspnea, No Edema, No Lt Headedness, No Other Respiratory: No Cough, No Dry; Shortness of breath; No SOB with excertion, No Wheezing, No Hemoptysis, No Pleuritic Pain, No Sputum, No Other Gastrointestinal: No Nausea, No Vomiting, No Abdominal Pain, No Diarrhea, No Constipation, No Melena, No Hematochezia, No Other Genitourinary: No Dysuria, No Frequency, No Incontinence, No Hematuria, No Retention, No Other Musculoskeletal: No other, No neck pain, No shoulder pain, No arm pain, No back pain, No hand pain, No leg pain, No foot pain Skin: No Rash, No Lesions, No Jaundice, No Bruising, No Other Objective Vitals Vital Signs Date Time Temp Pulse Resp B/P (MAP) Pulse Ox O2 Delivery O2 Flow Rate FiO2 04/23/24 10:00 93 Nasal Cannula* 4 36 04/23/24 09:35 112/54 04/23/24 09:00 98.1 76 20 98.1 Intake/Output Intake and Output 04/23/24 07:00 Intake Total 1795 ml Output Total 500 ml Balance 1295 ml Intake Oral 1595 ml IV Total 200 ml Output Urine Total 500 ml # Voids 3 # Bowel Movements 2 General Appearance: Alert, Oriented X3, Cooperative, mild distress HEENT: Atraumatic, PERRLA Lungs: Clear to auscultation, Other (Decreased breath sounds in bases) Cardiovascular: Normal S1, Normal S2 Abdomen: Normal bowel sounds, Soft, No tenderness Genitourinary: No Apparent Abnormalities Musculoskeletal: Normal sensory function, Normal motor function Neuro: Normal gait, Normal speech, Cranial nerves 3-12 NL Skin: Dry, Intact Psych/Mental Status: Mental status NL, Mood NL Medications Current Medications Medications Dose Ordered Sig/Jeanine Route Start Time Stop Time Status Last Admin Dose Admin Levothyroxine Sodium 25 mcg DAILY@BREAKFAST PO 04/19/24 08:00 04/23/24 08:09 25 MCG Pantoprazole Sodium 40 mg BID PO 04/18/24 22:00 04/23/24 09:35 40 MG Rivaroxaban 10 mg DAILY PO 04/19/24 10:00 04/23/24 09:36 10 MG Atorvastatin Calcium 40 mg HS PO 04/18/24 22:00 04/22/24 21:30 40 MG Nitroglycerin 0.4 mg Q5MINP PRN SL 04/18/24 16:15 Morphine Sulfate 2 mg Q30M PRN IV 04/18/24 16:15 Morphine Sulfate 1 mg Q4HPRN PRN IV 04/18/24 16:15 Acetaminophen/ Hydrocodone Bitart 1 tab Q6HPRN PRN PO 04/18/24 16:15 04/20/24 12:36 1 TAB Acetaminophen 500 mg Q8HP PRN PO 04/18/24 16:15 Ondansetron HCl 4 mg Q6HP PRN IV 04/18/24 16:15 Docusate Sodium 100 mg BID PRN PO 04/18/24 16:15 Albuterol 2.5 mg Q4HPRN PRN NEB 04/18/24 16:15 04/23/24 06:52 2.5 MG Ipratropium [place] 0.5 mg Q4HPRN PRN NEB 04/18/24 16:15 04/23/24 06:52 0.5 MG Spironolactone 25 mg BIDD PO 04/19/24 18:00 04/23/24 05:57 25 MG Furosemide 40 mg DAILY IV 04/21/24 10:00 04/23/24 09:35 40 MG Piperacillin Sod/ Tazobactam Sod 100 ml @ 25 mls/hr Q8HR IV 04/20/24 14:00 04/23/24 05:58 25 MLS/HR Azithromycin 500 mg DAILY PO 04/20/24 13:15 04/23/24 09:35 500 MG Sildenafil Citrate 20 mg TID@08,14,20 PO 04/21/24 14:00 04/23/24 08:09 20 MG Laboratory Results Laboratory Tests 04/21/24 13:45 Urinalysis Test 04/18/24 15:26 Urine Color Light-yellow (Yellow) Urine Clarity Clear (Clear) Urine pH 5.0 (5.0-9.0) Urine Specific [place] 1.010 (1.001-1.035) Urine Protein Negative (Negative) Urine Ketones Negative (Negative) Urine Blood Negative /uL (Negative) Urine Nitrite Negative (Negative) Urine Bilirubin Negative (Negative) Urine Urobilinogen Normal mg/dL (Negative) Urine Leukocyte Esterase Negative /uL (Negative) Urine RBC <1 /hpf (0 - 3) Urine Microscopic WBC 1 /HPF (0-3) Urine Squamous Epithelial Cells Few /hpf (<5) Urine Bacteria None seen /hpf (None Seen) Urine Hyaline Casts Few /lpf (0 - 2) Urine Mucus Few (None Seen) Urine Glucose Normal mg/dL (Normal) Microbiology Microbiology Date/Time Source Procedure Growth Status 04/19/24 02:28 Nose MRSA Screen - Final Complete Labs and/or images reviewed: Labs reviewed by me, Image(s) reviewed by me Assessment/Plan Assessment/Plan Impression: -acute hypoxic respiratory failure -pulmonary vascular congestion, probable acute decompensated systolic heart failure -obesity -history of permanent pacemaker implant -hypertension -hypothyroidism -chronic kidney disease , 3A -obstructive sleep apnea -pulmonary hypertension Plan: -events: Patient reports improvement with his shortness of breath. Now on nasal cannula at 4 liters/minute. Discussed with the patient the need to increase mobility. Patient will be discharged once he was able to ambulate. -physical therapy: Please get patient out of bed. Please attempted to ambulate patient. -continuing Revatio -continue BiPAP p.r.n. -continue diuresis -IV abx -CT angiogram of the chest -echocardiogram: Noted RVSP. Pulmonary consult -continue anticoagulation -repeat labs reviewed Total time spent with patient discussing and formulating plan of care: 35 minutes. This medical document was created using an electronic medical record system with [employer] dictation system. Although this document has been carefully reviewed, there may still be some phonetic and typographical errors. These areas are purely typographical due to imperfections of the software programs, and do not reflect any compromise in the patient's medical care. Plan discussed with: Patient, Other (Rn) Date of Service: Apr 23, 2024 Billing Provider: NORMAN HUTCHISON NP Common Visit Codes: [id number] INP/OBS CARE(HIGH) NORMAN HUTCHISON NP Apr 23, 2024 12:52
--- NOTE | 2024-04-23 13:24 | DVHPN2 ---
Progress Note - Dictate Date Seen: Apr 23, 2024 Medical Necessity Reason Pt with a Central, PICC or Fol: No Subjective Patient seen and examined overnight events reviewed vital signs Vital Sign Date Time Temp Pulse Resp B/P (MAP) Pulse Ox O2 Delivery O2 Flow Rate FiO2 04/23/24 10:00 93 Nasal Cannula* 4 36 04/23/24 09:35 112/54 04/23/24 09:00 98.1 76 20 98.1 Total Intake and Output 04/22/24 04/22/24 04/23/24 14:59 22:59 06:59 Intake Total 820 ml 975 ml Output Total 500 ml Balance 820 ml 475 ml medications Current Medications Medications Dose Ordered Sig/Jeanine Route Start Time Stop Time Status Last Admin Dose Admin Levothyroxine Sodium 25 mcg DAILY@BREAKFAST PO 04/19/24 08:00 04/23/24 08:09 25 MCG Pantoprazole Sodium 40 mg BID PO 04/18/24 22:00 04/23/24 09:35 40 MG Rivaroxaban 10 mg DAILY PO 04/19/24 10:00 04/23/24 09:36 10 MG Atorvastatin Calcium 40 mg HS PO 04/18/24 22:00 04/22/24 21:30 40 MG Nitroglycerin 0.4 mg Q5MINP PRN SL 04/18/24 16:15 Morphine Sulfate 2 mg Q30M PRN IV 04/18/24 16:15 Morphine Sulfate 1 mg Q4HPRN PRN IV 04/18/24 16:15 Acetaminophen/ Hydrocodone Bitart 1 tab Q6HPRN PRN PO 04/18/24 16:15 04/20/24 12:36 1 TAB Acetaminophen 500 mg Q8HP PRN PO 04/18/24 16:15 Ondansetron HCl 4 mg Q6HP PRN IV 04/18/24 16:15 Docusate Sodium 100 mg BID PRN PO 04/18/24 16:15 Albuterol 2.5 mg Q4HPRN PRN NEB 04/18/24 16:15 04/23/24 06:52 2.5 MG Ipratropium [place] 0.5 mg Q4HPRN PRN NEB 04/18/24 16:15 04/23/24 06:52 0.5 MG Spironolactone 25 mg BIDD PO 04/19/24 18:00 3/16/25 05:57 25 MG Furosemide 40 mg DAILY IV 04/21/24 10:00 04/23/24 09:35 40 MG Piperacillin Sod/ Tazobactam Sod 100 ml @ 25 mls/hr Q8HR IV 04/20/24 14:00 04/23/24 05:58 25 MLS/HR Azithromycin 500 mg DAILY PO 04/20/24 13:15 04/23/24 09:35 500 MG Sildenafil Citrate 20 mg TID@08,14,20 PO 04/21/24 14:00 04/23/24 08:09 20 MG laboratory and microbiology Laboratory Tests 04/21/24 13:45 Test 04/21/24 13:45 Range/Units Serum Glucose 134 H 74-106 mg/dL Assessment/Plan Impression Acute on chronic respiratory failure Obstructive sleep apnea ESRD on HD Morbid obesity CHF Patient seen and examined Events Low oxygen requirements On 4 liters nasal cannula No acute events Labs and imaging reviewed Management Supplemental oxygen Titrate to maintain sats 90% or above Incentive spirometry Continue antibiotics F/u cultures Bronchodilators Monitor renal function HD as per nephrology Management deferred Monitor electrolytes Supplement as needed DVT prophylaxis Dietary Evaluation Review Comments: 1) VitC 500mg BID, Zinc sulfate 220mg daily x 10days, MVI 1 tab daily 2) Ensure High Protein 8fl oz BID 3) Continue current plan of care Expected Outcomes/Goals: Pt will meet >75% estimated needs Fu 3-5 days Plan discussed with: Other (rn) RONNA PAGE MD Apr 23, 2024 13:24
[2024-04-24] VITALS (18 sets, daily range): BP systolic 96–141; BP diastolic 51–64; PULSE 63–141; RESP 14–57; TEMP 97.7–98.5; O2SAT 90–99
--- NOTE | 2024-04-24 06:35 | DVH ---
EXAM: XR Chest, 1 View CLINICAL INDICATION: chf TECHNIQUE: Frontal view of the chest. COMPARISON: XY CHEST PORTABLE on DOS: 04/19/24, XY CHEST PORTABLE on DOS: 04/18/24, XY CHEST XRAY 1 V IEW on DOS: 05/03/23, XY CHEST XRAY 1 VIEW on DOS: 04/29/23, XY CHEST PORTABLE on DOS: 04/18/23 FINDINGS: LUNGS AND PLEURAL SPACES: See below. HEART: Cardiomegaly with pulmonary congestion and edema. Superimposed pneumonia cannot be excluded. Left cardiac. MEDIASTINUM: Unremarkable. Normal mediastinal contour. BONES/JOINTS: Unremarkable. No acute fracture. OTHER FINDINGS: . IMPRESSION: Cardiomegaly with pulmonary congestion and edema. Superimposed pneumonia cannot be excluded.
[2024-04-24 08:02] LABS: Basophils # (auto) 0.2 10 ^3/uL (0-0.2); Basophils % (auto) 2.2 % (0.0-2.0); Eosinophils # (auto) 0.4 10 ^3/uL (0-0.8); Eosinophils % (auto) 6.1 % (0.0-7.0); Hematocrit 32.2 % (41.0-53.0); Hemoglobin 10.4 g/dL (13.5-17.5); Lymphocytes # (auto) 0.6 10 ^3/uL (0.4-5.4); Lymphocytes % (auto) 8.8 % (10.0-50.0); Mean Corpuscular Hemoglobin 28.6 pg (28.0-32.0); Mean Corpuscular Hgb Conc. 32.2 g/dL (32.0-36.0); Mean Corpuscular Volume 88.8 fL (80.0-100.0); Monocytes # (auto) 0.3 10 ^3/uL (0-1.3); Monocytes % (auto) 4.8 % (0.0-12.0); Neutrophils # (auto) 5.6 10 ^3/uL (1.6-8.6); Neutrophils % (auto) 78.1 % (37.0-80.0); Red Blood Cells 3.62 10^6/uL (4.5-5.90); Red Cell Distribution Width 15.4 % (11.8-14.3); White Blood Cell 7.2 10^3/uL (4.4-10.8)
[2024-04-24 08:11] LABS: Platelet Count (auto) 96 10^3/uL (140-450)
[2024-04-24 08:30] LABS: Potassium 4.4 mmol/L (3.5-5.1); Sodium 139 mmol/L (136-145)
[2024-04-24 08:31] LABS: Anion Gap 8.99999 (5-15); Calcium 9.2 mg/dL (8.7-10.4); Chloride 90 mmol/L (98-107)
[2024-04-24 08:32] LABS: Carbon Dioxide > 40 mmol/L (20-31)
[2024-04-24 08:36] LABS: BUN/Creatinine Ratio 12.8 (10.0-20.0); Blood Urea Nitrogen 17 mg/dL (9-23)
[2024-04-24 08:39] LABS: Glucose 107 mg/dL (74-106)
--- NOTE | 2024-04-24 15:06 | DVHPN2 ---
Subjective Patient reports that his breathing has improved. Reviewed: Care Plan, H&P, Labs, Medications, Previous Orders Changes from previous H/P or p: No Changes General: Per HPI Eyes: No Pain, No Vision change, No Conjunctivae inflammation, No Eyelid inflammation, No Other, No Redness ENT: No Ear pain, No Ear discharge, No Nose pain, No Nose discharge, No Nose congestion, No Mouth pain, No Mouth swelling, No Throat pain, No Throat swelling, No Other Cardiovascular: No Chest Pain, No Palpitations, No Orthopnea, No Paroxysmal Noc. Dyspnea, No Edema, No Lt Headedness, No Other Respiratory: No Cough, No Dry; Shortness of breath; No SOB with excertion, No Wheezing, No Hemoptysis, No Pleuritic Pain, No Sputum, No Other Gastrointestinal: No Nausea, No Vomiting, No Abdominal Pain, No Diarrhea, No Constipation, No Melena, No Hematochezia, No Other Genitourinary: No Dysuria, No Frequency, No Incontinence, No Hematuria, No Retention, No Other Musculoskeletal: No other, No neck pain, No shoulder pain, No arm pain, No back pain, No hand pain, No leg pain, No foot pain Skin: No Rash, No Lesions, No Jaundice, No Bruising, No Other Objective Vitals Vital Signs Date Time Temp Pulse Resp B/P (MAP) Pulse Ox O2 Delivery O2 Flow Rate FiO2 04/24/24 12:40 98.2 82 18 114/64 (81) 95 98.2 04/24/24 10:15 Nasal Cannula* 3 32 Intake/Output Intake and Output 04/24/24 07:00 Intake Total 1480 ml Output Total 1500 ml Balance -20 ml Intake Oral 1280 ml IV Total 200 ml Output Urine Total 1500 ml # Voids 5 # Bowel Movements 1 General Appearance: Alert, Oriented X3, Cooperative, mild distress HEENT: Atraumatic, PERRLA Lungs: Clear to auscultation, Other (Decreased breath sounds in bases) Cardiovascular: Normal S1, Normal S2 Abdomen: Normal bowel sounds, Soft, No tenderness Genitourinary: No Apparent Abnormalities Musculoskeletal: Normal sensory function, Normal motor function Neuro: Normal gait, Normal speech, Cranial nerves 3-12 NL Skin: Dry, Intact Psych/Mental Status: Mental status NL, Mood NL Medications Current Medications Medications Dose Ordered Sig/Jeanine Route Start Time Stop Time Status Last Admin Dose Admin Levothyroxine Sodium 25 mcg DAILY@BREAKFAST PO 04/19/24 08:00 04/24/24 09:14 25 MCG Pantoprazole Sodium 40 mg BID PO 04/18/24 22:00 04/24/24 09:15 40 MG Rivaroxaban 10 mg DAILY PO 04/19/24 10:00 04/24/24 09:15 10 MG Atorvastatin Calcium 40 mg HS PO 04/18/24 22:00 04/23/24 21:32 40 MG Nitroglycerin 0.4 mg Q5MINP PRN SL 04/18/24 16:15 Morphine Sulfate 2 mg Q30M PRN IV 04/18/24 16:15 Morphine Sulfate 1 mg Q4HPRN PRN IV 04/18/24 16:15 Acetaminophen/ Hydrocodone Bitart 1 tab Q6HPRN PRN PO 04/18/24 16:15 04/24/24 14:00 1 TAB Acetaminophen 500 mg Q8HP PRN PO 04/18/24 16:15 Ondansetron HCl 4 mg Q6HP PRN IV 04/18/24 16:15 Docusate Sodium 100 mg BID PRN PO 04/18/24 16:15 Albuterol 2.5 mg Q4HPRN PRN NEB 04/18/24 16:15 04/24/24 10:13 2.5 MG Ipratropium [place] 0.5 mg Q4HPRN PRN NEB 04/18/24 16:15 04/24/24 10:13 0.5 MG Spironolactone 25 mg BIDD PO 04/19/24 18:00 04/24/24 05:44 25 MG Furosemide 40 mg DAILY IV 04/21/24 10:00 04/24/24 09:17 40 MG Piperacillin Sod/ Tazobactam Sod 100 ml @ 25 mls/hr Q8HR IV 04/20/24 14:00 04/24/24 13:59 25 MLS/HR Azithromycin 500 mg DAILY PO 04/20/24 13:15 04/24/24 09:14 500 MG Sildenafil Citrate 20 mg TID@08,14,20 PO 04/21/24 14:00 04/24/24 13:59 20 MG Laboratory Results Laboratory Tests 04/24/24 07:33 Chemistry Test 04/24/24 07:33 Calcium Level 9.2 mg/dL (8.7-10.4) Urinalysis Test 04/18/24 15:26 Urine Color Light-yellow (Yellow) Urine Clarity Clear (Clear) Urine pH 5.0 (5.0-9.0) Urine Specific [place] 1.010 (1.001-1.035) Urine Protein Negative (Negative) Urine Ketones Negative (Negative) Urine Blood Negative /uL (Negative) Urine Nitrite Negative (Negative) Urine Bilirubin Negative (Negative) Urine Urobilinogen Normal mg/dL (Negative) Urine Leukocyte Esterase Negative /uL (Negative) Urine RBC <1 /hpf (0 - 3) Urine Microscopic WBC 1 /HPF (0-3) Urine Squamous Epithelial Cells Few /hpf (<5) Urine Bacteria None seen /hpf (None Seen) Urine Hyaline Casts Few /lpf (0 - 2) Urine Mucus Few (None Seen) Urine Glucose Normal mg/dL (Normal) Microbiology Microbiology Date/Time Source Procedure Growth Status 04/19/24 02:28 Nose MRSA Screen - Final Complete Labs and/or images reviewed: Labs reviewed by me, Image(s) reviewed by me Assessment/Plan Assessment/Plan Impression: -acute hypoxic respiratory failure -pulmonary vascular congestion, probable acute decompensated systolic heart failure -obesity -history of permanent pacemaker implant -hypertension -hypothyroidism -chronic kidney disease , 3A -obstructive sleep apnea -pulmonary hypertension Plan: -events: Patient reports improvement with his shortness of breath. Now on nasal cannula at 4 liters/minute. Still not OOB or ambulating. Educated patient. -physical therapy: Please get patient out of bed. Please attempted to ambulate patient. -continuing Revatio -continue BiPAP p.r.n. -continue diuresis -IV abx -CT angiogram of the chest -echocardiogram: Noted RVSP. Pulmonary consult -continue anticoagulation -repeat labs reviewed Total time spent with patient discussing and formulating plan of care: 35 minutes. This medical document was created using an electronic medical record system with [email or web address] system. Although this document has been carefully reviewed, there may still be some phonetic and typographical errors. These areas are purely typographical due to imperfections of the software programs, and do not reflect any compromise in the patient's medical care. Plan discussed with: Patient, Other (RN) My Orders Orders - NORMAN HUTCHISON [employer] Procedure Category Date Status Time Oob To Chair [facility] 04/24/24 In Process 13:33 Date of Service: Apr 24, 2024 Billing Provider: NORMAN HUTCHISON NP Common Visit Codes: [id number] INP/OBS CARE(HIGH) NORMAN HUTCHISON NP Apr 24, 2024 15:06
--- NOTE | 2024-04-24 23:53 | DVHPN2 ---
Progress Note - Dictate Date Seen: Apr 24, 2024 Medical Necessity Reason Pt with a Central, PICC or Fol: No Subjective Patient seen and examined at bedside. Remains on supplemental oxygen Overnight events reviewed. vital signs Vital Sign Date Time Temp Pulse Resp B/P (MAP) Pulse Ox O2 Delivery O2 Flow Rate FiO2 04/24/24 22:49 69 98 Facial BiPAP Mask 55 04/24/24 22:39 16 04/24/24 19:34 3.0 04/24/24 17:00 98.0 141/57 (85) 98.0 Total Intake and Output 04/23/24 04/23/24 04/24/24 15:00 23:00 07:00 Intake Total 100 ml 885 ml 495 ml Output Total 1100 ml 400 ml Balance 100 ml -215 ml 95 ml medications Current Medications Medications Dose Ordered Sig/Jeanine Route Start Time Stop Time Status Last Admin Dose Admin Levothyroxine Sodium 25 mcg DAILY@BREAKFAST PO 04/19/24 08:00 04/24/24 09:14 25 MCG Pantoprazole Sodium 40 mg BID PO 04/18/24 22:00 04/24/24 21:56 40 MG Rivaroxaban 10 mg DAILY PO 04/19/24 10:00 04/24/24 09:15 10 MG Atorvastatin Calcium 40 mg HS PO 04/18/24 22:00 04/24/24 21:56 40 MG Nitroglycerin 0.4 mg Q5MINP PRN SL 04/18/24 16:15 Morphine Sulfate 2 mg Q30M PRN IV 04/18/24 16:15 Morphine Sulfate 1 mg Q4HPRN PRN IV 04/18/24 16:15 Acetaminophen/ Hydrocodone Bitart 1 tab Q6HPRN PRN PO 04/18/24 16:15 04/24/24 14:00 1 TAB Acetaminophen 500 mg Q8HP PRN PO 04/18/24 16:15 Ondansetron HCl 4 mg Q6HP PRN IV 04/18/24 16:15 Docusate Sodium 100 mg BID PRN PO 04/18/24 16:15 Albuterol 2.5 mg Q4HPRN PRN NEB 04/18/24 16:15 04/24/24 22:38 2.5 MG Ipratropium [place] 0.5 mg Q4HPRN PRN NEB 04/18/24 16:15 04/24/24 22:38 0.5 MG Spironolactone 25 mg BIDD PO 04/19/24 18:00 04/24/24 17:53 25 MG Furosemide 40 mg DAILY IV 04/21/24 10:00 04/24/24 09:17 40 MG Piperacillin Sod/ Tazobactam Sod 100 ml @ 25 mls/hr Q8HR IV 04/20/24 14:00 04/24/24 21:56 25 MLS/HR Sildenafil Citrate 20 mg TID@08,14,20 PO 04/21/24 14:00 04/24/24 21:55 20 MG objective Gen.: Patient lying in bed in no apparent distress. On supplemental oxygen. Head: Normocephalic, atraumatic. Eyes: EOMI/PERRLA. Ears: Normal hearing. Normal anatomy. Neck/trachea: Trachea midline, supple. Nose: Normal external anatomy. Mouth: Moist mucous membranes. Chest: Decreased air entry bilaterally. No wheezing or rhonchi. Cardiovascular: Positive S1, positive S2. Regular rate and rhythm. Abdomen: Positive bowel sounds in all 4 quadrants. Soft, non-tender, non- distended. : Deferred. Rectal: Deferred. Skin: Warm, dry. Intact. Extremities: 2+ radial pulses bilaterally. No lower extremity edema. Neuro: Awake, alert, oriented x3. No gross motor or sensory deficits. Cranial nerves II through XII intact. Gait not assessed. laboratory and microbiology Laboratory Tests 04/24/24 07:33 Test 04/24/24 07:33 Range/Units Serum Glucose 107 H 74-106 mg/dL Assessment/Plan Impression: Acute on chronic hypoxic respiratory failure Dependence on supplemental oxygen Acute systolic CHF. End-stage renal disease, on hemodialysis Obstructive sleep apnea Morbid obesity Events: Remains on supplemental oxygen Tapered from 5 LPM --> 2 LPM NC Taper O2 as tolerated Improved O2 requirements BiPAP at night for [place]. Continue Revatio TID. Continue bronchodilators Completed antibiotics Incentive spirometry Diuresing w/ Lasix Monitor renal function Monitor ins and outs Labs and imaging reviewed. Rest of plan as noted below. Plan: Supplemental oxygen Titrate to keep O2 sats between 88-94%. Revatio TID Continue bronchodilators. Continue antibiotics Incentive spirometry Monitor renal function. Monitor electrolytes. Supplement as necessary. Monitor ins and outs. Diet and lifestyle modifications for weight reduction Morbid obesity - complicates all care DVT prophylaxis. Prognosis: Poor given patient's multiple co-morbidities. Rest of plan per hospitalist and other consultants. Thank you, AMELIA Middleton, for allowing me to participate in this patient's care. Further recommendations will depend on the patient's clinical course. Please do not hesitate to contact me if you have any questions or concerns. This medical document was created using an electronic medical record system with [employer] dictation system. Although these documentations are being carefully reviewed, there may still be some phonetic and typographical changes. The errors are purely typographical, due to imperfection on the software program, and do not reflect any compromise in the patient's medical care. Dietary Evaluation Review Comments: 1) VitC 500mg BID, Zinc sulfate 220mg daily x 10days, MVI 1 tab daily 2) Ensure High Protein 8fl oz BID 3) Continue current plan of care Expected Outcomes/Goals: Pt will meet >75% estimated needs Fu 3-5 days Plan discussed with: Patient, Other (DELFINA Ramirez) ANCELMO MONTOYA MD Apr 24, 2024 23:53
[2024-04-25] VITALS (17 sets, daily range): BP systolic 108–132; BP diastolic 44–73; PULSE 67–89; RESP 16–19; TEMP 97.4–98.5; O2SAT 90–100
--- NOTE | 2024-04-25 14:32 | DVHPN2 ---
Subjective Patient reports that his breathing has improved. Reviewed: Care Plan, H&P, Labs, Medications, Previous Orders Changes from previous H/P or p: No Changes General: Per HPI Eyes: No Pain, No Vision change, No Conjunctivae inflammation, No Eyelid inflammation, No Other, No Redness ENT: No Ear pain, No Ear discharge, No Nose pain, No Nose discharge, No Nose congestion, No Mouth pain, No Mouth swelling, No Throat pain, No Throat swelling, No Other Cardiovascular: No Chest Pain, No Palpitations, No Orthopnea, No Paroxysmal Noc. Dyspnea, No Edema, No Lt Headedness, No Other Respiratory: No Cough, No Dry; Shortness of breath; No SOB with excertion, No Wheezing, No Hemoptysis, No Pleuritic Pain, No Sputum, No Other Gastrointestinal: No Nausea, No Vomiting, No Abdominal Pain, No Diarrhea, No Constipation, No Melena, No Hematochezia, No Other Genitourinary: No Dysuria, No Frequency, No Incontinence, No Hematuria, No Retention, No Other Musculoskeletal: No other, No neck pain, No shoulder pain, No arm pain, No back pain, No hand pain, No leg pain, No foot pain Skin: No Rash, No Lesions, No Jaundice, No Bruising, No Other Objective Vitals Vital Signs Date Time Temp Pulse Resp B/P (MAP) Pulse Ox O2 Delivery O2 Flow Rate FiO2 04/25/24 10:00 92 Nasal Cannula* 4 36 04/25/24 09:26 118/62 04/25/24 09:00 97.4 68 16 97.4 Intake/Output Intake and Output 04/25/24 07:00 Intake Total 1250 ml Output Total 1750 ml Balance -500 ml Intake Oral 1250 ml Output Urine Total 1750 ml General Appearance: Alert, Oriented X3, Cooperative, mild distress HEENT: Atraumatic, PERRLA Lungs: Clear to auscultation, Other (Decreased breath sounds in bases) Cardiovascular: Normal S1, Normal S2 Abdomen: Normal bowel sounds, Soft, No tenderness Genitourinary: No Apparent Abnormalities Musculoskeletal: Normal sensory function, Normal motor function Neuro: Normal gait, Normal speech, Cranial nerves 3-12 NL Skin: Dry, Intact Psych/Mental Status: Mental status NL, Mood NL Medications Current Medications Medications Dose Ordered Sig/Jeanine Route Start Time Stop Time Status Last Admin Dose Admin Levothyroxine Sodium 25 mcg DAILY@BREAKFAST PO 04/19/24 08:00 04/25/24 09:16 25 MCG Pantoprazole Sodium 40 mg BID PO 04/18/24 22:00 04/25/24 09:16 40 MG Rivaroxaban 10 mg DAILY PO 04/19/24 10:00 04/25/24 09:16 10 MG Atorvastatin Calcium 40 mg HS PO 04/18/24 22:00 04/24/24 21:56 40 MG Nitroglycerin 0.4 mg Q5MINP PRN SL 04/18/24 16:15 Morphine Sulfate 2 mg Q30M PRN IV 04/18/24 16:15 Morphine Sulfate 1 mg Q4HPRN PRN IV 04/18/24 16:15 Acetaminophen/ Hydrocodone Bitart 1 tab Q6HPRN PRN PO 04/18/24 16:15 04/24/24 14:00 1 TAB Acetaminophen 500 mg Q8HP PRN PO 04/18/24 16:15 Ondansetron HCl 4 mg Q6HP PRN IV 04/18/24 16:15 Docusate Sodium 100 mg BID PRN PO 04/18/24 16:15 Albuterol 2.5 mg Q4HPRN PRN NEB 04/18/24 16:15 04/25/24 08:43 2.5 MG Ipratropium [place] 0.5 mg Q4HPRN PRN NEB 04/18/24 16:15 04/25/24 08:43 0.5 MG Spironolactone 25 mg BIDD PO 04/19/24 18:00 04/25/24 05:42 25 MG Furosemide 40 mg DAILY IV 04/21/24 10:00 04/25/24 09:26 40 MG Piperacillin Sod/ Tazobactam Sod 100 ml @ 25 mls/hr Q8HR IV 04/20/24 14:00 04/25/24 05:40 25 MLS/HR Sildenafil Citrate 20 mg TID@08,14,20 PO 04/21/24 14:00 04/25/24 09:17 20 MG Laboratory Results Laboratory Tests 04/24/24 07:33 Urinalysis Test 04/18/24 15:26 Urine Color Light-yellow (Yellow) Urine Clarity Clear (Clear) Urine pH 5.0 (5.0-9.0) Urine Specific [place] 1.010 (1.001-1.035) Urine Protein Negative (Negative) Urine Ketones Negative (Negative) Urine Blood Negative /uL (Negative) Urine Nitrite Negative (Negative) Urine Bilirubin Negative (Negative) Urine Urobilinogen Normal mg/dL (Negative) Urine Leukocyte Esterase Negative /uL (Negative) Urine RBC <1 /hpf (0 - 3) Urine Microscopic WBC 1 /HPF (0-3) Urine Squamous Epithelial Cells Few /hpf (<5) Urine Bacteria None seen /hpf (None Seen) Urine Hyaline Casts Few /lpf (0 - 2) Urine Mucus Few (None Seen) Urine Glucose Normal mg/dL (Normal) Microbiology Microbiology Date/Time Source Procedure Growth Status 04/19/24 02:28 Nose MRSA Screen - Final Complete Labs and/or images reviewed: Labs reviewed by me, Image(s) reviewed by me Assessment/Plan Assessment/Plan Impression: -acute hypoxic respiratory failure -pulmonary vascular congestion, probable acute decompensated systolic heart failure -obesity -history of permanent pacemaker implant -hypertension -hypothyroidism -chronic kidney disease , 3A -obstructive sleep apnea -pulmonary hypertension Plan: -events: Patient reports improvement with his shortness of breath. Patient has been out of bed. Continues to have difficulty ambulating. -physical therapy: Please get patient out of bed. Please attempted to ambulate patient. -continuing Revatio -continue BiPAP p.r.n. -continue diuresis -IV abx -continue anticoagulation -reassess for discharge tomorrow Total time spent with patient discussing and formulating plan of care: 35 minutes. This medical document was created using an electronic medical record system with [employer] dictation system. Although this document has been carefully reviewed, there may still be some phonetic and typographical errors. These areas are purely typographical due to imperfections of the software programs, and do not reflect any compromise in the patient's medical care. Plan discussed with: Patient, Other (RN) Date of Service: Apr 25, 2024 Billing Provider: NORMAN HUTCHISON NP Common Visit Codes: [id number] INP/OBS CARE(HIGH) NORMAN HUTCHISON NP Apr 25, 2024 14:32
[2024-04-25] MEDS: ALBUTEROL SULF 2.5 MG/0.5ML(0.5%) NEB SOLN NEB SCH (18:12)
[2024-04-25] MEDS: IPRATROPIUM BROM 0.5 MG/2.5ML INH SOL NEB SCH (18:12)
--- NOTE | 2024-04-25 23:05 | DVHPN2 ---
Progress Note - Dictate Date Seen: Apr 25, 2024 Medical Necessity Reason Pt with a Central, PICC or Fol: No Subjective Patient seen and examined at bedside. Remains on supplemental oxygen Overnight events reviewed. vital signs Vital Sign Date Time Temp Pulse Resp B/P (MAP) Pulse Ox O2 Delivery O2 Flow Rate FiO2 04/25/24 21:00 98.5 81 18 110/44 (66) 96 98.5 04/25/24 18:00 Nasal Cannula 3.0 04/25/24 18:00 32 Total Intake and Output 04/24/24 04/24/24 04/25/24 15:00 23:00 07:00 Intake Total 750 ml 500 ml Output Total 1050 ml 700 ml Balance -300 ml -200 ml medications Current Medications Medications Dose Ordered Sig/Jeanine Route Start Time Stop Time Status Last Admin Dose Admin Levothyroxine Sodium 25 mcg DAILY@BREAKFAST PO 04/19/24 08:00 04/25/24 09:16 25 MCG Pantoprazole Sodium 40 mg BID PO 04/18/24 22:00 04/25/24 21:38 40 MG Rivaroxaban 10 mg DAILY PO 04/19/24 10:00 04/25/24 09:16 10 MG Atorvastatin Calcium 40 mg HS PO 04/18/24 22:00 04/25/24 21:39 40 MG Nitroglycerin 0.4 mg Q5MINP PRN SL 04/18/24 16:15 Hold Morphine Sulfate 2 mg Q30M PRN IV 04/18/24 16:15 Morphine Sulfate 1 mg Q4HPRN PRN IV 04/18/24 16:15 Acetaminophen/ Hydrocodone Bitart 1 tab Q6HPRN PRN PO 04/18/24 16:15 04/25/24 20:30 1 TAB Acetaminophen 500 mg Q8HP PRN PO 04/18/24 16:15 Ondansetron HCl 4 mg Q6HP PRN IV 04/18/24 16:15 Docusate Sodium 100 mg BID PRN PO 04/18/24 16:15 Spironolactone 25 mg BIDD PO 04/19/24 18:00 04/25/24 17:26 25 MG Furosemide 40 mg DAILY IV 04/21/24 10:00 04/25/24 09:26 40 MG Piperacillin Sod/ Tazobactam Sod 100 ml @ 25 mls/hr Q8HR IV 04/20/24 14:00 04/25/24 21:39 25 MLS/HR Sildenafil Citrate 20 mg TID@08,14,20 PO 04/21/24 14:00 04/25/24 20:27 20 MG Albuterol 2.5 mg Q4HWA NEB 04/25/24 18:00 04/25/24 22:41 2.5 MG Ipratropium [place] 0.5 mg Q4HWA NEB 04/25/24 18:00 04/25/24 22:41 0.5 MG objective Gen.: Patient lying in bed in no apparent distress. On supplemental oxygen. Head: Normocephalic, atraumatic. Eyes: EOMI/PERRLA. Ears: Normal hearing. Normal anatomy. Neck/trachea: Trachea midline, supple. Nose: Normal external anatomy. Mouth: Moist mucous membranes. Chest: Decreased air entry bilaterally. No wheezing or rhonchi. Cardiovascular: Positive S1, positive S2. Regular rate and rhythm. Abdomen: Positive bowel sounds in all 4 quadrants. Soft, non-tender, non- distended. : Deferred. Rectal: Deferred. Skin: Warm, dry. Intact. Extremities: 2+ radial pulses bilaterally. No lower extremity edema. Neuro: Awake, alert, oriented x3. No gross motor or sensory deficits. Cranial nerves II through XII intact. Gait not assessed. laboratory and microbiology Laboratory Tests 04/24/24 07:33 Test 04/24/24 07:33 Range/Units Serum Glucose 107 H 74-106 mg/dL Assessment/Plan Impression: Acute on chronic hypoxic respiratory failure Dependence on supplemental oxygen Acute systolic CHF. End-stage renal disease, on hemodialysis Obstructive sleep apnea Morbid obesity Events: Remains on supplemental oxygen On 3-4 LPM NC Taper O2 as tolerated BiPAP at night for TOSHIA - 10 PM to 6 AM. Continue Revatio TID for pulmonary hypertension - hold if SBP less than 90 mmHg Continue bronchodilators Continue antibiotics Incentive spirometry PT for ambulation Diuresing w/ Lasix Monitor renal function Monitor ins and outs Labs and imaging reviewed. Rest of plan as noted below. Plan: Supplemental oxygen Titrate to keep O2 sats between 88-94%. Revatio TID Continue bronchodilators. Continue antibiotics Incentive spirometry Monitor renal function. Monitor electrolytes. Supplement as necessary. Monitor ins and outs. Diet and lifestyle modifications for weight reduction Morbid obesity - complicates all care DVT prophylaxis. Prognosis: Poor given patient's multiple co-morbidities. Rest of plan per hospitalist and other consultants. Thank you, AMELIA Middleton, for allowing me to participate in this patient's care. Further recommendations will depend on the patient's clinical course. Please do not hesitate to contact me if you have any questions or concerns. This medical document was created using an electronic medical record system with [employer] dictation system. Although these documentations are being carefully reviewed, there may still be some phonetic and typographical changes. The errors are purely typographical, due to imperfection on the software program, and do not reflect any compromise in the patient's medical care. Dietary Evaluation Review Comments: 1) VitC 500mg BID, Zinc sulfate 220mg daily x 10days, MVI 1 tab daily 2) Ensure High Protein 8fl oz BID 3) Continue current plan of care Expected Outcomes/Goals: Pt will meet >75% estimated needs Fu 3-5 days Plan discussed with: Patient, Other (DELFINA Nick) ANCELMO MONTOYA MD Apr 25, 2024 23:05
[2024-04-26] VITALS (18 sets, daily range): BP systolic 103–115; BP diastolic 43–59; PULSE 63–93; RESP 16–22; TEMP 97.5–98.7; O2SAT 90–100
--- NOTE | 2024-04-26 13:25 | DVHPN2 ---
Subjective Patient reports that his breathing has improved. Reviewed: Care Plan, H&P, Labs, Medications, Previous Orders Changes from previous H/P or p: No Changes General: Per HPI Eyes: No Pain, No Vision change, No Conjunctivae inflammation, No Eyelid inflammation, No Other, No Redness ENT: No Ear pain, No Ear discharge, No Nose pain, No Nose discharge, No Nose congestion, No Mouth pain, No Mouth swelling, No Throat pain, No Throat swelling, No Other Cardiovascular: No Chest Pain, No Palpitations, No Orthopnea, No Paroxysmal Noc. Dyspnea, No Edema, No Lt Headedness, No Other Respiratory: No Cough, No Dry; Shortness of breath; No SOB with excertion, No Wheezing, No Hemoptysis, No Pleuritic Pain, No Sputum, No Other Gastrointestinal: No Nausea, No Vomiting, No Abdominal Pain, No Diarrhea, No Constipation, No Melena, No Hematochezia, No Other Genitourinary: No Dysuria, No Frequency, No Incontinence, No Hematuria, No Retention, No Other Musculoskeletal: No other, No neck pain, No shoulder pain, No arm pain, No back pain, No hand pain, No leg pain, No foot pain Skin: No Rash, No Lesions, No Jaundice, No Bruising, No Other Objective Vitals Vital Signs Date Time Temp Pulse Resp B/P (MAP) Pulse Ox O2 Delivery O2 Flow Rate FiO2 04/26/24 11:24 107/54 04/26/24 09:57 76 18 99 04/26/24 09:49 Nasal Cannula 4.0 04/26/24 09:49 36 04/26/24 09:00 97.5 97.5 Intake/Output Intake and Output 04/26/24 07:00 Intake Total 1300 ml Output Total 1100 ml Balance 200 ml Intake Oral 1100 ml IV Total 200 ml Output Urine Total 1100 ml # Voids 2 General Appearance: Alert, Oriented X3, Cooperative, mild distress HEENT: Atraumatic, PERRLA Lungs: Clear to auscultation, Other (Decreased breath sounds in bases) Cardiovascular: Normal S1, Normal S2 Abdomen: Normal bowel sounds, Soft, No tenderness Genitourinary: No Apparent Abnormalities Musculoskeletal: Normal sensory function, Normal motor function Neuro: Normal gait, Normal speech, Cranial nerves 3-12 NL Skin: Dry, Intact Psych/Mental Status: Mental status NL, Mood NL Medications Current Medications Medications Dose Ordered Sig/Jeanine Route Start Time Stop Time Status Last Admin Dose Admin Levothyroxine Sodium 25 mcg DAILY@BREAKFAST PO 04/19/24 08:00 04/26/24 08:19 25 MCG Pantoprazole Sodium 40 mg BID PO 04/18/24 22:00 04/26/24 11:19 40 MG Rivaroxaban 10 mg DAILY PO 04/19/24 10:00 04/26/24 11:19 10 MG Atorvastatin Calcium 40 mg HS PO 04/18/24 22:00 04/25/24 21:39 40 MG Nitroglycerin 0.4 mg Q5MINP PRN SL 04/18/24 16:15 Hold Morphine Sulfate 2 mg Q30M PRN IV 04/18/24 16:15 Morphine Sulfate 1 mg Q4HPRN PRN IV 04/18/24 16:15 Acetaminophen/ Hydrocodone Bitart 1 tab Q6HPRN PRN PO 04/18/24 16:15 04/25/24 20:30 1 TAB Acetaminophen 500 mg Q8HP PRN PO 04/18/24 16:15 Ondansetron HCl 4 mg Q6HP PRN IV 04/18/24 16:15 Docusate Sodium 100 mg BID PRN PO 04/18/24 16:15 Spironolactone 25 mg BIDD PO 04/19/24 18:00 04/26/24 06:53 25 MG Furosemide 40 mg DAILY IV 04/21/24 10:00 04/26/24 11:24 40 MG Piperacillin Sod/ Tazobactam Sod 100 ml @ 25 mls/hr Q8HR IV 04/20/24 14:00 04/26/24 06:51 25 MLS/HR Sildenafil Citrate 20 mg TID@08,14,20 PO 04/21/24 14:00 04/26/24 08:19 20 MG Albuterol 2.5 mg Q4HWA NEB 04/25/24 18:00 04/26/24 09:49 2.5 MG Ipratropium [place] 0.5 mg Q4HWA NEB 04/25/24 18:00 04/26/24 09:49 0.5 MG Laboratory Results Laboratory Tests 04/24/24 07:33 Urinalysis Test 04/18/24 15:26 Urine Color Light-yellow (Yellow) Urine Clarity Clear (Clear) Urine pH 5.0 (5.0-9.0) Urine Specific [place] 1.010 (1.001-1.035) Urine Protein Negative (Negative) Urine Ketones Negative (Negative) Urine Blood Negative /uL (Negative) Urine Nitrite Negative (Negative) Urine Bilirubin Negative (Negative) Urine Urobilinogen Normal mg/dL (Negative) Urine Leukocyte Esterase Negative /uL (Negative) Urine RBC <1 /hpf (0 - 3) Urine Microscopic WBC 1 /HPF (0-3) Urine Squamous Epithelial Cells Few /hpf (<5) Urine Bacteria None seen /hpf (None Seen) Urine Hyaline Casts Few /lpf (0 - 2) Urine Mucus Few (None Seen) Urine Glucose Normal mg/dL (Normal) Microbiology Microbiology Date/Time Source Procedure Growth Status 04/19/24 02:28 Nose MRSA Screen - Final Complete Labs and/or images reviewed: Labs reviewed by me, Image(s) reviewed by me Assessment/Plan Assessment/Plan Impression: -acute hypoxic respiratory failure -pulmonary vascular congestion, probable acute decompensated systolic heart failure -obesity -history of permanent pacemaker implant -hypertension -hypothyroidism -chronic kidney disease , 3A -obstructive sleep apnea -pulmonary hypertension Plan: -events: Encourage patient to continue with mobility. At this point, patient has stood bedside, has not ambulated. Patient refusing assisted facility. -physical therapy: Please get patient out of bed. Please attempted to ambulate patient. -continuing Revatio -continue BiPAP p.r.n. -continue diuresis -IV abx -continue anticoagulation -reassess for discharge tomorrow Total time spent with patient discussing and formulating plan of care: 35 minutes. This medical document was created using an electronic medical record system with [employer] dictation system. Although this document has been carefully reviewed, there may still be some phonetic and typographical errors. These areas are purely typographical due to imperfections of the software programs, and do not reflect any compromise in the patient's medical care. Plan discussed with: Patient, Other (RN) My Orders Orders - NORMAN HUTCHISON [facility] Procedure Category Date Status Time Albuterol Medneb PHA 04/25/24 In Process (Ventolin Medneb) 18:00 Ipratropium Medneb PHA 04/25/24 In Process (Atrovent Medneb) 18:00 Date of Service: Apr 26, 2024 Billing Provider: NORMAN HUTCHISON NP Common Visit Codes: [id number] INP/OBS CARE(MOD) NORMAN HUTCHISON NP Apr 26, 2024 13:25
--- NOTE | 2024-04-26 23:32 | DVHPN2 ---
Progress Note - Dictate Date Seen: Apr 26, 2024 Medical Necessity Reason Pt with a Central, PICC or Fol: No Subjective Patient seen and examined at bedside. Remains on supplemental oxygen Overnight events reviewed. vital signs Vital Sign Date Time Temp Pulse Resp B/P (MAP) Pulse Ox O2 Delivery O2 Flow Rate FiO2 04/26/24 22:15 68 18 100 04/26/24 22:09 Nasal Cannula 3.0 04/26/24 22:09 32 04/26/24 21:00 98.1 115/52 (73) 98.1 Total Intake and Output 04/25/24 04/25/24 04/26/24 15:00 23:00 07:00 Intake Total 100 ml 900 ml 300 ml Output Total 1100 ml Balance 100 ml -200 ml 300 ml medications Current Medications Medications Dose Ordered Sig/Jeanine Route Start Time Stop Time Status Last Admin Dose Admin Levothyroxine Sodium 25 mcg DAILY@BREAKFAST PO 04/19/24 08:00 04/26/24 08:19 25 MCG Pantoprazole Sodium 40 mg BID PO 04/18/24 22:00 04/26/24 21:10 40 MG Rivaroxaban 10 mg DAILY PO 04/19/24 10:00 04/26/24 11:19 10 MG Atorvastatin Calcium 40 mg HS PO 04/18/24 22:00 04/26/24 21:09 40 MG Nitroglycerin 0.4 mg Q5MINP PRN SL 04/18/24 16:15 Hold Morphine Sulfate 2 mg Q30M PRN IV 04/18/24 16:15 Morphine Sulfate 1 mg Q4HPRN PRN IV 04/18/24 16:15 Acetaminophen/ Hydrocodone Bitart 1 tab Q6HPRN PRN PO 04/18/24 16:15 04/25/24 20:30 1 TAB Acetaminophen 500 mg Q8HP PRN PO 04/18/24 16:15 Ondansetron HCl 4 mg Q6HP PRN IV 04/18/24 16:15 Docusate Sodium 100 mg BID PRN PO 04/18/24 16:15 Spironolactone 25 mg BIDD PO 04/19/24 18:00 04/26/24 17:55 25 MG Furosemide 40 mg DAILY IV 04/21/24 10:00 04/26/24 11:24 40 MG Piperacillin Sod/ Tazobactam Sod 100 ml @ 25 mls/hr Q8HR IV 04/20/24 14:00 04/26/24 21:10 25 MLS/HR Sildenafil Citrate 20 mg TID@08,14,20 PO 04/21/24 14:00 04/26/24 21:09 20 MG Albuterol 2.5 mg Q4HWA NEB 04/25/24 18:00 04/26/24 22:09 2.5 MG Ipratropium [place] 0.5 mg Q4HWA NEB 04/25/24 18:00 04/26/24 22:09 0.5 MG objective Gen.: Patient lying in bed in no apparent distress. On supplemental oxygen. Head: Normocephalic, atraumatic. Eyes: EOMI/PERRLA. Ears: Normal hearing. Normal anatomy. Neck/trachea: Trachea midline, supple. Nose: Normal external anatomy. Mouth: Moist mucous membranes. Chest: Decreased air entry bilaterally. No wheezing or rhonchi. Cardiovascular: Positive S1, positive S2. Regular rate and rhythm. Abdomen: Positive bowel sounds in all 4 quadrants. Soft, non-tender, non- distended. : Deferred. Rectal: Deferred. Skin: Warm, dry. Intact. Extremities: 2+ radial pulses bilaterally. No lower extremity edema. Neuro: Awake, alert, oriented x3. No gross motor or sensory deficits. Cranial nerves II through XII intact. Gait not assessed. laboratory and microbiology Laboratory Tests 04/24/24 07:33 Test 04/24/24 07:33 Range/Units Serum Glucose 107 H 74-106 mg/dL Assessment/Plan Impression: Acute on chronic hypoxic respiratory failure Dependence on supplemental oxygen Acute systolic CHF. End-stage renal disease, on hemodialysis Obstructive sleep apnea Morbid obesity Events: Remains on supplemental oxygen On 3 LPM NC Taper O2 as tolerated BiPAP at night for TOSHIA - 10 PM to 6 AM. Head of bed elevation Aspiration precautions Continue Revatio TID for pulmonary hypertension - hold if SBP less than 90 mmHg Continue bronchodilators Continue antibiotics Incentive spirometry PT for ambulation Diuresing w/ Lasix Monitor renal function Monitor ins and outs Maintain euvolemia Labs and imaging reviewed. Rest of plan as noted below. Plan: Supplemental oxygen Titrate to keep O2 sats between 88-94%. Revatio TID Continue bronchodilators. Continue antibiotics Incentive spirometry Monitor renal function. Monitor electrolytes. Supplement as necessary. Monitor ins and outs. Diet and lifestyle modifications for weight reduction Morbid obesity - complicates all care DVT prophylaxis. Prognosis: Poor given patient's multiple co-morbidities. Rest of plan per hospitalist and other consultants. Thank you, AMELIA Middleton, for allowing me to participate in this patient's care. Further recommendations will depend on the patient's clinical course. Please do not hesitate to contact me if you have any questions or concerns. This medical document was created using an electronic medical record system with [employer] dictation system. Although these documentations are being carefully reviewed, there may still be some phonetic and typographical changes. The errors are purely typographical, due to imperfection on the software program, and do not reflect any compromise in the patient's medical care. Dietary Evaluation Review Comments: 1) VitC 500mg BID, Zinc sulfate 220mg daily x 10days, MVI 1 tab daily 2) Ensure High Protein 8fl oz BID 3) Continue current plan of care Expected Outcomes/Goals: Pt will meet >75% estimated needs Fu 3-5 days Plan discussed with: Patient, Other (RN Don) ANCELMO MONTOYA MD Apr 26, 2024 23:32
[2024-04-27] VITALS (16 sets, daily range): BP systolic 102–122; BP diastolic 49–63; PULSE 61–80; RESP 18; TEMP 98.3–98.6; O2SAT 92–100
[2024-04-27] MEDS ORDERED: SILD20TA PO (14:05)
--- NOTE | 2024-04-27 14:15 | DVHDS2 ---
Discharge Summary Date of Admission Apr 18, 2024 at 16:08 Date of Discharge: Apr 27, 2024 Admitting Diagnosis Acute on chronic hypoxic respiratory failure Labs/Diagnostic Data: Laboratory Results Test 04/24/24 07:33 04/19/24 17:06 04/19/24 05:13 04/18/24 15:26 White Blood Count 7.2 10^3/uL (4.4-10.8) Red Blood Count 3.62 10^6/uL (4.5-5.90) Hemoglobin 10.4 g/dL (13.5-17.5) Hematocrit 32.2 % (41.0-53.0) Mean Corpuscular Volume 88.8 fL (80.0-100.0) Mean Corpuscular Hemoglobin 28.6 pg (28.0-32.0) Mean Corpuscular Hemoglobin Concent 32.2 g/dL (32.0-36.0) Red Cell Distribution Width 15.4 % (11.8-14.3) Platelet Count 96 10^3/uL (140-450) Mean Platelet Volume 8.3 fL (6.9-10.8) Neutrophils (%) (Auto) 78.1 % (37.0-80.0) Lymphocytes (%) (Auto) 8.8 % (10.0-50.0) Monocytes (%) (Auto) 4.8 % (0.0-12.0) Eosinophils (%) (Auto) 6.1 % (0.0-7.0) Basophils (%) (Auto) 2.2 % (0.0-2.0) Neutrophils # (Auto) 5.6 10 ^3/uL (1.6-8.6) Lymphocytes # (Auto) 0.6 10 ^3/uL (0.4-5.4) Monocytes # (Auto) 0.3 10 ^3/uL (0-1.3) Eosinophils # (Auto) 0.4 10 ^3/uL (0-0.8) Basophils # (Auto) 0.2 10 ^3/uL (0-0.2) Nucleated Red Blood Cells 0.0 % Sodium Level 139 mmol/L (136-145) Potassium Level 4.4 mmol/L (3.5-5.1) Chloride Level 90 mmol/L (98-107) Carbon Dioxide Level > 40 mmol/L (20-31) Anion Gap 8.76944 (5-15) Blood Urea Nitrogen 17 mg/dL (9-23) Creatinine 1.33 mg/dL (0.700-1.30) Glomerular Filtration Rate Calc 59 mL/min (>90) BUN/Creatinine Ratio 12.8 (10.0-20.0) Serum Glucose 107 mg/dL (74-106) Calcium Level 9.2 mg/dL (8.7-10.4) Troponin I High Sensitivity 9 ng/L (</=54) Hepatitis B Surface Antigen Negative (Negative) Hepatitis C Antibody Negative (Negative) Urine Color Light-yellow (Yellow) Urine Clarity Clear (Clear) Urine pH 5.0 (5.0-9.0) Urine Specific [place] 1.010 (1.001-1.035) Urine Protein Negative (Negative) Urine Ketones Negative (Negative) Urine Blood Negative /uL (Negative) Urine Nitrite Negative (Negative) Urine Bilirubin Negative (Negative) Urine Urobilinogen Normal mg/dL (Negative) Urine Leukocyte Esterase Negative /uL (Negative) Urine RBC <1 /hpf (0 - 3) Urine Microscopic WBC 1 /HPF (0-3) Urine Squamous Epithelial Cells Few /hpf (<5) Urine Bacteria None seen /hpf (None Seen) Urine Hyaline Casts Few /lpf (0 - 2) Urine Mucus Few (None Seen) Urine Glucose Normal mg/dL (Normal) Test 04/18/24 11:25 B-Type Natriuretic Peptide 97.47 pg/mL (0-100) Other Laboratory Tests 04/24/24 07:33 Brief Hx & Hospital Course: History of Present Illness The patient was a 68-year-old male transported to the emergency room by EMS with reports of worsening shortness of breath. Patient was states that he was discharged from [facility] approximately 2-3 weeks ago with diagnosis of pneumonia. Patient was states that over the past one week he has had worsening dyspnea with exertion, but denies having any fevers, chills, cough, chest pain, or wheezing. Chest x-ray reveals pulmonary vascular congestion. Patient states that he does have a history of congestive heart failure, as well as atrial fibrillation. Surgical history includes pacemaker. Course of hospitalization: Patient was aggressive IV diuresis with the patient having persistent shortness of breath. Echocardiogram was performed which revealed severely elevated right ventricular systolic pressure without any left heart disease. Both Cardiology and Pulmonary consultation was placed. Patient was started on Revatio 20 mg p.o. t.i.d.. Patient was also continued on IV antibiotic therapy. Patient has been titrated down to 4 L via nasal cannula. He has been ambulating approximately 8 ft with a walker, for which is close to his baseline at home. Patient will be discharged home with physical therapy, as well as continuation of pulmonary hypertension medication. Patient was instructed to follow up with both pulmonology and Cardiology as an outpatient. All questions answered. Physical examination General: Alert and Oriented x3. No acute distress. Well-nourished. Obese Eyes: EOMI. Anicteric. HENT: Moist mucous membranes. Lungs: Clear to auscultation bilaterally. No accessory muscle use. Decreased breath sounds at bases Cardiovascular: Regular rate and rhythm. No murmur. No JVD. Abdomen: Soft, non-tender and non-distended. No palpable masses. Extremities: No edema. Non-tender. Skin: No rashes or lesions. Warm. Neurologic: No focal neurological deficits. CN II-XII grossly intact, but not individually tested. Psychiatric: Cooperative. Appropriate mood and affect. Total time spent with patient discussing and formulating plan of care: 35 minutes. This medical document was created using an electronic medical record system with [employer] dictation system. Although this document has been carefully reviewed, there may still be some phonetic and typographical errors. These areas are purely typographical due to imperfections of the software programs, and do not reflect any compromise in the patient's medical care. Consults/Reason for consult Cardiology: Pulmonary hypertension, decompensated heart failure Pulmonology: Pulmonary hypertension Condition at Discharge: Poor Final Diagnosis/Problems List Acute on chronic hypoxic respiratory failure Secondary diagnosis: -pulmonary vascular congestion, probable acute decompensated systolic heart failure -obesity -history of permanent pacemaker implant -hypertension -hypothyroidism -chronic kidney disease , 3A -obstructive sleep apnea -pulmonary hypertension Discharge Disposition: Home with Health Services Discharge Instruct/Medications Diet: Consistent carbohydrate, Cardiac 2g Na,low cholest Activity: No Restrictions, As Tolerated Activity comment: Physical therapy at home Follow Up/Referral: Follow up with PCP in 1-2 weeks Medications: Refer to medication reconciliation form 36 Discharge Statement: "Patient was advised to return to the ER or call 911 if any headaches, dizziness, shortness of breath, chest pain, abdominal pain, bleeding, fevers, or worsening of medical condition. Patient was counseled about treatment plan, medications, possible side effects, patientverbalized understanding. All questions were answered to the best of my ability. This discharge took greater then 30 minutes in planning, reviewing documentation, counseling the patient, and discussing with other team members." ASSESSMENT ASSESSMENT Assessment Acute on chronic hypoxic respiratory failure Date of Service: Apr 27, 2024 Billing Provider: NORMAN HUTCHISON NP Common Visit Codes: 26981-CHA/OBS DISCH DAY >30min NORMAN HUTCHISON NP Apr 27, 2024 14:15
--- NOTE | 2024-04-27 22:47 | DVHPN2 ---
Progress Note - Dictate Date Seen: Apr 27, 2024 Medical Necessity Reason Pt with a Central, PICC or Fol: No Subjective Patient seen and examined at bedside. Remains on supplemental oxygen Overnight events reviewed. vital signs Vital Sign Date Time Temp Pulse Resp B/P (MAP) Pulse Ox O2 Delivery O2 Flow Rate FiO2 04/27/24 18:10 66 18 100 04/27/24 18:04 Nasal Cannula 3.0 04/27/24 18:04 32 04/27/24 17:30 98.6 115/62 (79) 98.6 Total Intake and Output 04/26/24 04/26/24 04/27/24 15:00 23:00 07:00 Intake Total 900 ml 754 ml Output Total 600 ml Balance 900 ml 154 ml objective Gen.: Patient lying in bed in no apparent distress. On supplemental oxygen. Head: Normocephalic, atraumatic. Eyes: EOMI/PERRLA. Ears: Normal hearing. Normal anatomy. Neck/trachea: Trachea midline, supple. Nose: Normal external anatomy. Mouth: Moist mucous membranes. Chest: Decreased air entry bilaterally. No wheezing or rhonchi. Cardiovascular: Positive S1, positive S2. Regular rate and rhythm. Abdomen: Positive bowel sounds in all 4 quadrants. Soft, non-tender, non- distended. : Deferred. Rectal: Deferred. Skin: Warm, dry. Intact. Extremities: 2+ radial pulses bilaterally. No lower extremity edema. Neuro: Awake, alert, oriented x3. No gross motor or sensory deficits. Cranial nerves II through XII intact. Gait not assessed. laboratory and microbiology Laboratory Tests 04/24/24 07:33 Test 04/24/24 07:33 Range/Units Serum Glucose 107 H 74-106 mg/dL Assessment/Plan Impression: Acute on chronic hypoxic respiratory failure Dependence on supplemental oxygen Acute systolic CHF. End-stage renal disease, on hemodialysis Obstructive sleep apnea Morbid obesity Events: Remains on supplemental oxygen On 4 LPM NC Taper O2 as tolerated BiPAP at night for TOSHIA - 10 PM to 6 AM. Head of bed elevation Aspiration precautions Continue Revatio TID for pulmonary hypertension - hold if SBP less than 90 mmHg Continue bronchodilators Continue antibiotics Incentive spirometry PT for ambulation Xarelto for atrial fibrillation Diuresing w/ Lasix Monitor renal function Monitor ins and outs Maintain euvolemia Protonix for GI prophylaxis Labs and imaging reviewed. Rest of plan as noted below. Plan: Supplemental oxygen Titrate to keep O2 sats between 88-94%. Revatio TID Continue bronchodilators. Continue antibiotics Incentive spirometry Monitor renal function. Monitor electrolytes. Supplement as necessary. Monitor ins and outs. Diet and lifestyle modifications for weight reduction Morbid obesity - complicates all care DVT prophylaxis. Prognosis: Poor given patient's multiple co-morbidities. Rest of plan per hospitalist and other consultants. Thank you, AMELIA Middleton, for allowing me to participate in this patient's care. Further recommendations will depend on the patient's clinical course. Please do not hesitate to contact me if you have any questions or concerns. This medical document was created using an electronic medical record system with [employer] dictation system. Although these documentations are being carefully reviewed, there may still be some phonetic and typographical changes. The errors are purely typographical, due to imperfection on the software program, and do not reflect any compromise in the patient's medical care. Dietary Evaluation Review Comments: 1) VitC 500mg BID, Zinc sulfate 220mg daily x 10days, MVI 1 tab daily 2) Ensure High Protein 8fl oz BID 3) Continue current plan of care Expected Outcomes/Goals: Pt will meet >75% estimated needs Fu 3-5 days Plan discussed with: Patient, Other (DELFINA Kauffman) ANCELMO MONTOYA MD Apr 27, 2024 22:47
== END 2024-04-27 19:45 | disposition home health service (06) | DRG 291 ==
LOC: EDBD 11:10 → EDUNIT# 11:10 → ER 11:14 → OVERFLOW 16:08 → TELE-WESTW 23:59
PROVIDERS: ADMIT Nurse Practitioner Acute Care; ATTEND Nurse Practitioner Acute Care
PROC: 5A09357 Assistance with Respiratory Ventilation, Less than 24 Consecutive Hours, Continuous Positive Airway Pressure (ICD-10-PCS; principal; 2024-04-19)
PROC: 5A09357 Assistance with Respiratory Ventilation, Less than 24 Consecutive Hours, Continuous Positive Airway Pressure (ICD-10-PCS; 2024-04-20)
PROC: 5A09357 Assistance with Respiratory Ventilation, Less than 24 Consecutive Hours, Continuous Positive Airway Pressure (ICD-10-PCS; 2024-04-21)
PROC: 5A09357 Assistance with Respiratory Ventilation, Less than 24 Consecutive Hours, Continuous Positive Airway Pressure (ICD-10-PCS; 2024-04-22)
PROC: 5A09357 Assistance with Respiratory Ventilation, Less than 24 Consecutive Hours, Continuous Positive Airway Pressure (ICD-10-PCS; 2024-04-23)
PROC: 5A09357 Assistance with Respiratory Ventilation, Less than 24 Consecutive Hours, Continuous Positive Airway Pressure (ICD-10-PCS; 2024-04-24)
PROC: 5A09357 Assistance with Respiratory Ventilation, Less than 24 Consecutive Hours, Continuous Positive Airway Pressure (ICD-10-PCS; 2024-04-25)
PROC: 5A09357 Assistance with Respiratory Ventilation, Less than 24 Consecutive Hours, Continuous Positive Airway Pressure (ICD-10-PCS; 2024-04-26)
PROC: 5A09357 Assistance with Respiratory Ventilation, Less than 24 Consecutive Hours, Continuous Positive Airway Pressure (ICD-10-PCS; 2024-04-27)
DX: I13.2 Hypertensive heart and chronic kidney disease with heart failure and with stage 5 chronic kidney disease, or end stage renal disease (principal); I50.23 Acute on chronic systolic (congestive) heart failure; J96.21 Acute and chronic respiratory failure with hypoxia; N18.6 End stage renal disease; Z68.43 Body mass index [BMI] 50.0-59.9, adult; Z99.81 Dependence on supplemental oxygen; Z99.2 Dependence on renal dialysis; Z79.01 Long term (current) use of anticoagulants; I27.20 Pulmonary hypertension, unspecified; E03.9 Hypothyroidism, unspecified; J44.9 Chronic obstructive pulmonary disease, unspecified; E66.01 Morbid (severe) obesity due to excess calories; I48.91 Unspecified atrial fibrillation; F17.200 Nicotine dependence, unspecified, uncomplicated; E78.5 Hyperlipidemia, unspecified; G47.33 Obstructive sleep apnea (adult) (pediatric); Z95.0 Presence of cardiac pacemaker; Z83.3 Family history of diabetes mellitus; Z82.49 Family history of ischemic heart disease and other diseases of the circulatory system; Z80.0 Family history of malignant neoplasm of digestive organs; Z91.013 Allergy to seafood
CPT/HCPCS: 36415; 71045; 71250; 80048; 81001; 83880; 84484; 85025; 86803; 87081; 87340; 93005; 93306; 94640; 94660; 96374; 96375; 97110; 97116; 97163; 97530; 99291; G0378; J2543

== ENCOUNTER 2024-10-03 12:26 | Inpatient (IN) | payer MEDICARE, MEDICAID ==
[2024-10-03] VITALS (8 sets, daily range): BP systolic 111–147; BP diastolic 53–70; PULSE 74–90; RESP 16–24; TEMP 97.8–98; O2SAT 90–94
[~2024-10-03] VITALS: Ht 190.5 cm; Wt 159.2 kg
[~2024-10-03 12:26] MED LIST changes: -ALBU108A5 INH; -BUME0.5T4 PO; -FEXO-42 PO; +SILD20TA PO; -SUCR1TAB PO
--- NOTE | 2024-10-03 12:53 | ED.PDOC ---
SOB-HPI HPI Comments This is a 68-year-old male who comes in with chief complaint of shortness a breath. The patient states that he has been having increased shortness for breath for the past week with some leg swelling. The patient denies any nausea, vomiting or chest pain. The patient has also been having some knee pain but thinks it is secondary to the increased swelling of his legs. He is currently on home oxygen which she states is at 2-3 L nasal cannula. When the paramedics arrived, the patient's oxygen saturation was only 85%. His oxygen was turned up to 6 L and he was then saturating at 96%. The patient denies any fever or any went in the house who has recently being sick. He has had a nonproductive cough as well. The patient is morbidly obese. Chief Complaint: Shortness of Breath Time Seen by MD: 12:36 Primary Care Provider: pt does not know Reviewed notes: Nurses Notes, Pulmonologist/Intensivist Notes, Medications, Allergies (Allergies listed above) Information Source: Patient, Emergency Med Personnel Mode of Arrival: EMS Severity: Moderate Timing: Days Duration: Since onset Context: At Rest PE Risk Factors: None History of: COPD, CHF Prehospital treatment: 12 Lead EKG, Wheel Fitter, IVF, Oxygen Modifying Factors: Nothing Associated Signs and Symptoms: Cough, Leg Swelling If cough with SOB: Non-Productive Past Medical History PAST MEDICAL HISTORY: AFIB, CHF, CKF, COPD, High Lipids, HTN, Thyroid Surgical History: Pacemaker Surgical History (Other): Left knee surgery Family History Family History: Reviewed,noncontributory to illness Social History Smoker: Secondhand Alcohol: Occasionally Drugs: Denies Drug Use Lives In: Home Constitutional: denies: chills, diaphoresis, fatigue, fever, malaise, sweats, weakness, others EENTM: denies: blurred vision, double vision, ear bleeding, ear discharge, ear drainage, ear pain, ear ringing, eye pain, eye redness, hearing loss, mouth pain, mouth swelling, nasal discharge, nose bleeding, nose congestion, nose pain, photophobia, tearing, throat pain, throat swelling, voice changes, others Respiratory: reports: cough, shortness of breath; denies: hemoptysis, orthopnea, SOB at rest, SOB with excertion, stridor, wheezing, others Cardiovascular: denies: chest pain, dizzy spells, diaphoresis, Dyspnea on exertion, edema, irregular heart beat, left arm pain, lightheadedness, palpitations, PND, syncope, others Gastrointestinal: denies: abdomen distended, abdominal pain, blood streaked bowels, constipated, diarrhea, dysphagia, difficulty swallowing, hematemesis, melena, nausea, poor appetite, poor fluid intake, rectal bleeding, rectal pain, vomiting, others Genitourinary: denies: burning, dysuria, flank pain, frequency, hematuria, incontinence, penile discharge, penile sore, pain, testicle pain, testicle swelling, urgency, others Neurological: denies: dizziness, fainting, headache, left sided numbness, left sided weakness, numbness, paresthesia, pre-existing deficit, right sided numbness, right sided weakness, seizure, speech problems, tingling, tremors, weakness, others Musculoskeletal: denies: back pain, gout, joint pain, joint swelling, muscle pain, muscle stiffness, neck pain, others Integumetry: reports: others (Leg edema); denies: bruises, change in color, change in hair/nails, dryness, laceration, lesions, lumps, rash, wounds Allergic/Immunocompromised: denies: Difficulty Healing, Frequent Infections, Hives, Itching, others Hematologic/Lymphatic: denies: anemia, blood clots, easy bleeding, easy bruising, swollen glands, others Endocrine: denies: excessive hunger, excessive sweating, excessive thirst, excessive urination, flushing, intolerance to cold, intolerance to heat, unexplained weight gain, unexplained weight loss, others Psychiatric: denies: anxiety, bipolar disorder, depression, hopeless, panic disorder, schizophrenia, sleepless, suicidal, others Physical Exam General Appearance: Moderate Distress, Other (Morbidly obese) HEENT: Normal ENT Inspection, Pharynx Normal, TMs Normal Neck: Full Range of Motion, Non-Tender, Normal, Normal Inspection Respiratory: Chest Non-Tender, Lungs Clear, No Accessory Muscle Use, No Respiratory Distress, Normal Breath Sounds Cardiovascular: No Edema, No JVD, No Murmur, No Gallop, Normal Peripheral Pulses, Regular Rate/Rhythm, Other (Pacemaker to the left chest) Breast Exam: Deferred Gastrointestinal: No Organomegaly, Non Tender, No Pulsatile Mass, Normal Bowel Sounds, Soft Genitalia: Deferred Pelvic: Deferred Rectal: Deferred Extremities: No calf tenderness, Normal capillary refill, Pedal edema Musculoskeletal : Apperance: Normal Neurologic: Alert, restaurant lead II-XII nml as Tested, Motor Weakness, Normal Affect, Normal Mood, No Sensory Deficits Cerebellar Function: Normal Reflexes: Normal Skin: Dry, Normal Color, Warm Lymphatic: No Adenopathy EKG EKG : Pulse Rate (adult): 73 [place]: Normal Cardiac Rhythm: Paced Block: None ST: Nonsp Was a procedure done? Was a procedure done?: No Differential Dx Differential Diagnosis: Asthma, Bronchitis, CHF, COPD, Pneumonia X-Ray, Labs, Meds, VS Vital Signs Date Time Temp Pulse Resp B/P (MAP) Pulse Ox O2 Delivery O2 Flow Rate FiO2 10/03/24 14:15 130/65 10/03/24 13:00 74 24 91 Nasal Cannula* 4 36 10/03/24 13:00 98.7 74 14 120/71 (87) 90 98.7 10/03/24 12:53 73 10/03/24 12:41 73 10/03/24 12:30 98.2 92 18 147/84 96 98.2 Lab Test 10/03/24 14:13 10/03/24 13:05 Range/Units Troponin I High Sensitivity Pending 13 </=54 ng/L White Blood Count 4.8 4.4-10.8 10^3/uL Red Blood Count 3.99 L 4.5-5.90 10^6/uL Hemoglobin 11.1 L 13.5-17.5 g/dL Hematocrit 36.4 L 41.0-53.0 % Mean Corpuscular Volume 91.3 80.0-100.0 fL Mean Corpuscular Hemoglobin 27.8 L 28.0-32.0 pg Mean Corpuscular Hemoglobin Concent 30.4 L 32.0-36.0 g/dL Red Cell Distribution Width 17.1 H 11.8-14.3 % Platelet Count 105 L 140-450 10^3/uL Mean Platelet Volume 8.3 6.9-10.8 fL Neutrophils (%) (Auto) 79.7 37.0-80.0 % Lymphocytes (%) (Auto) 9.6 L 10.0-50.0 % Monocytes (%) (Auto) 6.7 0.0-12.0 % Eosinophils (%) (Auto) 3.4 0.0-7.0 % Basophils (%) (Auto) 0.6 0.0-2.0 % Neutrophils # (Auto) 3.8 1.6-8.6 10 ^3/uL Lymphocytes # (Auto) 0.5 0.4-5.4 10 ^3/uL Monocytes # (Auto) 0.3 0-1.3 10 ^3/uL Eosinophils # (Auto) 0.2 0-0.8 10 ^3/uL Basophils # (Auto) 0 0-0.2 10 ^3/uL Nucleated Red Blood Cells 0.1 % Sodium Level 141 136-145 mmol/L Potassium Level 4.9 3.5-5.1 mmol/L Chloride Level 95 L 98-107 mmol/L Carbon Dioxide Level > 40 *H 20-31 mmol/L Anion Gap 5.34053 5-15 Blood Urea Nitrogen 25 H 9-23 mg/dL Creatinine 1.37 H 0.700-1.30 mg/dL Glomerular Filtration Rate Calc 57 >90 mL/min BUN/Creatinine Ratio 18.2 10.0-20.0 Serum Glucose 89 74-106 mg/dL Calcium Level 8.6 L 8.7-10.4 mg/dL B-Type Natriuretic Peptide 282.85 0-100 pg/mL Current Medications Medications (Trade) Dose Ordered Sig/Jeanine Route Start Time Stop Time Status Last Admin Methylprednisolone Sodium Succinate (Solu Medrol) 125 mg ONCE ONCE IV 10/03/24 12:45 10/03/24 12:46 DC 10/03/24 14:16 Furosemide (Lasix Injection) 40 mg ONCE ONCE IV 10/03/24 12:45 10/03/24 12:46 DC 10/03/24 14:15 IV Hep-Lock was established The patient was given Solu-Medrol 125 mg IV push The patient was given Lasix 40 mg IV push The anion gap is 5.99 The CO2 level is greater than 40 The BNP is elevated at 282.85 The patient's CBC shows anemia with a hemoglobin of 11.1 The rest of the chemistry panel is within normal limits The 1st troponin level came back as negative The chest x-ray shows: IMPRESSION: 1. Bibasilar pneumonia. Left-sided pacemaker. The patient will be started on antibiotics The patient will be started on Levaquin The patient is being admitted Images Reviewed?: Images reviewed and evaluated by me Time of 1ST Reevaluation: 12:52 Reevaluation 1ST: Unchanged Patient Education/Counseling: Diagnosis, Treatment, Prognosis Family Education/Counseling: No Family Present SEPSIS Sepsis Screen Physician Orders Chest Portable (10/03/24 12:37) Heplock Iv (10/03/24 12:37) Pulse Oximetry (10/03/24 12:37) Oxygen (10/03/24 12:37) Wheel Fitter (10/03/24 12:37) Blood Pressure (10/03/24 12:37) Electrocardigram (10/03/24 12:37) Troponin-I Hs (10/03/24 13:37) Troponin-I Hs (10/03/24 15:37) Electrocardigram (10/03/24 13:37) Electrocardigram (10/03/24 15:37) Vital Signs Date Time Temp Pulse Resp B/P (MAP) Pulse Ox O2 Delivery O2 Flow Rate FiO2 10/03/24 14:15 130/65 10/03/24 13:00 74 24 91 Nasal Cannula* 4 36 10/03/24 13:00 98.7 74 14 120/71 (87) 90 98.7 10/03/24 12:53 73 10/03/24 12:41 73 10/03/24 12:30 98.2 92 18 147/84 96 98.2 Laboratory Tests Test 10/03/24 13:05 White Blood Count 4.8 10^3/uL (4.4-10.8) Medications Medications Dose Ordered Sig/Jeanine Route Start Time Stop Time Status Last Admin Dose Admin Furosemide 40 mg ONCE ONCE IV 10/03/24 12:45 10/03/24 12:46 DC 10/03/24 14:15 Methylprednisolone Sodium Succinate 125 mg ONCE ONCE IV 10/03/24 12:45 10/03/24 12:46 DC 10/03/24 14:16 Departure 1 Departure Time of Disposition: 14:40 Impression: Primary Impression: Acute exacerbation of chronic obstructive pulmonary disease (COPD) Additional Impressions: Morbid obesity with BMI of 70 and over, adult Bilateral pneumonia Qualified Codes: J18.9 - Pneumonia, unspecified organism Disposition: 09 ADMITTED INPATIENT Admit to: [facility] Condition: Fair Critical Care Note Critical Care Time?: Yes (55 min-critical care time only) Stability Stability form required: Yes Unstable for transfer: Telemetry monitoring (Telemetry monitoring required), ED Physician Assesment (Clinical assesment) Heart Score Heart Score: Heart Score Response (Comments) Value History N/A 0 EKG N/A 0 Age N/A 0 Risk Factors N/A 0 Troponin N/A 0 Total 0 LURDES GUNN MD Oct 03, 2024 12:53
--- NOTE | 2024-10-03 13:22 | DVH ---
INDICATION: sob TECHNIQUE: Frontal view of the chest. COMPARISON: XY CHEST PORTABLE on DOS: 04/24/24, CT CHEST WITHOUT CONTRAST on DOS: 04/19/24, XY CHEST PO RTABLE on DOS: 04/19/24, XY CHEST PORTABLE on DOS: 04/18/24, XY CHEST XRAY 1 VIEW on DOS: 05/03/23 FINDINGS: Bibasilar airspace opacities.. The heart and mediastinal contours are grossly unremarkable. There is no evidence of pleural disease. The bony structures of the chest are intact without fracture. IMPRESSION: 1. Bibasilar pneumonia. Left-sided pacemaker.
[2024-10-03 13:25] LABS: Potassium 4.9 mmol/L (3.5-5.1); Sodium 141 mmol/L (136-145)
[2024-10-03 13:28] LABS: Nucleated Red Blood Cells % 0.1 %
[2024-10-03 13:30] LABS: Hematocrit 36.4 % (41.0-53.0); Hemoglobin 11.1 g/dL (13.5-17.5); Mean Corpuscular Hemoglobin 27.8 pg (28.0-32.0); Mean Corpuscular Volume 91.3 fL (80.0-100.0)
[2024-10-03 13:31] LABS: Glucose 89 mg/dL (74-106)
[2024-10-03 13:32] LABS: BUN/Creatinine Ratio 18.2 (10.0-20.0)
[2024-10-03 13:41] LABS: Anion Gap 5.99999 (5-15); Chloride 95 mmol/L (98-107)
[2024-10-03 13:42] LABS: Blood Urea Nitrogen 25 mg/dL (9-23); Calcium 8.6 mg/dL (8.7-10.4); Carbon Dioxide > 40 mmol/L (20-31)
[2024-10-03] MEDS: FUROSEMIDE 40 MG/4 ML VIAL IV ONE (14:15)
[2024-10-03] MEDS: methylPREDNISolone SOD SUCC 125 MG/2 ML VL IV ONE ×2 (14:16→16:58)
[2024-10-03] MEDS ORDERED: ACETAMINOPHEN 325 MG TAB PO PRN (15:00)
[2024-10-03] MEDS ORDERED: ONDANSETRON HCL 4 MG/2 ML VIAL IV PRN (15:00)
[2024-10-03] MEDS ORDERED: NITROGLYCERIN 0.4 MG SL TAB SL PRN (15:00)
[2024-10-03] MEDS ORDERED: MORPHINE SULFATE INJ 2 MG/ml SYRG IV PRN (15:00)
--- NOTE | 2024-10-03 15:07 | DVHHP2 ---
History of Present Illness Reason for Visit: Pneumonia, unspecified organism History of Present Illness The patient is a 68-year-old male morbidly obese with past medical history of AFib, CHF, CKF, COPD, hyperlipidemia, thyroid disease, and hypertension who presented to [facility] ED with complaint of shortness of breaths. The patient reports that he has been having increased shortness for breath for the past week with some leg swelling and knee pain, associated nonproductive cough; he is currently on home oxygen which she states is at 2-3 L nasal cannula. Patient was seen and evaluated in the ED, laboratory data shows WBC 4.8, hemoglobin 11.1, hematocrit 36.4, platelets 105, sodium 141, potassium 4.9, BUN 25, creatinine 1.37, glucose 89, calcium 8.6, troponin 13, BNP 282.85, blood pressure 120/71, heart rate 74, temperature 98.7 F, O2 saturation 91% on oxygen. Chest x-ray revealing bibasilar pneumonia, left-sided pacemaker. Please see medication orders section in the computer. On my assessment, patient denied chest pain, no headache, no dizziness, no diaphoresis, currently on oxygen, no diarrhea, no nausea, no vomiting, no fever, no chills. Patient was admitted for further evaluation and medical management. Past Medical History AFIB, CHF, CKF, COPD, High Lipids, HTN, Thyroid Past Surgical History Pacemaker, Left knee surgery Family History Reviewed, noncontributory to the management of this case. Past Social History The patient lives at home, denies smoking, alcohol or illicit drugs abuse. Review of Systems Constitutional: Yes: Weakness, Other (Morbid obesity); No: Fever, Chills, Sweats, Malaise Eyes: No: Pain, Vision change, Conjunctivae inflammation, Eyelid inflammation, Other, Redness ENT: No: Ear pain, Ear discharge, Nose pain, Nose discharge, Nose congestion, Mouth pain, Mouth swelling, Throat pain, Throat swelling, Other Respiratory: Cough, Shortness of breath, Other (SOB at rest); No: Dry, SOB with excertion, Wheezing, Hemoptysis, Pleuritic Pain, Sputum, Wheezing Cardiovascular: Edema; No: Chest Pain, Palpitations, Orthopnea, Paroxysmal Noc. Dyspnea, Lt Headedness, Other Gastrointestinal: No: Nausea, Vomiting, Abdominal Pain, Diarrhea, Constipation, Melena, Hematochezia, Other Genitourinary: No Dysuria, No Frequency, No Incontinence, No Hematuria, No Retention; Other (Loving catheter in place) Musculoskeletal: No: other, neck pain, shoulder pain, arm pain, back pain, hand pain, leg pain, foot pain Skin: No: Rash, Lesions, Jaundice, Bruising, Other Neurological: No: Weakness, Numbness, Incoordination, Change in speech, Confusion, Seizures, Other Allergies: Coded Allergies: Shrimp Flavor Agent (non-screening) (Verified Allergy, Severe, 02/11/22) Shellfish Allergy (Verified Allergy, Unknown, 04/13/23) Exam Vital Signs Vital Signs Date Time Temp Pulse Resp B/P (MAP) Pulse Ox O2 Delivery O2 Flow Rate FiO2 10/03/24 15:02 97 Nasal Cannula* 3 32 10/03/24 15:01 98.0 76 24 111/53 (72) 98.0 General Appearance: Alert, Oriented X3, Cooperative, No acute distress HEENT: Atraumatic, PERRLA, EOMI, Mucous membr. moist/pink Respiratory: Normal air movement, Other (Diminished breath sounds) Cardiovascular: Regular rate, Normal S1, Normal S2, No murmurs Abdominal: Normal bowel sounds, Soft, No tenderness, No hepatospenomegaly, No masses Extremities: No clubbing, No cyanosis, Normal pulses, Other (Lower extremity swelling) Skin: No rashes, No significant lesion Neuro: Normal speech, Normal tone, Sensation intact, Cranial nerves 3-12 NL, Reflexes 2+, Other (Generalized weakness) Psych/Mental Status: Mental status NL, Mood NL Labs/Xrays Labs Test 10/03/24 14:13 10/03/24 13:05 Range/Units Troponin I High Sensitivity 13 </=54 ng/L White Blood Count 4.8 4.4-10.8 10^3/uL Red Blood Count 3.99 L 4.5-5.90 10^6/uL Hemoglobin 11.1 L 13.5-17.5 g/dL Hematocrit 36.4 L 41.0-53.0 % Mean Corpuscular Volume 91.3 80.0-100.0 fL Mean Corpuscular Hemoglobin 27.8 L 28.0-32.0 pg Mean Corpuscular Hemoglobin Concent 30.4 L 32.0-36.0 g/dL Red Cell Distribution Width 17.1 H 11.8-14.3 % Platelet Count 105 L 140-450 10^3/uL Mean Platelet Volume 8.3 6.9-10.8 fL Neutrophils (%) (Auto) 79.7 37.0-80.0 % Lymphocytes (%) (Auto) 9.6 L 10.0-50.0 % Monocytes (%) (Auto) 6.7 0.0-12.0 % Eosinophils (%) (Auto) 3.4 0.0-7.0 % Basophils (%) (Auto) 0.6 0.0-2.0 % Neutrophils # (Auto) 3.8 1.6-8.6 10 ^3/uL Lymphocytes # (Auto) 0.5 0.4-5.4 10 ^3/uL Monocytes # (Auto) 0.3 0-1.3 10 ^3/uL Eosinophils # (Auto) 0.2 0-0.8 10 ^3/uL Basophils # (Auto) 0 0-0.2 10 ^3/uL Nucleated Red Blood Cells 0.1 % Sodium Level 141 136-145 mmol/L Potassium Level 4.9 3.5-5.1 mmol/L Chloride Level 95 L 98-107 mmol/L Carbon Dioxide Level > 40 *H 20-31 mmol/L Anion Gap 5.41859 5-15 Blood Urea Nitrogen 25 H 9-23 mg/dL Creatinine 1.37 H 0.700-1.30 mg/dL Glomerular Filtration Rate Calc 57 >90 mL/min BUN/Creatinine Ratio 18.2 10.0-20.0 Serum Glucose 89 74-106 mg/dL Calcium Level 8.6 L 8.7-10.4 mg/dL B-Type Natriuretic Peptide 282.85 0-100 pg/mL PATIENT: EMRE LARIOS ACCT: [id number] UNIT: [id number] : 1955 LOC: ER ROOM / BED: / AGE / SEX: 68 / M ADM STATUS: REG ER SERVICE 1237 ORDERING PHYSICIAN: LURDES GUNN MD PROCEDURE(s): CXRP - CHEST PORTABLE REASON: sob ORDER NUMBER(s): [id number], ACCESSION NUMBER(s): [id number] INDICATION: sob TECHNIQUE: Frontal view of the chest. COMPARISON: XY CHEST PORTABLE on DOS: 04/24/24, CT CHEST WITHOUT CONTRAST on DOS: 04/19/24, XY CHEST PORTABLE on DOS: 04/19/24, XY CHEST PORTABLE on DOS: 04/18/24, XY CHEST XRAY 1 VIEW on DOS: 05/03/23 FINDINGS: Bibasilar airspace opacities. The heart and mediastinal contours are grossly unremarkable. There is no evidence of pleural disease. The bony structures of the chest are intact without fracture. IMPRESSION: 1. Bibasilar pneumonia. Left-sided pacemaker. SEPSIS Sepsis Screen Date sepsis recognized/suspect: Oct 03, 2024 Time Sepsis recognized/suspect: 1229 Recent Procedure: No On Antibiotic Therapy: No Respiratory Rate >20: No Heart Rate >90: Yes Temp<36 C (96.8 F) or >38.3 C: No SBP <90 or MAP <65 mmHG: No New Acute Mental Status Change: No Is the patient on CPAP, BIPAP,: No Physician Orders Chest Portable (10/03/24 12:37) Heplock Iv (10/03/24 12:37) Pulse Oximetry (10/03/24 12:37) Oxygen (10/03/24 12:37) Casing Soaker (10/03/24 12:37) Blood Pressure (10/03/24 12:37) Electrocardigram (10/03/24 12:37) Troponin-I Hs (10/03/24 15:37) Electrocardigram (10/03/24 13:37) Electrocardigram (10/03/24 15:37) Blood Culture (10/03/24 14:41) Lactic Acid W/ Reflex Order (10/03/24 14:41) Levofloxacin 500mg (Levaquin 500mg/ 100m (10/03/24 14:45) Med Neb Initial Treatment (10/03/24 14:59) Thyroid Stimulating Hormone (10/03/24 14:57) (Nf) Xarelto (10/04/24 10:00) Atorvastatin (Lipitor) (10/03/24 22:00) Levofloxacin Levaquin (10/04/24 10:00) Furosemide Injection (Lasix Injection) (10/04/24 10:00) Famotidine Injection (Pepcid Injection) (10/03/24 22:00) Levothyroxine Tablet (Synthroid Tablet) (10/04/24 06:00) Albuterol Medneb (Ventolin Medneb) (10/03/24 15:00) Ipratropium Medneb (Atrovent Medneb) (10/03/24 15:00) Methylprednisolone Sod Succ (Solu Medrol (10/03/24 15:00) Methylprednisolone Sod Succ (Solu Medrol (10/03/24 22:00) Admit (10/03/24 14:57) Allergies (10/03/24 14:57) Code Status (10/03/24 14:57) Sodium Chloride Lock (Saline Lock Ns) (10/03/24 22:00) Oxygen Per Hour (10/03/24 14:57) Hydrocodone-Acet 5/325mg Tab ([place] 5/32 (10/03/24 15:00) Ondansetron Hcl (Zofran) (10/03/24 15:00) Docusate Sodium Capsule (Colace Capsule) (10/03/24 15:00) Complete Blood Count (10/04/24 04:00) Comprehensive Metabolic Panel (10/04/24 04:00) Cardiac Diet-2gna,Lofat,Lochol (10/03/24 Dinner) Condition: Serious (10/03/24 14:57) Acetaminophen Tablet (Tylenol Tablet) (10/03/24 15:00) Vital Signs Date Time Temp Pulse Resp B/P (MAP) Pulse Ox O2 Delivery O2 Flow Rate FiO2 10/03/24 15:02 97 Nasal Cannula* 3 32 10/03/24 15:01 98.0 76 24 111/53 (72) 97 98.0 10/03/24 14:15 130/65 10/03/24 13:00 74 24 91 Nasal Cannula* 4 36 10/03/24 13:00 98.7 74 14 120/71 (87) 90 98.7 10/03/24 12:53 73 10/03/24 12:41 73 10/03/24 12:30 98.2 92 18 147/84 96 98.2 Laboratory Tests Test 10/03/24 13:05 White Blood Count 4.8 10^3/uL (4.4-10.8) Medications Medications Dose Ordered Sig/Jeanine Route Start Time Stop Time Status Last Admin Dose Admin Furosemide 40 mg ONCE ONCE IV 10/03/24 12:45 10/03/24 12:46 DC 10/03/24 14:15 40 MG Methylprednisolone Sodium Succinate 125 mg ONCE ONCE IV 10/03/24 12:45 10/03/24 12:46 DC 10/03/24 14:16 125 MG Assessment/Plan Assessment/Plan Pneumonia, unspecified organism Bilateral pneumonia COPD with acute exacerbation Morbid obesity Acute renal injury Generalized weakness Acute hypoxic respiratory failure Acute on chronic diastolic heart failure Plan 1. Admit to telemetry unit 2. Breathing treatment 3. Pain control management 4. IV antibiotic management 5. Management of fluids and electrolytes 6. Consultation for pulmonology/hospitalist 7. Diagnostic test chest x-ray 8. DVT prophylaxis-on SCDs 9. Repeat labs CBC, CMP in a.m. 10. Home medication reviewed and reconciled 11. Continue with current medical management 12. Treatment plan discussed with patient and RN. Patient verbalized understanding. Plan discussed with: Patient, Other (RN) My Orders Orders - KARY BALLARD DNP Procedure Category Date Status Time Thyroid Stimulating LAB 10/03/24 Verified Hormone 14:57 (Nf) Xarelto PHA 10/04/24 Verified 10:00 Atorvastatin (Lipitor) PHA 10/03/24 Verified 22:00 Levofloxacin Levaquin PHA 10/04/24 Verified 10:00 Furosemide Injection PHA 10/04/24 Verified (Lasix Injection) 10:00 Famotidine Injection PHA 10/03/24 Verified (Pepcid Injection) 22:00 Levothyroxine Tablet PHA 10/04/24 Verified (Synthroid Tablet) 06:00 Albuterol Medneb PHA 10/03/24 Verified (Ventolin Medneb) 15:00 Ipratropium Medneb PHA 10/03/24 Verified (Atrovent Medneb) 15:00 Methylprednisolone PHA 10/03/24 Verified Sod Succ (Solu Medrol 15:00 Methylprednisolone PHA 10/03/24 Verified Sod Succ (Solu Medrol 22:00 Admit ADMIT 10/03/24 Verified 14:57 Allergies SUMIT 10/03/24 Verified 14:57 Code Status CODE 10/03/24 Verified 14:57 Sodium Chloride Lock PHA 10/03/24 Verified (Saline Lock Ns) 22:00 Oxygen Per Hour RT 10/03/24 Verified 14:57 Hydrocodone-Acet PHA 10/03/24 Verified 5/325mg Tab ([place] 15:00 Ondansetron Hcl PHA 10/03/24 Verified (Zofran) 15:00 Docusate Sodium PHA 10/03/24 Verified Capsule (Colace 15:00 Complete Blood Count LAB 10/04/24 Verified 04:00 Comprehensive LAB 10/04/24 Verified Metabolic Panel 04:00 Cardiac DIET 10/03/24 Verified Diet-2gna,Lofat,Lochol Dinner Condition: Serious SUMIT 10/03/24 Verified 14:57 Acetaminophen Tablet PHA 10/03/24 Verified (Tylenol Tablet) 15:00 Problem List: (1) Pneumonia, unspecified organism (2) Bilateral pneumonia (3) COPD with acute exacerbation (4) Morbid obesity (5) Acute renal injury (6) Generalized weakness (7) Acute hypoxic respiratory failure (8) Acute on chronic diastolic heart failure Date of Service: Oct 03, 2024 Billing Provider: KARY BALLARD DNP Common Visit Codes: [id number] INP/OBS CARE (HIGH) KARY BALLARD DNP Oct 03, 2024 15:07
[2024-10-03] MEDS: ALBUTEROL SULF 2.5 MG/0.5ML(0.5%) NEB SOLN HHN ONE (15:25)
[2024-10-03] MEDS: IPRATROPIUM BROM 0.5 MG/2.5ML INH SOL HHN ONE (15:25)
[2024-10-03] MEDS: HYDROcodone-ACET 5/325MG TAB PO PRN (16:57)
[2024-10-03] MEDS: IPRATROPIUM BROM 0.5 MG/2.5ML INH SOL NEB PRN (18:28)
[2024-10-03] MEDS: ALBUTEROL SULF 2.5 MG/0.5ML(0.5%) NEB SOLN NEB PRN (18:28)
[2024-10-03] MEDS: ATORVASTATIN 20 MG TAB PO SCH (23:22)
[2024-10-03] MEDS: FAMOTIDINE (10MG/ML) 2ML VL IV SCH (23:22)
[2024-10-03] MEDS: methylPREDNISolone SOD SUCC 40 MG/ML VL IV SCH (23:23)
[2024-10-03] MEDS: SODIUM CHLOR 0.9% PF (SALINE LOCK) 10ML VIAL/SYR IV SCH (23:23)
[2024-10-04] VITALS (18 sets, daily range): BP systolic 104–132; BP diastolic 66–85; PULSE 60–88; RESP 14–22; TEMP 96.7–98.4; O2SAT 89–100
[2024-10-04] MEDS: ALBUTEROL SULF 2.5 MG/0.5ML(0.5%) NEB SOLN NEB SCH (00:15)
[2024-10-04] MEDS: IPRATROPIUM BROM 0.5 MG/2.5ML INH SOL NEB SCH (00:15)
[2024-10-04] MEDS: LEVOTHYROXINE SODIUM 25 MCG TAB PO SCH (06:33)
[2024-10-04 07:01] LABS: Hematocrit 36.9 % (41.0-53.0); Hemoglobin 11.5 g/dL (13.5-17.5); Mean Corpuscular Hemoglobin 28.6 pg (28.0-32.0); Mean Corpuscular Volume 91.6 fL (80.0-100.0); Nucleated Red Blood Cells % 0.3 %
[2024-10-04 07:08] LABS: Alanine Aminotransferase 10 U/L (7-40); Albumin 3.9 g/dL (3.2-4.8); Alkaline Phosphatase 108 U/L (46-116); Anion Gap 5 (5-15); BUN/Creatinine Ratio 12.1 (10.0-20.0); Bilirubin, Total 0.9 mg/dL (0.2-1.0); Blood Urea Nitrogen 19 mg/dL (9-23); Calcium 9.1 mg/dL (8.7-10.4); Sodium 139 mmol/L (136-145); Total Protein 8.1 g/dL (5.7-8.2)
[2024-10-04 07:10] LABS: Carbon Dioxide 39 mmol/L (20-31); Chloride 95 mmol/L (98-107); Glucose 130 mg/dL (74-106); Potassium 5.4 mmol/L (3.5-5.1)
[2024-10-04] MEDS: FUROSEMIDE 40 MG/4 ML VIAL IV SCH (10:20)
--- NOTE | 2024-10-04 13:26 | DVHPN2 ---
Reviewed: Care Plan, H&P, Labs, Medications, Previous Orders, Radiology Changes from previous H/P or p: No Changes Eyes: No Pain, No Vision change, No Conjunctivae inflammation, No Eyelid inflammation, No Other, No Redness ENT: No Ear pain, No Ear discharge, No Nose pain, No Nose discharge, No Nose congestion, No Mouth pain, No Mouth swelling, No Throat pain, No Throat swelling, No Other Cardiovascular: No Chest Pain, No Palpitations, No Orthopnea, No Paroxysmal Noc. Dyspnea; Edema; No Lt Headedness, No Other Respiratory: Cough; No Dry; Shortness of breath; No SOB with excertion, No Wheezing, No Hemoptysis, No Pleuritic Pain, No Sputum; Other (SOB at rest) Gastrointestinal: No Nausea, No Vomiting, No Abdominal Pain, No Diarrhea, No Constipation, No Melena, No Hematochezia, No Other Genitourinary: No Dysuria, No Frequency, No Incontinence, No Hematuria, No Retention; Other (Loving catheter in place) Musculoskeletal: No other, No neck pain, No shoulder pain, No arm pain, No back pain, No hand pain, No leg pain, No foot pain Skin: No Rash, No Lesions, No Jaundice, No Bruising, No Other Objective Vitals Vital Signs Date Time Temp Pulse Resp B/P (MAP) Pulse Ox O2 Delivery O2 Flow Rate FiO2 10/04/24 13:00 97.5 72 20 132/72 (92) 98 97.5 10/04/24 12:12 Oxymizer 10/04/24 12:12 6 N/A Intake/Output Intake and Output 10/04/24 07:00 Intake Total 400 ml Output Total 1650 ml Balance -1250 ml Intake Oral 400 ml Output Urine Total 1650 ml Medications Current Medications Medications Dose Ordered Sig/Jeanine Route Start Time Stop Time Status Last Admin Dose Admin Patient Own Medication 10 mg DAILY PO 10/04/24 10:00 Atorvastatin Calcium 20 mg HS PO 10/03/24 22:00 10/03/24 23:22 20 MG Levofloxacin/ Dextrose 100 ml @ 100 mls/hr DAILY IV 10/04/24 10:00 10/04/24 10:19 100 MLS/HR Furosemide 40 mg DAILY IV 10/04/24 10:00 10/04/24 10:20 40 MG Famotidine 20 mg Q12HR IV 10/03/24 22:00 10/04/24 10:19 20 MG Levothyroxine Sodium 25 mcg QAM@0600 PO 10/04/24 06:00 10/04/24 06:33 25 MCG Albuterol 2.5 mg Q4HPRN PRN NEB 10/03/24 15:00 10/03/24 18:28 2.5 MG Ipratropium [place] 0.5 mg Q4HPRN PRN NEB 10/03/24 15:00 10/03/24 18:28 0.5 MG Methylprednisolone Sodium Succinate 40 mg Q8HR IV 10/03/24 22:00 10/04/24 06:33 40 MG Sodium Chloride 10 ml Q8HR IV 10/03/24 22:00 10/04/24 06:33 10 ML Acetaminophen/ Hydrocodone Bitart 1 tab Q4HP PRN PO 10/03/24 15:00 10/03/24 16:57 1 TAB Ondansetron HCl 4 mg Q4HP PRN IV 10/03/24 15:00 Docusate Sodium 100 mg BIDPRN PRN PO 10/03/24 15:00 Acetaminophen 650 mg Q6HP PRN PO 10/03/24 15:00 Nitroglycerin 0.4 mg Q5MINP PRN SL 10/03/24 15:00 Morphine Sulfate 2 mg Q30M PRN IV 10/03/24 15:00 Albuterol 2.5 mg Q6HR NEB 10/04/24 00:00 10/04/24 12:12 2.5 MG Ipratropium [place] 0.5 mg Q6HR NEB 10/04/24 00:00 10/04/24 12:12 0.5 MG Laboratory Results Laboratory Tests 10/04/24 06:08 Chemistry Test 10/04/24 06:08 Albumin 3.9 g/dL (3.2-4.8) Calcium Level 9.1 mg/dL (8.7-10.4) Total Protein 8.1 g/dL (5.7-8.2) LFT Test 10/04/24 06:08 Alanine Aminotransferase (ALT) 10 U/L (7-40) Alkaline Phosphatase 108 U/L (46-116) Aspartate Amino Transferase (AST) 25 U/L (13-40) Total Bilirubin 0.9 mg/dL (0.2-1.0) Labs and/or images reviewed: Labs reviewed by me, Image(s) reviewed by me Assessment/Plan Assessment/Plan Respiratory failure: Oxygen by nasal cannula Acute bilateral community-acquired pneumonia Gram-positive versus Gram-negative Levaquin Vian[place] test pending Rapid flu test pending History of home oxygen use History of pacemaker Atrial fibrillation Acute on chronic CHF exacerbation: Lasix Chronic kidney disease COPD exacerbation Hypertension Hypercholesterolemia Hypothyroidism Spent 70 minutes Advanced care planning time 20 minutes Patient is full code Nephrology, Cardiology, pulmonary consults Plan discussed with: Patient My Orders Orders - FADUMO VEGAS MD Procedure Category Date Status Time Covid19 Antigen Roselyn LAB 10/04/24 Transmitted Rapid Influenza A&B LAB 10/04/24 Transmitted 13:20 Date of Service: Oct 04, 2024 Billing Provider: FADUMO VEGAS MD Common Visit Codes: [id number] CARE 30-74 MIN FADUMO VEGAS MD Oct 04, 2024 13:26
[2024-10-04] MEDS: SODIUM ZIRCONIUM CYCL 10 GM PAK PO ONE (15:27)
--- NOTE | 2024-10-04 16:13 | DVHINCON2 ---
Date of service: Oct 04, [address] Tavo Badillo Reason for Consultation Elevated creatinine History of Present Illness This is a 68-year-old male morbidly obese with past medical history of AFib, CHF, COPD on home oxygen , hyperlipidemia, thyroid disease, and hypertension who presented to [facility] ED with complaint of shortness of breaths. The patient reports that he has been having increased shortness for breath for the past week with some leg swelling and knee pain, associated nonproductive cough; he is currently on home oxygen which she states is at 2-3 L nasal cannula. Patient was seen and evaluated in the ED, laboratory data shows WBC 4.8, hemoglobin 11.1, hematocrit 36.4, platelets 105, sodium 141, potassium 4.9, BUN 25, creatinine 1.37, glucose 89, calcium 8.6, troponin 13, BNP 282.85, blood pressure 120/71, heart rate 74, temperature 98.7 F, O2 saturation 91% on oxygen. Chest x-ray revealing bibasilar pneumonia, left-sided pacemaker. Nephrology consulted for rising creatinine and hyperkalemia Review of records shows that his creatinine was 1.1 in April Past Medical History AFIB, CHF, COPD, High Lipids, HTN, Thyroid Past Surgical History Past Surgical History Pacemaker, Left knee surgery Family History: Colon cancer G8 FATHER Diabetes mellitus G8 MOTHER G8 SISTER Hypertension G8 FATHER G8 BROTHER G8 SISTER Social History The patient lives at home, denies smoking, alcohol or illicit drugs abuse. Allergies: Coded Allergies: Shrimp Flavor Agent (non-screening) (Verified Allergy, Severe, 02/11/22) Shellfish Allergy (Verified Allergy, Unknown, 04/13/23) Home Meds Reported Medications Hydrocodone-Acetaminophen (Hydrocodone Bitartrate/AC 10-325 mg) 1 Tab Tab, 1 TAB PO DAILY PRN for 30 Days, #30 04/19/24 Docusate Sodium (Colace) 100 Mg Cap, 1 CAP PO BID for 30 Days, #60 04/19/24 Albuterol Sulfate (Albuterol Sulfate) 0.083 % Neb, 1 VIAL NEB Q6HR PRN for SHORTNESS OF BREATH for 23 Days, #270 04/19/24 Fluticasone Propionate (Fluticasone Propionate Hf) 110 Mcg/Act Aer, 2 PUFF INH BID for 30 Days, #12 04/15/23 Furosemide (Furosemide) 40 Mg Tab, 1 TAB PO DAILY for 90 Days, #90 02/01/23 Levothyroxine Sodium (Levothyroxine Sodium) 25 Mcg Tab, 1 TAB PO DAILY@BREAKFAST for 90 Days, #90 02/11/22 Atorvastatin Calcium (ATORVASTATIN CALCIUM) 40 Mg Tab, 1 TAB PO HS for 30 Days, #30 02/11/22 Ipratropium [place] Hfa (Atrovent Hfa) 17 Mcg Aer, 2 PUFF INH QID for 30 Days, #12.9 08/24/20 Current Medications Current Medications Medications (Trade) Dose Ordered Sig/Jeanine Route PRN Reason Start Time Stop Time Status Last Admin Patient Own Medication 10 mg DAILY PO 10/04/24 10:00 Atorvastatin Calcium (Lipitor) 20 mg HS PO 10/03/24 22:00 10/03/24 23:22 Levofloxacin/ Dextrose 100 ml @ 100 mls/hr DAILY IV 10/04/24 10:00 10/04/24 10:19 Furosemide (Lasix Injection) 40 mg DAILY IV 10/04/24 10:00 10/04/24 10:20 Famotidine (Pepcid Injection) 20 mg Q12HR IV 10/03/24 22:00 10/04/24 10:19 Levothyroxine Sodium (Synthroid Tablet) 25 mcg QAM@0600 PO 10/04/24 06:00 10/04/24 06:33 Methylprednisolone Sodium Succinate (Solu Medrol) 40 mg Q8HR IV 10/03/24 22:00 10/04/24 15:27 Sodium Chloride (Saline Lock Ns) 10 ml Q8HR IV 10/03/24 22:00 10/04/24 14:00 Albuterol (Ventolin Medneb) 2.5 mg Q6HR NEB 10/04/24 00:00 10/04/24 12:12 Ipratropium [place] (Atrovent Medneb) 0.5 mg Q6HR NEB 10/04/24 00:00 10/04/24 12:12 Review of Systems 12 point ROS negative except as in HPI Vital Signs Vital Signs Date Time Temp Pulse Resp B/P (MAP) Pulse Ox O2 Delivery O2 Flow Rate FiO2 10/04/24 13:00 97.5 72 20 132/72 (92) 98 97.5 10/04/24 12:12 Oxymizer 10/04/24 12:12 6 N/A Physical Exam General Appearance: Alert, Oriented X3, Cooperative, No acute distress HEENT: Atraumatic, PERRLA, EOMI, Mucous membr. moist/pink Respiratory: Diminished breath sounds Cardiovascular: Regular rate, Normal S1, Normal S2, No murmurs Abdominal: Normal bowel sounds, Soft, No tenderness, No hepatospenomegaly, No masses Extremities: Edema present Skin: No rashes, No significant lesion Neuro: No focal deficits Labs/Diagnostic Data Labs Test 10/04/24 15:18 10/04/24 06:08 10/03/24 15:42 10/03/24 13:05 Range/Units Influenza Type A Antigen Negative Negative Influenza Type B Antigen Negative Negative White Blood Count 3.1 #L 4.4-10.8 10^3/uL Red Blood Count 4.03 L 4.5-5.90 10^6/uL Hemoglobin 11.5 L 13.5-17.5 g/dL Hematocrit 36.9 L 41.0-53.0 % Mean Corpuscular Volume 91.6 80.0-100.0 fL Mean Corpuscular Hemoglobin 28.6 28.0-32.0 pg Mean Corpuscular Hemoglobin Concent 31.2 L 32.0-36.0 g/dL Red Cell Distribution Width 16.7 H 11.8-14.3 % Platelet Count 90 L 140-450 10^3/uL Mean Platelet Volume 8.6 6.9-10.8 fL Neutrophils (%) (Auto) 90.0 H 37.0-80.0 % Lymphocytes (%) (Auto) 7.4 L 10.0-50.0 % Monocytes (%) (Auto) 2.2 0.0-12.0 % Eosinophils (%) (Auto) 0.1 0.0-7.0 % Basophils (%) (Auto) 0.3 0.0-2.0 % Neutrophils # (Auto) 2.8 1.6-8.6 10 ^3/uL Lymphocytes # (Auto) 0.2 L 0.4-5.4 10 ^3/uL Monocytes # (Auto) 0.1 0-1.3 10 ^3/uL Eosinophils # (Auto) 0 0-0.8 10 ^3/uL Basophils # (Auto) 0 0-0.2 10 ^3/uL Nucleated Red Blood Cells 0.3 % Sodium Level 139 136-145 mmol/L Potassium Level 5.4 H 3.5-5.1 mmol/L Chloride Level 95 L 98-107 mmol/L Carbon Dioxide Level 39 H 20-31 mmol/L Anion Gap 5 5-15 Blood Urea Nitrogen 19 9-23 mg/dL Creatinine 1.57 H 0.700-1.30 mg/dL Glomerular Filtration Rate Calc 48 >90 mL/min BUN/Creatinine Ratio 12.1 10.0-20.0 Serum Glucose 130 H 74-106 mg/dL Calcium Level 9.1 8.7-10.4 mg/dL Total Bilirubin 0.9 0.2-1.0 mg/dL Aspartate Amino Transferase (AST) 25 13-40 U/L Alanine Aminotransferase (ALT) 10 7-40 U/L Alkaline Phosphatase 108 46-116 U/L Total Protein 8.1 5.7-8.2 g/dL Albumin 3.9 3.2-4.8 g/dL Lactic Acid Level 1.1 0.4-2.0 mmol/L Troponin I High Sensitivity 13 </=54 ng/L B-Type Natriuretic Peptide 282.85 0-100 pg/mL Thyroid Stimulating Hormone (TSH) 3.80 0.55-4.78 uIU/mL Microbiology Date/Time Source Procedure Growth Status 10/03/24 15:45 Blood Blood Culture - Preliminary NO GROWTH AFTER 24 HOURS OF INCUBATION. Resulted Assessment KARLOS probably secondary to cardiorenal syndrome . Hyperkalemia Acute on chronic hypoxic respiratory failure Multifocal Pneumonia Acute on chronic diastolic heart failure COPD exacerbation Morbid obesity Pulmonary hypertension Status post pacemaker implantation Plan/Recommendation albumin with lasix x 1 today . Lasix 40 mg IV BID . Continue with IV antibiotics . Lokelma x 1 BMP x 1 Plan discussed with: Patient ROBERTH FONTAINE MD Oct 04, 2024 16:13
[2024-10-04 16:17] LABS: COVID19 ANTIGEN SOFIA FIA NEGATIVE (NEGATIVE)
--- NOTE | 2024-10-04 16:55 | DVHSR ---
APPROVED REPORT EXAM: Two-dimensional and M-mode echocardiogram with Doppler and color Doppler. Blood Pressure: 104/66 mmHg INDICATION CHF exacerbation, unspecified Surgery/Intervention Pacemaker: RISK FACTORS Obesity: Height: 6'3", Weight: 401 DIMENSIONS LVDd5.3 (3.8-5.7cm)LA (2D)4.7 (1.9-4.0cm)Aortic Root4.5 (2.0-3.7cm) LVDs3.8 (2.5-4.0cm)LA (MM) (1.9-4.0cm)Aortic Cusp Exc2.4 (1.5-2.0cm) EF (%) 55.0 (55-70%)Rt. Atrium6.2 (1.9-4.0cm)Asc. Aorta4.2 cm IVSd1.2 (0.7-1.1cm)RV (D) (1.8-2.4cm) PWd1.1 (0.7-1.1cm) Mitral Valve MitralMitral Stenosis E wave0.73m/sMV Mean GR.mmHg A wave0.94m/sMV Peak GR.mmHg E/A ratio0.82D MVAcm2 DECEL [id number] 1/2 Timems Aortic Valve Aortic ValveAortic Stenosis V10.76m/Prabhu Mean GR.3mmHg V21.18m/Prabhu Peak GR.6mmHg LVOT Diameter2.6 (1.8-2.4cm)Doppler AVA3.42cm2 Pulmonic Valve V20.89m/s Tricuspid Valve TR Velocity4.30m/s [id number] Other Information Technically limited study due to body habitus, patient sitting up. Conclusion Left ventricle: Concentric left ventricular hypertrophy was seen. LVEF was 55-60%. D-shaped septum pointed toward pulmonary hypertension. Right ventricle was significantly dilated with reduced systolic function. Left atrium was mildly dil ated. Right atrium was significantly dilated. Pacing wire was seen in right-sided chambers. Aortic valve: Aortic valve was trileaflet. There was no aortic insufficiency/stenosis. There was m ild mitral regurgitation. There was [id number] tricuspid regurgitation. There was trace pul monary valve insufficiency. Right ventricular systolic pressure was assessed at 80 mm Hg. Aortic root was dilated at 4.5 cm. Ascending aorta was dilated at 4.2 cm. There was no pericardial effusion.
--- NOTE | 2024-10-04 17:49 | DVHINCON2 ---
Date of service: Oct 04, 2024 History of Present Illness HPI Patient is a 68-year-old gentleman who presented with weeks of shortness of breath and leg swellings. He also complained of nonproductive cough. Reportedly, EMS found him with oxygen saturation of 85%. It is of note that the patient does have chronic respiratory failure and is on home oxygen. Patient is admitted with acute on chronic respiratory distress. Cardiology is involved for cardiac aspects of care. It is of note that the patient is known to our practice from previous admissions. Last visit with us was in April 2023. He mentions that he was in hospice for awhile. He mentions the last time that the pacemaker was interrogated has been long time ago. He does have baseline history of morbid obesity with poor functional capacity and significant pulmonary hypertension. Home Meds Reported Medications Hydrocodone-Acetaminophen (Hydrocodone Bitartrate/AC 10-325 mg) 1 Tab Tab, 1 TAB PO DAILY PRN for 30 Days, #30 04/19/24 Docusate Sodium (Colace) 100 Mg Cap, 1 CAP PO BID for 30 Days, #60 04/19/24 Albuterol Sulfate (Albuterol Sulfate) 0.083 % Neb, 1 VIAL NEB Q6HR PRN for SHORTNESS OF BREATH for 23 Days, #270 04/19/24 Fluticasone Propionate (Fluticasone Propionate Hf) 110 Mcg/Act Aer, 2 PUFF INH BID for 30 Days, #12 04/15/23 Furosemide (Furosemide) 40 Mg Tab, 1 TAB PO DAILY for 90 Days, #90 02/01/23 Levothyroxine Sodium (Levothyroxine Sodium) 25 Mcg Tab, 1 TAB PO DAILY@BREAKFAST for 90 Days, #90 02/11/22 Atorvastatin Calcium (ATORVASTATIN CALCIUM) 40 Mg Tab, 1 TAB PO HS for 30 Days, #30 02/11/22 Ipratropium [place] Hfa (Atrovent Hfa) 17 Mcg Aer, 2 PUFF INH QID for 30 Days, #12.9 08/24/20 Past Medical History Others Past medical history includes COPD, chronic respiratory failure on home oxygen, CHF (as per patient for many years, diastolic), history of old pneumonia, CKD, hypertension, hypothyroidism, history of pacemaker implantation (Medtronic), morbid obesity, anemia of chronic disease, pulmonary hypertension, paroxysmal A. fib, thrombocytopenia and obstructive sleep apnea. Reportedly the patient was previously on hospice Patient Family History: Colon cancer G8 FATHER Diabetes mellitus G8 MOTHER G8 SISTER Hypertension G8 FATHER G8 BROTHER G8 SISTER Alocohol: None Drugs: None Review of Systems Constitutional: Malaise, Weakness Pulmonary/Respiratory: Dyspnea, Cough Cardiovascular: Orthopnea, Paroxysmal Noc. Dyspnea, Edema All Other Systems Fourteen point review of system was performed. Relevant findings as per above and as per HPI. Otherwise negative. H&P Exam Vital Signs Vital Signs Date Time Temp Pulse Resp B/P (MAP) Pulse Ox O2 Delivery O2 Flow Rate FiO2 10/04/24 17:00 97.2 88 19 104/76 (85) 96 97.2 10/04/24 12:12 Oxymizer 10/04/24 12:12 6 N/A General Appeara: Well developed, Obese Head Exam: Normal inspection Neck Exam: Non-tender Eye Exam: bilateral eye PERRL Pulmonary/Respiratory: Rales, Rhonci Cardiovascular/Chest: Edema, Systolic murmur Peripheral Pulses: 2+ carotid (R), 2+ carotid (L), 2+ femoral (R), 2+ femoral (L), 2+ dorsalis pedis (R), 2+ dorsalis pedis (L), 2+ Radial (R), 2+ Radial (L) Abdominal Exam: Normal bowel sounds, Other (Obese) Neuro/Mental St: Alert, Oriented Appearance: Appropriate appearance Eye contact/ Speech: Cooperative Labs/Xrays Labs Test 10/04/24 15:18 10/04/24 06:08 10/03/24 15:42 10/03/24 13:05 Range/Units Influenza Type A Antigen Negative Negative Influenza Type B Antigen Negative Negative SARS-CoV-2 Antigen (Rapid) Negative NEGATIVE White Blood Count 3.1 #L 4.4-10.8 10^3/uL Red Blood Count 4.03 L 4.5-5.90 10^6/uL Hemoglobin 11.5 L 13.5-17.5 g/dL Hematocrit 36.9 L 41.0-53.0 % Mean Corpuscular Volume 91.6 80.0-100.0 fL Mean Corpuscular Hemoglobin 28.6 28.0-32.0 pg Mean Corpuscular Hemoglobin Concent 31.2 L 32.0-36.0 g/dL Red Cell Distribution Width 16.7 H 11.8-14.3 % Platelet Count 90 L 140-450 10^3/uL Mean Platelet Volume 8.6 6.9-10.8 fL Neutrophils (%) (Auto) 90.0 H 37.0-80.0 % Lymphocytes (%) (Auto) 7.4 L 10.0-50.0 % Monocytes (%) (Auto) 2.2 0.0-12.0 % Eosinophils (%) (Auto) 0.1 0.0-7.0 % Basophils (%) (Auto) 0.3 0.0-2.0 % Neutrophils # (Auto) 2.8 1.6-8.6 10 ^3/uL Lymphocytes # (Auto) 0.2 L 0.4-5.4 10 ^3/uL Monocytes # (Auto) 0.1 0-1.3 10 ^3/uL Eosinophils # (Auto) 0 0-0.8 10 ^3/uL Basophils # (Auto) 0 0-0.2 10 ^3/uL Nucleated Red Blood Cells 0.3 % Sodium Level 139 136-145 mmol/L Potassium Level 5.4 H 3.5-5.1 mmol/L Chloride Level 95 L 98-107 mmol/L Carbon Dioxide Level 39 H 20-31 mmol/L Anion Gap 5 5-15 Blood Urea Nitrogen 19 9-23 mg/dL Creatinine 1.57 H 0.700-1.30 mg/dL Glomerular Filtration Rate Calc 48 >90 mL/min BUN/Creatinine Ratio 12.1 10.0-20.0 Serum Glucose 130 H 74-106 mg/dL Calcium Level 9.1 8.7-10.4 mg/dL Total Bilirubin 0.9 0.2-1.0 mg/dL Aspartate Amino Transferase (AST) 25 13-40 U/L Alanine Aminotransferase (ALT) 10 7-40 U/L Alkaline Phosphatase 108 46-116 U/L Total Protein 8.1 5.7-8.2 g/dL Albumin 3.9 3.2-4.8 g/dL Lactic Acid Level 1.1 0.4-2.0 mmol/L Troponin I High Sensitivity 13 </=54 ng/L B-Type Natriuretic Peptide 282.85 0-100 pg/mL Thyroid Stimulating Hormone (TSH) 3.80 0.55-4.78 uIU/mL Microbiology Date/Time Source Procedure Growth Status 10/03/24 15:45 Blood Blood Culture - Preliminary NO GROWTH AFTER 24 HOURS OF INCUBATION. Resulted Assessment/Plan Plan Patient is a 68-year-old gentleman who presented with weeks of shortness of breath and leg swellings. He also complained of nonproductive cough. Reportedly, EMS found him with oxygen saturation of 85%. It is of note that the patient does have chronic respiratory failure and is on home oxygen. Patient is admitted with acute on chronic respiratory distress. Cardiology is involved for cardiac aspects of care. It is of note that the patient is known to our practice from previous admissions. Last visit with us was in April 2023. He mentions that he was in hospice for awhile. He mentions the last time that the pacemaker was interrogated has been long time ago. He does have baseline history of morbid obesity with poor functional capacity and significant pulmonary hypertension. No JVD (its presence cannot be ruled out secondary to body habitus). Morbidly obese patient. [place] and with mucosa. No carotid bruit. Scattered rhonchi in the lungs is heard. Cardiac: Systolic murmur 2 out of 6 in the apex is heard. Abdomen is soft and obese, cannot rule out organomegaly (secondary to body habitus). Extremities reveal 3+ edema bilaterally. Dorsalis pedis is 1+ bilateral Past medical history includes COPD, chronic respiratory failure on home oxygen, CHF (as per patient for many years, diastolic), history of old pneumonia, CKD, hypertension, hypothyroidism, history of pacemaker implantation (Medtronic), morbid obesity, anemia of chronic disease, pulmonary hypertension, paroxysmal A. fib, thrombocytopenia and obstructive sleep apnea. Reportedly the patient was previously on hospice Echocardiogram of June 2020 revealed ejection fraction of 40 to 45%, moderate to severe TR and right ventricular systolic pressure of 60 mmHg Echocardiogram of March 2021 revealed ejection fraction of 55 to 60%, mild concentric left ventricular hypertrophy, mildly dilated RV with good systolic function, mildly dilated left atrium, small TR/MR, dilated IVC and right ventricular systolic pressure 53 mmHg. Echocardiogram of June 23, 2021 revealed: Ejection fraction of 55 to 60%, mild concentric left ventricle hypertrophy, mild biatrial dilatation, mild TR and right ventricular systolic pressure of 40 mmHg. Echocardiogram of January 31, 2023 revealed dilated right-sided chambers, pulmonary hypertension (right ventricular systolic pressure of 62 mmHg) and left ventricle ejection fraction of 65%. Echocardiogram of April 14, 2023 revealed concentric left ventricular hypertrophy, EF of 60-65%, right ventricular enlargement, mild biatrial enlargement, pacing wire in right-sided chambers, mild TR and right ventricular systolic pressure of 75 mm Hg Echocardiogram of April 19, 2024 had reported concentric left ventricular hypertrophy, ejection fraction of 55%, pacing wire in right-sided chambers, severe TR and right ventricular systolic pressure of 80 mm Hg Hemoglobin: 11.1 - 11.5 Creatinine: 1.37 - 1.57 Potassium: 4.9 - 4.4 Troponin (high sensitive): BNP: 282.85 TSH: 3.80 Chest x-ray revealed: IMPRESSION: 1. Bibasilar pneumonia. Left-sided pacemaker. Telemetry revealed sinus rhythm Echocardiogram revealed: Left ventricle: Concentric left ventricular hypertrophy was seen. LVEF was 55-60%. D-shaped septum pointed toward pulmo nary hypertension. Right ventricle was significantly dilated with reduced systolic function. Left atrium was mildly dilated. Right atrium was significantly dilated. Pacing wire was seen in right-sided chambers. Aortic valve: Aortic valve was trileaflet. There was no aortic insufficiency/stenosis. There was mild mitral regurgitation. There was [id number] tricuspid regurgitation. There was trace pulmonary valve insufficiency. Right ventricular systolic pressure was assessed at 80 mm Hg. Aortic root was dilated at 4.5 cm. Ascending aorta was dilated at 4.2 cm. There was no pericardial effusion. Patient is a 68-year-old gentleman who presented with worsening shortness of breath, leg swellings and non-productive cough. Patient is admitted with acute on chronic respiratory failure. Chest x-ray questions multifocal pneumonia. Does have baseline history of COPD and COPD exacerbation could have contributed to the clinical picture. Does have baseline history of significant pulmonary hypertension and its worsening could have contributed to the clinical picture infection/pneumonia could have contributed to worsening pulmonary hypertension and respiratory failure. It is of note that the patient also is morbidly obese with poor functional capacity. Does have baseline history of noncompliance which could have contributed to the clinical picture. It is of note that the patient was not following with outside bootmaker (most likely as he was on hospice for a while). He mentions that he is not on hospice at this point. Multifocal Pneumonia Acute on chronic respiratory failure Acute on chronic diastolic heart failure COPD exacerbation Morbid obesity Pulmonary hypertension Status post pacemaker implantation (Medtronic) CKD, chronic Cardiac suggestion for care: Manage in tele IV diuresis at this point is suggested (Lasix at 60 mg IV twice daily for now) Follow-up electrolytes and kidney function tests and correct abnormalities. Keep potassium above 4 magnesium above 2 Request for pacemaker (Medtronic) interrogation Sildenafil at 20 mg 3 times a day suggested Pulmonary consultation longterm full anticoagulation (history of atrial fibrillation with high CHADS- VASc score), on oral Eliquis as outpatient Antibiotic therapy for pneumonia as per primary team/Pulmonary. Thank you for consultation Further evaluation and management depends on the above and clinical course A total of 75 minutes was spent reviewing the patient record, examining the patient, making a diagnostic and therapeutic plan, discussing this plan with medical personnel, following up on diagnostic studies and following the patient for clinical stability excluding any and all procedures. At least 50% of this time was spent in direct, [id number] contact. Thank you for allowing me to participate in this patient's care. Further recommendations will depend on patient's clinical course. Please do not hesitate to contact me if you have any questions or concerns. This medical document was created using electronic medical record system with [employer] computerized dictation system. Although this document has been carefully reviewed, there may still be some phonetic and typographical errors. These areas are purely typographical due to the imperfection of the software programs, and do not reflect any compromise in the patient's medical care. Plan discussed with: Patient, Other (nurse) EBEN SPARROW MD Oct 04, 2024 17:49
[2024-10-04] MEDS: ALBUMIN 25% 100 ML IV ONE (18:05)
--- NOTE | 2024-10-04 19:13 | ECG ---
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
[2024-10-04] MEDS: FUROSEMIDE 40 MG/4 ML VIAL IV ONE (21:17)
[2024-10-04] MEDS: FUROSEMIDE 100 MG/10ML VIAL IV SCH (21:19)
[2024-10-04] MEDS: SILDENAFIL CITRATE 20 MG TAB PO SCH (21:19)
[2024-10-04] MEDS: APIXABAN 5 MG TAB PO SCH (21:23)
--- NOTE | 2024-10-04 22:53 | DVHINCON2 ---
Date of service: Oct 04, [address] Badillo [facility] [place] Reason for Consultation Pneumonia, acute hypoxic respiratory failure, COPD exacerbation History of Present Illness A 68-year-old man with past medical history of COPD, CHF, AFib, chronic kidney disease, hyperlipidemia, hypertension and thyroid disease who presented to ED on 10/03/24 with complaint of shortness of breath. The reported increased shortness of breath for the past week with some leg swelling and knee pain, associated nonproductive cough. Pt is currently on home oxygen at 2-3 L nasal cannula. ED workup notable for WBC 4.8, hemoglobin 11.1, hematocrit 36.4, platelets 105, sodium 141, potassium 4.9, BUN 25, creatinine 1.37, glucose 89, calcium 8.6, troponin 13, BNP 282.85. Vitals show BP of 120/71, heart rate 74, temperature 98.7 F, O2 saturation 91% on oxygen. Chest x-ray revealing bibasilar pneumonia, left-sided pacemaker. Patient was admitted for further care, and pulmonary consultation is requested for evaluation and management of pneumonia, acute hypoxic respiratory failure, and COPD exacerbation. Review of Systems: 14-point review of systems negative unless otherwise noted above. Past Medical History COPD, congestive heart failure, AFib, chronic kidney disease, hyperlipidemia, hypertension and thyroid disease Past Surgical History Pacemaker, Left knee surgery Medications: Reviewed. Allergies: Shrimp Flavor Agent Shellfish Allergy. Family History: Colon cancer Diabetes mellitus Hypertension. Social History: Nonsmoker. No alcohol or illicit drug use. Family History: Colon cancer G8 FATHER Diabetes mellitus G8 MOTHER G8 SISTER Hypertension G8 FATHER G8 BROTHER G8 SISTER Allergies: Coded Allergies: Shrimp Flavor Agent (non-screening) (Verified Allergy, Severe, 02/11/22) Shellfish Allergy (Verified Allergy, Unknown, 04/13/23) Home Meds Reported Medications Hydrocodone-Acetaminophen (Hydrocodone Bitartrate/AC 10-325 mg) 1 Tab Tab, 1 TAB PO DAILY PRN for 30 Days, #30 04/19/24 Docusate Sodium (Colace) 100 Mg Cap, 1 CAP PO BID for 30 Days, #60 04/19/24 Albuterol Sulfate (Albuterol Sulfate) 0.083 % Neb, 1 VIAL NEB Q6HR PRN for SHORTNESS OF BREATH for 23 Days, #270 04/19/24 Fluticasone Propionate (Fluticasone Propionate Hf) 110 Mcg/Act Aer, 2 PUFF INH BID for 30 Days, #12 04/15/23 Furosemide (Furosemide) 40 Mg Tab, 1 TAB PO DAILY for 90 Days, #90 02/01/23 Levothyroxine Sodium (Levothyroxine Sodium) 25 Mcg Tab, 1 TAB PO DAILY@BREAKFAST for 90 Days, #90 02/11/22 Atorvastatin Calcium (ATORVASTATIN CALCIUM) 40 Mg Tab, 1 TAB PO HS for 30 Days, #30 02/11/22 Ipratropium [place] Hfa (Atrovent Hfa) 17 Mcg Aer, 2 PUFF INH QID for 30 Days, #12.9 08/24/20 Current Medications Current Medications Medications (Trade) Dose Ordered Sig/Jeanine Route PRN Reason Start Time Stop Time Status Last Admin Patient Own Medication 10 mg DAILY PO 10/04/24 10:00 Levofloxacin/ Dextrose 100 ml @ 100 mls/hr DAILY IV 10/04/24 10:00 10/04/24 10:19 Furosemide (Lasix Injection) 40 mg DAILY IV 10/04/24 10:00 10/04/24 16:14 DC 10/04/24 10:20 Levothyroxine Sodium (Synthroid Tablet) 25 mcg QAM@0600 PO 10/04/24 06:00 10/04/24 06:33 Albuterol (Ventolin Medneb) 2.5 mg Q6HR NEB 10/04/24 00:00 10/04/24 18:54 Ipratropium [place] (Atrovent Medneb) 0.5 mg Q6HR NEB 10/04/24 00:00 10/04/24 18:54 Furosemide (Lasix Injection) 40 mg BIDD IV 10/05/24 08:00 10/04/24 18:11 DC Furosemide (Lasix Injection) 60 mg BIDD IV 10/04/24 22:00 10/04/24 21:19 Sildenafil Citrate (Revatio) 20 mg TID@08,14,20 PO 10/04/24 20:00 10/04/24 21:19 Apixaban (Eliquis) 5 mg BID PO 10/04/24 22:00 10/04/24 21:23 Vital Signs Vital Signs Date Time Temp Pulse Resp B/P (MAP) Pulse Ox O2 Delivery O2 Flow Rate FiO2 10/04/24 21:19 110/75 10/04/24 21:00 98.4 83 16 97 98.4 10/04/24 20:05 Facial BiPAP Mask 65 10/04/24 18:54 6.0 Physical Exam Gen.: Patient lying in bed in no apparent distress. On supplemental oxygen. Head: Normocephalic, atraumatic. Eyes: EOMI/PERRLA. Ears: Normal hearing. Normal anatomy. Neck/trachea: Trachea midline, supple. Nose: Normal external anatomy. Mouth: Moist mucous membranes. Chest: Decreased air entry bilaterally. No wheezing or rhonchi. Cardiovascular: Positive S1, positive S2. Regular rate and rhythm. Abdomen: Positive bowel sounds in all 4 quadrants. Soft, non-tender, non- distended. : Deferred. Rectal: Deferred. Skin: Warm, dry. Intact. Extremities: 2+ radial pulses bilaterally. No lower extremity edema. Neuro: Awake, alert, oriented x3. No gross motor or sensory deficits. Cranial nerves II through XII intact. Gait not assessed. Labs/Diagnostic Data Labs Test 10/04/24 15:18 10/04/24 06:08 10/03/24 15:42 10/03/24 13:05 Range/Units Influenza Type A Antigen Negative Negative Influenza Type B Antigen Negative Negative SARS-CoV-2 Antigen (Rapid) Negative NEGATIVE White Blood Count 3.1 #L 4.4-10.8 10^3/uL Red Blood Count 4.03 L 4.5-5.90 10^6/uL Hemoglobin 11.5 L 13.5-17.5 g/dL Hematocrit 36.9 L 41.0-53.0 % Mean Corpuscular Volume 91.6 80.0-100.0 fL Mean Corpuscular Hemoglobin 28.6 28.0-32.0 pg Mean Corpuscular Hemoglobin Concent 31.2 L 32.0-36.0 g/dL Red Cell Distribution Width 16.7 H 11.8-14.3 % Platelet Count 90 L 140-450 10^3/uL Mean Platelet Volume 8.6 6.9-10.8 fL Neutrophils (%) (Auto) 90.0 H 37.0-80.0 % Lymphocytes (%) (Auto) 7.4 L 10.0-50.0 % Monocytes (%) (Auto) 2.2 0.0-12.0 % Eosinophils (%) (Auto) 0.1 0.0-7.0 % Basophils (%) (Auto) 0.3 0.0-2.0 % Neutrophils # (Auto) 2.8 1.6-8.6 10 ^3/uL Lymphocytes # (Auto) 0.2 L 0.4-5.4 10 ^3/uL Monocytes # (Auto) 0.1 0-1.3 10 ^3/uL Eosinophils # (Auto) 0 0-0.8 10 ^3/uL Basophils # (Auto) 0 0-0.2 10 ^3/uL Nucleated Red Blood Cells 0.3 % Sodium Level 139 136-145 mmol/L Potassium Level 5.4 H 3.5-5.1 mmol/L Chloride Level 95 L 98-107 mmol/L Carbon Dioxide Level 39 H 20-31 mmol/L Anion Gap 5 5-15 Blood Urea Nitrogen 19 9-23 mg/dL Creatinine 1.57 H 0.700-1.30 mg/dL Glomerular Filtration Rate Calc 48 >90 mL/min BUN/Creatinine Ratio 12.1 10.0-20.0 Serum Glucose 130 H 74-106 mg/dL Calcium Level 9.1 8.7-10.4 mg/dL Total Bilirubin 0.9 0.2-1.0 mg/dL Aspartate Amino Transferase (AST) 25 13-40 U/L Alanine Aminotransferase (ALT) 10 7-40 U/L Alkaline Phosphatase 108 46-116 U/L Total Protein 8.1 5.7-8.2 g/dL Albumin 3.9 3.2-4.8 g/dL Lactic Acid Level 1.1 0.4-2.0 mmol/L Troponin I High Sensitivity 13 </=54 ng/L B-Type Natriuretic Peptide 282.85 0-100 pg/mL Thyroid Stimulating Hormone (TSH) 3.80 0.55-4.78 uIU/mL Microbiology Date/Time Source Procedure Growth Status 10/03/24 15:45 Blood Blood Culture - Preliminary NO GROWTH AFTER 24 HOURS OF INCUBATION. Resulted Assessment Impression: Acute hypoxic respiratory failure Dependence on supplemental oxygen Pneumonia, bilateral lower lobe COPD exacerbation Acute on chronic diastolic CHF Morbid obesity BMI 45.5 Chronic kidney disease Plan: Supplemental oxygen Titrate to keep O2 sats above 92%. CXR on 10/03/24 notable for bibasilar pneumonia; left-sided pacemaker. Bronchodilators. IV steroids Eliquis BID. Follow up Cardiology recommendations Diurese to euvolemia Monitor renal function. Monitor electrolytes. Supplement as necessary. Monitor ins and outs. Follow up Nephrology recommendations Diet and lifestyle modifications for weight reduction Morbid obesity complicates all care DVT prophylaxis. Prognosis: Poor given patient's multiple co-morbidities. Rest of plan per hospitalist and other consultants. Thank you Dr. Badillo for allowing me to participate in this patient's care. Further recommendations will depend on the patient's clinical course. Please do not hesitate to contact me if you have any questions or concerns. This medical document was created using an electronic medical record system with [employer] dictation system. Although these documentations are being carefully reviewed, there may still be some phonetic and typographical changes. The errors are purely typographical, due to imperfection on the software program, and do not reflect any compromise in the patient's medical care. Plan discussed with: Patient, Other (DELFINA Castanon/Dr. Badillo) ANCELMO MONTOYA MD Oct 04, 2024 22:52
[2024-10-05] VITALS (17 sets, daily range): BP systolic 104–153; BP diastolic 67–89; PULSE 58–101; RESP 16–22; TEMP 97.8–98.9; O2SAT 93–97
--- NOTE | 2024-10-05 07:46 | ECG ---
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
--- NOTE | 2024-10-05 07:57 | DVHPN2 ---
Progress Note - Dictate Date Seen: Oct 05, 2024 Medical Necessity Reason Pt with a Central, PICC or Fol: No vital signs Vital Sign Date Time Temp Pulse Resp B/P (MAP) Pulse Ox O2 Delivery O2 Flow Rate FiO2 10/05/24 05:48 59 94 Facial BiPAP Mask 65 10/05/24 05:38 115/70 10/05/24 05:00 97.9 16 97.9 10/04/24 20:00 6 Total Intake and Output 10/04/24 10/04/24 10/05/24 15:00 23:00 07:00 Intake Total 1150 ml 520 ml Output Total 600 ml 1100 ml Balance 550 ml -580 ml medications Current Medications Medications Dose Ordered Sig/Jeanine Route Start Time Stop Time Status Last Admin Dose Admin Patient Own Medication 10 mg DAILY PO 10/04/24 10:00 Atorvastatin Calcium 20 mg HS PO 10/03/24 22:00 10/04/24 21:23 20 MG Levofloxacin/ Dextrose 100 ml @ 100 mls/hr DAILY IV 10/04/24 10:00 10/04/24 10:19 100 MLS/HR Famotidine 20 mg Q12HR IV 10/03/24 22:00 10/04/24 21:21 20 MG Levothyroxine Sodium 25 mcg QAM@0600 PO 10/04/24 06:00 10/05/24 05:39 25 MCG Albuterol 2.5 mg Q4HPRN PRN NEB 10/03/24 15:00 10/03/24 18:28 2.5 MG Ipratropium [place] 0.5 mg Q4HPRN PRN NEB 10/03/24 15:00 10/03/24 18:28 0.5 MG Methylprednisolone Sodium Succinate 40 mg Q8HR IV 10/03/24 22:00 10/05/24 05:39 40 MG Sodium Chloride 10 ml Q8HR IV 10/03/24 22:00 10/05/24 05:38 10 ML Acetaminophen/ Hydrocodone Bitart 1 tab Q4HP PRN PO 10/03/24 15:00 10/03/24 16:57 1 TAB Ondansetron HCl 4 mg Q4HP PRN IV 10/03/24 15:00 Docusate Sodium 100 mg BIDPRN PRN PO 10/03/24 15:00 Acetaminophen 650 mg Q6HP PRN PO 10/03/24 15:00 Nitroglycerin 0.4 mg Q5MINP PRN SL 10/03/24 15:00 Hold Morphine Sulfate 2 mg Q30M PRN IV 10/03/24 15:00 Albuterol 2.5 mg Q6HR NEB 10/04/24 00:00 10/05/24 05:47 2.5 MG Ipratropium [place] 0.5 mg Q6HR NEB 10/04/24 00:00 10/05/24 05:47 0.5 MG Furosemide 60 mg BIDD IV 10/04/24 22:00 10/05/24 05:38 60 MG Sildenafil Citrate 20 mg TID@08,14,20 PO 10/04/24 20:00 10/04/24 21:19 20 MG Apixaban 5 mg BID PO 10/04/24 22:00 10/04/24 21:23 5 MG laboratory and microbiology Laboratory Tests 10/04/24 06:08 Test 10/04/24 06:08 Range/Units Serum Glucose 130 H 74-106 mg/dL Assessment/Plan Patient is a 68-year-old gentleman who presented with weeks of shortness of breath and leg swellings. He also complained of nonproductive cough. Reportedly, EMS found him with oxygen saturation of 85%. It is of note that the patient does have chronic respiratory failure and is on home oxygen. Patient is admitted with acute on chronic respiratory distress. Cardiology is involved for cardiac aspects of care. It is of note that the patient is known to our practice from previous admissions. Last visit with us was in April 2023. He mentions that he was in hospice for awhile. He mentions the last time that the pacemaker was interrogated has been long time ago. He does have baseline history of morbid obesity with poor functional capacity and significant pulmonary hypertension. No JVD (its presence cannot be ruled out secondary to body habitus). Morbidly obese patient. [place] and with mucosa. No carotid bruit. Scattered rhonchi in the lungs is heard. Cardiac: Systolic murmur 2 out of 6 in the apex is heard. Abdomen is soft and obese, cannot rule out organomegaly (secondary to body habitus). Extremities reveal 3+ edema bilaterally. Dorsalis pedis is 1+ bilateral Past medical history includes COPD, chronic respiratory failure on home oxygen, CHF (as per patient for many years, diastolic), history of old pneumonia, CKD, hypertension, hypothyroidism, history of pacemaker implantation (Medtronic), morbid obesity, anemia of chronic disease, pulmonary hypertension, paroxysmal A. fib, thrombocytopenia and obstructive sleep apnea. Reportedly the patient was previously on hospice Echocardiogram of June 2020 revealed ejection fraction of 40 to 45%, moderate to severe TR and right ventricular systolic pressure of 60 mmHg Echocardiogram of March 2021 revealed ejection fraction of 55 to 60%, mild concentric left ventricular hypertrophy, mildly dilated RV with good systolic function, mildly dilated left atrium, small TR/MR, dilated IVC and right ventricular systolic pressure 53 mmHg. Echocardiogram of June 23, 2021 revealed: Ejection fraction of 55 to 60%, mild concentric left ventricle hypertrophy, mild biatrial dilatation, mild TR and right ventricular systolic pressure of 40 mmHg. Echocardiogram of January 31, 2023 revealed dilated right-sided chambers, pulmonary hypertension (right ventricular systolic pressure of 62 mmHg) and left ventricle ejection fraction of 65%. Echocardiogram of April 14, 2023 revealed concentric left ventricular hypertrophy, EF of 60-65%, right ventricular enlargement, mild biatrial enlargement, pacing wire in right-sided chambers, mild TR and right ventricular systolic pressure of 75 mm Hg Echocardiogram of April 19, 2024 had reported concentric left ventricular hypertrophy, ejection fraction of 55%, pacing wire in right-sided chambers, severe TR and right ventricular systolic pressure of 80 mm Hg Hemoglobin: 11.1 - 11.5 Creatinine: 1.37 - 1.57 Potassium: 4.9 - 4.4 Troponin (high sensitive): 13 - 13 - 13 BNP: 282.85 TSH: 3.80 Chest x-ray revealed: IMPRESSION: 1. Bibasilar pneumonia. Left-sided pacemaker. Telemetry revealed sinus rhythm Echocardiogram revealed: Left ventricle: Concentric left ventricular hypertrophy was seen. LVEF was 55-60%. D-shaped septum pointed toward pulmonary hypertension. Right ventricle was significantly dilated with reduced systolic function. Left atrium was mildly dilated. Right atrium was significantly dilated. Pacing wire was seen in right-sided chambers. Aortic valve: Aortic valve was trileaflet. There was no aortic insufficiency/stenosis. There was mild mitral regurgitation. There was [id number] tricuspid regurgitation. There was trace pulmonary valve insufficiency. Right ventricular systolic pressure was assessed at 80 mm Hg. Aortic root was dilated at 4.5 cm. Ascending aorta was dilated at 4.2 cm. There was no pericardial effusion. Patient is a 68-year-old gentleman who presented with worsening shortness of breath, leg swellings and non-productive cough. Patient is admitted with acute on chronic respiratory failure. Chest x-ray questions multifocal pneumonia. Does have baseline history of COPD and COPD exacerbation could have contributed to the clinical picture. Does have baseline history of significant pulmonary hypertension and its worsening could have contributed to the clinical picture infection/pneumonia could have contributed to worsening pulmonary hypertension and respiratory failure. It is of note that the patient also is morbidly obese with poor functional capacity. Does have baseline history of noncompliance which could have contributed to the clinical picture. It is of note that the patient was not following with outside deck scaler (most likely as he was on hospice for a while). He mentions that he is not on hospice at this point. Multifocal Pneumonia Acute on chronic respiratory failure Acute on chronic diastolic heart failure COPD exacerbation Morbid obesity Pulmonary hypertension Status post pacemaker implantation (Medtronic) CKD, chronic Cardiac suggestion for care: Manage in tele IV diuresis at this point is suggested (Lasix at 60 mg IV twice daily for now) Follow-up electrolytes and kidney function tests and correct abnormalities. Keep potassium above 4 magnesium above 2 Request for pacemaker (Medtronic) interrogation Sildenafil at 20 mg 3 times a day suggested Pulmonary consultation jail full anticoagulation (history of atrial fibrillation with high CHADS- VASc score), on oral Eliquis as outpatient Antibiotic therapy for pneumonia as per primary team/Pulmonary. Further evaluation and management depends on the above and clinical course A total of 55 minutes was spent reviewing the patient record, examining the patient, making a diagnostic and therapeutic plan, discussing this plan with medical personnel, following up on diagnostic studies and following the patient for clinical stability excluding any and all procedures. At least 50% of this time was spent in direct, [id number] contact. Thank you for allowing me to participate in this patient's care. Further recommendations will depend on patient's clinical course. Please do not hesitate to contact me if you have any questions or concerns. This medical document was created using electronic medical record system with [employer] dictation system. Although this document has been carefully reviewed, there may still be some phonetic and typographical errors. These areas are purely typographical due to the imperfection of the software programs, and do not reflect any compromise in the patient's medical care. Plan discussed with: Other (nurse) EBEN SPARROW MD Oct 05, 2024 07:57
[2024-10-05] MEDS ORDERED: FUROSEMIDE 40 MG/4 ML VIAL IV SCH (08:00)
[2024-10-05 09:20] LABS: Hematocrit 32.8 % (41.0-53.0); Hemoglobin 10.2 g/dL (13.5-17.5); Mean Corpuscular Hemoglobin 28.4 pg (28.0-32.0); Mean Corpuscular Volume 91.4 fL (80.0-100.0); Nucleated Red Blood Cells % 0.0 %
[2024-10-05 09:33] LABS: Alanine Aminotransferase 10 U/L (7-40); Alkaline Phosphatase 85 U/L (46-116); Calcium 9.0 mg/dL (8.7-10.4)
[2024-10-05 09:34] LABS: Albumin 3.8 g/dL (3.2-4.8); BUN/Creatinine Ratio 18.2 (10.0-20.0); Bilirubin, Total 0.6 mg/dL (0.2-1.0); Magnesium 1.8 mg/dL (1.6-2.6); Potassium 4.8 mmol/L (3.5-5.1); Sodium 139 mmol/L (136-145); Total Protein 7.8 g/dL (5.7-8.2)
[2024-10-05 09:35] LABS: Anion Gap 9.99999 (5-15); Blood Urea Nitrogen 29 mg/dL (9-23); Chloride 89 mmol/L (98-107); Glucose 148 mg/dL (74-106)
[2024-10-05 09:40] LABS: Carbon Dioxide > 40 mmol/L (20-31)
--- NOTE | 2024-10-05 12:46 | DVHPN2 ---
Reviewed: Care Plan, H&P, Labs, Medications, Previous Orders, Radiology Changes from previous H/P or p: No Changes Eyes: No Pain, No Vision change, No Conjunctivae inflammation, No Eyelid inflammation, No Other, No Redness ENT: No Ear pain, No Ear discharge, No Nose pain, No Nose discharge, No Nose congestion, No Mouth pain, No Mouth swelling, No Throat pain, No Throat swelling, No Other Cardiovascular: No Chest Pain, No Palpitations, No Orthopnea, No Paroxysmal Noc. Dyspnea; Edema; No Lt Headedness, No Other Respiratory: Cough; No Dry; Shortness of breath; No SOB with excertion, No Wheezing, No Hemoptysis, No Pleuritic Pain, No Sputum; Other (SOB at rest) Gastrointestinal: No Nausea, No Vomiting, No Abdominal Pain, No Diarrhea, No Constipation, No Melena, No Hematochezia, No Other Genitourinary: No Dysuria, No Frequency, No Incontinence, No Hematuria, No Retention; Other (Loving catheter in place) Musculoskeletal: No other, No neck pain, No shoulder pain, No arm pain, No back pain, No hand pain, No leg pain, No foot pain Skin: No Rash, No Lesions, No Jaundice, No Bruising, No Other Objective Vitals Vital Signs Date Time Temp Pulse Resp B/P (MAP) Pulse Ox O2 Delivery O2 Flow Rate FiO2 10/05/24 12:00 95 Oxymizer 6 N/A 10/05/24 10:00 58 10/05/24 09:00 98.0 18 153/80 (104) 98.0 Intake/Output Intake and Output 10/05/24 07:00 Intake Total 1670 ml Output Total 1700 ml Balance -30 ml Intake Oral 1520 ml IV Total 150 ml Output Urine Total 1700 ml # Bowel Movements 3 Medications Current Medications Medications Dose Ordered Sig/Jeanine Route Start Time Stop Time Status Last Admin Dose Admin Patient Own Medication 10 mg DAILY PO 10/04/24 10:00 Atorvastatin Calcium 20 mg HS PO 10/03/24 22:00 10/04/24 21:23 20 MG Levofloxacin/ Dextrose 100 ml @ 100 mls/hr DAILY IV 10/04/24 10:00 10/05/24 10:04 100 MLS/HR Famotidine 20 mg Q12HR IV 10/03/24 22:00 10/05/24 10:04 20 MG Levothyroxine Sodium 25 mcg QAM@0600 PO 10/04/24 06:00 10/05/24 05:39 25 MCG Albuterol 2.5 mg Q4HPRN PRN NEB 10/03/24 15:00 10/05/24 10:14 2.5 MG Ipratropium [place] 0.5 mg Q4HPRN PRN NEB 10/03/24 15:00 10/05/24 10:14 0.5 MG Methylprednisolone Sodium Succinate 40 mg Q8HR IV 10/03/24 22:00 10/05/24 05:39 40 MG Sodium Chloride 10 ml Q8HR IV 10/03/24 22:00 10/05/24 05:38 10 ML Acetaminophen/ Hydrocodone Bitart 1 tab Q4HP PRN PO 10/03/24 15:00 10/03/24 16:57 1 TAB Ondansetron HCl 4 mg Q4HP PRN IV 10/03/24 15:00 Docusate Sodium 100 mg BIDPRN PRN PO 10/03/24 15:00 Acetaminophen 650 mg Q6HP PRN PO 10/03/24 15:00 Nitroglycerin 0.4 mg Q5MINP PRN SL 10/03/24 15:00 Hold Morphine Sulfate 2 mg Q30M PRN IV 10/03/24 15:00 Albuterol 2.5 mg Q6HR NEB 10/04/24 00:00 10/05/24 05:47 2.5 MG Ipratropium [place] 0.5 mg Q6HR NEB 10/04/24 00:00 10/05/24 05:47 0.5 MG Furosemide 60 mg BIDD IV 10/04/24 22:00 10/05/24 05:38 60 MG Sildenafil Citrate 20 mg TID@08,14,20 PO 10/04/24 20:00 10/05/24 08:26 20 MG Apixaban 5 mg BID PO 10/04/24 22:00 10/05/24 10:04 5 MG Laboratory Results Laboratory Tests 10/05/24 08:51 Chemistry Test 10/05/24 08:51 Albumin 3.8 g/dL (3.2-4.8) Calcium Level 9.0 mg/dL (8.7-10.4) Magnesium Level 1.8 mg/dL (1.6-2.6) Total Protein 7.8 g/dL (5.7-8.2) LFT Test 10/05/24 08:51 Alanine Aminotransferase (ALT) 10 U/L (7-40) Alkaline Phosphatase 85 U/L (46-116) Aspartate Amino Transferase (AST) 17 U/L (13-40) Total Bilirubin 0.6 mg/dL (0.2-1.0) Microbiology Microbiology Date/Time Source Procedure Growth Status 10/03/24 15:45 Blood Blood Culture - Preliminary NO GROWTH AFTER 24 HOURS OF INCUBATION. Resulted Labs and/or images reviewed: Labs reviewed by me, Image(s) reviewed by me Assessment/Plan Assessment/Plan Acute Respiratory failure: Oxygen by nasal cannula Acute bilateral community-acquired pneumonia Gram-positive versus Gram-negative Levaquin consult by Dr. Engel appreciated Vianey test negative Rapid flu test negative History of home oxygen use History of pacemaker Atrial fibrillation Acute on chronic CHF exacerbation: Lasix consult by Dr. Ayers appreciated Chronic kidney disease nephrology consult COPD exacerbation Hypertension Hypercholesterolemia Hypothyroidism Gross obesity BMI of 50 Spent 70 minutes Advanced care planning time 20 minutes Patient is full code Plan discussed with: Patient My Orders Orders - FADUMO VEGAS MD Procedure Category Date Status Time *Consult CONS 10/04/24 Transmitted / 13:26 *[facility] CONS 10/04/24 Transmitted Evelyn 13:26 Complete Blood Count LAB 10/06/24 Verified 04:00 Complete Blood Count LAB 10/07/24 Verified 04:00 Complete Blood Count LAB 10/08/24 Verified 04:00 Comprehensive LAB 10/06/24 Verified Metabolic Panel 04:00 Comprehensive LAB 10/07/24 Verified Metabolic Panel 04:00 Comprehensive LAB 10/08/24 Verified Metabolic Panel 04:00 Insert Midline ORDERS 10/04/24 Transmitted 15:03 Apply Z-Guard SUMIT 10/04/24 In Process 10:12 Date of Service: Oct 05, 2024 Billing Provider: FADUMO VEGAS MD Common Visit Codes: [id number] CARE 30-74 MIN FADUMO VEGAS MD Oct 05, 2024 12:45
--- NOTE | 2024-10-05 14:22 | DVHPN2 ---
Progress Note - Dictate Date Seen: Oct 05, 2024 Medical Necessity Reason Pt with a Central, PICC or Fol: No vital signs Vital Sign Date Time Temp Pulse Resp B/P (MAP) Pulse Ox O2 Delivery O2 Flow Rate FiO2 10/05/24 12:00 95 Oxymizer 6 N/A 10/05/24 10:00 58 10/05/24 09:00 98.0 18 153/80 (104) 98.0 Total Intake and Output 10/04/24 10/04/24 10/05/24 15:00 23:00 07:00 Intake Total 1150 ml 520 ml Output Total 600 ml 1100 ml Balance 550 ml -580 ml medications Current Medications Medications Dose Ordered Sig/Jeanine Route Start Time Stop Time Status Last Admin Dose Admin Patient Own Medication 10 mg DAILY PO 10/04/24 10:00 Atorvastatin Calcium 20 mg HS PO 10/03/24 22:00 10/04/24 21:23 20 MG Levofloxacin/ Dextrose 100 ml @ 100 mls/hr DAILY IV 10/04/24 10:00 10/05/24 10:04 100 MLS/HR Famotidine 20 mg Q12HR IV 10/03/24 22:00 10/05/24 10:04 20 MG Levothyroxine Sodium 25 mcg QAM@0600 PO 10/04/24 06:00 10/05/24 05:39 25 MCG Albuterol 2.5 mg Q4HPRN PRN NEB 10/03/24 15:00 10/05/24 10:14 2.5 MG Ipratropium [place] 0.5 mg Q4HPRN PRN NEB 10/03/24 15:00 10/05/24 10:14 0.5 MG Methylprednisolone Sodium Succinate 40 mg Q8HR IV 10/03/24 22:00 10/05/24 05:39 40 MG Sodium Chloride 10 ml Q8HR IV 10/03/24 22:00 10/05/24 05:38 10 ML Acetaminophen/ Hydrocodone Bitart 1 tab Q4HP PRN PO 10/03/24 15:00 10/03/24 16:57 1 TAB Ondansetron HCl 4 mg Q4HP PRN IV 10/03/24 15:00 Docusate Sodium 100 mg BIDPRN PRN PO 10/03/24 15:00 Acetaminophen 650 mg Q6HP PRN PO 10/03/24 15:00 Nitroglycerin 0.4 mg Q5MINP PRN SL 10/03/24 15:00 Hold Morphine Sulfate 2 mg Q30M PRN IV 10/03/24 15:00 Albuterol 2.5 mg Q6HR NEB 10/04/24 00:00 10/05/24 05:47 2.5 MG Ipratropium [place] 0.5 mg Q6HR NEB 10/04/24 00:00 10/05/24 05:47 0.5 MG Furosemide 60 mg BIDD IV 10/04/24 22:00 10/05/24 05:38 60 MG Sildenafil Citrate 20 mg TID@08,14,20 PO 10/04/24 20:00 10/05/24 08:26 20 MG Apixaban 5 mg BID PO 10/04/24 22:00 10/05/24 10:04 5 MG laboratory and microbiology Laboratory Tests 10/05/24 08:51 Test 10/05/24 08:51 Range/Units Serum Glucose 148 H 74-106 mg/dL Assessment/Plan KARLOS probably secondary to cardiorenal syndrome . Hyperkalemia Acute on chronic hypoxic respiratory failure Multifocal Pneumonia Acute on chronic diastolic heart failure COPD exacerbation Morbid obesity Pulmonary hypertension Status post pacemaker implantation ROBERTH FONTAINE MD Oct 05, 2024 14:22
--- NOTE | 2024-10-05 15:20 | DVHPN2 ---
Progress Note - Dictate Date Seen: Oct 05, 2024 Medical Necessity Reason Pt with a Central, PICC or Fol: No Subjective Good UOP vital signs Vital Sign Date Time Temp Pulse Resp B/P (MAP) Pulse Ox O2 Delivery O2 Flow Rate FiO2 10/05/24 12:00 95 Oxymizer 6 N/A 10/05/24 10:00 58 10/05/24 09:00 98.0 18 153/80 (104) 98.0 Total Intake and Output 10/04/24 10/04/24 10/05/24 15:00 23:00 07:00 Intake Total 1150 ml 520 ml Output Total 600 ml 1100 ml Balance 550 ml -580 ml medications Current Medications Medications Dose Ordered Sig/Jeanine Route Start Time Stop Time Status Last Admin Dose Admin Patient Own Medication 10 mg DAILY PO 10/04/24 10:00 Atorvastatin Calcium 20 mg HS PO 10/03/24 22:00 10/04/24 21:23 20 MG Levofloxacin/ Dextrose 100 ml @ 100 mls/hr DAILY IV 10/04/24 10:00 10/05/24 10:04 100 MLS/HR Famotidine 20 mg Q12HR IV 10/03/24 22:00 10/05/24 10:04 20 MG Levothyroxine Sodium 25 mcg QAM@0600 PO 10/04/24 06:00 10/05/24 05:39 25 MCG Albuterol 2.5 mg Q4HPRN PRN NEB 10/03/24 15:00 10/05/24 10:14 2.5 MG Ipratropium [place] 0.5 mg Q4HPRN PRN NEB 10/03/24 15:00 10/05/24 10:14 0.5 MG Methylprednisolone Sodium Succinate 40 mg Q8HR IV 10/03/24 22:00 10/05/24 14:31 40 MG Sodium Chloride 10 ml Q8HR IV 10/03/24 22:00 10/05/24 14:32 10 ML Acetaminophen/ Hydrocodone Bitart 1 tab Q4HP PRN PO 10/03/24 15:00 10/03/24 16:57 1 TAB Ondansetron HCl 4 mg Q4HP PRN IV 10/03/24 15:00 Docusate Sodium 100 mg BIDPRN PRN PO 10/03/24 15:00 Acetaminophen 650 mg Q6HP PRN PO 10/03/24 15:00 Nitroglycerin 0.4 mg Q5MINP PRN SL 10/03/24 15:00 Hold Morphine Sulfate 2 mg Q30M PRN IV 10/03/24 15:00 Albuterol 2.5 mg Q6HR NEB 10/04/24 00:00 10/05/24 05:47 2.5 MG Ipratropium [place] 0.5 mg Q6HR NEB 10/04/24 00:00 10/05/24 05:47 0.5 MG Furosemide 60 mg BIDD IV 10/04/24 22:00 10/05/24 05:38 60 MG Sildenafil Citrate 20 mg TID@08,14,20 PO 10/04/24 20:00 10/05/24 14:31 20 MG Apixaban 5 mg BID PO 10/04/24 22:00 10/05/24 10:04 5 MG objective General Appearance: Alert, Oriented X3, Cooperative, No acute distress HEENT: Atraumatic, PERRLA, EOMI, Mucous membr. moist/pink Respiratory: Diminished breath sounds Cardiovascular: Regular rate, Normal S1, Normal S2, No murmurs Abdominal: Normal bowel sounds, Soft, No tenderness, No hepatospenomegaly, No masses Extremities: Edema present Skin: No rashes, No significant lesion Neuro: No focal deficits laboratory and microbiology Laboratory Tests 10/05/24 08:51 Test 10/05/24 08:51 Range/Units Serum Glucose 148 H 74-106 mg/dL Problem List KARLOS probably secondary to cardiorenal syndrome . Hyperkalemia Acute on chronic hypoxic respiratory failure Multifocal Pneumonia Acute on chronic diastolic heart failure COPD exacerbation Morbid obesity Pulmonary hypertension Status post pacemaker implantation Assessment/Plan CONTINUE LASIX . Add Diamox 250 mg bid Plan discussed with: Patient ROBERTH FONTAINE MD Oct 05, 2024 15:20
--- NOTE | 2024-10-05 19:58 | DVH ---
EXAM: XY CHEST XRAY 1 VIEW TECHNIQUE: Single frontal chest radiograph CLINICAL HISTORY: shortness of breath COMPARISON: XY CHEST PORTABLE on DOS: 10/03/24, XY CHEST PORTABLE on DOS: 04/24/24, XY CHEST PORTABLE o n DOS: 04/19/24 Findings/Impression: Frontal chest radiograph demonstrates no acute osseous or superficial soft tissue abnormalities. Left chest wall dual-chamber pacemaker. The trachea is midline. Cardiomegaly with pulmonary vascular congestion. Moderate elevation of the right hemidiaphragm with bibasilar airspace disease. No pneumothorax.
[2024-10-05] MEDS: acetaZOLAMIDE SODIUM 500 MG VL IV SCH (21:04)
--- NOTE | 2024-10-05 23:51 | DVHPN2 ---
Progress Note - Dictate Date Seen: Oct 05, 2024 Medical Necessity Reason Pt with a Central, PICC or Fol: No Subjective [facility]UNG MARIANNA Patient seen and examined at bedside. On supplemental oxygen Overnight events reviewed. vital signs Vital Sign Date Time Temp Pulse Resp B/P (MAP) Pulse Ox O2 Delivery O2 Flow Rate FiO2 10/05/24 22:02 81 97 Nasal BiPAP Mask 40 10/05/24 21:04 139/74 10/05/24 20:47 98.9 21 98.9 10/05/24 20:00 6 Total Intake and Output 10/04/24 10/04/24 10/05/24 14:59 22:59 06:59 Intake Total 1150 ml 520 ml Output Total 600 ml 1100 ml Balance 550 ml -580 ml medications Current Medications Medications Dose Ordered Sig/Jeanine Route Start Time Stop Time Status Last Admin Dose Admin Patient Own Medication 10 mg DAILY PO 10/04/24 10:00 Atorvastatin Calcium 20 mg HS PO 10/03/24 22:00 10/05/24 21:10 20 MG Levofloxacin/ Dextrose 100 ml @ 100 mls/hr DAILY IV 10/04/24 10:00 10/05/24 10:04 100 MLS/HR Famotidine 20 mg Q12HR IV 10/03/24 22:00 10/05/24 21:06 20 MG Levothyroxine Sodium 25 mcg QAM@0600 PO 10/04/24 06:00 10/05/24 05:39 25 MCG Albuterol 2.5 mg Q4HPRN PRN NEB 10/03/24 15:00 10/05/24 10:14 2.5 MG Ipratropium [place] 0.5 mg Q4HPRN PRN NEB 10/03/24 15:00 10/05/24 10:14 0.5 MG Methylprednisolone Sodium Succinate 40 mg Q8HR IV 10/03/24 22:00 10/05/24 21:08 40 MG Sodium Chloride 10 ml Q8HR IV 10/03/24 22:00 10/05/24 21:07 10 ML Acetaminophen/ Hydrocodone Bitart 1 tab Q4HP PRN PO 10/03/24 15:00 10/03/24 16:57 1 TAB Ondansetron HCl 4 mg Q4HP PRN IV 10/03/24 15:00 Docusate Sodium 100 mg BIDPRN PRN PO 10/03/24 15:00 Acetaminophen 650 mg Q6HP PRN PO 10/03/24 15:00 Nitroglycerin 0.4 mg Q5MINP PRN SL 10/03/24 15:00 Hold Morphine Sulfate 2 mg Q30M PRN IV 10/03/24 15:00 Albuterol 2.5 mg Q6HR NEB 10/04/24 00:00 10/05/24 18:27 2.5 MG Ipratropium [place] 0.5 mg Q6HR NEB 10/04/24 00:00 10/05/24 18:27 0.5 MG Furosemide 60 mg BIDD IV 10/04/24 22:00 10/05/24 17:56 60 MG Sildenafil Citrate 20 mg TID@08,14,20 PO 10/04/24 20:00 10/05/24 20:58 20 MG Apixaban 5 mg BID PO 10/04/24 22:00 10/05/24 21:10 5 MG Acetazolamide Sodium 250 mg Q12HR IV 10/05/24 22:00 10/05/24 21:04 250 MG objective Gen.: Patient lying in bed in no apparent distress. On supplemental oxygen. Head: Normocephalic, atraumatic. Eyes: EOMI/PERRLA. Ears: Normal hearing. Normal anatomy. Neck/trachea: Trachea midline, supple. Nose: Normal external anatomy. Mouth: Moist mucous membranes. Chest: Decreased air entry bilaterally. No wheezing or rhonchi. Cardiovascular: Positive S1, positive S2. Regular rate and rhythm. Abdomen: Positive bowel sounds in all 4 quadrants. Soft, non-tender, non- distended. : Deferred. Rectal: Deferred. Skin: Warm, dry. Intact. Extremities: 2+ radial pulses bilaterally. No lower extremity edema. Neuro: Awake, alert, oriented x3. No gross motor or sensory deficits. Cranial nerves II through XII intact. Gait not assessed. laboratory and microbiology Laboratory Tests 10/05/24 08:51 Test 10/05/24 08:51 Range/Units Serum Glucose 148 H 74-106 mg/dL Assessment/Plan Impression: Acute hypoxic respiratory failure Dependence on supplemental oxygen Pneumonia, bilateral lower lobe COPD exacerbation Acute on chronic diastolic CHF Morbid obesity Chronic kidney disease Pulmonary hypertension, RVSP of 80 mmHg. Events: Patient seen and examined at bedside. He remains on supplemental oxygen alternating with BiPAP Taper O2 as tolerated BiPAP PRN Continue antibiotics for bilateral lower lobe pneumonia. Sildenafil for pulmonary hypertension. Eliquis BID Echo reviewed, Pulmonary hypertension, RVSP of 80 mmHg. LVEF of 55-60% Cardiology recommendations appreciated. Diurese with Lasix Monitor renal function CXR reveals Left chest wall dual-chamber pacemaker. Cardiomegaly with pulmonary vascular congestion. Moderate elevation of the right hemidiaphragm with bibasilar airspace disease. No pneumothorax. Obtain chest x-ray in the AM to assess for interval changes Labs and imaging reviewed. Rest of plan as noted below. Plan: Continue supplemental oxygen BiPAP PRN. Titrate to keep O2 sats above 92%. Monitor respiratory status closely Bronchodilators. IV steroids Eliquis BID. Echo reviewed; Pulmonary hypertension, RVSP of 80 mmHg. Concentric left ventricular hypertrophy. LVEF of 55-60%. Mild mitral regurgitation. [id number] tricuspid regurgitation. Follow up Cardiology recommendations Diurese to euvolemia Monitor renal function. Monitor electrolytes. Supplement as necessary. Monitor ins and outs. Follow up Nephrology recommendations Diet and lifestyle modifications for weight reduction Morbid obesity complicates all care DVT prophylaxis. Prognosis: Poor given patient's multiple co-morbidities. Rest of plan per hospitalist and other consultants. Thank you Dr. Badillo for allowing me to participate in this patient's care. Further recommendations will depend on the patient's clinical course. Please do not hesitate to contact me if you have any questions or concerns. This medical document was created using an electronic medical record system with [employer] dictation system. Although these documentations are being carefully reviewed, there may still be some phonetic and typographical changes. The errors are purely typographical, due to imperfection on the software program, and do not reflect any compromise in the patient's medical care. Plan discussed with: Patient, Other (RN Kevin) ANCELMO MONTOYA MD Oct 05, 2024 23:51
[2024-10-06] VITALS (19 sets, daily range): BP systolic 114–124; BP diastolic 57–79; PULSE 58–89; RESP 16–22; TEMP 97.3–98.8; O2SAT 93–100
[2024-10-06 05:40] LABS: Hematocrit 31.0 % (41.0-53.0); Hemoglobin 9.8 g/dL (13.5-17.5); Mean Corpuscular Hemoglobin 28.2 pg (28.0-32.0); Mean Corpuscular Volume 89.4 fL (80.0-100.0); Nucleated Red Blood Cells % 0.1 %
[2024-10-06 06:10] LABS: Albumin 3.5 g/dL (3.2-4.8); Alkaline Phosphatase 77 U/L (46-116); BUN/Creatinine Ratio 21.7 (10.0-20.0); Calcium 8.9 mg/dL (8.7-10.4); Magnesium 1.9 mg/dL (1.6-2.6); Potassium 4.9 mmol/L (3.5-5.1); Sodium 138 mmol/L (136-145); Total Protein 7.3 g/dL (5.7-8.2)
[2024-10-06 06:11] LABS: Bilirubin, Total 0.5 mg/dL (0.2-1.0)
[2024-10-06 06:37] LABS: Chloride 88 mmol/L (98-107)
[2024-10-06 06:39] LABS: Anion Gap 9.99999 (5-15); Blood Urea Nitrogen 33 mg/dL (9-23); Carbon Dioxide > 40 mmol/L (20-31); Glucose 116 mg/dL (74-106)
[2024-10-06 06:40] LABS: Alanine Aminotransferase < 9 U/L (7-40)
--- NOTE | 2024-10-06 07:59 | DVHPN2 ---
Progress Note - Dictate Date Seen: Oct 06, 2024 Medical Necessity Reason Pt with a Central, PICC or Fol: No vital signs Vital Sign Date Time Temp Pulse Resp B/P (MAP) Pulse Ox O2 Delivery O2 Flow Rate FiO2 10/06/24 06:04 80 96 Nasal BiPAP Mask 70 10/06/24 05:04 122/61 10/06/24 04:53 97.9 22 97.9 10/05/24 20:00 6 Total Intake and Output 10/05/24 10/05/24 10/06/24 15:00 23:00 07:00 Intake Total 100 ml 1100 ml 820 ml Output Total 2500 ml 2500 ml Balance 100 ml -1400 ml -1680 ml medications Current Medications Medications Dose Ordered Sig/Jeanine Route Start Time Stop Time Status Last Admin Dose Admin Patient Own Medication 10 mg DAILY PO 10/04/24 10:00 Atorvastatin Calcium 20 mg HS PO 10/03/24 22:00 10/05/24 21:10 20 MG Levofloxacin/ Dextrose 100 ml @ 100 mls/hr DAILY IV 10/04/24 10:00 10/05/24 10:04 100 MLS/HR Famotidine 20 mg Q12HR IV 10/03/24 22:00 10/05/24 21:06 20 MG Levothyroxine Sodium 25 mcg QAM@0600 PO 10/04/24 06:00 10/06/24 05:05 25 MCG Albuterol 2.5 mg Q4HPRN PRN NEB 10/03/24 15:00 10/05/24 10:14 2.5 MG Ipratropium [place] 0.5 mg Q4HPRN PRN NEB 10/03/24 15:00 10/05/24 10:14 0.5 MG Methylprednisolone Sodium Succinate 40 mg Q8HR IV 10/03/24 22:00 10/06/24 05:05 40 MG Sodium Chloride 10 ml Q8HR IV 10/03/24 22:00 10/06/24 05:04 10 ML Acetaminophen/ Hydrocodone Bitart 1 tab Q4HP PRN PO 10/03/24 15:00 10/03/24 16:57 1 TAB Ondansetron HCl 4 mg Q4HP PRN IV 10/03/24 15:00 Docusate Sodium 100 mg BIDPRN PRN PO 10/03/24 15:00 Acetaminophen 650 mg Q6HP PRN PO 10/03/24 15:00 Nitroglycerin 0.4 mg Q5MINP PRN SL 10/03/24 15:00 Hold Morphine Sulfate 2 mg Q30M PRN IV 10/03/24 15:00 Albuterol 2.5 mg Q6HR NEB 10/04/24 00:00 10/06/24 06:04 2.5 MG Ipratropium [place] 0.5 mg Q6HR NEB 10/04/24 00:00 10/06/24 06:04 0.5 MG Furosemide 60 mg BIDD IV 10/04/24 22:00 10/06/24 05:04 60 MG Sildenafil Citrate 20 mg TID@08,14,20 PO 10/04/24 20:00 10/05/24 20:58 20 MG Apixaban 5 mg BID PO 10/04/24 22:00 10/05/24 21:10 5 MG Acetazolamide Sodium 250 mg Q12HR IV 10/05/24 22:00 10/05/24 21:04 250 MG laboratory and microbiology Laboratory Tests 10/06/24 04:38 Test 10/06/24 04:38 Range/Units Serum Glucose 116 H 74-106 mg/dL Assessment/Plan Patient is a 68-year-old gentleman who presented with weeks of shortness of breath and leg swellings. He also complained of nonproductive cough. Reportedly, EMS found him with oxygen saturation of 85%. It is of note that the patient does have chronic respiratory failure and is on home oxygen. Patient is admitted with acute on chronic respiratory distress. Cardiology is involved for cardiac aspects of care. It is of note that the patient is known to our practice from previous admissions. Last visit with us was in April 2023. He mentions that he was in hospice for awhile. He mentions the last time that the pacemaker was interrogated has been long time ago. He does have baseline history of morbid obesity with poor functional capacity and significant pulmonary hypertension. No JVD (its presence cannot be ruled out secondary to body habitus). Morbidly obese patient. [place] and with mucosa. No carotid bruit. Scattered rhonchi in the lungs is heard. Cardiac: Systolic murmur 2 out of 6 in the apex is heard. Abdomen is soft and obese, cannot rule out organomegaly (secondary to body habitus). Extremities reveal 3+ edema bilaterally. Dorsalis pedis is 1+ bilateral Past medical history includes COPD, chronic respiratory failure on home oxygen, CHF (as per patient for many years, diastolic), history of old pneumonia, CKD, hypertension, hypothyroidism, history of pacemaker implantation (Medtronic), morbid obesity, anemia of chronic disease, pulmonary hypertension, paroxysmal A. fib, thrombocytopenia and obstructive sleep apnea. Reportedly the patient was previously on hospice Echocardiogram of June 2020 revealed ejection fraction of 40 to 45%, moderate to severe TR and right ventricular systolic pressure of 60 mmHg Echocardiogram of March 2021 revealed ejection fraction of 55 to 60%, mild concentric left ventricular hypertrophy, mildly dilated RV with good systolic function, mildly dilated left atrium, small TR/MR, dilated IVC and right ventricular systolic pressure 53 mmHg. Echocardiogram of June 23, 2021 revealed: Ejection fraction of 55 to 60%, mild concentric left ventricle hypertrophy, mild biatrial dilatation, mild TR and right ventricular systolic pressure of 40 mmHg. Echocardiogram of January 31, 2023 revealed dilated right-sided chambers, pulmonary hypertension (right ventricular systolic pressure of 62 mmHg) and left ventricle ejection fraction of 65%. Echocardiogram of April 14, 2023 revealed concentric left ventricular hypertrophy, EF of 60-65%, right ventricular enlargement, mild biatrial enlargement, pacing wire in right-sided chambers, mild TR and right ventricular systolic pressure of 75 mm Hg Echocardiogram of April 19, 2024 had reported concentric left ventricular hypertrophy, ejection fraction of 55%, pacing wire in right-sided chambers, severe TR and right ventricular systolic pressure of 80 mm Hg Hemoglobin: 11.1 - 11.5 - 10.2 - 9.8 Creatinine: 1.37 - 1.57 - 1.59 - 1.52 Potassium: 4.9 - 4.4 - 4.8 - 4.9 Troponin (high sensitive): - BNP: 282.85 TSH: 3.80 Chest x-ray revealed: IMPRESSION: 1. Bibasilar pneumonia. Left-sided pacemaker. Repeat chest xry revealed: Frontal chest radiograph demonstrates no acute osseous or superficial soft tissue abnormalities. Left chest wall dual-chamber pacemaker. The trachea is midline. Cardiomegaly with pulmonary vascular congestion. Moderate elevation of the right hemidiaphragm with bibasilar airspace disease. No pneumothorax. Telemetry revealed sinus rhythm Echocardiogram revealed: Left ventricle: Concentric left ventricular hypertrophy was seen. LVEF was 55-60%. D-shaped septum pointed toward pulmonary hypertension. Right ventricle was significantly dilated with reduced systolic function. Left atrium was mildly dilated. Right atrium was significantly dilated. Pacing wire was seen in right-sided chambers. Aortic valve: Aortic valve was trileaflet. There was no aortic insufficiency/stenosis. There was mild mitral regurgitation. There was [id number] tricuspid regurgitation. There was trace pulmonary valve insufficiency. Right ventricular systolic pressure was assessed at 80 mm Hg. Aortic root was dilated at 4.5 cm. Ascending aorta was dilated at 4.2 cm. There was no pericardial effusion. Medtronic Pacemaker interrogation: Battery: Remaining longevity: 5.4 years; Lead impedance: Atrial 152/RV 380 Ohms; Programs sensitivity: Atrial 0.45/RV 0.90 mV; AAI-DDD: 60/130; POT ROOM TAPPER: 0.9%, AP: 24.3%; Percent of time in AT/AF: Less than 0.1%; Normal functioning pacemaker Patient is a 68-year-old gentleman who presented with worsening shortness of breath, leg swellings and non-productive cough. Patient is admitted with acute on chronic respiratory failure. Chest x-ray questions multifocal pneumonia. Does have baseline history of COPD and COPD exacerbation could have contributed to the clinical picture. Does have baseline history of significant pulmonary hypertension and its worsening could have contributed to the clinical picture infection/pneumonia could have contributed to worsening pulmonary hypertension and respiratory failure. It is of note that the patient also is morbidly obese with poor functional capacity. Does have baseline history of noncompliance which could have contributed to the clinical picture. It is of note that the patient was not following with outside pain medicine physician (most likely as he was on hospice for a while). He mentions that he is not on hospice at this point. PM interrogation revealed normal functioning pacemaker. Being followed by Pulmonary. Patient mentioned that he is contemplating to go back to Hospice Multifocal Pneumonia Acute on chronic respiratory failure Acute on chronic diastolic heart failure COPD exacerbation Morbid obesity Pulmonary hypertension Status post pacemaker implantation (Medtronic) CKD, chronic Cardiac suggestion for care: Manage in tele IV diuresis at this point is suggested (Lasix at 60 mg IV twice daily for now) Follow-up electrolytes and kidney function tests and correct abnormalities. Keep potassium above 4 magnesium above 2 Sildenafil at 20 mg 3 times a day suggested Pulmonary follow up. intermediate full anticoagulation (history of atrial fibrillation with high CHADS- VASc score), on Eliquis Antibiotic therapy for pneumonia as per primary team/Pulmonary. Further evaluation and management depends on the above and clinical course A total of 55 minutes was spent reviewing the patient record, examining the patient, making a diagnostic and therapeutic plan, discussing this plan with medical personnel, following up on diagnostic studies and following the patient for clinical stability excluding any and all procedures. At least 50% of this time was spent in direct, [id number] contact. Thank you for allowing me to participate in this patient's care. Further recommendations will depend on patient's clinical course. Please do not hesitate to contact me if you have any questions or concerns. This medical document was created using electronic medical record system with [employer] computerized dictation system. Although this document has been carefully reviewed, there may still be some phonetic and typographical errors. These areas are purely typographical due to the imperfection of the software programs, and do not reflect any compromise in the patient's medical care. Plan discussed with: Patient, Other (nurse) EBEN SPARROW MD Oct 06, 2024 07:59
--- NOTE | 2024-10-06 08:17 | DVHNC2 ---
Procedure - Medtronic Pacemaker interrogation: Battery: Remaining longevity: 5.4 years Lead impedance: Atrial 152/RV 380 Ohms Programs sensitivity: Atrial 0.45/RV 0.90 mV AAI-DDD: 60/130 AMMONIA BOX OPERATOR: 0.9%, AP: 24.3% Person of time in AT/AF: Less than 0.1% Normal functioning pacemaker EBEN SPARROW MD Oct 06, 2024 08:17
--- NOTE | 2024-10-06 09:31 | DVHPN2 ---
Progress Note - Dictate Date Seen: Oct 06, 2024 Medical Necessity Reason Pt with a Central, PICC or Fol: No Subjective Good UOP 5 liters in the last 24 hrs vital signs Vital Sign Date Time Temp Pulse Resp B/P (MAP) Pulse Ox O2 Delivery O2 Flow Rate FiO2 10/06/24 08:45 98 Oxymizer 5 N/A 10/06/24 07:55 89 18 10/06/24 05:04 122/61 10/06/24 04:53 97.9 97.9 Total Intake and Output 10/05/24 10/05/24 10/06/24 15:00 23:00 07:00 Intake Total 100 ml 1100 ml 820 ml Output Total 2500 ml 2500 ml Balance 100 ml -1400 ml -1680 ml medications Current Medications Medications Dose Ordered Sig/Jeanine Route Start Time Stop Time Status Last Admin Dose Admin Patient Own Medication 10 mg DAILY PO 10/04/24 10:00 Atorvastatin Calcium 20 mg HS PO 10/03/24 22:00 10/05/24 21:10 20 MG Levofloxacin/ Dextrose 100 ml @ 100 mls/hr DAILY IV 10/04/24 10:00 10/05/24 10:04 100 MLS/HR Famotidine 20 mg Q12HR IV 10/03/24 22:00 10/05/24 21:06 20 MG Levothyroxine Sodium 25 mcg QAM@0600 PO 10/04/24 06:00 10/06/24 05:05 25 MCG Albuterol 2.5 mg Q4HPRN PRN NEB 10/03/24 15:00 10/05/24 10:14 2.5 MG Ipratropium [place] 0.5 mg Q4HPRN PRN NEB 10/03/24 15:00 10/05/24 10:14 0.5 MG Methylprednisolone Sodium Succinate 40 mg Q8HR IV 10/03/24 22:00 10/06/24 05:05 40 MG Sodium Chloride 10 ml Q8HR IV 10/03/24 22:00 10/06/24 05:04 10 ML Acetaminophen/ Hydrocodone Bitart 1 tab Q4HP PRN PO 10/03/24 15:00 10/03/24 16:57 1 TAB Ondansetron HCl 4 mg Q4HP PRN IV 10/03/24 15:00 Docusate Sodium 100 mg BIDPRN PRN PO 10/03/24 15:00 Acetaminophen 650 mg Q6HP PRN PO 10/03/24 15:00 Nitroglycerin 0.4 mg Q5MINP PRN SL 10/03/24 15:00 Hold Morphine Sulfate 2 mg Q30M PRN IV 10/03/24 15:00 Albuterol 2.5 mg Q6HR NEB 10/04/24 00:00 10/06/24 06:04 2.5 MG Ipratropium [place] 0.5 mg Q6HR NEB 10/04/24 00:00 10/06/24 06:04 0.5 MG Furosemide 60 mg BIDD IV 10/04/24 22:00 10/06/24 05:04 60 MG Sildenafil Citrate 20 mg TID@08,14,20 PO 10/04/24 20:00 10/06/24 08:08 20 MG Apixaban 5 mg BID PO 10/04/24 22:00 10/05/24 21:10 5 MG Acetazolamide Sodium 250 mg Q12HR IV 10/05/24 22:00 10/05/24 21:04 250 MG objective General Appearance: Alert, Oriented X3, Cooperative, No acute distress HEENT: Atraumatic, PERRLA, EOMI, Mucous membr. moist/pink Respiratory: Diminished breath sounds Cardiovascular: Regular rate, Normal S1, Normal S2, No murmurs Abdominal: Normal bowel sounds, Soft, No tenderness, No hepatospenomegaly, No masses Extremities: Edema present Skin: No rashes, No significant lesion Neuro: No focal deficits laboratory and microbiology Laboratory Tests 10/06/24 04:38 Test 10/06/24 04:38 Range/Units Serum Glucose 116 H 74-106 mg/dL Problem List KARLOS probably secondary to cardiorenal syndrome . Hyperkalemia , resolved Acute on chronic hypoxic respiratory failure Multifocal Pneumonia Acute on chronic diastolic heart failure COPD exacerbation Morbid obesity Pulmonary hypertension Status post pacemaker implantation Assessment/Plan Stable GFR continue Diamox continue lasix strict I/O Daily BMP Plan discussed with: Patient ROBERTH FONTAINE MD Oct 06, 2024 09:31
--- NOTE | 2024-10-06 11:19 | DVHPN2 ---
Reviewed: Care Plan, H&P, Labs, Medications, Previous Orders, Radiology Changes from previous H/P or p: No Changes Eyes: No Pain, No Vision change, No Conjunctivae inflammation, No Eyelid inflammation, No Other, No Redness ENT: No Ear pain, No Ear discharge, No Nose pain, No Nose discharge, No Nose congestion, No Mouth pain, No Mouth swelling, No Throat pain, No Throat swelling, No Other Cardiovascular: No Chest Pain, No Palpitations, No Orthopnea, No Paroxysmal Noc. Dyspnea; Edema; No Lt Headedness, No Other Respiratory: Cough; No Dry; Shortness of breath; No SOB with excertion, No Wheezing, No Hemoptysis, No Pleuritic Pain, No Sputum; Other (SOB at rest) Gastrointestinal: No Nausea, No Vomiting, No Abdominal Pain, No Diarrhea, No Constipation, No Melena, No Hematochezia, No Other Genitourinary: No Dysuria, No Frequency, No Incontinence, No Hematuria, No Retention; Other (Loving catheter in place) Musculoskeletal: No other, No neck pain, No shoulder pain, No arm pain, No back pain, No hand pain, No leg pain, No foot pain Skin: No Rash, No Lesions, No Jaundice, No Bruising, No Other Objective Vitals Vital Signs Date Time Temp Pulse Resp B/P (MAP) Pulse Ox O2 Delivery O2 Flow Rate FiO2 10/06/24 11:05 75 18 95 10/06/24 11:05 124/79 5.0 10/06/24 09:00 97.3 97.3 10/06/24 08:45 Oxymizer N/A Intake/Output Intake and Output 10/06/24 07:00 Intake Total 2020 ml Output Total 5000 ml Balance -2980 ml Intake Oral 1920 ml IV Total 100 ml Output Urine Total 5000 ml Medications Current Medications Medications Dose Ordered Sig/Jeanine Route Start Time Stop Time Status Last Admin Dose Admin Patient Own Medication 10 mg DAILY PO 10/04/24 10:00 Atorvastatin Calcium 20 mg HS PO 10/03/24 22:00 10/05/24 21:10 20 MG Levofloxacin/ Dextrose 100 ml @ 100 mls/hr DAILY IV 10/04/24 10:00 10/06/24 09:36 100 MLS/HR Famotidine 20 mg Q12HR IV 10/03/24 22:00 10/06/24 09:36 20 MG Levothyroxine Sodium 25 mcg QAM@0600 PO 10/04/24 06:00 10/06/24 05:05 25 MCG Albuterol 2.5 mg Q4HPRN PRN NEB 10/03/24 15:00 10/05/24 10:14 2.5 MG Ipratropium [place] 0.5 mg Q4HPRN PRN NEB 10/03/24 15:00 10/05/24 10:14 0.5 MG Methylprednisolone Sodium Succinate 40 mg Q8HR IV 10/03/24 22:00 10/06/24 05:05 40 MG Sodium Chloride 10 ml Q8HR IV 10/03/24 22:00 10/06/24 05:04 10 ML Acetaminophen/ Hydrocodone Bitart 1 tab Q4HP PRN PO 10/03/24 15:00 10/03/24 16:57 1 TAB Ondansetron HCl 4 mg Q4HP PRN IV 10/03/24 15:00 Docusate Sodium 100 mg BIDPRN PRN PO 10/03/24 15:00 Acetaminophen 650 mg Q6HP PRN PO 10/03/24 15:00 Nitroglycerin 0.4 mg Q5MINP PRN SL 10/03/24 15:00 Hold Morphine Sulfate 2 mg Q30M PRN IV 10/03/24 15:00 Albuterol 2.5 mg Q6HR NEB 10/04/24 00:00 10/06/24 11:05 2.5 MG Ipratropium [place] 0.5 mg Q6HR NEB 10/04/24 00:00 10/06/24 11:05 0.5 MG Furosemide 60 mg BIDD IV 10/04/24 22:00 10/06/24 05:04 60 MG Sildenafil Citrate 20 mg TID@08,14,20 PO 10/04/24 20:00 10/06/24 08:08 20 MG Apixaban 5 mg BID PO 10/04/24 22:00 10/06/24 09:37 5 MG Acetazolamide Sodium 250 mg Q12HR IV 10/05/24 22:00 10/06/24 09:36 250 MG Laboratory Results Laboratory Tests 10/06/24 04:38 Chemistry Test 10/06/24 04:38 Albumin 3.5 g/dL (3.2-4.8) Calcium Level 8.9 mg/dL (8.7-10.4) Magnesium Level 1.9 mg/dL (1.6-2.6) Total Protein 7.3 g/dL (5.7-8.2) LFT Test 10/06/24 04:38 Alanine Aminotransferase (ALT) < 9 U/L (7-40) Alkaline Phosphatase 77 U/L (46-116) Aspartate Amino Transferase (AST) 16 U/L (13-40) Total Bilirubin 0.5 mg/dL (0.2-1.0) Microbiology Microbiology Date/Time Source Procedure Growth Status 10/03/24 15:45 Blood Blood Culture - Preliminary NO GROWTH AFTER 48 HOURS OF INCUBATION. Resulted Labs and/or images reviewed: Labs reviewed by me, Image(s) reviewed by me Assessment/Plan Assessment/Plan Acute Respiratory failure: Oxygen by nasal cannula Acute bilateral community-acquired multifocal pneumonia Gram-positive versus Gram-negative Levaquin consult by Dr. Engel appreciated Vianey test negative Rapid flu test negative History of home oxygen use History of pacemaker pacemaker interrogated by Dr. Ayers pacemaker working normally Atrial fibrillation Acute on chronic CHF exacerbation: Lasix consult by Dr. Ayers appreciated Chronic kidney disease nephrology consult by Vanesa appreciated COPD exacerbation Hypertension Hypercholesterolemia Hypothyroidism Morbid obesity Gross obesity BMI of 50 Spent 70 minutes Advanced care planning time 20 minutes Patient is full code Plan discussed with: Patient Date of Service: Oct 06, 2024 Billing Provider: FADUMO VEGAS MD Common Visit Codes: [id number] CARE 30-74 MIN FADUMO VEGAS MD Oct 06, 2024 11:19
--- NOTE | 2024-10-06 23:08 | DVHPN2 ---
Progress Note - Dictate Date Seen: Oct 06, 2024 Medical Necessity Reason Pt with a Central, PICC or Fol: No Subjective [facility] [place] [facility] Patient seen and examined at bedside. On supplemental oxygen Overnight events reviewed. vital signs Vital Sign Date Time Temp Pulse Resp B/P (MAP) Pulse Ox O2 Delivery O2 Flow Rate FiO2 10/06/24 21:00 97.9 61 16 119/62 (81) 94 97.9 10/06/24 19:36 Oxymizer 4.0 10/06/24 19:36 N/A Total Intake and Output 10/05/24 10/05/24 10/06/24 15:00 23:00 07:00 Intake Total 100 ml 1100 ml 820 ml Output Total 2500 ml 2500 ml Balance 100 ml -1400 ml -1680 ml medications Current Medications Medications Dose Ordered Sig/Jeanine Route Start Time Stop Time Status Last Admin Dose Admin Patient Own Medication 10 mg DAILY PO 10/04/24 10:00 Atorvastatin Calcium 20 mg HS PO 10/03/24 22:00 10/06/24 21:14 20 MG Levofloxacin/ Dextrose 100 ml @ 100 mls/hr DAILY IV 10/04/24 10:00 10/06/24 09:36 100 MLS/HR Famotidine 20 mg Q12HR IV 10/03/24 22:00 10/06/24 21:14 20 MG Levothyroxine Sodium 25 mcg QAM@0600 PO 10/04/24 06:00 10/06/24 05:05 25 MCG Albuterol 2.5 mg Q4HPRN PRN NEB 10/03/24 15:00 10/05/24 10:14 2.5 MG Ipratropium [place] 0.5 mg Q4HPRN PRN NEB 10/03/24 15:00 10/05/24 10:14 0.5 MG Methylprednisolone Sodium Succinate 40 mg Q8HR IV 10/03/24 22:00 10/06/24 21:15 40 MG Sodium Chloride 10 ml Q8HR IV 10/03/24 22:00 10/06/24 21:23 10 ML Acetaminophen/ Hydrocodone Bitart 1 tab Q4HP PRN PO 10/03/24 15:00 10/03/24 16:57 1 TAB Ondansetron HCl 4 mg Q4HP PRN IV 10/03/24 15:00 Docusate Sodium 100 mg BIDPRN PRN PO 10/03/24 15:00 Acetaminophen 650 mg Q6HP PRN PO 10/03/24 15:00 Nitroglycerin 0.4 mg Q5MINP PRN SL 10/03/24 15:00 Hold Morphine Sulfate 2 mg Q30M PRN IV 10/03/24 15:00 Albuterol 2.5 mg Q6HR NEB 10/04/24 00:00 10/06/24 19:36 2.5 MG Ipratropium [place] 0.5 mg Q6HR NEB 10/04/24 00:00 10/06/24 19:36 0.5 MG Furosemide 60 mg BIDD IV 10/04/24 22:00 10/06/24 17:49 60 MG Sildenafil Citrate 20 mg TID@08,14,20 PO 10/04/24 20:00 10/06/24 21:14 20 MG Apixaban 5 mg BID PO 10/04/24 22:00 10/06/24 21:14 5 MG Acetazolamide Sodium 250 mg Q12HR IV 10/05/24 22:00 10/06/24 09:36 250 MG objective Gen.: Patient lying in bed in no apparent distress. On supplemental oxygen. Head: Normocephalic, atraumatic. Eyes: EOMI/PERRLA. Ears: Normal hearing. Normal anatomy. Neck/trachea: Trachea midline, supple. Nose: Normal external anatomy. Mouth: Moist mucous membranes. Chest: Decreased air entry bilaterally. No wheezing or rhonchi. Cardiovascular: Positive S1, positive S2. Regular rate and rhythm. Abdomen: Positive bowel sounds in all 4 quadrants. Soft, non-tender, non- distended. : Deferred. Rectal: Deferred. Skin: Warm, dry. Intact. Extremities: 2+ radial pulses bilaterally. No lower extremity edema. Neuro: Awake, alert, oriented x3. No gross motor or sensory deficits. Cranial nerves II through XII intact. Gait not assessed. laboratory and microbiology Laboratory Tests 10/06/24 04:38 Test 10/06/24 04:38 Range/Units Serum Glucose 116 H 74-106 mg/dL Assessment/Plan Impression: Acute hypoxic respiratory failure Dependence on supplemental oxygen Pneumonia, bilateral lower lobe COPD exacerbation Acute on chronic diastolic CHF Morbid obesity Chronic kidney disease Pulmonary hypertension, RVSP of 80 mmHg. Events: Patient seen and examined at bedside. He remains on supplemental oxygen alternating with BiPAP Currently on 5 LPM Oxymizer -Taper O2 as tolerated BiPAP PRN Continue antibiotics for bilateral lower lobe pneumonia. Sildenafil for pulmonary hypertension. Eliquis BID Echo reviewed, Pulmonary hypertension, RVSP of 80 mmHg. LVEF of 55-60% Cardiology recommendations appreciated. Diurese with Lasix Monitor renal function CXR reveals left chest wall dual-chamber pacemaker. Cardiomegaly with pulmonary vascular congestion. Moderate elevation of the right hemidiaphragm with bibasilar airspace disease. No pneumothorax. Labs and imaging reviewed. Rest of plan as noted below. Plan: Continue supplemental oxygen BiPAP PRN. Titrate to keep O2 sats above 92%. Monitor respiratory status closely Bronchodilators. IV steroids Eliquis BID. Echo reviewed; Pulmonary hypertension, RVSP of 80 mmHg. Concentric left ventricular hypertrophy. LVEF of 55-60%. Mild mitral regurgitation. [id number] tricuspid regurgitation. Follow up Cardiology recommendations Diurese to euvolemia Monitor renal function. Monitor electrolytes. Supplement as necessary. Monitor ins and outs. Follow up Nephrology recommendations Diet and lifestyle modifications for weight reduction Morbid obesity complicates all care DVT prophylaxis. Prognosis: Poor given patient's multiple co-morbidities. Rest of plan per hospitalist and other consultants. Thank you Dr. Badillo for allowing me to participate in this patient's care. Further recommendations will depend on the patient's clinical course. Please do not hesitate to contact me if you have any questions or concerns. This medical document was created using an electronic medical record system with [employer] dictation system. Although these documentations are being carefully reviewed, there may still be some phonetic and typographical changes. The errors are purely typographical, due to imperfection on the software program, and do not reflect any compromise in the patient's medical care. Plan discussed with: Patient, Other (RN Kevin) ANCELMO MONTOYA MD Oct 06, 2024 23:08
[2024-10-07] VITALS (20 sets, daily range): BP systolic 103–130; BP diastolic 58–67; PULSE 59–88; RESP 16–22; TEMP 97.7–98.4; O2SAT 89–99
[2024-10-07 07:28] LABS: Hematocrit 34.1 % (41.0-53.0); Hemoglobin 10.7 g/dL (13.5-17.5); Mean Corpuscular Hemoglobin 28.2 pg (28.0-32.0); Mean Corpuscular Volume 89.6 fL (80.0-100.0); Nucleated Red Blood Cells % 0.3 %
[2024-10-07 07:43] LABS: Albumin 3.7 g/dL (3.2-4.8); Alkaline Phosphatase 78 U/L (46-116); BUN/Creatinine Ratio 24.0 (10.0-20.0); Bilirubin, Total 0.7 mg/dL (0.2-1.0); Calcium 9.1 mg/dL (8.7-10.4); Magnesium 2.0 mg/dL (1.6-2.6); Potassium 4.7 mmol/L (3.5-5.1); Sodium 137 mmol/L (136-145); Total Protein 7.8 g/dL (5.7-8.2)
[2024-10-07 07:49] LABS: Chloride 85 mmol/L (98-107)
[2024-10-07 07:50] LABS: Alanine Aminotransferase < 9 U/L (7-40); Anion Gap 11.99999 (5-15); Blood Urea Nitrogen 37 mg/dL (9-23); Carbon Dioxide > 40 mmol/L (20-31); Glucose 120 mg/dL (74-106)
--- NOTE | 2024-10-07 10:20 | DVHPN2 ---
Reviewed: Care Plan, H&P, Labs, Medications, Previous Orders, Radiology Changes from previous H/P or p: No Changes Eyes: No Pain, No Vision change, No Conjunctivae inflammation, No Eyelid inflammation, No Other, No Redness ENT: No Ear pain, No Ear discharge, No Nose pain, No Nose discharge, No Nose congestion, No Mouth pain, No Mouth swelling, No Throat pain, No Throat swelling, No Other Cardiovascular: No Chest Pain, No Palpitations, No Orthopnea, No Paroxysmal Noc. Dyspnea; Edema; No Lt Headedness, No Other Respiratory: Cough; No Dry; Shortness of breath; No SOB with excertion, No Wheezing, No Hemoptysis, No Pleuritic Pain, No Sputum; Other (SOB at rest) Gastrointestinal: No Nausea, No Vomiting, No Abdominal Pain, No Diarrhea, No Constipation, No Melena, No Hematochezia, No Other Genitourinary: No Dysuria, No Frequency, No Incontinence, No Hematuria, No Retention; Other (Loving catheter in place) Musculoskeletal: No other, No neck pain, No shoulder pain, No arm pain, No back pain, No hand pain, No leg pain, No foot pain Skin: No Rash, No Lesions, No Jaundice, No Bruising, No Other Objective Vitals Vital Signs Date Time Temp Pulse Resp B/P (MAP) Pulse Ox O2 Delivery O2 Flow Rate FiO2 10/07/24 09:20 98.4 76 18 130/59 (82) 89 98.4 10/07/24 08:40 Facial BiPAP Mask 40 10/07/24 06:19 2.0 Intake/Output Intake and Output 10/07/24 07:00 Intake Total 2550 ml Output Total 6580 ml Balance -4030 ml Intake Oral 2450 ml IV Total 100 ml Output Urine Total 6580 ml Medications Current Medications Medications Dose Ordered Sig/Jeanine Route Start Time Stop Time Status Last Admin Dose Admin Patient Own Medication 10 mg DAILY PO 10/04/24 10:00 Atorvastatin Calcium 20 mg HS PO 10/03/24 22:00 10/06/24 21:14 20 MG Levofloxacin/ Dextrose 100 ml @ 100 mls/hr DAILY IV 10/04/24 10:00 10/06/24 09:36 100 MLS/HR Famotidine 20 mg Q12HR IV 10/03/24 22:00 10/06/24 21:14 20 MG Levothyroxine Sodium 25 mcg QAM@0600 PO 10/04/24 06:00 10/07/24 05:25 25 MCG Albuterol 2.5 mg Q4HPRN PRN NEB 10/03/24 15:00 10/05/24 10:14 2.5 MG Ipratropium [place] 0.5 mg Q4HPRN PRN NEB 10/03/24 15:00 10/05/24 10:14 0.5 MG Methylprednisolone Sodium Succinate 40 mg Q8HR IV 10/03/24 22:00 10/07/24 05:24 40 MG Sodium Chloride 10 ml Q8HR IV 10/03/24 22:00 10/07/24 05:24 10 ML Acetaminophen/ Hydrocodone Bitart 1 tab Q4HP PRN PO 10/03/24 15:00 10/03/24 16:57 1 TAB Ondansetron HCl 4 mg Q4HP PRN IV 10/03/24 15:00 Docusate Sodium 100 mg BIDPRN PRN PO 10/03/24 15:00 Acetaminophen 650 mg Q6HP PRN PO 10/03/24 15:00 Nitroglycerin 0.4 mg Q5MINP PRN SL 10/03/24 15:00 Hold Morphine Sulfate 2 mg Q30M PRN IV 10/03/24 15:00 Albuterol 2.5 mg Q6HR NEB 10/04/24 00:00 10/07/24 06:26 2.5 MG Ipratropium [place] 0.5 mg Q6HR NEB 10/04/24 00:00 10/07/24 06:26 0.5 MG Furosemide 60 mg BIDD IV 10/04/24 22:00 10/07/24 05:24 60 MG Sildenafil Citrate 20 mg TID@08,14,20 PO 10/04/24 20:00 10/07/24 08:40 20 MG Apixaban 5 mg BID PO 10/04/24 22:00 10/06/24 21:14 5 MG Acetazolamide Sodium 250 mg Q12HR IV 10/05/24 22:00 10/06/24 09:36 250 MG Laboratory Results Laboratory Tests 10/07/24 06:06 Chemistry Test 10/07/24 06:06 Albumin 3.7 g/dL (3.2-4.8) Calcium Level 9.1 mg/dL (8.7-10.4) Magnesium Level 2.0 mg/dL (1.6-2.6) Total Protein 7.8 g/dL (5.7-8.2) LFT Test 10/07/24 06:06 Alanine Aminotransferase (ALT) < 9 U/L (7-40) Alkaline Phosphatase 78 U/L (46-116) Aspartate Amino Transferase (AST) 16 U/L (13-40) Total Bilirubin 0.7 mg/dL (0.2-1.0) Microbiology Microbiology Date/Time Source Procedure Growth Status 10/03/24 15:45 Blood Blood Culture - Preliminary NO GROWTH AFTER 72 HOURS OF INCUBATION. Resulted Labs and/or images reviewed: Labs reviewed by me, Image(s) reviewed by me Assessment/Plan Assessment/Plan Acute hypercarbic Respiratory failure: Placed On BiPAP by Dr. Engel Acute bilateral community-acquired multifocal pneumonia Gram-positive versus Gram-negative Levaquin consult by Dr. Engel appreciated Vianey test negative Rapid flu test negative History of home oxygen use History of pacemaker pacemaker interrogated by Dr. Ayers pacemaker working normally Atrial fibrillation Acute on chronic CHF exacerbation: Lasix consult by Dr. Ayers appreciated Chronic kidney disease nephrology consult by Vanesa appreciated COPD exacerbation Hypertension Hypercholesterolemia Hypothyroidism Morbid obesity BMI of 48 Gross obesity BMI of 50 Spent 70 minutes Advanced care planning time 20 minutes Patient is full code Plan discussed with: Patient My Orders Orders - FADUMO VEGAS MD Procedure Category Date Status Time Pt Request For Service PT 10/06/24 Logged 11:46 Date of Service: Oct 07, 2024 Billing Provider: FADUMO VEGAS MD Common Visit Codes: [id number] CARE 30-74 MIN FADUMO VEGAS MD Oct 07, 2024 10:19
--- NOTE | 2024-10-07 11:39 | DVHPN2 ---
Progress Note - Dictate Date Seen: Oct 07, 2024 Medical Necessity Reason Pt with a Central, PICC or Fol: No Subjective Good UOP 5 liters in the last 24 hrs vital signs Vital Sign Date Time Temp Pulse Resp B/P (MAP) Pulse Ox O2 Delivery O2 Flow Rate FiO2 10/07/24 11:18 130/59 10/07/24 10:10 94 Oxymizer 2.0 10/07/24 10:10 N/A 10/07/24 09:20 98.4 76 18 98.4 Total Intake and Output 10/06/24 10/06/24 10/07/24 15:00 23:00 07:00 Intake Total 100 ml 1650 ml 800 ml Output Total 3500 ml 3080 ml Balance 100 ml -1850 ml -2280 ml medications Current Medications Medications Dose Ordered Sig/Jeanine Route Start Time Stop Time Status Last Admin Dose Admin Patient Own Medication 10 mg DAILY PO 10/04/24 10:00 Atorvastatin Calcium 20 mg HS PO 10/03/24 22:00 10/06/24 21:14 20 MG Levofloxacin/ Dextrose 100 ml @ 100 mls/hr DAILY IV 10/04/24 10:00 10/07/24 11:18 100 MLS/HR Famotidine 20 mg Q12HR IV 10/03/24 22:00 10/07/24 11:18 20 MG Levothyroxine Sodium 25 mcg QAM@0600 PO 10/04/24 06:00 10/07/24 05:25 25 MCG Albuterol 2.5 mg Q4HPRN PRN NEB 10/03/24 15:00 10/05/24 10:14 2.5 MG Ipratropium [place] 0.5 mg Q4HPRN PRN NEB 10/03/24 15:00 10/05/24 10:14 0.5 MG Methylprednisolone Sodium Succinate 40 mg Q8HR IV 10/03/24 22:00 10/07/24 05:24 40 MG Sodium Chloride 10 ml Q8HR IV 10/03/24 22:00 10/07/24 05:24 10 ML Acetaminophen/ Hydrocodone Bitart 1 tab Q4HP PRN PO 10/03/24 15:00 10/03/24 16:57 1 TAB Ondansetron HCl 4 mg Q4HP PRN IV 10/03/24 15:00 Docusate Sodium 100 mg BIDPRN PRN PO 10/03/24 15:00 Acetaminophen 650 mg Q6HP PRN PO 10/03/24 15:00 Nitroglycerin 0.4 mg Q5MINP PRN SL 10/03/24 15:00 Hold Morphine Sulfate 2 mg Q30M PRN IV 10/03/24 15:00 Albuterol 2.5 mg Q6HR NEB 10/04/24 00:00 10/07/24 06:26 2.5 MG Ipratropium [place] 0.5 mg Q6HR NEB 10/04/24 00:00 10/07/24 06:26 0.5 MG Furosemide 60 mg BIDD IV 10/04/24 22:00 10/07/24 05:24 60 MG Sildenafil Citrate 20 mg TID@08,14,20 PO 10/04/24 20:00 10/07/24 08:40 20 MG Apixaban 5 mg BID PO 10/04/24 22:00 10/07/24 11:19 5 MG Acetazolamide Sodium 250 mg Q12HR IV 10/05/24 22:00 10/07/24 11:18 250 MG objective General Appearance: Alert, Oriented X3, Cooperative, No acute distress HEENT: Atraumatic, PERRLA, EOMI, Mucous membr. moist/pink Respiratory: Diminished breath sounds Cardiovascular: Regular rate, Normal S1, Normal S2, No murmurs Abdominal: Normal bowel sounds, Soft, No tenderness, No hepatospenomegaly, No masses Extremities: Edema present Skin: No rashes, No significant lesion Neuro: No focal deficits laboratory and microbiology Laboratory Tests 10/07/24 06:06 Test 10/07/24 06:06 Range/Units Serum Glucose 120 H 74-106 mg/dL Problem List KARLOS probably secondary to cardiorenal syndrome . Hyperkalemia , resolved Acute on chronic hypoxic respiratory failure Multifocal Pneumonia Acute on chronic diastolic heart failure COPD exacerbation Morbid obesity Pulmonary hypertension Status post pacemaker implantation Assessment/Plan Stable GFR continue Diamox continue lasix . Dose has been decreased to 40 mg IV b.i.d. strict I/O Daily BMP Plan discussed with: Patient ROBERTH FONTAINE MD Oct 07, 2024 11:39
[2024-10-07] MEDS: FUROSEMIDE 100 MG/10ML VIAL IV SCH (16:54)
--- NOTE | 2024-10-07 18:46 | DVHPN2 ---
Progress Note - Dictate Date Seen: Oct 07, 2024 Medical Necessity Reason Pt with a Central, PICC or Fol: No vital signs Vital Sign Date Time Temp Pulse Resp B/P (MAP) Pulse Ox O2 Delivery O2 Flow Rate FiO2 10/07/24 17:00 98.3 61 20 103/67 (79) 92 98.3 10/07/24 15:50 Facial BiPAP Mask 60 10/07/24 10:10 2.0 Total Intake and Output 10/06/24 10/06/24 10/07/24 15:00 23:00 07:00 Intake Total 100 ml 1650 ml 800 ml Output Total 3500 ml 3080 ml Balance 100 ml -1850 ml -2280 ml medications Current Medications Medications Dose Ordered Sig/Jeanine Route Start Time Stop Time Status Last Admin Dose Admin Patient Own Medication 10 mg DAILY PO 10/04/24 10:00 Atorvastatin Calcium 20 mg HS PO 10/03/24 22:00 10/06/24 21:14 20 MG Levofloxacin/ Dextrose 100 ml @ 100 mls/hr DAILY IV 10/04/24 10:00 10/07/24 11:18 100 MLS/HR Famotidine 20 mg Q12HR IV 10/03/24 22:00 10/07/24 11:18 20 MG Levothyroxine Sodium 25 mcg QAM@0600 PO 10/04/24 06:00 10/07/24 05:25 25 MCG Albuterol 2.5 mg Q4HPRN PRN NEB 10/03/24 15:00 10/05/24 10:14 2.5 MG Ipratropium [place] 0.5 mg Q4HPRN PRN NEB 10/03/24 15:00 10/05/24 10:14 0.5 MG Methylprednisolone Sodium Succinate 40 mg Q8HR IV 10/03/24 22:00 10/07/24 14:40 40 MG Sodium Chloride 10 ml Q8HR IV 10/03/24 22:00 10/07/24 13:16 10 ML Acetaminophen/ Hydrocodone Bitart 1 tab Q4HP PRN PO 10/03/24 15:00 10/03/24 16:57 1 TAB Ondansetron HCl 4 mg Q4HP PRN IV 10/03/24 15:00 Docusate Sodium 100 mg BIDPRN PRN PO 10/03/24 15:00 Acetaminophen 650 mg Q6HP PRN PO 10/03/24 15:00 Nitroglycerin 0.4 mg Q5MINP PRN SL 10/03/24 15:00 Hold Morphine Sulfate 2 mg Q30M PRN IV 10/03/24 15:00 Albuterol 2.5 mg Q6HR NEB 10/04/24 00:00 10/07/24 11:47 2.5 MG Ipratropium [place] 0.5 mg Q6HR NEB 10/04/24 00:00 10/07/24 11:47 0.5 MG Sildenafil Citrate 20 mg TID@08,14,20 PO 10/04/24 20:00 10/07/24 14:39 20 MG Apixaban 5 mg BID PO 10/04/24 22:00 10/07/24 11:19 5 MG Acetazolamide Sodium 250 mg Q12HR IV 10/05/24 22:00 10/06/24 09:36 250 MG Furosemide 40 mg BIDD IV 10/07/24 18:00 10/07/24 16:54 40 MG laboratory and microbiology Laboratory Tests 10/07/24 06:06 Test 10/07/24 06:06 Range/Units Serum Glucose 120 H 74-106 mg/dL Assessment/Plan Patient is a 68-year-old gentleman who presented with weeks of shortness of breath and leg swellings. He also complained of nonproductive cough. Reportedly, EMS found him with oxygen saturation of 85%. It is of note that the patient does have chronic respiratory failure and is on home oxygen. Patient is admitted with acute on chronic respiratory distress. Cardiology is involved for cardiac aspects of care. It is of note that the patient is known to our practice from previous admissions. Last visit with us was in April 2023. He mentions that he was in hospice for awhile. He mentions the last time that the pacemaker was interrogated has been long time ago. He does have baseline history of morbid obesity with poor functional capacity and significant pulmonary hypertension. No JVD (its presence cannot be ruled out secondary to body habitus). Morbidly obese patient. [place] and with mucosa. No carotid bruit. Scattered rhonchi in the lungs is heard. Cardiac: Systolic murmur 2 out of 6 in the apex is heard. Abdomen is soft and obese, cannot rule out organomegaly (secondary to body habitus). Extremities reveal 3+ edema bilaterally. Dorsalis pedis is 1+ bilateral Past medical history includes COPD, chronic respiratory failure on home oxygen, CHF (as per patient for many years, diastolic), history of old pneumonia, CKD, hypertension, hypothyroidism, history of pacemaker implantation (Medtronic), morbid obesity, anemia of chronic disease, pulmonary hypertension, paroxysmal A. fib, thrombocytopenia and obstructive sleep apnea. Reportedly the patient was previously on hospice Echocardiogram of June 2020 revealed ejection fraction of 40 to 45%, moderate to severe TR and right ventricular systolic pressure of 60 mmHg Echocardiogram of March 2021 revealed ejection fraction of 55 to 60%, mild concentric left ventricular hypertrophy, mildly dilated RV with good systolic function, mildly dilated left atrium, small TR/MR, dilated IVC and right ventricular systolic pressure 53 mmHg. Echocardiogram of June 23, 2021 revealed: Ejection fraction of 55 to 60%, mild concentric left ventricle hypertrophy, mild biatrial dilatation, mild TR and right ventricular systolic pressure of 40 mmHg. Echocardiogram of January 31, 2023 revealed dilated right-sided chambers, pulmonary hypertension (right ventricular systolic pressure of 62 mmHg) and left ventricle ejection fraction of 65%. Echocardiogram of April 14, 2023 revealed concentric left ventricular hypertrophy, EF of 60-65%, right ventricular enlargement, mild biatrial enlargement, pacing wire in right-sided chambers, mild TR and right ventricular systolic pressure of 75 mm Hg Echocardiogram of April 19, 2024 had reported concentric left ventricular hypertrophy, ejection fraction of 55%, pacing wire in right-sided chambers, severe TR and right ventricular systolic pressure of 80 mm Hg Hemoglobin: 11.1 - 11.5 - 10.2 - 9.8 Creatinine: 1.37 - 1.57 - 1.59 - 1.52 Potassium: 4.9 - 4.4 - 4.8 - 4.9 Troponin (high sensitive): - BNP: 282.85 TSH: 3.80 Chest x-ray revealed: IMPRESSION: 1. Bibasilar pneumonia. Left-sided pacemaker. Repeat chest xry revealed: Frontal chest radiograph demonstrates no acute osseous or superficial soft tissue abnormalities. Left chest wall dual-chamber pacemaker. The trachea is midline. Cardiomegaly with pulmonary vascular congestion. Moderate elevation of the right hemidiaphragm with bibasilar airspace disease. No pneumothorax. Telemetry revealed sinus rhythm Echocardiogram revealed: Left ventricle: Concentric left ventricular hypertrophy was seen. LVEF was 55-60%. D-shaped septum pointed toward pulmonary hypertension. Right ventricle was significantly dilated with reduced systolic function. Left atrium was mildly dilated. Right atrium was significantly dilated. Pacing wire was seen in right-sided chambers. Aortic valve: Aortic valve was trileaflet. There was no aortic insufficiency/stenosis. There was mild mitral regurgitation. There was [id number] tricuspid regurgitation. There was trace pulmonary valve insufficiency. Right ventricular systolic pressure was assessed at 80 mm Hg. Aortic root was dilated at 4.5 cm. Ascending aorta was dilated at 4.2 cm. There was no pericardial effusion. Medtronic Pacemaker interrogation: Battery: Remaining longevity: 5.4 years; Lead impedance: Atrial 152/RV 380 Ohms; Programs sensitivity: Atrial 0.45/RV 0.90 mV; AAI-DDD: 60/130; GPS FIELD DATA COLLECTOR: 0.9%, AP: 24.3%; Percent of time in AT/AF: Less than 0.1%; Normal functioning pacemaker Patient is a 68-year-old gentleman who presented with worsening shortness of breath, leg swellings and non-productive cough. Patient is admitted with acute on chronic respiratory failure. Chest x-ray questions multifocal pneumonia. Does have baseline history of COPD and COPD exacerbation could have contributed to the clinical picture. Does have baseline history of significant pulmonary hypertension and its worsening could have contributed to the clinical picture infection/pneumonia could have contributed to worsening pulmonary hypertension and respiratory failure. It is of note that the patient also is morbidly obese with poor functional capacity. Does have baseline history of noncompliance which could have contributed to the clinical picture. It is of note that the patient was not following with outside litigation claim representative (most likely as he was on hospice for a while). He mentions that he is not on hospice at this point. PM interrogation revealed normal functioning pacemaker. Being followed by Pulmonary. Patient mentioned that he is contemplating to go back to Hospice Multifocal Pneumonia Acute on chronic respiratory failure Acute on chronic diastolic heart failure COPD exacerbation Morbid obesity Pulmonary hypertension Status post pacemaker implantation (Medtronic) CKD, chronic Cardiac suggestion for care: IV diuresis at this point is suggested (Lasix at 60 mg IV twice daily for now) Follow-up electrolytes and kidney function tests and correct abnormalities. Keep potassium above 4 magnesium above 2 Sildenafil at 20 mg 3 times a day suggested retirement full anticoagulation (history of atrial fibrillation with high CHADS- VASc score), on Eliquis Antibiotic therapy for pneumonia as per primary team/Pulmonary. Proceed with close rate and rhythm surveillance Proceed with close hemodynamic surveillance Proceed with optimized blood pressure control Transfuse to sustain HGB levels above 7.0 Sustain Magnesium level greater than 2.0 Sustain Potassium level greater than 4.0 Follow up renal function and electrolytes Management in Telemetry Follow up pulmonology recommendations Will proceed to follow from a cardiac perspective Further recommendations per clinical progression All available labs, EKGs, and images were personally reviewed Patient's status, findings, and plan of care was discussed and reviewed with supervising physician Dr. Llanes, who is in agreement with current plan of care. Plan of care discussed with and agreed upon by patient/family/Primary RN. Prognosis: Guarded Thank you for allowing me to participate in the care of this patient. Further recommendations will depend on clinical progression, hospitalist, and other consultants. Will continue to follow with Primary. If you have any questions, please do not hesitate to contact me. A total of 75 minutes was spent reviewing the patient record, examining the patient, making a diagnostic and therapeutic plan, discussing this plan with medical personnel, following up on diagnostic studies and following the patient for clinical stability excluding any and all procedures. At least 50% of this time was spent in direct, [id number] contact. Dietary Evaluation Review Comments: 1) nephro-love 1 tab daily 2) Monitor PO intake, lab values, weight trend, and I/O Expected Outcomes/Goals: To meet >75% estimated needs Fu 3-5 days Plan discussed with: Other (Primary RN) PAMELA NAQVI NP Oct 07, 2024 18:46
--- NOTE | 2024-10-07 22:58 | DVHPN2 ---
Progress Note - Dictate Date Seen: Oct 07, 2024 Medical Necessity Reason Pt with a Central, PICC or Fol: No Subjective [facility] [place] Patient seen and examined at bedside. On supplemental oxygen Overnight events reviewed. vital signs Vital Sign Date Time Temp Pulse Resp B/P (MAP) Pulse Ox O2 Delivery O2 Flow Rate FiO2 10/07/24 21:56 88 89 Facial BiPAP Mask 60 10/07/24 21:00 97.9 16 121/58 (79) 97.9 10/07/24 18:55 2.0 Total Intake and Output 10/06/24 10/06/24 10/07/24 15:00 23:00 07:00 Intake Total 100 ml 1650 ml 800 ml Output Total 3500 ml 3080 ml Balance 100 ml -1850 ml -2280 ml medications Current Medications Medications Dose Ordered Sig/Jeanine Route Start Time Stop Time Status Last Admin Dose Admin Patient Own Medication 10 mg DAILY PO 10/04/24 10:00 Atorvastatin Calcium 20 mg HS PO 10/03/24 22:00 10/07/24 22:44 20 MG Levofloxacin/ Dextrose 100 ml @ 100 mls/hr DAILY IV 10/04/24 10:00 10/07/24 11:18 100 MLS/HR Famotidine 20 mg Q12HR IV 10/03/24 22:00 10/07/24 22:43 20 MG Levothyroxine Sodium 25 mcg QAM@0600 PO 10/04/24 06:00 10/07/24 05:25 25 MCG Albuterol 2.5 mg Q4HPRN PRN NEB 10/03/24 15:00 10/05/24 10:14 2.5 MG Ipratropium [place] 0.5 mg Q4HPRN PRN NEB 10/03/24 15:00 10/05/24 10:14 0.5 MG Methylprednisolone Sodium Succinate 40 mg Q8HR IV 10/03/24 22:00 10/07/24 22:43 40 MG Sodium Chloride 10 ml Q8HR IV 10/03/24 22:00 10/07/24 13:16 10 ML Acetaminophen/ Hydrocodone Bitart 1 tab Q4HP PRN PO 10/03/24 15:00 10/03/24 16:57 1 TAB Ondansetron HCl 4 mg Q4HP PRN IV 10/03/24 15:00 Docusate Sodium 100 mg BIDPRN PRN PO 10/03/24 15:00 Acetaminophen 650 mg Q6HP PRN PO 10/03/24 15:00 Nitroglycerin 0.4 mg Q5MINP PRN SL 10/03/24 15:00 Hold Morphine Sulfate 2 mg Q30M PRN IV 10/03/24 15:00 Albuterol 2.5 mg Q6HR NEB 10/04/24 00:00 10/07/24 18:55 2.5 MG Ipratropium [place] 0.5 mg Q6HR NEB 10/04/24 00:00 10/07/24 18:55 0.5 MG Sildenafil Citrate 20 mg TID@08,14,20 PO 10/04/24 20:00 10/07/24 22:42 20 MG Apixaban 5 mg BID PO 10/04/24 22:00 10/07/24 22:44 5 MG Acetazolamide Sodium 250 mg Q12HR IV 10/05/24 22:00 10/06/24 09:36 250 MG Furosemide 40 mg BIDD IV 10/07/24 18:00 10/07/24 16:54 40 MG objective Gen.: Patient lying in bed in no apparent distress. On supplemental oxygen. Head: Normocephalic, atraumatic. Eyes: EOMI/PERRLA. Ears: Normal hearing. Normal anatomy. Neck/trachea: Trachea midline, supple. Nose: Normal external anatomy. Mouth: Moist mucous membranes. Chest: Decreased air entry bilaterally. No wheezing or rhonchi. Cardiovascular: Positive S1, positive S2. Regular rate and rhythm. Abdomen: Positive bowel sounds in all 4 quadrants. Soft, non-tender, non- distended. : Deferred. Rectal: Deferred. Skin: Warm, dry. Intact. Extremities: 2+ radial pulses bilaterally. No lower extremity edema. Neuro: Awake, alert, oriented x3. No gross motor or sensory deficits. Cranial nerves II through XII intact. Gait not assessed. laboratory and microbiology Laboratory Tests 10/07/24 06:06 Test 10/07/24 06:06 Range/Units Serum Glucose 120 H 74-106 mg/dL Assessment/Plan Impression: Acute hypoxic respiratory failure Dependence on supplemental oxygen Pneumonia, bilateral lower lobe COPD exacerbation Acute on chronic diastolic CHF Morbid obesity Chronic kidney disease Pulmonary hypertension, RVSP of 80 mmHg. Events: Patient seen and examined at bedside. He remains on supplemental oxygen alternating with BiPAP Head of bed elevation Aspiration precautions Currently on 2 LPM Oxymizer Improved O2 requirements. Taper O2 as tolerated BiPAP PRN during daytime and at night while sleeping. Continue antibiotics for bilateral lower lobe pneumonia. Sildenafil for pulmonary hypertension. Albumin Eliquis BID Echo reviewed, Pulmonary hypertension, RVSP of 80 mmHg. LVEF of 55-60% Cardiology recommendations appreciated. Diurese with Lasix Monitor renal function CXR on 10/05 reveals left chest wall dual-chamber pacemaker. Cardiomegaly with pulmonary vascular congestion. Moderate elevation of the right hemidiaphragm with bibasilar airspace disease. No pneumothorax. Labs and imaging reviewed. Rest of plan as noted below. Plan: Continue supplemental oxygen BiPAP PRN. Titrate to keep O2 sats above 92%. Monitor respiratory status closely Bronchodilators. IV steroids Eliquis BID. Echo reviewed; Pulmonary hypertension, RVSP of 80 mmHg. Concentric left ventricular hypertrophy. LVEF of 55-60%. Mild mitral regurgitation. [id number] tricuspid regurgitation. Follow up Cardiology recommendations Diurese to euvolemia Monitor renal function. Monitor electrolytes. Supplement as necessary. Monitor ins and outs. Follow up Nephrology recommendations Diet and lifestyle modifications for weight reduction Morbid obesity complicates all care DVT prophylaxis. Prognosis: Poor given patient's multiple co-morbidities. Rest of plan per hospitalist and other consultants. Thank you Dr. Badillo for allowing me to participate in this patient's care. Further recommendations will depend on the patient's clinical course. Please do not hesitate to contact me if you have any questions or concerns. This medical document was created using an electronic medical record system with [employer] dictation system. Although these documentations are being carefully reviewed, there may still be some phonetic and typographical changes. The errors are purely typographical, due to imperfection on the software program, and do not reflect any compromise in the patient's medical care. Dietary Evaluation Review Comments: 1) nephro-love 1 tab daily 2) Monitor PO intake, lab values, weight trend, and I/O Expected Outcomes/Goals: To meet >75% estimated needs Fu 3-5 days Plan discussed with: Patient, Other (DELFINA Alcala) ANCELMO MONTOYA MD Oct 07, 2024 22:58
[2024-10-08] VITALS (16 sets, daily range): BP systolic 111–123; BP diastolic 56–69; PULSE 53–92; RESP 16–22; TEMP 97.1–98; O2SAT 92–98
[2024-10-08 06:00] LABS: Hematocrit 34.8 % (41.0-53.0); Hemoglobin 11.1 g/dL (13.5-17.5); Mean Corpuscular Hemoglobin 27.9 pg (28.0-32.0); Mean Corpuscular Volume 87.7 fL (80.0-100.0); Nucleated Red Blood Cells % 0.1 %
[2024-10-08 06:15] LABS: Alanine Aminotransferase 11 U/L (7-40); Alkaline Phosphatase 73 U/L (46-116); BUN/Creatinine Ratio 28.6 (10.0-20.0); Calcium 9.2 mg/dL (8.7-10.4); Potassium 4.7 mmol/L (3.5-5.1); Sodium 136 mmol/L (136-145); Total Protein 7.4 g/dL (5.7-8.2)
[2024-10-08 06:16] LABS: Albumin 3.6 g/dL (3.2-4.8); Bilirubin, Total 0.8 mg/dL (0.2-1.0)
[2024-10-08 06:18] LABS: Magnesium 2.1 mg/dL (1.6-2.6)
[2024-10-08 06:38] LABS: Anion Gap 10.99999 (5-15); Blood Urea Nitrogen 44 mg/dL (9-23); Chloride 85 mmol/L (98-107); Glucose 130 mg/dL (74-106)
[2024-10-08 06:40] LABS: Carbon Dioxide > 40 mmol/L (20-31)
--- NOTE | 2024-10-08 11:36 | DVHPN2 ---
Reviewed: Care Plan, H&P, Labs, Medications, Previous Orders, Radiology Changes from previous H/P or p: No Changes Eyes: No Pain, No Vision change, No Conjunctivae inflammation, No Eyelid inflammation, No Other, No Redness ENT: No Ear pain, No Ear discharge, No Nose pain, No Nose discharge, No Nose congestion, No Mouth pain, No Mouth swelling, No Throat pain, No Throat swelling, No Other Cardiovascular: No Chest Pain, No Palpitations, No Orthopnea, No Paroxysmal Noc. Dyspnea; Edema; No Lt Headedness, No Other Respiratory: Cough; No Dry; Shortness of breath; No SOB with excertion, No Wheezing, No Hemoptysis, No Pleuritic Pain, No Sputum; Other (SOB at rest) Gastrointestinal: No Nausea, No Vomiting, No Abdominal Pain, No Diarrhea, No Constipation, No Melena, No Hematochezia, No Other Genitourinary: No Dysuria, No Frequency, No Incontinence, No Hematuria, No Retention; Other (Loving catheter in place) Musculoskeletal: No other, No neck pain, No shoulder pain, No arm pain, No back pain, No hand pain, No leg pain, No foot pain Skin: No Rash, No Lesions, No Jaundice, No Bruising, No Other Objective Vitals Vital Signs Date Time Temp Pulse Resp B/P (MAP) Pulse Ox O2 Delivery O2 Flow Rate FiO2 10/08/24 11:20 119/69 10/08/24 11:02 92 Bi-Pap+ 55 55 10/08/24 10:01 97.1 80 22 97.1 10/07/24 20:00 0 Intake/Output Intake and Output 10/08/24 07:00 Intake Total 2650 ml Output Total 9250 ml Balance -6600 ml Intake Oral 2550 ml IV Total 100 ml Output Urine Total 9250 ml Medications Current Medications Medications Dose Ordered Sig/Jeainne Route Start Time Stop Time Status Last Admin Dose Admin Patient Own Medication 10 mg DAILY PO 10/04/24 10:00 Atorvastatin Calcium 20 mg HS PO 10/03/24 22:00 10/07/24 22:44 20 MG Levofloxacin/ Dextrose 100 ml @ 100 mls/hr DAILY IV 10/04/24 10:00 10/08/24 10:35 100 MLS/HR Famotidine 20 mg Q12HR IV 10/03/24 22:00 10/08/24 10:34 20 MG Levothyroxine Sodium 25 mcg QAM@0600 PO 10/04/24 06:00 10/08/24 05:34 25 MCG Albuterol 2.5 mg Q4HPRN PRN NEB 10/03/24 15:00 10/05/24 10:14 2.5 MG Ipratropium [place] 0.5 mg Q4HPRN PRN NEB 10/03/24 15:00 10/05/24 10:14 0.5 MG Methylprednisolone Sodium Succinate 40 mg Q8HR IV 10/03/24 22:00 10/08/24 05:33 40 MG Sodium Chloride 10 ml Q8HR IV 10/03/24 22:00 10/08/24 05:46 10 ML Acetaminophen/ Hydrocodone Bitart 1 tab Q4HP PRN PO 10/03/24 15:00 10/03/24 16:57 1 TAB Ondansetron HCl 4 mg Q4HP PRN IV 10/03/24 15:00 Docusate Sodium 100 mg BIDPRN PRN PO 10/03/24 15:00 Acetaminophen 650 mg Q6HP PRN PO 10/03/24 15:00 Nitroglycerin 0.4 mg Q5MINP PRN SL 10/03/24 15:00 Hold Morphine Sulfate 2 mg Q30M PRN IV 10/03/24 15:00 Albuterol 2.5 mg Q6HR NEB 10/04/24 00:00 10/08/24 11:01 2.5 MG Ipratropium [place] 0.5 mg Q6HR NEB 10/04/24 00:00 10/08/24 11:01 0.5 MG Sildenafil Citrate 20 mg TID@08,14,20 PO 10/04/24 20:00 10/08/24 10:35 20 MG Apixaban 5 mg BID PO 10/04/24 22:00 10/08/24 10:35 5 MG Acetazolamide Sodium 250 mg Q12HR IV 10/05/24 22:00 10/08/24 11:20 250 MG Furosemide 40 mg BIDD IV 10/07/24 18:00 10/08/24 05:46 40 MG Laboratory Results Laboratory Tests 10/08/24 05:18 Chemistry Test 10/08/24 05:18 Albumin 3.6 g/dL (3.2-4.8) Calcium Level 9.2 mg/dL (8.7-10.4) Magnesium Level 2.1 mg/dL (1.6-2.6) Total Protein 7.4 g/dL (5.7-8.2) LFT Test 10/08/24 05:18 Alanine Aminotransferase (ALT) 11 U/L (7-40) Alkaline Phosphatase 73 U/L (46-116) Aspartate Amino Transferase (AST) 17 U/L (13-40) Total Bilirubin 0.8 mg/dL (0.2-1.0) Microbiology Microbiology Date/Time Source Procedure Growth Status 10/03/24 15:45 Blood Blood Culture - Preliminary NO GROWTH AFTER 72 HOURS OF INCUBATION. Resulted Labs and/or images reviewed: Labs reviewed by me, Image(s) reviewed by me Assessment/Plan Assessment/Plan Acute hypercarbic Respiratory failure: Placed On BiPAP by Dr. Engel Acute bilateral community-acquired multifocal pneumonia Gram-positive versus Gram-negative Levaquin consult by Dr. Engel appreciated Vianey test negative Rapid flu test negative History of home oxygen use History of pacemaker pacemaker interrogated by Dr. Ayers pacemaker working normally Atrial fibrillation Acute on chronic CHF exacerbation: Lasix consult by Dr. Ayers appreciated Chronic kidney disease nephrology consult by Vanesa appreciated COPD exacerbation Hypertension Hypercholesterolemia Hypothyroidism Morbid obesity BMI of 48 Gross obesity BMI of 50 Spent 65 minutes Advanced care planning time 20 minutes Patient is full code Plan discussed with: Patient Date of Service: Oct 08, 2024 Billing Provider: FADUMO VEGAS MD Common Visit Codes: [id number] INP/OBS CARE(HIGH) FADUMO VEGAS MD Oct 08, 2024 11:36
--- NOTE | 2024-10-08 14:36 | DVHPN2 ---
Progress Note - Dictate Date Seen: Oct 08, 2024 Medical Necessity Reason Pt with a Central, PICC or Fol: No Subjective Patient seen and examined at the bedside within Telemetry. Remains on bipap and supplemental O2, Vital signs stable. Chart reviewed. Patient's medications, allergies, past medical, surgical, social and family histories were obtained and reviewed as appropriate. vital signs Vital Sign Date Time Temp Pulse Resp B/P (MAP) Pulse Ox O2 Delivery O2 Flow Rate FiO2 10/08/24 13:23 59 94 Facial BiPAP Mask 55 10/08/24 13:00 97.9 20 123/62 (82) 97.9 10/07/24 20:00 0 Total Intake and Output 10/07/24 10/07/24 10/08/24 15:00 23:00 07:00 Intake Total 1590 ml 200 ml 860 ml Output Total 5450 ml 550 ml 3250 ml Balance -3860 ml -350 ml -2390 ml medications Current Medications Medications Dose Ordered Sig/Jeanine Route Start Time Stop Time Status Last Admin Dose Admin Patient Own Medication 10 mg DAILY PO 10/04/24 10:00 Atorvastatin Calcium 20 mg HS PO 10/03/24 22:00 10/07/24 22:44 20 MG Levofloxacin/ Dextrose 100 ml @ 100 mls/hr DAILY IV 10/04/24 10:00 10/08/24 10:35 100 MLS/HR Famotidine 20 mg Q12HR IV 10/03/24 22:00 10/08/24 10:34 20 MG Levothyroxine Sodium 25 mcg QAM@0600 PO 10/04/24 06:00 10/08/24 05:34 25 MCG Albuterol 2.5 mg Q4HPRN PRN NEB 10/03/24 15:00 10/05/24 10:14 2.5 MG Ipratropium [place] 0.5 mg Q4HPRN PRN NEB 10/03/24 15:00 10/05/24 10:14 0.5 MG Methylprednisolone Sodium Succinate 40 mg Q8HR IV 10/03/24 22:00 10/08/24 14:22 40 MG Sodium Chloride 10 ml Q8HR IV 10/03/24 22:00 10/08/24 14:21 10 ML Acetaminophen/ Hydrocodone Bitart 1 tab Q4HP PRN PO 10/03/24 15:00 10/03/24 16:57 1 TAB Ondansetron HCl 4 mg Q4HP PRN IV 10/03/24 15:00 Docusate Sodium 100 mg BIDPRN PRN PO 10/03/24 15:00 Acetaminophen 650 mg Q6HP PRN PO 10/03/24 15:00 Nitroglycerin 0.4 mg Q5MINP PRN SL 10/03/24 15:00 Hold Morphine Sulfate 2 mg Q30M PRN IV 10/03/24 15:00 Albuterol 2.5 mg Q6HR NEB 10/04/24 00:00 10/08/24 11:01 2.5 MG Ipratropium [place] 0.5 mg Q6HR NEB 10/04/24 00:00 10/08/24 11:01 0.5 MG Sildenafil Citrate 20 mg TID@08,14,20 PO 10/04/24 20:00 10/08/24 14:22 20 MG Apixaban 5 mg BID PO 10/04/24 22:00 10/08/24 10:35 5 MG Acetazolamide Sodium 250 mg Q12HR IV 10/05/24 22:00 10/08/24 11:20 250 MG Furosemide 40 mg BIDD IV 10/07/24 18:00 10/08/24 05:46 40 MG laboratory and microbiology Laboratory Tests 10/08/24 05:18 Test 10/08/24 05:18 Range/Units Serum Glucose 130 H 74-106 mg/dL Assessment/Plan Patient is a 68-year-old gentleman who presented with weeks of shortness of breath and leg swellings. He also complained of nonproductive cough. Reportedly, EMS found him with oxygen saturation of 85%. It is of note that the patient does have chronic respiratory failure and is on home oxygen. Patient is admitted with acute on chronic respiratory distress. Cardiology is involved for cardiac aspects of care. It is of note that the patient is known to our practice from previous admissions. Last visit with us was in April 2023. He mentions that he was in hospice for awhile. He mentions the last time that the pacemaker was interrogated has been long time ago. He does have baseline history of morbid obesity with poor functional capacity and significant pulmonary hypertension. No JVD (its presence cannot be ruled out secondary to body habitus). Morbidly obese patient. [place] and with mucosa. No carotid bruit. Scattered rhonchi in the lungs is heard. Cardiac: Systolic murmur 2 out of 6 in the apex is heard. Abdomen is soft and obese, cannot rule out organomegaly (secondary to body habitus). Extremities reveal 3+ edema bilaterally. Dorsalis pedis is 1+ bilateral Past medical history includes COPD, chronic respiratory failure on home oxygen, CHF (as per patient for many years, diastolic), history of old pneumonia, CKD, hypertension, hypothyroidism, history of pacemaker implantation (Medtronic), morbid obesity, anemia of chronic disease, pulmonary hypertension, paroxysmal A. fib, thrombocytopenia and obstructive sleep apnea. Reportedly the patient was previously on hospice Echocardiogram of June 2020 revealed ejection fraction of 40 to 45%, moderate to severe TR and right ventricular systolic pressure of 60 mmHg Echocardiogram of March 2021 revealed ejection fraction of 55 to 60%, mild concentric left ventricular hypertrophy, mildly dilated RV with good systolic function, mildly dilated left atrium, small TR/MR, dilated IVC and right ventricular systolic pressure 53 mmHg. Echocardiogram of June 23, 2021 revealed: Ejection fraction of 55 to 60%, mild concentric left ventricle hypertrophy, mild biatrial dilatation, mild TR and right ventricular systolic pressure of 40 mmHg. Echocardiogram of January 31, 2023 revealed dilated right-sided chambers, pulmonary hypertension (right ventricular systolic pressure of 62 mmHg) and left ventricle ejection fraction of 65%. Echocardiogram of April 14, 2023 revealed concentric left ventricular hypertrophy, EF of 60-65%, right ventricular enlargement, mild biatrial enlargement, pacing wire in right-sided chambers, mild TR and right ventricular systolic pressure of 75 mm Hg Echocardiogram of April 19, 2024 had reported concentric left ventricular hypertrophy, ejection fraction of 55%, pacing wire in right-sided chambers, severe TR and right ventricular systolic pressure of 80 mm Hg Hemoglobin: 11.1 - 11.5 - 10.2 - 9.8 Creatinine: 1.37 - 1.57 - 1.59 - 1.52 Potassium: 4.9 - 4.4 - 4.8 - 4.9 Troponin (high sensitive): BNP: 282.85 TSH: 3.80 Chest x-ray revealed: IMPRESSION: 1. Bibasilar pneumonia. Left-sided pacemaker. Repeat chest xry revealed: Frontal chest radiograph demonstrates no acute osseous or superficial soft tissue abnormalities. Left chest wall dual-chamber pacemaker. The trachea is midline. Cardiomegaly with pulmonary vascular congestion. Moderate elevation of the right hemidiaphragm with bibasilar airspace disease. No pneumothorax. Telemetry revealed sinus rhythm Echocardiogram revealed: Left ventricle: Concentric left ventricular hypertrophy was seen. LVEF was 55-60%. D-shaped septum pointed toward pulmonary hypertension. Right ventricle was significantly dilated with reduced systolic function. Left atrium was mildly dilated. Right atrium was significantly dilated. Pacing wire was seen in right-sided chambers. Aortic valve: Aortic valve was trileaflet. There was no aortic insufficiency/stenosis. There was mild mitral regurgitation. There was [id number] tricuspid regurgitation. There was trace pulmonary valve insufficiency. Right ventricular systolic pressure was assessed at 80 mm Hg. Aortic root was dilated at 4.5 cm. Ascending aorta was dilated at 4.2 cm. There was no pericardial effusion. 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 Patient is admitted with acute on chronic respiratory failure. Chest x-ray questions multifocal pneumonia. Does have baseline history of COPD and COPD exacerbation could have contributed to the clinical picture. Does have baseline history of significant pulmonary hypertension and its worsening could have contributed to the clinical picture infection/pneumonia could have contributed to worsening pulmonary hypertension and respiratory failure. It is of note that the patient also is morbidly obese with poor functional capacity. Does have baseline history of noncompliance which could have contributed to the clinical picture. It is of note that the patient was not following with outside washroom cleaner (most likely as he was on hospice for a while). He mentions that he is not on hospice at this point. PM interrogation revealed normal functioning pacemaker. Being followed by Pulmonary. Patient mentioned that he is contemplating to go back to Hospice Multifocal Pneumonia Acute on chronic respiratory failure Acute on chronic diastolic heart failure COPD exacerbation Morbid obesity Pulmonary hypertension Status post pacemaker implantation (Medtronic) CKD, chronic Cardiac suggestion for care: IV diuresis at this point is suggested (Lasix at 60 mg IV twice daily for now) Follow-up electrolytes and kidney function tests and correct abnormalities. Keep potassium above 4 magnesium above 2 Sildenafil at 20 mg 3 times a day suggested terminal superintendent full anticoagulation (history of atrial fibrillation with high CHADS- VASc score), on Eliquis Antibiotic therapy for pneumonia as per primary team/Pulmonary. Proceed with close rate and rhythm surveillance Proceed with close hemodynamic surveillance Proceed with optimized blood pressure control Transfuse to sustain HGB levels above 7.0 Sustain Magnesium level greater than 2.0 Sustain Potassium level greater than 4.0 Follow up renal function and electrolytes Management in Telemetry Follow up pulmonology recommendations Will proceed to follow from a cardiac perspective Further recommendations per clinical progression All available labs, EKGs, and images were personally reviewed Patient's status, findings, and plan of care was discussed and reviewed with supervising physician Dr. Llanes, who is in agreement with current plan of care. Plan of care discussed with and agreed upon by patient/family/Primary RN. Prognosis: Guarded Thank you for allowing me to participate in the care of this patient. Further recommendations will depend on clinical progression, hospitalist, and other consultants. Will continue to follow with Primary. If you have any questions, please do not hesitate to contact me. A total of 75 minutes was spent reviewing the patient record, examining the patient, making a diagnostic and therapeutic plan, discussing this plan with medical personnel, following up on diagnostic studies and following the patient for clinical stability excluding any and all procedures. At least 50% of this time was spent in direct, [id number] contact. Dietary Evaluation Review Comments: 1) nephro-love 1 tab daily 2) Monitor PO intake, lab values, weight trend, and I/O Expected Outcomes/Goals: To meet >75% estimated needs Fu 3-5 days Plan discussed with: Patient PAMELA NAQVI BEET WORKER Oct 08, 2024 14:36
--- NOTE | 2024-10-08 15:18 | DVHPN2 ---
Progress Note - Dictate Date Seen: Oct 08, 2024 Medical Necessity Reason Pt with a Central, PICC or Fol: No Subjective Patient with a urine output of 9 L. Lasix dose was decreased to 40 mg IV b.i.d.. Patient on BiPAP currently. vital signs Vital Sign Date Time Temp Pulse Resp B/P (MAP) Pulse Ox O2 Delivery O2 Flow Rate FiO2 10/08/24 13:23 59 94 Facial BiPAP Mask 55 10/08/24 13:00 97.9 20 123/62 (82) 97.9 10/07/24 20:00 0 Total Intake and Output 10/07/24 10/07/24 10/08/24 15:00 23:00 07:00 Intake Total 1590 ml 200 ml 860 ml Output Total 5450 ml 550 ml 3250 ml Balance -3860 ml -350 ml -2390 ml medications Current Medications Medications Dose Ordered Sig/Jeanine Route Start Time Stop Time Status Last Admin Dose Admin Patient Own Medication 10 mg DAILY PO 10/04/24 10:00 Atorvastatin Calcium 20 mg HS PO 10/03/24 22:00 10/07/24 22:44 20 MG Levofloxacin/ Dextrose 100 ml @ 100 mls/hr DAILY IV 10/04/24 10:00 10/08/24 10:35 100 MLS/HR Famotidine 20 mg Q12HR IV 10/03/24 22:00 10/08/24 10:34 20 MG Levothyroxine Sodium 25 mcg QAM@0600 PO 10/04/24 06:00 10/08/24 05:34 25 MCG Albuterol 2.5 mg Q4HPRN PRN NEB 10/03/24 15:00 10/05/24 10:14 2.5 MG Ipratropium [place] 0.5 mg Q4HPRN PRN NEB 10/03/24 15:00 10/05/24 10:14 0.5 MG Methylprednisolone Sodium Succinate 40 mg Q8HR IV 10/03/24 22:00 10/08/24 14:22 40 MG Sodium Chloride 10 ml Q8HR IV 10/03/24 22:00 10/08/24 14:21 10 ML Acetaminophen/ Hydrocodone Bitart 1 tab Q4HP PRN PO 10/03/24 15:00 10/03/24 16:57 1 TAB Ondansetron HCl 4 mg Q4HP PRN IV 10/03/24 15:00 Docusate Sodium 100 mg BIDPRN PRN PO 10/03/24 15:00 Acetaminophen 650 mg Q6HP PRN PO 10/03/24 15:00 Nitroglycerin 0.4 mg Q5MINP PRN SL 10/03/24 15:00 Hold Morphine Sulfate 2 mg Q30M PRN IV 10/03/24 15:00 Albuterol 2.5 mg Q6HR NEB 10/04/24 00:00 10/08/24 11:01 2.5 MG Ipratropium [place] 0.5 mg Q6HR NEB 10/04/24 00:00 10/08/24 11:01 0.5 MG Sildenafil Citrate 20 mg TID@08,14,20 PO 10/04/24 20:00 10/08/24 14:22 20 MG Apixaban 5 mg BID PO 10/04/24 22:00 10/08/24 10:35 5 MG Acetazolamide Sodium 250 mg Q12HR IV 10/05/24 22:00 10/08/24 11:20 250 MG Furosemide 40 mg BIDD IV 10/07/24 18:00 10/08/24 05:46 40 MG objective General Appearance: Alert, Oriented X3, Cooperative, No acute distress HEENT: Atraumatic, PERRLA, EOMI, Mucous membr. moist/pink Respiratory: Diminished breath sounds Cardiovascular: Regular rate, Normal S1, Normal S2, No murmurs Abdominal: Normal bowel sounds, Soft, No tenderness, No hepatospenomegaly, No masses Extremities: Edema present but decreased. Skin: No rashes, No significant lesion Neuro: No focal deficits laboratory and microbiology Laboratory Tests 10/08/24 05:18 Test 10/08/24 05:18 Range/Units Serum Glucose 130 H 74-106 mg/dL Problem List KARLOS probably secondary to cardiorenal syndrome . Hyperkalemia , resolved Acute on chronic hypoxic respiratory failure Multifocal Pneumonia Acute on chronic diastolic heart failure COPD exacerbation Morbid obesity Pulmonary hypertension Status post pacemaker implantation Assessment/Plan Stable GFR . We will monitor closely for deterioration in renal function. continue Diamox continue lasix . Dose has been decreased to 40 mg IV b.i.d. strict I/O Daily BMP Dietary Evaluation Review Comments: 1) nephro-love 1 tab daily 2) Monitor PO intake, lab values, weight trend, and I/O Expected Outcomes/Goals: To meet >75% estimated needs Fu 3-5 days Plan discussed with: Patient ROBERTH FONTAINE MD Oct 08, 2024 15:18
--- NOTE | 2024-10-08 21:56 | DVHPN2 ---
Progress Note - Dictate Date Seen: Oct 08, 2024 Medical Necessity Reason Pt with a Central, PICC or Fol: No Subjective [facility] [place] Patient seen and examined at bedside. On supplemental oxygen Overnight events reviewed. vital signs Vital Sign Date Time Temp Pulse Resp B/P (MAP) Pulse Ox O2 Delivery O2 Flow Rate FiO2 10/08/24 17:43 111/56 10/08/24 17:00 97.6 92 20 93 97.6 10/08/24 13:23 Facial BiPAP Mask 55 10/07/24 20:00 0 Total Intake and Output 10/07/24 10/07/24 10/08/24 15:00 23:00 07:00 Intake Total 1590 ml 200 ml 860 ml Output Total 5450 ml 550 ml 3250 ml Balance -3860 ml -350 ml -2390 ml medications Current Medications Medications Dose Ordered Sig/Jeanine Route Start Time Stop Time Status Last Admin Dose Admin Patient Own Medication 10 mg DAILY PO 10/04/24 10:00 Atorvastatin Calcium 20 mg HS PO 10/03/24 22:00 10/08/24 21:45 20 MG Levofloxacin/ Dextrose 100 ml @ 100 mls/hr DAILY IV 10/04/24 10:00 10/08/24 10:35 100 MLS/HR Famotidine 20 mg Q12HR IV 10/03/24 22:00 10/08/24 21:44 20 MG Levothyroxine Sodium 25 mcg QAM@0600 PO 10/04/24 06:00 10/08/24 05:34 25 MCG Albuterol 2.5 mg Q4HPRN PRN NEB 10/03/24 15:00 10/05/24 10:14 2.5 MG Ipratropium [place] 0.5 mg Q4HPRN PRN NEB 10/03/24 15:00 10/05/24 10:14 0.5 MG Methylprednisolone Sodium Succinate 40 mg Q8HR IV 10/03/24 22:00 10/08/24 21:43 40 MG Sodium Chloride 10 ml Q8HR IV 10/03/24 22:00 10/08/24 21:42 10 ML Acetaminophen/ Hydrocodone Bitart 1 tab Q4HP PRN PO 10/03/24 15:00 10/03/24 16:57 1 TAB Ondansetron HCl 4 mg Q4HP PRN IV 10/03/24 15:00 Docusate Sodium 100 mg BIDPRN PRN PO 10/03/24 15:00 Acetaminophen 650 mg Q6HP PRN PO 10/03/24 15:00 Nitroglycerin 0.4 mg Q5MINP PRN SL 10/03/24 15:00 Hold Morphine Sulfate 2 mg Q30M PRN IV 10/03/24 15:00 Albuterol 2.5 mg Q6HR NEB 10/04/24 00:00 10/08/24 18:45 2.5 MG Ipratropium [place] 0.5 mg Q6HR NEB 10/04/24 00:00 10/08/24 18:45 0.5 MG Sildenafil Citrate 20 mg TID@08,14,20 PO 10/04/24 20:00 10/08/24 21:42 20 MG Apixaban 5 mg BID PO 10/04/24 22:00 10/08/24 21:45 5 MG Acetazolamide Sodium 250 mg Q12HR IV 10/05/24 22:00 10/08/24 11:20 250 MG Furosemide 40 mg BIDD IV 10/07/24 18:00 10/08/24 17:43 40 MG objective Gen.: Patient lying in bed in no apparent distress. On supplemental oxygen. Head: Normocephalic, atraumatic. Eyes: EOMI/PERRLA. Ears: Normal hearing. Normal anatomy. Neck/trachea: Trachea midline, supple. Nose: Normal external anatomy. Mouth: Moist mucous membranes. Chest: Decreased air entry bilaterally. No wheezing or rhonchi. Cardiovascular: Positive S1, positive S2. Regular rate and rhythm. Abdomen: Positive bowel sounds in all 4 quadrants. Soft, non-tender, non- distended. : Deferred. Rectal: Deferred. Skin: Warm, dry. Intact. Extremities: 2+ radial pulses bilaterally. No lower extremity edema. Neuro: Awake, alert, oriented x3. No gross motor or sensory deficits. Cranial nerves II through XII intact. Gait not assessed. laboratory and microbiology Laboratory Tests 10/08/24 05:18 Test 10/08/24 05:18 Range/Units Serum Glucose 130 H 74-106 mg/dL Assessment/Plan Impression: Acute hypoxic respiratory failure Dependence on supplemental oxygen Pneumonia, bilateral lower lobe COPD exacerbation Acute on chronic diastolic CHF Morbid obesity Chronic kidney disease Pulmonary hypertension, RVSP of 80 mmHg. Events: Patient seen and examined at bedside. He remains on supplemental oxygen alternating with BiPAP BiPAP PRN during daytime and at night while sleeping. Head of bed elevation Aspiration precautions Continue antibiotics for bilateral lower lobe pneumonia. Sildenafil for pulmonary hypertension. Albumin Eliquis BID Echo reviewed, Pulmonary hypertension, RVSP of 80 mmHg. LVEF of 55-60% Cardiology recommendations appreciated. Continue diuresis with Lasix Monitor renal function Monitor electrolytes, supplement as necessary Nephrology recommendations appreciated. CXR on 10/05 reveals left chest wall dual-chamber pacemaker. Cardiomegaly with pulmonary vascular congestion. Moderate elevation of the right hemidiaphragm with bibasilar airspace disease. No pneumothorax. Labs and imaging reviewed. Rest of plan as noted below. Plan: Continue supplemental oxygen BiPAP PRN. Titrate to keep O2 sats between 88-94%. Monitor respiratory status closely Bronchodilators. IV steroids Eliquis BID. Echo reviewed; Pulmonary hypertension, RVSP of 80 mmHg. Concentric left ventricular hypertrophy. LVEF of 55-60%. Mild mitral regurgitation. [id number] tricuspid regurgitation. Follow up Cardiology recommendations Diurese to euvolemia Monitor renal function. Monitor electrolytes. Supplement as necessary. Monitor ins and outs. Follow up Nephrology recommendations Diet and lifestyle modifications for weight reduction Morbid obesity complicates all care DVT prophylaxis. Prognosis: Poor given patient's multiple co-morbidities. Rest of plan per hospitalist and other consultants. Thank you Dr. Badillo for allowing me to participate in this patient's care. Further recommendations will depend on the patient's clinical course. Please do not hesitate to contact me if you have any questions or concerns. This medical document was created using an electronic medical record system with [employer] dictation system. Although these documentations are being carefully reviewed, there may still be some phonetic and typographical changes. The errors are purely typographical, due to imperfection on the software program, and do not reflect any compromise in the patient's medical care. Dietary Evaluation Review Comments: 1) nephro-love 1 tab daily 2) Monitor PO intake, lab values, weight trend, and I/O Expected Outcomes/Goals: To meet >75% estimated needs Fu 3-5 days Plan discussed with: Patient, Other (DELFINA Yoo) ANCELMO MONTOYA MD Oct 08, 2024 21:56
[2024-10-09] VITALS (18 sets, daily range): BP systolic 111–141; BP diastolic 70–87; PULSE 45–91; RESP 16–20; TEMP 97.4–98.3; O2SAT 95–100
[2024-10-09 07:52] LABS: Calcium 9.4 mg/dL (8.7-10.4); Potassium 4.6 mmol/L (3.5-5.1); Sodium 136 mmol/L (136-145)
[2024-10-09 07:58] LABS: BUN/Creatinine Ratio 26.7 (10.0-20.0)
[2024-10-09 08:51] LABS: Anion Gap 9.99999 (5-15); Carbon Dioxide > 40 mmol/L (20-31); Chloride 86 mmol/L (98-107)
[2024-10-09 08:53] LABS: Blood Urea Nitrogen 46 mg/dL (9-23); Glucose 142 mg/dL (74-106)
--- NOTE | 2024-10-09 12:19 | DVHPN2 ---
Reviewed: Care Plan, H&P, Labs, Medications, Previous Orders, Radiology Changes from previous H/P or p: No Changes Eyes: No Pain, No Vision change, No Conjunctivae inflammation, No Eyelid inflammation, No Other, No Redness ENT: No Ear pain, No Ear discharge, No Nose pain, No Nose discharge, No Nose congestion, No Mouth pain, No Mouth swelling, No Throat pain, No Throat swelling, No Other Cardiovascular: No Chest Pain, No Palpitations, No Orthopnea, No Paroxysmal Noc. Dyspnea; Edema; No Lt Headedness, No Other Respiratory: Cough; No Dry; Shortness of breath; No SOB with excertion, No Wheezing, No Hemoptysis, No Pleuritic Pain, No Sputum; Other (SOB at rest) Gastrointestinal: No Nausea, No Vomiting, No Abdominal Pain, No Diarrhea, No Constipation, No Melena, No Hematochezia, No Other Genitourinary: No Dysuria, No Frequency, No Incontinence, No Hematuria, No Retention; Other (Loving catheter in place) Musculoskeletal: No other, No neck pain, No shoulder pain, No arm pain, No back pain, No hand pain, No leg pain, No foot pain Skin: No Rash, No Lesions, No Jaundice, No Bruising, No Other Objective Vitals Vital Signs Date Time Temp Pulse Resp B/P (MAP) Pulse Ox O2 Delivery O2 Flow Rate FiO2 10/09/24 12:12 61 18 95 10/09/24 12:11 Oxymizer 3 N/A 10/09/24 08:35 98.3 124/70 (88) 98.3 Intake/Output Intake and Output 10/09/24 07:00 Intake Total 2270 ml Output Total 6400 ml Balance -4130 ml Intake Oral 2170 ml IV Total 100 ml Output Urine Total 6400 ml Medications Current Medications Medications Dose Ordered Sig/Jeanine Route Start Time Stop Time Status Last Admin Dose Admin Patient Own Medication 10 mg DAILY PO 10/04/24 10:00 Atorvastatin Calcium 20 mg HS PO 10/03/24 22:00 10/08/24 21:45 20 MG Levofloxacin/ Dextrose 100 ml @ 100 mls/hr DAILY IV 10/04/24 10:00 10/09/24 09:25 100 MLS/HR Famotidine 20 mg Q12HR IV 10/03/24 22:00 10/09/24 09:25 20 MG Levothyroxine Sodium 25 mcg QAM@0600 PO 10/04/24 06:00 10/09/24 05:51 25 MCG Albuterol 2.5 mg Q4HPRN PRN NEB 10/03/24 15:00 10/05/24 10:14 2.5 MG Ipratropium [place] 0.5 mg Q4HPRN PRN NEB 10/03/24 15:00 10/05/24 10:14 0.5 MG Methylprednisolone Sodium Succinate 40 mg Q8HR IV 10/03/24 22:00 10/09/24 05:52 40 MG Sodium Chloride 10 ml Q8HR IV 10/03/24 22:00 10/09/24 05:52 10 ML Acetaminophen/ Hydrocodone Bitart 1 tab Q4HP PRN PO 10/03/24 15:00 10/03/24 16:57 1 TAB Ondansetron HCl 4 mg Q4HP PRN IV 10/03/24 15:00 Docusate Sodium 100 mg BIDPRN PRN PO 10/03/24 15:00 Acetaminophen 650 mg Q6HP PRN PO 10/03/24 15:00 Nitroglycerin 0.4 mg Q5MINP PRN SL 10/03/24 15:00 Hold Morphine Sulfate 2 mg Q30M PRN IV 10/03/24 15:00 Albuterol 2.5 mg Q6HR NEB 10/04/24 00:00 10/09/24 12:07 2.5 MG Ipratropium [place] 0.5 mg Q6HR NEB 10/04/24 00:00 10/09/24 12:07 0.5 MG Sildenafil Citrate 20 mg TID@08,14,20 PO 10/04/24 20:00 10/09/24 08:42 20 MG Apixaban 5 mg BID PO 10/04/24 22:00 10/09/24 09:25 5 MG Acetazolamide Sodium 250 mg Q12HR IV 10/05/24 22:00 10/08/24 11:20 250 MG Furosemide 40 mg DAILY IV 10/10/24 10:00 Laboratory Results Laboratory Tests 10/08/24 05:18 10/09/24 06:51 Chemistry Test 10/09/24 06:51 Calcium Level 9.4 mg/dL (8.7-10.4) Microbiology Microbiology Date/Time Source Procedure Growth Status 10/03/24 15:45 Blood Blood Culture - Final NO GROWTH AFTER 5 DAYS OF INCUBATION. Complete Labs and/or images reviewed: Labs reviewed by me, Image(s) reviewed by me Assessment/Plan Assessment/Plan Acute hypercarbic Respiratory failure: On 3 L of oxygen by Oxymizer Acute bilateral community-acquired multifocal pneumonia Gram-positive versus Gram-negative Levaquin consult by Dr. Engel appreciated Vianey test negative Rapid flu test negative History of home oxygen use History of pacemaker pacemaker interrogated by Dr. Ayers pacemaker working normally Atrial fibrillation Acute on chronic CHF exacerbation: Lasix consult by Dr. Ayers appreciated Chronic kidney disease nephrology consult by Vanesa appreciated COPD exacerbation Hypertension Hypercholesterolemia Hypothyroidism Morbid obesity BMI of 48 Gross obesity BMI of 50 Spent 65 minutes Advanced care planning time 20 minutes Patient is full code Plan discussed with: Patient Date of Service: Oct 09, 2024 Billing Provider: FADUMO VEGAS MD Common Visit Codes: [id number] INP/OBS CARE(HIGH) FADUMO VEGAS MD Oct 09, 2024 12:19
--- NOTE | 2024-10-09 13:11 | DVHPN2 ---
Progress Note - Dictate Date Seen: Oct 09, 2024 Medical Necessity Reason Pt with a Central, PICC or Fol: No vital signs Vital Sign Date Time Temp Pulse Resp B/P (MAP) Pulse Ox O2 Delivery O2 Flow Rate FiO2 10/09/24 12:18 61 18 95 10/09/24 12:11 Oxymizer 3 N/A 10/09/24 08:35 98.3 124/70 (88) 98.3 Total Intake and Output 10/08/24 10/08/24 10/09/24 15:00 23:00 07:00 Intake Total 100 ml 830 ml 1340 ml Output Total 1600 ml 1900 ml 2900 ml Balance -1500 ml -1070 ml -1560 ml medications Current Medications Medications Dose Ordered Sig/Jeanine Route Start Time Stop Time Status Last Admin Dose Admin Patient Own Medication 10 mg DAILY PO 10/04/24 10:00 Atorvastatin Calcium 20 mg HS PO 10/03/24 22:00 10/08/24 21:45 20 MG Levofloxacin/ Dextrose 100 ml @ 100 mls/hr DAILY IV 10/04/24 10:00 10/09/24 09:25 100 MLS/HR Famotidine 20 mg Q12HR IV 10/03/24 22:00 10/09/24 09:25 20 MG Levothyroxine Sodium 25 mcg QAM@0600 PO 10/04/24 06:00 10/09/24 05:51 25 MCG Albuterol 2.5 mg Q4HPRN PRN NEB 10/03/24 15:00 10/05/24 10:14 2.5 MG Ipratropium [place] 0.5 mg Q4HPRN PRN NEB 10/03/24 15:00 10/05/24 10:14 0.5 MG Methylprednisolone Sodium Succinate 40 mg Q8HR IV 10/03/24 22:00 10/09/24 05:52 40 MG Sodium Chloride 10 ml Q8HR IV 10/03/24 22:00 10/09/24 05:52 10 ML Acetaminophen/ Hydrocodone Bitart 1 tab Q4HP PRN PO 10/03/24 15:00 10/03/24 16:57 1 TAB Ondansetron HCl 4 mg Q4HP PRN IV 10/03/24 15:00 Docusate Sodium 100 mg BIDPRN PRN PO 10/03/24 15:00 Acetaminophen 650 mg Q6HP PRN PO 10/03/24 15:00 Nitroglycerin 0.4 mg Q5MINP PRN SL 10/03/24 15:00 Hold Morphine Sulfate 2 mg Q30M PRN IV 10/03/24 15:00 Albuterol 2.5 mg Q6HR NEB 10/04/24 00:00 10/09/24 12:07 2.5 MG Ipratropium [place] 0.5 mg Q6HR NEB 10/04/24 00:00 10/09/24 12:07 0.5 MG Sildenafil Citrate 20 mg TID@08,14,20 PO 10/04/24 20:00 10/09/24 08:42 20 MG Apixaban 5 mg BID PO 10/04/24 22:00 10/09/24 09:25 5 MG Acetazolamide Sodium 250 mg Q12HR IV 10/05/24 22:00 10/08/24 11:20 250 MG Furosemide 40 mg DAILY IV 10/10/24 10:00 laboratory and microbiology Laboratory Tests 10/09/24 06:51 10/08/24 05:18 Test 10/09/24 06:51 Range/Units Serum Glucose 142 H 74-106 mg/dL Assessment/Plan Patient is a 68-year-old gentleman who presented with weeks of shortness of breath and leg swellings. He also complained of nonproductive cough. Reportedly, EMS found him with oxygen saturation of 85%. It is of note that the patient does have chronic respiratory failure and is on home oxygen. Patient is admitted with acute on chronic respiratory distress. Cardiology is involved for cardiac aspects of care. It is of note that the patient is known to our practice from previous admissions. Last visit with us was in April 2023. He mentions that he was in hospice for awhile. He mentions the last time that the pacemaker was interrogated has been long time ago. He does have baseline history of morbid obesity with poor functional capacity and significant pulmonary hypertension. No JVD (its presence cannot be ruled out secondary to body habitus). Morbidly obese patient. [place] and with mucosa. No carotid bruit. Scattered rhonchi in the lungs is heard. Cardiac: Systolic murmur 2 out of 6 in the apex is heard. Abdomen is soft and obese, cannot rule out organomegaly (secondary to body habitus). Extremities reveal 3+ edema bilaterally. Dorsalis pedis is 1+ bilateral Past medical history includes COPD, chronic respiratory failure on home oxygen, CHF (as per patient for many years, diastolic), history of old pneumonia, CKD, hypertension, hypothyroidism, history of pacemaker implantation (Medtronic), morbid obesity, anemia of chronic disease, pulmonary hypertension, paroxysmal A. fib, thrombocytopenia and obstructive sleep apnea. Reportedly the patient was previously on hospice Echocardiogram of June 2020 revealed ejection fraction of 40 to 45%, moderate to severe TR and right ventricular systolic pressure of 60 mmHg Echocardiogram of March 2021 revealed ejection fraction of 55 to 60%, mild concentric left ventricular hypertrophy, mildly dilated RV with good systolic function, mildly dilated left atrium, small TR/MR, dilated IVC and right ventricular systolic pressure 53 mmHg. Echocardiogram of June 23, 2021 revealed: Ejection fraction of 55 to 60%, mild concentric left ventricle hypertrophy, mild biatrial dilatation, mild TR and right ventricular systolic pressure of 40 mmHg. Echocardiogram of January 31, 2023 revealed dilated right-sided chambers, pulmonary hypertension (right ventricular systolic pressure of 62 mmHg) and left ventricle ejection fraction of 65%. Echocardiogram of April 14, 2023 revealed concentric left ventricular hypertrophy, EF of 60-65%, right ventricular enlargement, mild biatrial enlargement, pacing wire in right-sided chambers, mild TR and right ventricular systolic pressure of 75 mm Hg Echocardiogram of April 19, 2024 had reported concentric left ventricular hypertrophy, ejection fraction of 55%, pacing wire in right-sided chambers, severe TR and right ventricular systolic pressure of 80 mm Hg Hemoglobin: 11.1 - 11.5 - 10.2 - 9.8 - 10.7 - 11.1 Creatinine: 1.37 - 1.57 - 1.59 - 1.52 - 1.54 - 1.54 - 1.72 Potassium: 4.9 - 4.4 - 4.8 - 4.9 - 4.7 - 4.7 - 4.6 Troponin (high sensitive): BNP: 282.85 TSH: 3.80 Chest x-ray revealed: IMPRESSION: 1. Bibasilar pneumonia. Left-sided pacemaker. Repeat chest xry revealed: Frontal chest radiograph demonstrates no acute osseous or superficial soft tissue abnormalities. Left chest wall dual-chamber pacemaker. The trachea is midline. Cardiomegaly with pulmonary vascular congestion. Moderate elevation of the right hemidiaphragm with bibasilar airspace disease. No pneumothorax. Telemetry revealed sinus rhythm Echocardiogram revealed: Left ventricle: Concentric left ventricular hypertrophy was seen. LVEF was 55-60%. D-shaped septum pointed toward pulmonary hypertension. Right ventricle was significantly dilated with reduced systolic function. Left atrium was mildly dilated. Right atrium was significantly dilated. Pacing wire was seen in right-sided chambers. Aortic valve: Aortic valve was trileaflet. There was no aortic insufficiency/stenosis. There was mild mitral regurgitation. There was [id number] tricuspid regurgitation. There was trace pulmonary valve insufficiency. Right ventricular systolic pressure was assessed at 80 mm Hg. Aortic root was dilated at 4.5 cm. Ascending aorta was dilated at 4.2 cm. There was no pericardial effusion. Medtronic Pacemaker interrogation: Battery: Remaining longevity: 5.4 years; Lead impedance: Atrial 152/RV 380 Ohms; Programs sensitivity: Atrial 0.45/RV 0.90 mV; AAI-DDD: 60/130; INSPECTOR FILTER TIP: 0.9%, AP: 24.3%; Percent of time in AT/AF: Less than 0.1%; Normal functioning pacemaker Patient is a 68-year-old gentleman who presented with worsening shortness of breath, leg swellings and non-productive cough. Patient is admitted with acute on chronic respiratory failure. Chest x-ray questions multifocal pneumonia. Does have baseline history of COPD and COPD exacerbation could have contributed to the clinical picture. Does have baseline history of significant pulmonary hypertension and its worsening could have contributed to the clinical picture infection/pneumonia could have contributed to worsening pulmonary hypertension and respiratory failure. It is of note that the patient also is morbidly obese with poor functional capacity. Does have baseline history of noncompliance which could have contributed to the clinical picture. It is of note that the patient was not following with outside hydraulic mechanic (most likely as he was on hospice for a while). He mentions that he is not on hospice at this point. PM interrogation revealed normal functioning pacemaker. Being followed by Pulmonary/Nephrology. Patient mentioned that he is contemplating to go back to Hospice Multifocal Pneumonia Acute on chronic respiratory failure Acute on chronic diastolic heart failure COPD exacerbation Morbid obesity Pulmonary hypertension Status post pacemaker implantation (Medtronic) CKD, chronic Cardiac suggestion for care: Manage in tele IV diuresis (dose as per Nephrology) Follow-up electrolytes and kidney function tests and correct abnormalities. Keep potassium above 4 magnesium above 2 Being followed by Nephrology also Sildenafil at 20 mg 3 times a day suggested Pulmonary follow up. 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 Cardiac galdamez, stable Goals of care as per primary team and patient wishes (Patient mentions that he wants Hospice) Further evaluation and management depends on the above and clinical course A total of 55 minutes was spent reviewing the patient record, examining the patient, making a diagnostic and therapeutic plan, discussing this plan with medical personnel, following up on diagnostic studies and following the patient for clinical stability excluding any and all procedures. At least 50% of this time was spent in direct, [id number] contact. Thank you for allowing me to participate in this patient's care. Further recommendations will depend on patient's clinical course. Please do not hesitate to contact me if you have any questions or concerns. This medical document was created using electronic medical record system with [employer] computerized dictation system. Although this document has been carefully reviewed, there may still be some phonetic and typographical errors. These areas are purely typographical due to the imperfection of the software programs, and do not reflect any compromise in the patient's medical care. Dietary Evaluation Review Comments: 1) nephro-love 1 tab daily 2) Monitor PO intake, lab values, weight trend, and I/O Expected Outcomes/Goals: To meet >75% estimated needs Fu 3-5 days Plan discussed with: Patient, Other (nurse) EBEN SPARROW MD Oct 09, 2024 13:10
[2024-10-09] MEDS: DOCUSATE SOD 100 MG CAP PO PRN (14:43)
[2024-10-09] MEDS: acetaZOLAMIDE 250 MG TAB PO SCH (21:19)
--- NOTE | 2024-10-09 22:40 | DVHPN2 ---
Progress Note - Dictate Date Seen: Oct 09, 2024 Medical Necessity Reason Pt with a Central, PICC or Fol: No Subjective N o acute issues overnight . Respiratory status has improved vital signs Vital Sign Date Time Temp Pulse Resp B/P (MAP) Pulse Ox O2 Delivery O2 Flow Rate FiO2 10/09/24 20:55 98.0 59 19 127/72 (90) 96 98.0 10/09/24 20:00 Oxymizer 2 N/A Total Intake and Output 10/08/24 10/08/24 10/09/24 15:00 23:00 07:00 Intake Total 100 ml 830 ml 1340 ml Output Total 1600 ml 1900 ml 2900 ml Balance -1500 ml -1070 ml -1560 ml medications Current Medications Medications Dose Ordered Sig/Jeanine Route Start Time Stop Time Status Last Admin Dose Admin Patient Own Medication 10 mg DAILY PO 10/04/24 10:00 Atorvastatin Calcium 20 mg HS PO 10/03/24 22:00 10/09/24 21:20 20 MG Levofloxacin/ Dextrose 100 ml @ 100 mls/hr DAILY IV 10/04/24 10:00 10/09/24 09:25 100 MLS/HR Famotidine 20 mg Q12HR IV 10/03/24 22:00 10/09/24 21:21 20 MG Levothyroxine Sodium 25 mcg QAM@0600 PO 10/04/24 06:00 10/09/24 05:51 25 MCG Albuterol 2.5 mg Q4HPRN PRN NEB 10/03/24 15:00 10/05/24 10:14 2.5 MG Ipratropium [place] 0.5 mg Q4HPRN PRN NEB 10/03/24 15:00 10/05/24 10:14 0.5 MG Methylprednisolone Sodium Succinate 40 mg Q8HR IV 10/03/24 22:00 10/09/24 21:19 40 MG Sodium Chloride 10 ml Q8HR IV 10/03/24 22:00 10/09/24 21:20 10 ML Acetaminophen/ Hydrocodone Bitart 1 tab Q4HP PRN PO 10/03/24 15:00 10/03/24 16:57 1 TAB Ondansetron HCl 4 mg Q4HP PRN IV 10/03/24 15:00 Docusate Sodium 100 mg BIDPRN PRN PO 10/03/24 15:00 9/1/25 14:43 100 MG Acetaminophen 650 mg Q6HP PRN PO 10/03/24 15:00 Nitroglycerin 0.4 mg Q5MINP PRN SL 10/03/24 15:00 Hold Morphine Sulfate 2 mg Q30M PRN IV 10/03/24 15:00 Albuterol 2.5 mg Q6HR NEB 10/04/24 00:00 10/09/24 18:43 2.5 MG Ipratropium [place] 0.5 mg Q6HR NEB 10/04/24 00:00 10/09/24 18:43 0.5 MG Sildenafil Citrate 20 mg TID@08,14,20 PO 10/04/24 20:00 10/09/24 20:13 20 MG Apixaban 5 mg BID PO 10/04/24 22:00 10/09/24 21:21 5 MG Furosemide 40 mg DAILY IV 10/10/24 10:00 Acetazolamide 250 mg Q12HR PO 10/09/24 22:00 10/09/24 21:19 250 MG objective General Appearance: Alert, Oriented X3, Cooperative, No acute distress HEENT: Atraumatic, PERRLA, EOMI, Mucous membr. moist/pink Respiratory: Diminished breath sounds Cardiovascular: Regular rate, Normal S1, Normal S2, No murmurs Abdominal: Normal bowel sounds, Soft, No tenderness, No hepatospenomegaly, No masses Extremities: Edema present but decreased. Skin: No rashes, No significant lesion Neuro: No focal deficits laboratory and microbiology Laboratory Tests 10/09/24 06:51 10/08/24 05:18 Test 10/09/24 06:51 Range/Units Serum Glucose 142 H 74-106 mg/dL Problem List KARLOS probably secondary to cardiorenal syndrome . Hyperkalemia , resolved Acute on chronic hypoxic respiratory failure Multifocal Pneumonia Acute on chronic diastolic heart failure COPD exacerbation Morbid obesity Pulmonary hypertension Status post pacemaker implantation Assessment/Plan GFR has decreased . Decrease lasix to once a day . Diamox being change dto oral route Fluid restriction strict I/O Daily BMP Dietary Evaluation Review Comments: 1) nephro-love 1 tab daily 2) Monitor PO intake, lab values, weight trend, and I/O Expected Outcomes/Goals: To meet >75% estimated needs Fu 3-5 days Plan discussed with: Patient ROBERTH FONTAINE MD Oct 09, 2024 22:40
--- NOTE | 2024-10-09 22:56 | DVHPN2 ---
Progress Note - Dictate Date Seen: Oct 09, 2024 Medical Necessity Reason Pt with a Central, PICC or Fol: No Subjective [facility] Patient seen and examined at bedside. On supplemental oxygen Overnight events reviewed. vital signs Vital Sign Date Time Temp Pulse Resp B/P (MAP) Pulse Ox O2 Delivery O2 Flow Rate FiO2 10/09/24 21:35 67 95 Facial BiPAP Mask 55 10/09/24 20:55 98.0 19 127/72 (90) 98.0 10/09/24 20:00 2 Total Intake and Output 10/08/24 10/08/24 10/09/24 15:00 23:00 07:00 Intake Total 100 ml 830 ml 1340 ml Output Total 1600 ml 1900 ml 2900 ml Balance -1500 ml -1070 ml -1560 ml medications Current Medications Medications Dose Ordered Sig/Jeanine Route Start Time Stop Time Status Last Admin Dose Admin Patient Own Medication 10 mg DAILY PO 10/04/24 10:00 Atorvastatin Calcium 20 mg HS PO 10/03/24 22:00 10/09/24 21:20 20 MG Levofloxacin/ Dextrose 100 ml @ 100 mls/hr DAILY IV 10/04/24 10:00 10/09/24 09:25 100 MLS/HR Famotidine 20 mg Q12HR IV 10/03/24 22:00 10/09/24 21:21 20 MG Levothyroxine Sodium 25 mcg QAM@0600 PO 10/04/24 06:00 10/09/24 05:51 25 MCG Albuterol 2.5 mg Q4HPRN PRN NEB 10/03/24 15:00 10/05/24 10:14 2.5 MG Ipratropium [place] 0.5 mg Q4HPRN PRN NEB 10/03/24 15:00 10/05/24 10:14 0.5 MG Methylprednisolone Sodium Succinate 40 mg Q8HR IV 10/03/24 22:00 10/09/24 21:19 40 MG Sodium Chloride 10 ml Q8HR IV 10/03/24 22:00 10/09/24 21:20 10 ML Acetaminophen/ Hydrocodone Bitart 1 tab Q4HP PRN PO 10/03/24 15:00 10/03/24 16:57 1 TAB Ondansetron HCl 4 mg Q4HP PRN IV 10/03/24 15:00 Docusate Sodium 100 mg BIDPRN PRN PO 10/03/24 15:00 10/09/24 14:43 100 MG Acetaminophen 650 mg Q6HP PRN PO 10/03/24 15:00 Nitroglycerin 0.4 mg Q5MINP PRN SL 10/03/24 15:00 Hold Morphine Sulfate 2 mg Q30M PRN IV 10/03/24 15:00 Albuterol 2.5 mg Q6HR NEB 10/04/24 00:00 10/09/24 18:43 2.5 MG Ipratropium [place] 0.5 mg Q6HR NEB 10/04/24 00:00 10/09/24 18:43 0.5 MG Sildenafil Citrate 20 mg TID@08,14,20 PO 10/04/24 20:00 10/09/24 20:13 20 MG Apixaban 5 mg BID PO 10/04/24 22:00 10/09/24 21:21 5 MG Furosemide 40 mg DAILY IV 10/10/24 10:00 Acetazolamide 250 mg Q12HR PO 10/09/24 22:00 10/09/24 21:19 250 MG objective Gen.: Patient lying in bed in no apparent distress. On supplemental oxygen. Head: Normocephalic, atraumatic. Eyes: EOMI/PERRLA. Ears: Normal hearing. Normal anatomy. Neck/trachea: Trachea midline, supple. Nose: Normal external anatomy. Mouth: Moist mucous membranes. Chest: Decreased air entry bilaterally. No wheezing or rhonchi. Cardiovascular: Positive S1, positive S2. Regular rate and rhythm. Abdomen: Positive bowel sounds in all 4 quadrants. Soft, non-tender, non- distended. : Deferred. Rectal: Deferred. Skin: Warm, dry. Intact. Extremities: 2+ radial pulses bilaterally. No lower extremity edema. Neuro: Awake, alert, oriented x3. No gross motor or sensory deficits. Cranial nerves II through XII intact. Gait not assessed. laboratory and microbiology Laboratory Tests 10/09/24 06:51 10/08/24 05:18 Test 10/09/24 06:51 Range/Units Serum Glucose 142 H 74-106 mg/dL Assessment/Plan Impression: Acute hypoxic respiratory failure Dependence on supplemental oxygen Pneumonia, bilateral lower lobe COPD exacerbation Acute on chronic diastolic CHF Morbid obesity Chronic kidney disease Pulmonary hypertension, RVSP of 80 mmHg. Events: Patient seen and examined at bedside. He remains on supplemental oxygen alternating with BiPAP BiPAP PRN during daytime and at night while sleeping. Head of bed elevation Aspiration precautions Continue antibiotics for bilateral lower lobe pneumonia. Continue bronchodilators IV steroids Sildenafil for pulmonary hypertension. Eliquis BID Echo reviewed, Pulmonary hypertension, RVSP of 80 mmHg. LVEF of 55-60% Cardiology recommendations appreciated. Patient on Diamox Continue diuresis with Lasix Fluid and salt restriction Monitor renal function Monitor electrolytes, supplement as necessary Maintain euvolemia Nephrology recommendations appreciated. CXR on 10/05 reveals left chest wall dual-chamber pacemaker. Cardiomegaly with pulmonary vascular congestion. Moderate elevation of the right hemidiaphragm with bibasilar airspace disease. No pneumothorax. Labs and imaging reviewed. Rest of plan as noted below. Plan: Continue supplemental oxygen BiPAP PRN. Titrate to keep O2 sats between 88-94%. Monitor respiratory status closely Bronchodilators. IV steroids Eliquis BID. Echo reviewed; Pulmonary hypertension, RVSP of 80 mmHg. Concentric left ventricular hypertrophy. LVEF of 55-60%. Mild mitral regurgitation. [id number] tricuspid regurgitation. Follow up Cardiology recommendations Diurese to euvolemia Monitor renal function. Monitor electrolytes. Supplement as necessary. Monitor ins and outs. Follow up Nephrology recommendations Diet and lifestyle modifications for weight reduction Morbid obesity complicates all care DVT prophylaxis. Prognosis: Poor given patient's multiple co-morbidities. Rest of plan per hospitalist and other consultants. Thank you Dr. Badillo for allowing me to participate in this patient's care. Further recommendations will depend on the patient's clinical course. Please do not hesitate to contact me if you have any questions or concerns. This medical document was created using an electronic medical record system with [employer] dictation system. Although these documentations are being carefully reviewed, there may still be some phonetic and typographical changes. The errors are purely typographical, due to imperfection on the software program, and do not reflect any compromise in the patient's medical care. Dietary Evaluation Review Comments: 1) nephro-love 1 tab daily 2) Monitor PO intake, lab values, weight trend, and I/O Expected Outcomes/Goals: To meet >75% estimated needs Fu 3-5 days Plan discussed with: Patient, Other (RN) ANCELMO MONTOYA MD Oct 09, 2024 22:56
[2024-10-10] VITALS (17 sets, daily range): BP systolic 113–144; BP diastolic 58–79; PULSE 56–80; RESP 18–22; TEMP 97.6–98.4; O2SAT 93–100
[2024-10-10 07:30] LABS: Hematocrit 38.6 % (41.0-53.0); Hemoglobin 12.2 g/dL (13.5-17.5); Mean Corpuscular Hemoglobin 27.9 pg (28.0-32.0); Mean Corpuscular Volume 88.5 fL (80.0-100.0); Nucleated Red Blood Cells % 0.0 %
--- NOTE | 2024-10-10 07:35 | DVHPN2 ---
Progress Note - Dictate Date Seen: Oct 10, 2024 Medical Necessity Reason Pt with a Central, PICC or Fol: No vital signs Vital Sign Date Time Temp Pulse Resp B/P (MAP) Pulse Ox O2 Delivery O2 Flow Rate FiO2 10/10/24 05:00 97.9 63 18 120/79 (93) 97 97.9 10/10/24 01:33 Facial BiPAP Mask 55 10/09/24 20:00 2 Total Intake and Output 10/09/24 10/09/24 10/10/24 14:59 22:59 06:59 Intake Total 480 ml 436 ml Output Total 2850 ml 1400 ml Balance -2370 ml -964 ml medications Current Medications Medications Dose Ordered Sig/Jeanine Route Start Time Stop Time Status Last Admin Dose Admin Patient Own Medication 10 mg DAILY PO 10/04/24 10:00 Atorvastatin Calcium 20 mg HS PO 10/03/24 22:00 10/09/24 21:20 20 MG Levofloxacin/ Dextrose 100 ml @ 100 mls/hr DAILY IV 10/04/24 10:00 10/09/24 09:25 100 MLS/HR Famotidine 20 mg Q12HR IV 10/03/24 22:00 10/09/24 21:21 20 MG Levothyroxine Sodium 25 mcg QAM@0600 PO 10/04/24 06:00 10/10/24 05:27 25 MCG Albuterol 2.5 mg Q4HPRN PRN NEB 10/03/24 15:00 10/05/24 10:14 2.5 MG Ipratropium [place] 0.5 mg Q4HPRN PRN NEB 10/03/24 15:00 10/05/24 10:14 0.5 MG Methylprednisolone Sodium Succinate 40 mg Q8HR IV 10/03/24 22:00 10/10/24 05:27 40 MG Sodium Chloride 10 ml Q8HR IV 10/03/24 22:00 10/10/24 05:27 10 ML Acetaminophen/ Hydrocodone Bitart 1 tab Q4HP PRN PO 10/03/24 15:00 10/03/24 16:57 1 TAB Ondansetron HCl 4 mg Q4HP PRN IV 10/03/24 15:00 Docusate Sodium 100 mg BIDPRN PRN PO 10/03/24 15:00 10/09/24 14:43 100 MG Acetaminophen 650 mg Q6HP PRN PO 10/03/24 15:00 Nitroglycerin 0.4 mg Q5MINP PRN SL 10/03/24 15:00 Hold Morphine Sulfate 2 mg Q30M PRN IV 10/03/24 15:00 Albuterol 2.5 mg Q6HR NEB 10/04/24 00:00 10/10/24 06:24 2.5 MG Ipratropium [place] 0.5 mg Q6HR NEB 10/04/24 00:00 10/10/24 06:24 0.5 MG Sildenafil Citrate 20 mg TID@08,14,20 PO 10/04/24 20:00 10/09/24 20:13 20 MG Apixaban 5 mg BID PO 10/04/24 22:00 10/09/24 21:21 5 MG Furosemide 40 mg DAILY IV 10/10/24 10:00 Acetazolamide 250 mg Q12HR PO 10/09/24 22:00 10/09/24 21:19 250 MG laboratory and microbiology Test 10/10/24 06:40 Range/Units Serum Glucose Pending Assessment/Plan Patient is a 68-year-old gentleman who presented with weeks of shortness of breath and leg swellings. He also complained of nonproductive cough. Reportedly, EMS found him with oxygen saturation of 85%. It is of note that the patient does have chronic respiratory failure and is on home oxygen. Patient is admitted with acute on chronic respiratory distress. Cardiology is involved for cardiac aspects of care. It is of note that the patient is known to our practice from previous admissions. Last visit with us was in April 2023. He mentions that he was in hospice for awhile. He mentions the last time that the pacemaker was interrogated has been long time ago. He does have baseline history of morbid obesity with poor functional capacity and significant pulmonary hypertension. No JVD (its presence cannot be ruled out secondary to body habitus). Morbidly obese patient. [place] and with mucosa. No carotid bruit. Scattered rhonchi in the lungs is heard. Cardiac: Systolic murmur 2 out of 6 in the apex is heard. Abdomen is soft and obese, cannot rule out organomegaly (secondary to body habitus). Extremities reveal 3+ edema bilaterally. Dorsalis pedis is 1+ bilateral Past medical history includes COPD, chronic respiratory failure on home oxygen, CHF (as per patient for many years, diastolic), history of old pneumonia, CKD, hypertension, hypothyroidism, history of pacemaker implantation (Medtronic), morbid obesity, anemia of chronic disease, pulmonary hypertension, paroxysmal A. fib, thrombocytopenia and obstructive sleep apnea. Reportedly the patient was previously on hospice Echocardiogram of June 2020 revealed ejection fraction of 40 to 45%, moderate to severe TR and right ventricular systolic pressure of 60 mmHg Echocardiogram of March 2021 revealed ejection fraction of 55 to 60%, mild concentric left ventricular hypertrophy, mildly dilated RV with good systolic function, mildly dilated left atrium, small TR/MR, dilated IVC and right ventricular systolic pressure 53 mmHg. Echocardiogram of June 23, 2021 revealed: Ejection fraction of 55 to 60%, mild concentric left ventricle hypertrophy, mild biatrial dilatation, mild TR and right ventricular systolic pressure of 40 mmHg. Echocardiogram of January 31, 2023 revealed dilated right-sided chambers, pulmonary hypertension (right ventricular systolic pressure of 62 mmHg) and left ventricle ejection fraction of 65%. Echocardiogram of April 14, 2023 revealed concentric left ventricular hypertrophy, EF of 60-65%, right ventricular enlargement, mild biatrial enlargement, pacing wire in right-sided chambers, mild TR and right ventricular systolic pressure of 75 mm Hg Echocardiogram of April 19, 2024 had reported concentric left ventricular hypertrophy, ejection fraction of 55%, pacing wire in right-sided chambers, severe TR and right ventricular systolic pressure of 80 mm Hg Hemoglobin: 11.1 - 11.5 - 10.2 - 9.8 - 10.7 - 11.1 - 12.2 Creatinine: 1.37 - 1.57 - 1.59 - 1.52 - 1.54 - 1.54 - 1.72 - 1.5 Potassium: 4.9 - 4.4 - 4.8 - 4.9 - 4.7 - 4.7 - 4.6 - 4.6 Troponin (high sensitive): 13 - 13 - 13 BNP: 282.85 TSH: 3.80 Chest x-ray revealed: IMPRESSION: 1. Bibasilar pneumonia. Left-sided pacemaker. Repeat chest xry revealed: Frontal chest radiograph demonstrates no acute osseous or superficial soft tissue abnormalities. Left chest wall dual-chamber pacemaker. The trachea is midline. Cardiomegaly with pulmonary vascular congestion. Moderate elevation of the right hemidiaphragm with bibasilar airspace disease. No pneumothorax. Telemetry revealed sinus rhythm Echocardiogram revealed: Left ventricle: Concentric left ventricular hypertrophy was seen. LVEF was 55-60%. D-shaped septum pointed toward pulmonary hypertension. Right ventricle was significantly dilated with reduced systolic function. Left atrium was mildly dilated. Right atrium was significantly dilated. Pacing wire was seen in right-sided chambers. Aortic valve: Aortic valve was trileaflet. There was no aortic insufficiency /stenosis. There was mild mitral regurgitation. There was [id number] tricuspid regurgitation. There was trace pulmonary valve insufficiency. Right ventricular systolic pressure was assessed at 80 mm Hg. Aortic root was dilated at 4.5 cm. Ascending aorta was dilated at 4.2 cm. There was no pericardial effusion. Medtronic Pacemaker interrogation: Battery: Remaining longevity: 5.4 years; Lead impedance: Atrial 152/RV 380 Ohms; Programs sensitivity: Atrial 0.45/RV 0.90 mV; AAI-DDD: 60/130; AQUARIST: 0.9%, AP: 24.3%; Percent of time in AT/AF: Less than 0.1%; Normal functioning pacemaker Patient is a 68-year-old gentleman who presented with worsening shortness of breath, leg swellings and non-productive cough. Patient is admitted with acute on chronic respiratory failure. Chest x-ray questions multifocal pneumonia. Does have baseline history of COPD and COPD exacerbation could have contributed to the clinical picture. Does have baseline history of significant pulmonary hypertension and its worsening could have contributed to the clinical picture infection/pneumonia could have contributed to worsening pulmonary hypertension and respiratory failure. It is of note that the patient also is morbidly obese with poor functional capacity. Does have baseline history of noncompliance which could have contributed to the clinical picture. It is of note that the patient was not following with outside hand brush filler (most likely as he was on hospice for a while). He mentions that he is not on hospice at this point. PM interrogation revealed normal functioning pacemaker. Being followed by Pulmonary/Nephrology. Patient mentioned that he is contemplating to go back to Hospice Multifocal Pneumonia Acute on chronic respiratory failure Acute on chronic diastolic heart failure COPD exacerbation Morbid obesity Pulmonary hypertension Status post pacemaker implantation (Medtronic) CKD, chronic Cardiac suggestion for care: Manage in tele IV diuresis (dose as per Nephrology) Follow-up electrolytes and kidney function tests and correct abnormalities. Keep potassium above 4 magnesium above 2 Being followed by Nephrology also Sildenafil at 20 mg 3 times a day suggested Pulmonary follow up. alf full anticoagulation (history of atrial fibrillation with high CHADS-VASc score), on Eliquis Antibiotic therapy for pneumonia as per primary team/Pulmonary. Cardiac galdamez, stable Goals of care as per primary team and patient wishes (Patient mentions that he wants Hospice) Further evaluation and management depends on the above and clinical course A total of 55 minutes was spent reviewing the patient record, examining the patient, making a diagnostic and therapeutic plan, discussing this plan with medical personnel, following up on diagnostic studies and following the patient for clinical stability excluding any and all procedures. At least 50% of this time was spent in direct, [id number] contact. Thank you for allowing me to participate in this patient's care. Further recommendations will depend on patient's clinical course. Please do not hesitate to contact me if you have any questions or concerns. This medical document was created using electronic medical record system with [employer] computerized dictation system. Although this document has been carefully reviewed, there may still be some phonetic and typographical errors. These areas are purely typographical due to the imperfection of the software programs, and do not reflect any compromise in the patient's medical care. Dietary Evaluation Review Comments: 1) nephro-love 1 tab daily 2) Monitor PO intake, lab values, weight trend, and I/O Expected Outcomes/Goals: To meet >75% estimated needs Fu 3-5 days Plan discussed with: Patient, Other (nurse) EBEN SPARROW MD Oct 10, 2024 07:35
[2024-10-10 07:49] LABS: Alanine Aminotransferase 18 U/L (7-40); Alkaline Phosphatase 69 U/L (46-116); Calcium 8.8 mg/dL (8.7-10.4)
[2024-10-10 07:50] LABS: Albumin 3.5 g/dL (3.2-4.8); BUN/Creatinine Ratio 27.3 (10.0-20.0); Bilirubin, Total 0.9 mg/dL (0.2-1.0); Chloride 90 mmol/L (98-107); Magnesium 2.3 mg/dL (1.6-2.6); Potassium 4.6 mmol/L (3.5-5.1); Sodium 136 mmol/L (136-145); Total Protein 7.3 g/dL (5.7-8.2)
[2024-10-10 07:51] LABS: Anion Gap 5.99999 (5-15); Blood Urea Nitrogen 41 mg/dL (9-23); Glucose 128 mg/dL (74-106)
[2024-10-10 07:52] LABS: Carbon Dioxide > 40 mmol/L (20-31)
[2024-10-10] MEDS: FUROSEMIDE 100 MG/10ML VIAL IV SCH (08:52)
--- NOTE | 2024-10-10 13:24 | DVHPN2 ---
Reviewed: Care Plan, H&P, Labs, Medications, Previous Orders, Radiology Changes from previous H/P or p: No Changes Eyes: No Pain, No Vision change, No Conjunctivae inflammation, No Eyelid inflammation, No Other, No Redness ENT: No Ear pain, No Ear discharge, No Nose pain, No Nose discharge, No Nose congestion, No Mouth pain, No Mouth swelling, No Throat pain, No Throat swelling, No Other Cardiovascular: No Chest Pain, No Palpitations, No Orthopnea, No Paroxysmal Noc. Dyspnea; Edema; No Lt Headedness, No Other Respiratory: Cough; No Dry; Shortness of breath; No SOB with excertion, No Wheezing, No Hemoptysis, No Pleuritic Pain, No Sputum; Other (SOB at rest) Gastrointestinal: No Nausea, No Vomiting, No Abdominal Pain, No Diarrhea, No Constipation, No Melena, No Hematochezia, No Other Genitourinary: No Dysuria, No Frequency, No Incontinence, No Hematuria, No Retention; Other (Loving catheter in place) Musculoskeletal: No other, No neck pain, No shoulder pain, No arm pain, No back pain, No hand pain, No leg pain, No foot pain Skin: No Rash, No Lesions, No Jaundice, No Bruising, No Other Objective Vitals Vital Signs Date Time Temp Pulse Resp B/P (MAP) Pulse Ox O2 Delivery O2 Flow Rate FiO2 10/10/24 11:49 64 18 99 10/10/24 11:41 Nasal Cannula* 2 28 10/10/24 09:00 97.8 122/74 (90) 97.8 Intake/Output Intake and Output 10/10/24 07:00 Intake Total 916 ml Output Total 4250 ml Balance -3334 ml Intake Oral 916 ml Output Urine Total 4250 ml Medications Current Medications Medications Dose Ordered Sig/Jeanine Route Start Time Stop Time Status Last Admin Dose Admin Patient Own Medication 10 mg DAILY PO 10/04/24 10:00 Atorvastatin Calcium 20 mg HS PO 10/03/24 22:00 10/09/24 21:20 20 MG Levofloxacin/ Dextrose 100 ml @ 100 mls/hr DAILY IV 10/04/24 10:00 10/10/24 08:51 100 MLS/HR Famotidine 20 mg Q12HR IV 10/03/24 22:00 10/10/24 08:51 20 MG Levothyroxine Sodium 25 mcg QAM@0600 PO 10/04/24 06:00 10/10/24 05:27 25 MCG Albuterol 2.5 mg Q4HPRN PRN NEB 10/03/24 15:00 10/05/24 10:14 2.5 MG Ipratropium [place] 0.5 mg Q4HPRN PRN NEB 10/03/24 15:00 10/05/24 10:14 0.5 MG Methylprednisolone Sodium Succinate 40 mg Q8HR IV 10/03/24 22:00 10/10/24 05:27 40 MG Sodium Chloride 10 ml Q8HR IV 10/03/24 22:00 10/10/24 05:27 10 ML Acetaminophen/ Hydrocodone Bitart 1 tab Q4HP PRN PO 10/03/24 15:00 10/03/24 16:57 1 TAB Ondansetron HCl 4 mg Q4HP PRN IV 10/03/24 15:00 Docusate Sodium 100 mg BIDPRN PRN PO 10/03/24 15:00 10/10/24 08:52 100 MG Acetaminophen 650 mg Q6HP PRN PO 10/03/24 15:00 Nitroglycerin 0.4 mg Q5MINP PRN SL 10/03/24 15:00 Hold Morphine Sulfate 2 mg Q30M PRN IV 10/03/24 15:00 Albuterol 2.5 mg Q6HR NEB 10/04/24 00:00 10/10/24 11:41 2.5 MG Ipratropium [place] 0.5 mg Q6HR NEB 10/04/24 00:00 10/10/24 11:41 0.5 MG Sildenafil Citrate 20 mg TID@08,14,20 PO 10/04/24 20:00 10/10/24 08:52 20 MG Apixaban 5 mg BID PO 10/04/24 22:00 10/10/24 08:51 5 MG Furosemide 40 mg DAILY IV 10/10/24 10:00 10/10/24 08:52 40 MG Acetazolamide 250 mg Q12HR PO 10/09/24 22:00 10/10/24 08:52 250 MG Laboratory Results Laboratory Tests 10/10/24 06:40 Chemistry Test 10/10/24 06:40 Albumin 3.5 g/dL (3.2-4.8) Calcium Level 8.8 mg/dL (8.7-10.4) Magnesium Level 2.3 mg/dL (1.6-2.6) Total Protein 7.3 g/dL (5.7-8.2) LFT Test 10/10/24 06:40 Alanine Aminotransferase (ALT) 18 U/L (7-40) Alkaline Phosphatase 69 U/L (46-116) Aspartate Amino Transferase (AST) 23 U/L (13-40) Total Bilirubin 0.9 mg/dL (0.2-1.0) Microbiology Microbiology Date/Time Source Procedure Growth Status 10/03/24 15:45 Blood Blood Culture - Final NO GROWTH AFTER 5 DAYS OF INCUBATION. Complete Labs and/or images reviewed: Labs reviewed by me, Image(s) reviewed by me Assessment/Plan Assessment/Plan Acute hypercarbic Respiratory failure: On 3 L of oxygen by Oxymizer Acute bilateral community-acquired multifocal pneumonia Gram-positive versus Gram-negative Levaquin consult by Dr. Engel appreciated Vianey test negative Rapid flu test negative History of home oxygen use History of pacemaker pacemaker interrogated by Dr. Ayers pacemaker working normally Atrial fibrillation Acute on chronic CHF exacerbation: Lasix consult by Dr. Ayers appreciated Chronic kidney disease nephrology consult by Vanesa appreciated COPD exacerbation Hypertension Hypercholesterolemia Hypothyroidism Morbid obesity BMI of 48 Gross obesity BMI of 50 Spent 65 minutes Advanced care planning time 20 minutes Patient is full code Plan discussed with: Patient My Orders Orders - FADUMO VEGAS MD Procedure Category Date Status Time Complete Blood Count LAB 10/11/24 Verified 05:00 Complete Blood Count LAB 10/12/24 Verified 05:00 Comprehensive LAB 10/11/24 Verified Metabolic Panel 05:00 Comprehensive LAB 10/12/24 Verified Metabolic Panel 05:00 Date of Service: Oct 10, 2024 Billing Provider: FADUMO VEGAS MD Common Visit Codes: [id number] INP/OBS CARE(HIGH) FADUMO VEGAS MD Oct 10, 2024 13:24
--- NOTE | 2024-10-10 17:06 | DVHPN2 ---
Progress Note - Dictate Date Seen: Oct 10, 2024 Medical Necessity Reason Pt with a Central, PICC or Fol: No Subjective No acute issues overnight . Respiratory status has improved vital signs Vital Sign Date Time Temp Pulse Resp B/P (MAP) Pulse Ox O2 Delivery O2 Flow Rate FiO2 10/10/24 16:39 98.4 60 18 144/64 (90) 94 98.4 10/10/24 11:41 Nasal Cannula* 2 28 Total Intake and Output 10/09/24 10/09/24 10/10/24 15:00 23:00 07:00 Intake Total 480 ml 436 ml Output Total 2850 ml 1400 ml Balance -2370 ml -964 ml medications Current Medications Medications Dose Ordered Sig/Jeanine Route Start Time Stop Time Status Last Admin Dose Admin Patient Own Medication 10 mg DAILY PO 10/04/24 10:00 Atorvastatin Calcium 20 mg HS PO 10/03/24 22:00 10/09/24 21:20 20 MG Levofloxacin/ Dextrose 100 ml @ 100 mls/hr DAILY IV 10/04/24 10:00 10/10/24 08:51 100 MLS/HR Famotidine 20 mg Q12HR IV 10/03/24 22:00 10/10/24 08:51 20 MG Levothyroxine Sodium 25 mcg QAM@0600 PO 10/04/24 06:00 10/10/24 05:27 25 MCG Albuterol 2.5 mg Q4HPRN PRN NEB 10/03/24 15:00 10/05/24 10:14 2.5 MG Ipratropium [place] 0.5 mg Q4HPRN PRN NEB 10/03/24 15:00 10/05/24 10:14 0.5 MG Methylprednisolone Sodium Succinate 40 mg Q8HR IV 10/03/24 22:00 10/10/24 14:04 40 MG Sodium Chloride 10 ml Q8HR IV 10/03/24 22:00 10/10/24 14:03 10 ML Acetaminophen/ Hydrocodone Bitart 1 tab Q4HP PRN PO 10/03/24 15:00 10/03/24 16:57 1 TAB Ondansetron HCl 4 mg Q4HP PRN IV 10/03/24 15:00 Docusate Sodium 100 mg BIDPRN PRN PO 10/03/24 15:00 10/10/24 08:52 100 MG Acetaminophen 650 mg Q6HP PRN PO 10/03/24 15:00 Nitroglycerin 0.4 mg Q5MINP PRN SL 10/03/24 15:00 Hold Morphine Sulfate 2 mg Q30M PRN IV 10/03/24 15:00 Albuterol 2.5 mg Q6HR NEB 10/04/24 00:00 10/10/24 11:41 2.5 MG Ipratropium [place] 0.5 mg Q6HR NEB 10/04/24 00:00 10/10/24 11:41 0.5 MG Sildenafil Citrate 20 mg TID@08,14,20 PO 10/04/24 20:00 10/10/24 14:04 20 MG Apixaban 5 mg BID PO 10/04/24 22:00 10/10/24 08:51 5 MG Furosemide 40 mg DAILY IV 10/10/24 10:00 10/10/24 08:52 40 MG Acetazolamide 250 mg Q12HR PO 10/09/24 22:00 10/10/24 08:52 250 MG objective General Appearance: Alert, Oriented X3, Cooperative, No acute distress HEENT: Atraumatic, PERRLA, EOMI, Mucous membr. moist/pink Respiratory: Diminished breath sounds Cardiovascular: Regular rate, Normal S1, Normal S2, No murmurs Abdominal: Normal bowel sounds, Soft, No tenderness, No hepatospenomegaly, No masses Extremities: Edema present but decreased. Skin: No rashes, No significant lesion Neuro: No focal deficits laboratory and microbiology Laboratory Tests 10/10/24 06:40 Test 10/10/24 06:40 Range/Units Serum Glucose 128 H 74-106 mg/dL Problem List KARLOS probably secondary to cardiorenal syndrome . Hyperkalemia , resolved Acute on chronic hypoxic respiratory failure Multifocal Pneumonia Acute on chronic diastolic heart failure COPD exacerbation Morbid obesity Pulmonary hypertension Status post pacemaker implantation Assessment/Plan GFR has decreased . Decreased lasix to once a day . Diamox changed to oral route Fluid restriction strict I/O Daily BMP Dietary Evaluation Review Comments: 1) nephro-love 1 tab daily 2) Monitor PO intake, lab values, weight trend, and I/O Expected Outcomes/Goals: To meet >75% estimated needs Fu 3-5 days Plan discussed with: Patient ROBERTH FONTAINE MD Oct 10, 2024 17:06
--- NOTE | 2024-10-10 23:16 | DVHPN2 ---
Progress Note - Dictate Date Seen: Oct 10, 2024 Medical Necessity Reason Pt with a Central, PICC or Fol: No Subjective [facility] [place] Patient seen and examined at bedside. On supplemental oxygen Overnight events reviewed. vital signs Vital Sign Date Time Temp Pulse Resp B/P (MAP) Pulse Ox O2 Delivery O2 Flow Rate FiO2 10/10/24 22:30 60 95 Facial BiPAP Mask 40 10/10/24 21:00 20 119/58 (78) 10/10/24 19:19 2.0 10/10/24 16:39 98.4 98.4 Total Intake and Output 10/09/24 10/09/24 10/10/24 15:00 23:00 07:00 Intake Total 480 ml 436 ml Output Total 2850 ml 1400 ml Balance -2370 ml -964 ml medications Current Medications Medications Dose Ordered Sig/Jeanine Route Start Time Stop Time Status Last Admin Dose Admin Patient Own Medication 10 mg DAILY PO 10/04/24 10:00 Atorvastatin Calcium 20 mg HS PO 10/03/24 22:00 10/10/24 21:16 20 MG Levofloxacin/ Dextrose 100 ml @ 100 mls/hr DAILY IV 10/04/24 10:00 10/10/24 08:51 100 MLS/HR Famotidine 20 mg Q12HR IV 10/03/24 22:00 10/10/24 21:18 20 MG Levothyroxine Sodium 25 mcg QAM@0600 PO 10/04/24 06:00 10/10/24 05:27 25 MCG Albuterol 2.5 mg Q4HPRN PRN NEB 10/03/24 15:00 10/05/24 10:14 2.5 MG Ipratropium [place] 0.5 mg Q4HPRN PRN NEB 10/03/24 15:00 10/05/24 10:14 0.5 MG Methylprednisolone Sodium Succinate 40 mg Q8HR IV 10/03/24 22:00 10/10/24 21:15 40 MG Sodium Chloride 10 ml Q8HR IV 10/03/24 22:00 10/10/24 21:18 10 ML Acetaminophen/ Hydrocodone Bitart 1 tab Q4HP PRN PO 10/03/24 15:00 10/03/24 16:57 1 TAB Ondansetron HCl 4 mg Q4HP PRN IV 10/03/24 15:00 Docusate Sodium 100 mg BIDPRN PRN PO 10/03/24 15:00 10/10/24 21:15 100 MG Acetaminophen 650 mg Q6HP PRN PO 10/03/24 15:00 Nitroglycerin 0.4 mg Q5MINP PRN SL 10/03/24 15:00 Hold Morphine Sulfate 2 mg Q30M PRN IV 10/03/24 15:00 Albuterol 2.5 mg Q6HR NEB 10/04/24 00:00 10/10/24 19:19 2.5 MG Ipratropium [place] 0.5 mg Q6HR NEB 10/04/24 00:00 10/10/24 19:19 0.5 MG Sildenafil Citrate 20 mg TID@08,14,20 PO 10/04/24 20:00 10/10/24 21:17 20 MG Apixaban 5 mg BID PO 10/04/24 22:00 10/10/24 21:19 5 MG Furosemide 40 mg DAILY IV 10/10/24 10:00 10/10/24 08:52 40 MG Acetazolamide 250 mg Q12HR PO 10/09/24 22:00 10/10/24 21:18 250 MG objective Gen.: Patient lying in bed in no apparent distress. On supplemental oxygen. Head: Normocephalic, atraumatic. Eyes: EOMI/PERRLA. Ears: Normal hearing. Normal anatomy. Neck/trachea: Trachea midline, supple. Nose: Normal external anatomy. Mouth: Moist mucous membranes. Chest: Decreased air entry bilaterally. No wheezing or rhonchi. Cardiovascular: Positive S1, positive S2. Regular rate and rhythm. Abdomen: Positive bowel sounds in all 4 quadrants. Soft, non-tender, non- distended. : Deferred. Rectal: Deferred. Skin: Warm, dry. Intact. Extremities: 2+ radial pulses bilaterally. No lower extremity edema. Neuro: Awake, alert, oriented x3. No gross motor or sensory deficits. Cranial nerves II through XII intact. Gait not assessed. laboratory and microbiology Laboratory Tests 10/10/24 06:40 Test 10/10/24 06:40 Range/Units Serum Glucose 128 H 74-106 mg/dL Assessment/Plan Impression: Acute hypoxic respiratory failure Dependence on supplemental oxygen Pneumonia, bilateral lower lobe COPD exacerbation Acute on chronic diastolic CHF Morbid obesity Chronic kidney disease Pulmonary hypertension, RVSP of 80 mmHg. Events: Patient seen and examined at bedside. He remains on supplemental oxygen alternating with BiPAP Currently on 3 LPM NC BiPAP PRN during daytime and at night while sleeping. Head of bed elevation Aspiration precautions Continue antibiotics for bilateral lower lobe pneumonia. Continue bronchodilators Incentive spirometry IV steroids Sildenafil for pulmonary hypertension. Eliquis BID Echo reviewed, Pulmonary hypertension, RVSP of 80 mmHg. LVEF of 55-60% Cardiology recommendations appreciated. Continue Diamox Continue diuresis with Lasix Fluid and salt restriction Monitor renal function Monitor electrolytes, supplement as necessary Maintain euvolemia Nephrology recommendations appreciated. Continue physical therapy. Disposition per hospitalist. CXR on 10/05 revealed left chest wall dual-chamber pacemaker. Cardiomegaly with pulmonary vascular congestion. Moderate elevation of the right hemidiaphragm with bibasilar airspace disease. No pneumothorax. Labs and imaging reviewed. Rest of plan as noted below. Plan: Continue supplemental oxygen BiPAP PRN. Titrate to keep O2 sats between 88-94%. Monitor respiratory status closely Bronchodilators. IV steroids Eliquis BID. Echo reviewed; Pulmonary hypertension, RVSP of 80 mmHg. Concentric left ventricular hypertrophy. LVEF of 55-60%. Mild mitral regurgitation. [id number] tricuspid regurgitation. Follow up Cardiology recommendations Diurese to euvolemia Monitor renal function. Monitor electrolytes. Supplement as necessary. Monitor ins and outs. Follow up Nephrology recommendations Diet and lifestyle modifications for weight reduction Morbid obesity complicates all care DVT prophylaxis. Prognosis: Poor given patient's multiple co-morbidities. Rest of plan per hospitalist and other consultants. Thank you Dr. Badillo for allowing me to participate in this patient's care. Further recommendations will depend on the patient's clinical course. Please do not hesitate to contact me if you have any questions or concerns. This medical document was created using an electronic medical record system with [employer] dictation system. Although these documentations are being carefully reviewed, there may still be some phonetic and typographical changes. The errors are purely typographical, due to imperfection on the software program, and do not reflect any compromise in the patient's medical care. Dietary Evaluation Review Comments: 1) nephro-love 1 tab daily 2) Monitor PO intake, lab values, weight trend, and I/O Expected Outcomes/Goals: To meet >75% estimated needs Fu 3-5 days Plan discussed with: Patient, Other (RN Ron) ANCELMO MONTOYA MD Oct 10, 2024 23:16
[2024-10-11] VITALS (13 sets, daily range): BP systolic 109–131; BP diastolic 61–78; PULSE 55–80; RESP 16–23; TEMP 97.9–98.3; O2SAT 94–100
[2024-10-11 07:39] LABS: Alanine Aminotransferase 24 U/L (7-40); Albumin 3.7 g/dL (3.2-4.8); Alkaline Phosphatase 74 U/L (46-116); Anion Gap 6 (5-15); BUN/Creatinine Ratio 32.1 (10.0-20.0); Calcium 8.9 mg/dL (8.7-10.4); Potassium 4.9 mmol/L (3.5-5.1); Sodium 138 mmol/L (136-145); Total Protein 7.7 g/dL (5.7-8.2)
[2024-10-11 07:40] LABS: Bilirubin, Total 0.9 mg/dL (0.2-1.0)
[2024-10-11 07:51] LABS: Blood Urea Nitrogen 54 mg/dL (9-23); Carbon Dioxide 39 mmol/L (20-31); Chloride 93 mmol/L (98-107); Glucose 129 mg/dL (74-106)
[2024-10-11 07:52] LABS: Hematocrit 41.1 % (41.0-53.0); Hemoglobin 12.9 g/dL (13.5-17.5); Mean Corpuscular Hemoglobin 27.7 pg (28.0-32.0); Mean Corpuscular Volume 87.9 fL (80.0-100.0); Nucleated Red Blood Cells % 0.1 %
--- NOTE | 2024-10-11 08:06 | DVHPN2 ---
Progress Note - Dictate Date Seen: Oct 11, 2024 Medical Necessity Reason Pt with a Central, PICC or Fol: No vital signs Vital Sign Date Time Temp Pulse Resp B/P (MAP) Pulse Ox O2 Delivery O2 Flow Rate FiO2 10/11/24 06:21 80 16 100 10/11/24 06:13 Nasal Cannula 2.0 10/11/24 06:13 28 10/11/24 04:49 97.9 120/77 (91) 97.9 Total Intake and Output 10/10/24 10/10/24 10/11/24 15:00 23:00 07:00 Intake Total 594 ml 1444 ml 450 ml Output Total 2050 ml 1050 ml Balance 594 ml -606 ml -600 ml medications Current Medications Medications Dose Ordered Sig/Jeanine Route Start Time Stop Time Status Last Admin Dose Admin Patient Own Medication 10 mg DAILY PO 10/04/24 10:00 Atorvastatin Calcium 20 mg HS PO 10/03/24 22:00 10/10/24 21:16 20 MG Levofloxacin/ Dextrose 100 ml @ 100 mls/hr DAILY IV 10/04/24 10:00 10/10/24 08:51 100 MLS/HR Famotidine 20 mg Q12HR IV 10/03/24 22:00 10/10/24 21:18 20 MG Levothyroxine Sodium 25 mcg QAM@0600 PO 10/04/24 06:00 10/11/24 05:42 25 MCG Albuterol 2.5 mg Q4HPRN PRN NEB 10/03/24 15:00 10/05/24 10:14 2.5 MG Ipratropium [place] 0.5 mg Q4HPRN PRN NEB 10/03/24 15:00 10/05/24 10:14 0.5 MG Methylprednisolone Sodium Succinate 40 mg Q8HR IV 10/03/24 22:00 10/11/24 05:42 40 MG Sodium Chloride 10 ml Q8HR IV 10/03/24 22:00 10/11/24 05:15 10 ML Acetaminophen/ Hydrocodone Bitart 1 tab Q4HP PRN PO 10/03/24 15:00 10/03/24 16:57 1 TAB Ondansetron HCl 4 mg Q4HP PRN IV 10/03/24 15:00 Docusate Sodium 100 mg BIDPRN PRN PO 10/03/24 15:00 10/10/24 21:15 100 MG Acetaminophen 650 mg Q6HP PRN PO 10/03/24 15:00 Nitroglycerin 0.4 mg Q5MINP PRN SL 10/03/24 15:00 Hold Morphine Sulfate 2 mg Q30M PRN IV 10/03/24 15:00 Albuterol 2.5 mg Q6HR NEB 10/04/24 00:00 10/11/24 06:12 2.5 MG Ipratropium [place] 0.5 mg Q6HR NEB 10/04/24 00:00 10/11/24 06:12 0.5 MG Sildenafil Citrate 20 mg TID@08,14,20 PO 10/04/24 20:00 10/10/24 21:17 20 MG Apixaban 5 mg BID PO 10/04/24 22:00 10/10/24 21:19 5 MG Furosemide 40 mg DAILY IV 10/10/24 10:00 10/10/24 08:52 40 MG Acetazolamide 250 mg Q12HR PO 10/09/24 22:00 10/10/24 21:18 250 MG laboratory and microbiology Laboratory Tests 10/11/24 06:40 Test 10/11/24 06:40 Range/Units Serum Glucose 129 H 74-106 mg/dL Assessment/Plan Patient is a 68-year-old gentleman who presented with weeks of shortness of breath and leg swellings. He also complained of nonproductive cough. Reportedly, EMS found him with oxygen saturation of 85%. It is of note that the patient does have chronic respiratory failure and is on home oxygen. Patient is admitted with acute on chronic respiratory distress. Cardiology is involved for cardiac aspects of care. It is of note that the patient is known to our practice from previous admissions. Last visit with us was in April 2023. He mentions that he was in hospice for awhile. He mentions the last time that the pacemaker was interrogated has been long time ago. He does have baseline history of morbid obesity with poor functional capacity and significant pulmonary hypertension. No JVD (its presence cannot be ruled out secondary to body habitus). Morbidly obese patient. [place] and with mucosa. No carotid bruit. Scattered rhonchi in the lungs is heard. Cardiac: Systolic murmur 2 out of 6 in the apex is heard. Abdomen is soft and obese, cannot rule out organomegaly (secondary to body habitus). Extremities reveal 3+ edema bilaterally. Dorsalis pedis is 1+ bilateral Past medical history includes COPD, chronic respiratory failure on home oxygen, CHF (as per patient for many years, diastolic), history of old pneumonia, CKD, hypertension, hypothyroidism, history of pacemaker implantation (Medtronic), morbid obesity, anemia of chronic disease, pulmonary hypertension, paroxysmal A. fib, thrombocytopenia and obstructive sleep apnea. Reportedly the patient was previously on hospice Echocardiogram of June 2020 revealed ejection fraction of 40 to 45%, moderate to severe TR and right ventricular systolic pressure of 60 mmHg Echocardiogram of March 2021 revealed ejection fraction of 55 to 60%, mild concentric left ventricular hypertrophy, mildly dilated RV with good systolic function, mildly dilated left atrium, small TR/MR, dilated IVC and right ventricular systolic pressure 53 mmHg. Echocardiogram of June 23, 2021 revealed: Ejection fraction of 55 to 60%, mild concentric left ventricle hypertrophy, mild biatrial dilatation, mild TR and right ventricular systolic pressure of 40 mmHg. Echocardiogram of January 31, 2023 revealed dilated right-sided chambers, pulmonary hypertension (right ventricular systolic pressure of 62 mmHg) and left ventricle ejection fraction of 65%. Echocardiogram of April 14, 2023 revealed concentric left ventricular hypertrophy, EF of 60-65%, right ventricular enlargement, mild biatrial enlargement, pacing wire in right-sided chambers, mild TR and right ventricular systolic pressure of 75 mm Hg Echocardiogram of April 19, 2024 had reported concentric left ventricular hypertrophy, ejection fraction of 55%, pacing wire in right-sided chambers, severe TR and right ventricular systolic pressure of 80 mm Hg Hemoglobin: 11.1 - 11.5 - 10.2 - 9.8 - 10.7 - 11.1 - 12.2 - 12.9 Creatinine: 1.37 - 1.57 - 1.59 - 1.52 - 1.54 - 1.54 - 1.72 - 1.5 - 1.68 Potassium: 4.9 - 4.4 - 4.8 - 4.9 - 4.7 - 4.7 - 4.6 - 4.6 - 4.9 Troponin (high sensitive): BNP: 282.85 TSH: 3.80 Chest x-ray revealed: IMPRESSION: 1. Bibasilar pneumonia. Left-sided pacemaker. Repeat chest xry revealed: Frontal chest radiograph demonstrates no acute osseous or superficial soft tissue abnormalities. Left chest wall dual-chamber pacemaker. The trachea is midline. Cardiomegaly with pulmonary vascular congestion. Moderate elevation of the right hemidiaphragm with bibasilar airspace disease. No pneumothorax. Telemetry revealed sinus rhythm Echocardiogram revealed: Left ventricle: Concentric left ventricular hypertrophy was seen. LVEF was 55-60%. D-shaped septum pointed toward pulmonary hypertension. Right ventricle was significantly dilated with reduced systolic function. Left atrium was mildly dilated. Right atrium was significantly dilated. Pacing wire was seen in right-sided chambers. Aortic valve: Aortic valve was trileaflet. There was no aortic insufficiency/stenosis. There was mild mitral regurgitation. There was [id number] tricuspid regurgitation. There was trace pulmonary valve insufficiency. Right ventricular systolic pressure was assessed at 80 mm Hg. Aortic root was dilated at 4.5 cm. Ascending aorta was dilated at 4.2 cm. There was no pericardial effusion. Medtronic Pacemaker interrogation: Battery: Remaining longevity: 5.4 years; Lead impedance: Atrial 152/RV 380 Ohms; Programs sensitivity: Atrial 0.45/RV 0.90 mV; AAI-DDD: 60/130; PLAYER SERVICES REPRESENTATIVE: 0.9%, AP: 24.3%; Percent of time in AT/AF: Less than 0.1%; Normal functioning pacemaker Patient is a 68-year-old gentleman who presented with worsening shortness of breath, leg swellings and non-productive cough. Patient is admitted with acute on chronic respiratory failure. Chest x-ray questions multifocal pneumonia. Does have baseline history of COPD and COPD exacerbation could have contributed to the clinical picture. Does have baseline history of significant pulmonary hypertension and its worsening could have contributed to the clinical picture infection/pneumonia could have contributed to worsening pulmonary hypertension and respiratory failure. It is of note that the patient also is morbidly obese with poor functional capacity. Does have baseline history of noncompliance which could have contributed to the clinical picture. It is of note that the patient was not following with outside electro mechanical technologist (most likely as he was on hospice for a while). He mentions that he is not on hospice at this point. PM interrogation revealed normal functioning pacemaker. Being followed by Pulmonary/Nephrology. Patient mentioned that he is contemplating to go back to Hospice Multifocal Pneumonia Acute on chronic respiratory failure Acute on chronic diastolic heart failure COPD exacerbation Morbid obesity Pulmonary hypertension Status post pacemaker implantation (Medtronic) CKD, chronic Cardiac suggestion for care: Manage in tele Diuresis (dose as per Nephrology) Follow-up electrolytes and kidney function tests and correct abnormalities. Keep potassium above 4 magnesium above 2 Being followed by Nephrology also Sildenafil at 20 mg 3 times a day suggested Pulmonary follow up. terminal carman full anticoagulation (history of atrial fibrillation with high CHADS- VASc score), on Eliquis Antibiotic therapy for pneumonia as per primary team/Pulmonary. Cardiac galdamez, stable Goals of care as per primary team and patient wishes (Patient mentions that he wants Hospice) Further evaluation and management depends on the above and clinical course A total of 55 minutes was spent reviewing the patient record, examining the patient, making a diagnostic and therapeutic plan, discussing this plan with medical personnel, following up on diagnostic studies and following the patient for clinical stability excluding any and all procedures. At least 50% of this time was spent in direct, [id number] contact. Thank you for allowing me to participate in this patient's care. Further recommendations will depend on patient's clinical course. Please do not hesitate to contact me if you have any questions or concerns. This medical document was created using electronic medical record system with [employer] computerized dictation system. Although this document has been carefully reviewed, there may still be some phonetic and typographical errors. These areas are purely typographical due to the imperfection of the software programs, and do not reflect any compromise in the patient's medical care. Dietary Evaluation Review Comments: 1) nephro-love 1 tab daily 2) Monitor PO intake, lab values, weight trend, and I/O Expected Outcomes/Goals: To meet >75% estimated needs Fu 3-5 days Plan discussed with: Patient, Other (nurse) EBEN SPARROW MD Oct 11, 2024 08:06
[2024-10-11 08:27] LABS: Stomatocytes Few
--- NOTE | 2024-10-11 09:16 | DVHPN2 ---
Reviewed: Care Plan, H&P, Labs, Medications, Previous Orders, Radiology Changes from previous H/P or p: No Changes Eyes: No Pain, No Vision change, No Conjunctivae inflammation, No Eyelid inflammation, No Other, No Redness ENT: No Ear pain, No Ear discharge, No Nose pain, No Nose discharge, No Nose congestion, No Mouth pain, No Mouth swelling, No Throat pain, No Throat swelling, No Other Cardiovascular: No Chest Pain, No Palpitations, No Orthopnea, No Paroxysmal Noc. Dyspnea; Edema; No Lt Headedness, No Other Respiratory: Cough; No Dry; Shortness of breath; No SOB with excertion, No Wheezing, No Hemoptysis, No Pleuritic Pain, No Sputum; Other (SOB at rest) Gastrointestinal: No Nausea, No Vomiting, No Abdominal Pain, No Diarrhea, No Constipation, No Melena, No Hematochezia, No Other Genitourinary: No Dysuria, No Frequency, No Incontinence, No Hematuria, No Retention; Other (Loving catheter in place) Musculoskeletal: No other, No neck pain, No shoulder pain, No arm pain, No back pain, No hand pain, No leg pain, No foot pain Skin: No Rash, No Lesions, No Jaundice, No Bruising, No Other Objective Vitals Vital Signs Date Time Temp Pulse Resp B/P (MAP) Pulse Ox O2 Delivery O2 Flow Rate FiO2 10/11/24 06:21 80 16 100 10/11/24 06:13 Nasal Cannula 2.0 10/11/24 06:13 28 10/11/24 04:49 97.9 120/77 (91) 97.9 Intake/Output Intake and Output 10/11/24 07:00 Intake Total 2488 ml Output Total 3100 ml Balance -612 ml Intake Oral 2488 ml Output Urine Total 3100 ml Stool Total 0 ml Medications Current Medications Medications Dose Ordered Sig/Jeanine Route Start Time Stop Time Status Last Admin Dose Admin Patient Own Medication 10 mg DAILY PO 10/04/24 10:00 Atorvastatin Calcium 20 mg HS PO 10/03/24 22:00 10/10/24 21:16 20 MG Levofloxacin/ Dextrose 100 ml @ 100 mls/hr DAILY IV 10/04/24 10:00 10/10/24 08:51 100 MLS/HR Famotidine 20 mg Q12HR IV 10/03/24 22:00 10/10/24 21:18 20 MG Levothyroxine Sodium 25 mcg QAM@0600 PO 10/04/24 06:00 10/11/24 05:42 25 MCG Albuterol 2.5 mg Q4HPRN PRN NEB 10/03/24 15:00 10/05/24 10:14 2.5 MG Ipratropium [place] 0.5 mg Q4HPRN PRN NEB 10/03/24 15:00 10/05/24 10:14 0.5 MG Methylprednisolone Sodium Succinate 40 mg Q8HR IV 10/03/24 22:00 10/11/24 05:42 40 MG Sodium Chloride 10 ml Q8HR IV 10/03/24 22:00 10/11/24 05:15 10 ML Acetaminophen/ Hydrocodone Bitart 1 tab Q4HP PRN PO 10/03/24 15:00 10/03/24 16:57 1 TAB Ondansetron HCl 4 mg Q4HP PRN IV 10/03/24 15:00 Docusate Sodium 100 mg BIDPRN PRN PO 10/03/24 15:00 10/10/24 21:15 100 MG Acetaminophen 650 mg Q6HP PRN PO 10/03/24 15:00 Nitroglycerin 0.4 mg Q5MINP PRN SL 10/03/24 15:00 Hold Morphine Sulfate 2 mg Q30M PRN IV 10/03/24 15:00 Albuterol 2.5 mg Q6HR NEB 10/04/24 00:00 10/11/24 06:12 2.5 MG Ipratropium [place] 0.5 mg Q6HR NEB 10/04/24 00:00 10/11/24 06:12 0.5 MG Sildenafil Citrate 20 mg TID@08,14,20 PO 10/04/24 20:00 10/10/24 21:17 20 MG Apixaban 5 mg BID PO 10/04/24 22:00 10/10/24 21:19 5 MG Furosemide 40 mg DAILY IV 10/10/24 10:00 10/10/24 08:52 40 MG Acetazolamide 250 mg Q12HR PO 10/09/24 22:00 10/10/24 21:18 250 MG Laboratory Results Laboratory Tests 10/11/24 06:40 Chemistry Test 10/11/24 06:40 Albumin 3.7 g/dL (3.2-4.8) Calcium Level 8.9 mg/dL (8.7-10.4) Total Protein 7.7 g/dL (5.7-8.2) LFT Test 10/11/24 06:40 Alanine Aminotransferase (ALT) 24 U/L (7-40) Alkaline Phosphatase 74 U/L (46-116) Aspartate Amino Transferase (AST) 27 U/L (13-40) Total Bilirubin 0.9 mg/dL (0.2-1.0) Microbiology Microbiology Date/Time Source Procedure Growth Status 10/03/24 15:45 Blood Blood Culture - Final NO GROWTH AFTER 5 DAYS OF INCUBATION. Complete Labs and/or images reviewed: Labs reviewed by me, Image(s) reviewed by me Assessment/Plan Assessment/Plan Acute hypercarbic Respiratory failure: On 3 L of oxygen by nasal cannula Acute bilateral community-acquired multifocal pneumonia Gram-positive versus Gram-negative Levaquin consult by Dr. Engel appreciated Vianey test negative Rapid flu test negative History of home oxygen use History of pacemaker pacemaker interrogated by Dr. Ayers pacemaker working normally Atrial fibrillation Acute on chronic CHF exacerbation: Lasix consult by Dr. Ayers appreciated Chronic kidney disease nephrology consult by Vanesa appreciated COPD exacerbation Hypertension Hypercholesterolemia Hypothyroidism Morbid obesity BMI of 48 Gross obesity BMI of 50 Discussed with the patient and the patient's daughter elisabet Cervantes at bedside Patient will be discharged to long term facility for Rehab Plan discussed with: Patient Date of Service: Oct 11, 2024 Billing Provider: FADUMO VEGAS MD Common Visit Codes: [id number] INP/OBS CARE(HIGH) FADUMO VEGAS MD Oct 11, 2024 09:16
--- NOTE | 2024-10-11 09:23 | DVHDS2 ---
Discharge Summary Date of Admission Oct 03, 2024 at 14:57 Date of Discharge: Oct 11, 2024 Admitting Diagnosis Shortness of breath Wounds: None Labs/Diagnostic Data: Laboratory Results Test 10/11/24 06:40 10/10/24 06:40 10/04/24 15:18 10/03/24 15:42 White Blood Count 6.2 10^3/uL (4.4-10.8) Red Blood Count 4.67 10^6/uL (4.5-5.90) Hemoglobin 12.9 g/dL (13.5-17.5) Hematocrit 41.1 % (41.0-53.0) Mean Corpuscular Volume 87.9 fL (80.0-100.0) Mean Corpuscular Hemoglobin 27.7 pg (28.0-32.0) Mean Corpuscular Hemoglobin Concent 31.5 g/dL (32.0-36.0) Red Cell Distribution Width 16.7 % (11.8-14.3) Platelet Count 93 10^3/uL (140-450) Mean Platelet Volume 10.0 fL (6.9-10.8) Neutrophils (%) (Auto) 85.1 % (37.0-80.0) Lymphocytes (%) (Auto) 7.2 % (10.0-50.0) Monocytes (%) (Auto) 7.3 % (0.0-12.0) Eosinophils (%) (Auto) 0.1 % (0.0-7.0) Basophils (%) (Auto) 0.3 % (0.0-2.0) Neutrophils # (Auto) 5.3 10 ^3/uL (1.6-8.6) Lymphocytes # (Auto) 0.5 10 ^3/uL (0.4-5.4) Monocytes # (Auto) 0.5 10 ^3/uL (0-1.3) Eosinophils # (Auto) 0 10 ^3/uL (0-0.8) Basophils # (Auto) 0 10 ^3/uL (0-0.2) Nucleated Red Blood Cells 0.1 % Platelet Estimate Decreased Large Platelets Few Stomatocytes Few Sodium Level 138 mmol/L (136-145) Potassium Level 4.9 mmol/L (3.5-5.1) Chloride Level 93 mmol/L (98-107) Carbon Dioxide Level 39 mmol/L (20-31) Anion Gap 6 (5-15) Blood Urea Nitrogen 54 mg/dL (9-23) Creatinine 1.68 mg/dL (0.700-1.30) Glomerular Filtration Rate Calc 44 mL/min (>90) BUN/Creatinine Ratio 32.1 (10.0-20.0) Serum Glucose 129 mg/dL (74-106) Calcium Level 8.9 mg/dL (8.7-10.4) Total Bilirubin 0.9 mg/dL (0.2-1.0) Aspartate Amino Transferase (AST) 27 U/L (13-40) Alanine Aminotransferase (ALT) 24 U/L (7-40) Alkaline Phosphatase 74 U/L (46-116) Total Protein 7.7 g/dL (5.7-8.2) Albumin 3.7 g/dL (3.2-4.8) Magnesium Level 2.3 mg/dL (1.6-2.6) Influenza Type A Antigen Negative (Negative) Influenza Type B Antigen Negative (Negative) SARS-CoV-2 Antigen (Rapid) Negative (NEGATIVE) Lactic Acid Level 1.1 mmol/L (0.4-2.0) Troponin I High Sensitivity 13 ng/L (</=54) Test 10/03/24 13:05 B-Type Natriuretic Peptide 282.85 pg/mL (0-100) Thyroid Stimulating Hormone (TSH) 3.80 uIU/mL (0.55-4.78) Other Laboratory Tests 10/11/24 06:40 Brief Hx & Hospital Course: 68-year-old male with a history of COPD on home oxygen new CHF hypertension hypercholesterolemia hypothyroidism morbid obesity BMI of 50 came in for shortness of breaths found to have bilateral community-acquired multifocal pneumonia. Treated with the Levaquin. Seen by pulmonology Dr. Engel. The patient was on BiPAP for some time and now transitioned to oxygen by nasal cannula. History of pacemaker interrogated by Dr. Ayers working normally treated with Lasix for CHF nephrology consult by chronic kidney disease appreciated . Discussed with the patient and his daughter elisabet and being discharged to [facility] facility for rehab. General condition stable but poor at the time of discharge Consults/Reason for consult Cardiology Pulmonology Operations or Procedures Echocardiogram Condition at Discharge: Poor Final Diagnosis/Problems List Acute hypercarbic Respiratory failure: On 3 L of oxygen by nasal cannula Acute bilateral community-acquired multifocal pneumonia Gram-positive versus Gram-negative Levaquin consult by Dr. Engel appreciated Vianey test negative Rapid flu test negative History of home oxygen use History of pacemaker pacemaker interrogated by Dr. Ayers pacemaker working normally Atrial fibrillation Acute on chronic CHF exacerbation: Lasix consult by Dr. Ayers appreciated Chronic kidney disease nephrology consult by Vanesa appreciated COPD exacerbation Hypertension Hypercholesterolemia Hypothyroidism Morbid obesity BMI of 48 Gross obesity BMI of 50 Discharge Disposition: [facility] Facility Discharge Instruct/Medications Diet: Cardiac 2g Na,low cholest Activity: Light activity Follow Up/Referral: Follow up with the detention Medications: see list Scheduled Atorvastatin Calcium (Atorvastatin Calcium), 1 TAB PO HS, (Reported) Docusate Sodium (Colace), 1 CAP PO BID, (Reported) Fluticasone Propionate (Fluticasone Propionate Hf), 2 PUFF INH BID, (Reported) Furosemide (Furosemide), 1 TAB PO DAILY, (Reported) Hydrocodone-Acetaminophen (Hydrocodone Bitartrate/AC 10-325 mg), 1 TAB PO DAILY PRN, (Reported) Ipratropium [place] Hfa (Atrovent Hfa), 2 PUFF INH QID, (Reported) Levothyroxine Sodium (Levothyroxine Sodium), 1 TAB PO DAILY@BREAKFAST, (Reported) Scheduled PRN Albuterol Sulfate (Albuterol Sulfate), 1 VIAL NEB Q6HR PRN for SHORTNESS OF BREATH, (Reported) 39 (Time taken for discharge summary 39 mts) Discharge Statement: "Patient was advised to return to the ER or call 911 if any headaches, dizziness, shortness of breath, chest pain, abdominal pain, bleeding, fevers, or worsening of medical condition. Patient was counseled about treatment plan, medications, possible side effects, patientverbalized understanding. All questions were answered to the best of my ability. This discharge took greater then 30 minutes in planning, reviewing documentation, counseling the patient, and discussing with other team members." ASSESSMENT ASSESSMENT Hospital Course Improved marginally Assessment Acute hypercarbic Respiratory failure: On 3 L of oxygen by nasal cannula Acute bilateral community-acquired multifocal pneumonia Gram-positive versus Gram-negative Levaquin consult by Dr. Engel appreciated Vianey test negative Rapid flu test negative History of home oxygen use History of pacemaker pacemaker interrogated by Dr. Ayers pacemaker working normally Atrial fibrillation Acute on chronic CHF exacerbation: Lasix consult by Dr. Ayers appreciated Chronic kidney disease nephrology consult by Vanesa appreciated COPD exacerbation Hypertension Hypercholesterolemia Hypothyroidism Morbid obesity BMI of 48 Gross obesity BMI of 50 Date of Service: Oct 11, 2024 Billing Provider: FADUMO VEGAS MD Common Visit Codes: [id number] INP/OBS CARE(HIGH) FADUMO VEGAS MD Oct 11, 2024 09:23
--- NOTE | 2024-10-11 15:31 | DVHPN2 ---
Progress Note - Dictate Date Seen: Oct 11, 2024 Medical Necessity Reason Pt with a Central, PICC or Fol: No Subjective No acute issues overnight . Respiratory status has improved vital signs Vital Sign Date Time Temp Pulse Resp B/P (MAP) Pulse Ox O2 Delivery O2 Flow Rate FiO2 10/11/24 13:00 98.1 66 19 131/69 (89) 96 98.1 10/11/24 11:19 Nasal Cannula* 2 28 Total Intake and Output 10/10/24 10/10/24 10/11/24 15:00 23:00 07:00 Intake Total 594 ml 1444 ml 450 ml Output Total 2050 ml 1050 ml Balance 594 ml -606 ml -600 ml medications Current Medications Medications Dose Ordered Sig/Jeanine Route Start Time Stop Time Status Last Admin Dose Admin Patient Own Medication 10 mg DAILY PO 10/04/24 10:00 Atorvastatin Calcium 20 mg HS PO 10/03/24 22:00 10/10/24 21:16 20 MG Levofloxacin/ Dextrose 100 ml @ 100 mls/hr DAILY IV 10/04/24 10:00 10/11/24 10:09 100 MLS/HR Famotidine 20 mg Q12HR IV 10/03/24 22:00 10/11/24 10:09 20 MG Levothyroxine Sodium 25 mcg QAM@0600 PO 10/04/24 06:00 10/11/24 05:42 25 MCG Albuterol 2.5 mg Q4HPRN PRN NEB 10/03/24 15:00 10/05/24 10:14 2.5 MG Ipratropium [place] 0.5 mg Q4HPRN PRN NEB 10/03/24 15:00 10/05/24 10:14 0.5 MG Methylprednisolone Sodium Succinate 40 mg Q8HR IV 10/03/24 22:00 10/11/24 13:48 40 MG Sodium Chloride 10 ml Q8HR IV 10/03/24 22:00 10/11/24 13:48 10 ML Acetaminophen/ Hydrocodone Bitart 1 tab Q4HP PRN PO 10/03/24 15:00 10/03/24 16:57 1 TAB Ondansetron HCl 4 mg Q4HP PRN IV 10/03/24 15:00 Docusate Sodium 100 mg BIDPRN PRN PO 10/03/24 15:00 10/11/24 10:08 100 MG Acetaminophen 650 mg Q6HP PRN PO 10/03/24 15:00 Nitroglycerin 0.4 mg Q5MINP PRN SL 10/03/24 15:00 Hold Morphine Sulfate 2 mg Q30M PRN IV 10/03/24 15:00 Albuterol 2.5 mg Q6HR NEB 10/04/24 00:00 10/11/24 11:18 2.5 MG Ipratropium [place] 0.5 mg Q6HR NEB 10/04/24 00:00 10/11/24 11:19 0.5 MG Sildenafil Citrate 20 mg TID@08,14,20 PO 10/04/24 20:00 10/11/24 13:48 20 MG Apixaban 5 mg BID PO 10/04/24 22:00 10/11/24 10:09 5 MG Furosemide 40 mg DAILY IV 10/10/24 10:00 10/11/24 10:09 40 MG Acetazolamide 250 mg Q12HR PO 10/09/24 22:00 10/11/24 10:09 250 MG objective General Appearance: Alert, Oriented X3, Cooperative, No acute distress HEENT: Atraumatic, PERRLA, EOMI, Mucous membr. moist/pink Respiratory: Diminished breath sounds Cardiovascular: Regular rate, Normal S1, Normal S2, No murmurs Abdominal: Normal bowel sounds, Soft, No tenderness, No hepatospenomegaly, No masses Extremities: Edema decreased Skin: No rashes, No significant lesion Neuro: No focal deficits laboratory and microbiology Laboratory Tests 10/11/24 06:40 Test 10/11/24 06:40 Range/Units Serum Glucose 129 H 74-106 mg/dL Problem List KARLOS probably secondary to cardiorenal syndrome . Hyperkalemia , resolved Acute on chronic hypoxic respiratory failure Multifocal Pneumonia Acute on chronic diastolic heart failure COPD exacerbation Morbid obesity Pulmonary hypertension Status post pacemaker implantation Assessment/Plan GFR stable . Continue lasix and Diamox stable for dc from renal standpoint Dietary Evaluation Review Comments: 1) nephro-love 1 tab daily 2) Monitor PO intake, lab values, weight trend, and I/O Expected Outcomes/Goals: To meet >75% estimated needs Fu 3-5 days Plan discussed with: Patient ROBERTH FONTAINE MD Oct 11, 2024 15:31
--- NOTE | 2024-10-11 21:35 | DVHPN2 ---
Progress Note - Dictate Date Seen: Oct 11, 2024 Medical Necessity Reason Pt with a Central, PICC or Fol: No Subjective [facility] Patient seen and examined at bedside. On supplemental oxygen Overnight events reviewed. vital signs Vital Sign Date Time Temp Pulse Resp B/P (MAP) Pulse Ox O2 Delivery O2 Flow Rate FiO2 10/11/24 16:58 98.2 60 19 109/66 (80) 98 98.2 10/11/24 11:19 Nasal Cannula* 2 28 Total Intake and Output 10/10/24 10/10/24 10/11/24 15:00 23:00 07:00 Intake Total 594 ml 1444 ml 450 ml Output Total 2050 ml 1050 ml Balance 594 ml -606 ml -600 ml objective Gen.: Patient lying in bed in no apparent distress. On supplemental oxygen. Head: Normocephalic, atraumatic. Eyes: EOMI/PERRLA. Ears: Normal hearing. Normal anatomy. Neck/trachea: Trachea midline, supple. Nose: Normal external anatomy. Mouth: Moist mucous membranes. Chest: Decreased air entry bilaterally. No wheezing or rhonchi. Cardiovascular: Positive S1, positive S2. Regular rate and rhythm. Abdomen: Positive bowel sounds in all 4 quadrants. Soft, non-tender, non- distended. : Deferred. Rectal: Deferred. Skin: Warm, dry. Intact. Extremities: 2+ radial pulses bilaterally. No lower extremity edema. Neuro: Awake, alert, oriented x3. No gross motor or sensory deficits. Cranial nerves II through XII intact. Gait not assessed. laboratory and microbiology Laboratory Tests 10/11/24 06:40 Test 10/11/24 06:40 Range/Units Serum Glucose 129 H 74-106 mg/dL Assessment/Plan Impression: Acute hypoxic respiratory failure Dependence on supplemental oxygen Pneumonia, bilateral lower lobe COPD exacerbation Acute on chronic diastolic CHF Morbid obesity Chronic kidney disease Pulmonary hypertension, RVSP of 80 mmHg. Events: Patient seen and examined at bedside. On supplemental oxygen Remains on 3 LPM NC BiPAP at night while sleeping due to TOSHIA. Head of bed elevation Aspiration precautions Complete antibiotic course for bilateral lower lobe pneumonia. Continue bronchodilators Incentive spirometry IV steroids Sildenafil for pulmonary hypertension. Eliquis BID Echo reviewed, Pulmonary hypertension, RVSP of 80 mmHg. LVEF of 55-60% Cardiology recommendations appreciated. Completed Diamox course Continue diuresis with Lasix Fluid and salt restriction Monitor renal function Monitor electrolytes, supplement as necessary Maintain euvolemia Nephrology recommendations appreciated. Continue physical therapy. Wound care Disposition per hospitalist. Plan for discharge to specialized nursing facility per hospitalist. CXR on 10/05 revealed left chest wall dual-chamber pacemaker. Cardiomegaly with pulmonary vascular congestion. Moderate elevation of the right hemidiaphragm with bibasilar airspace disease. No pneumothorax. Labs and imaging reviewed. Rest of plan as noted below. Plan: Continue supplemental oxygen Titrate to keep O2 sats between 88-94%. BiPAP at night for TOSHIA. Bronchodilators. IV steroids Eliquis BID. Echo reviewed; Pulmonary hypertension, RVSP of 80 mmHg. Concentric left ventricular hypertrophy. LVEF of 55-60%. Mild mitral regurgitation. Vifwzujk-ce-kolode tricuspid regurgitation. Follow up Cardiology recommendations Diurese to euvolemia Monitor renal function. Monitor electrolytes. Supplement as necessary. Monitor ins and outs. Follow up Nephrology recommendations Diet and lifestyle modifications for weight reduction Morbid obesity complicates all care DVT prophylaxis. Prognosis: Poor given patient's multiple co-morbidities. Rest of plan per hospitalist and other consultants. Thank you Dr. Badillo for allowing me to participate in this patient's care. Further recommendations will depend on the patient's clinical course. Please do not hesitate to contact me if you have any questions or concerns. This medical document was created using an electronic medical record system with [employer] dictation system. Although these documentations are being carefully reviewed, there may still be some phonetic and typographical changes. The errors are purely typographical, due to imperfection on the software program, and do not reflect any compromise in the patient's medical care. Dietary Evaluation Review Comments: 1) nephro-love 1 tab daily 2) Monitor PO intake, lab values, weight trend, and I/O Expected Outcomes/Goals: To meet >75% estimated needs Fu 3-5 days Plan discussed with: Patient, Other (DELFINA Cervantes) ANCELMO MONTOYA MD Oct 11, 2024 21:35
== END 2024-10-11 18:42 | DRG 177 ==
LOC: EDBD 12:26 → ER 12:26 → OVERFLOW 14:57 → TELE-WESTW 22:44
PROVIDERS: ADMIT Family Medicine; ATTEND Family Medicine
PROC: 5A09357 Assistance with Respiratory Ventilation, Less than 24 Consecutive Hours, Continuous Positive Airway Pressure (ICD-10-PCS; 2024-10-03)
PROC: 5A0935A Assistance with Respiratory Ventilation, Less than 24 Consecutive Hours, High Flow/Velocity Cannula (ICD-10-PCS; 2024-10-03)
PROC: 5A09357 Assistance with Respiratory Ventilation, Less than 24 Consecutive Hours, Continuous Positive Airway Pressure (ICD-10-PCS; 2024-10-04)
PROC: 05HD33Z Insertion of Infusion Device into Right Cephalic Vein, Percutaneous Approach (ICD-10-PCS; 2024-10-04)
PROC: B54MZZA Ultrasonography of Right Upper Extremity Veins, Guidance (ICD-10-PCS; 2024-10-04)
PROC: 5A09357 Assistance with Respiratory Ventilation, Less than 24 Consecutive Hours, Continuous Positive Airway Pressure (ICD-10-PCS; 2024-10-05)
PROC: 4B02XSZ Measurement of Cardiac Pacemaker, External Approach (ICD-10-PCS; principal; 2024-10-06)
PROC: 5A09357 Assistance with Respiratory Ventilation, Less than 24 Consecutive Hours, Continuous Positive Airway Pressure (ICD-10-PCS; 2024-10-06)
PROC: 5A09357 Assistance with Respiratory Ventilation, Less than 24 Consecutive Hours, Continuous Positive Airway Pressure (ICD-10-PCS; 2024-10-07)
PROC: 5A09357 Assistance with Respiratory Ventilation, Less than 24 Consecutive Hours, Continuous Positive Airway Pressure (ICD-10-PCS; 2024-10-08)
PROC: 5A09357 Assistance with Respiratory Ventilation, Less than 24 Consecutive Hours, Continuous Positive Airway Pressure (ICD-10-PCS; 2024-10-09)
PROC: 5A09357 Assistance with Respiratory Ventilation, Less than 24 Consecutive Hours, Continuous Positive Airway Pressure (ICD-10-PCS; 2024-10-10)
PROC: 5A09357 Assistance with Respiratory Ventilation, Less than 24 Consecutive Hours, Continuous Positive Airway Pressure (ICD-10-PCS; 2024-10-11)
DX: J15.69 Pneumonia due to other Gram-negative bacteria (principal); I50.33 Acute on chronic diastolic (congestive) heart failure; J96.21 Acute and chronic respiratory failure with hypoxia; J96.22 Acute and chronic respiratory failure with hypercapnia; I13.0 Hypertensive heart and chronic kidney disease with heart failure and stage 1 through stage 4 chronic kidney disease, or unspecified chronic kidney disease; J44.0 Chronic obstructive pulmonary disease with (acute) lower respiratory infection; J44.1 Chronic obstructive pulmonary disease with (acute) exacerbation; R65.10 Systemic inflammatory response syndrome (SIRS) of non-infectious origin without acute organ dysfunction; N17.9 Acute kidney failure, unspecified; Z68.43 Body mass index [BMI] 50.0-59.9, adult; J15.9 Unspecified bacterial pneumonia; Z20.822 Contact with and (suspected) exposure to COVID-19; E66.01 Morbid (severe) obesity due to excess calories; I27.20 Pulmonary hypertension, unspecified; N18.9 Chronic kidney disease, unspecified; E11.22 Type 2 diabetes mellitus with diabetic chronic kidney disease; E78.00 Pure hypercholesterolemia, unspecified; E87.5 Hyperkalemia; G47.33 Obstructive sleep apnea (adult) (pediatric); I48.0 Paroxysmal atrial fibrillation; E03.9 Hypothyroidism, unspecified; I37.1 Nonrheumatic pulmonary valve insufficiency; F17.200 Nicotine dependence, unspecified, uncomplicated; I08.1 Rheumatic disorders of both mitral and tricuspid valves; Z91.013 Allergy to seafood; Z83.3 Family history of diabetes mellitus; Z82.49 Family history of ischemic heart disease and other diseases of the circulatory system; Z80.0 Family history of malignant neoplasm of digestive organs; Z79.899 Other long term (current) drug therapy; Z99.81 Dependence on supplemental oxygen; Z95.0 Presence of cardiac pacemaker; Z91.199 Patient's noncompliance with other medical treatment and regimen due to unspecified reason
CPT/HCPCS: 36415; 71045; 80048; 80053; 83605; 83735; 83880; 84443; 84484; 85025; 87040; 87077; 87186; 87426; 87804; 93005; 93306; 94640; 94660; 96365; 96375; 97110; 97163; 99291; G0378; J1956; J3490; P9047